=== PATIENT | male | born 1930 | race Caucasian/White ===

== ENCOUNTER 2017-06-24 19:10 | Inpatient (IN) | payer MEDICAID ==
[~2017-06-24] VITALS: Ht 165.1 cm; Wt 49.4 kg
[2017-06-24] MEDS ORDERED: ONDANSETRON 4 MG/2 ML VIAL IV ONE (19:30)
[2017-06-24] MEDS ORDERED: IV NORMAL SALINE 1000 ML BAG IV ONE ×2 (19:30→21:00)
[2017-06-24] MEDS ORDERED: LEVO250T2 PO (19:39)
[2017-06-24] MEDS ORDERED: FAMO20TA8 PO (19:39)
[2017-06-24] MEDS ORDERED: LIDO5JEL8 MM (19:39)
[2017-06-24] MEDS ORDERED: CHOL20004 PO (19:39)
[2017-06-24] MEDS ORDERED: DRON5CAP2 PO (19:39)
[2017-06-24] MEDS ORDERED: APIX2.5T PO (19:39)
[2017-06-24] MEDS ORDERED: TAMS0.4C34 PO (19:39)
[2017-06-24 20:31] LABS: BASOPHILS # (AUTO) 0.1 K/uL (0.0-8.0); BASOPHILS % (AUTO) 0.8 % (0.0-2.0); EOSINOPHILS % (AUTO) 0.4 % (0.0-7.0); HEMOGLOBIN 11.6 G/DL (14.0-18.0); LYMPHOCYTES # (AUTO) 1.7 K/UL (0.8-4.8); LYMPHOCYTES % (AUTO) 14.1 % (20.5-51.5); MEAN CORPUSCULAR HEMOGLOBIN 27.3 UUG (27.0-31.0); MEAN CORPUSCULAR HGB CONC 32 g/dL (32.0-37.0); MEAN CORPUSCULAR VOLUME 84.9 FL (82.0-92.0); MONOCYTES # (AUTO) 0.6 K/UL (0.1-1.30); MONOCYTES % (AUTO) 4.7 % (0.0-11.0); NEUTROPHILS # (AUTO) 9.4 K/UL (1.8-8.9); PLATELET COUNT (AUTO) 220 K/UL (150-450); RED BLOOD CELL COUNT(AUTO) 4.24 MIL/UL (4.7-6.1); WHITE BLOOD COUNT (AUTO) 11.8 K/UL (4.0-11.2)
[2017-06-24 20:41] LABS: *BLOOD, URINE 2+ (NEGATIVE); *CLARITY,URINE SLIGHTLY CLOUDY (CLEAR); *COLOR,URINE YELLOW (YELLOW); *KETONES,URINE NEGATIVE (NEGATIVE); *PROTEIN,URINE 2+ (NEGATIVE); *UROBILINOGEN,URINE 0.2 E.U./dl (NORMAL); LEUKOCYTE ESTERASE ,URINE 1+ (NEGATIVE); NITRITE, URINE NEGATIVE (NEGATIVE); PH,URINE 5.5 (5.0-8.0); UGLUCOSE NEGATIVE (NEGATIVE)
[2017-06-24] MEDS ORDERED: ONDANSETRON 4 MG/2 ML VIAL ONE (20:48)
[2017-06-24 20:49] LABS: ALANINE AMINOTRANSFERASE 14 U/L (16-63); ALKALINE PHOSPHATASE 136 U/L (50-136); ASPARTATE AMINOTRANSFERASE 7 U/L (15-37); BILIRUBIN,DIRECT 0.2 mg/dL (0.0-0.2); BILIRUBIN,TOTAL 0.7 mg/dL (0.2-1.0); CARBON DIOXIDE 14 mmol/L (21-32); CREATININE 3.5 mg/dL (0.6-1.3); GLUCOSE 101 mg/dL (74-106); POTASSIUM 4.7 mmol/L (3.5-5.1); TOTAL PROTEIN, SERUM 7.4 g/dL (6.4-8.2); UREA NITROGEN, BLOOD 62 mg/dL (7-18)
[2017-06-24 20:52] LABS: CHLORIDE 126 mmol/L (98-107)
[2017-06-24] MEDS ORDERED: PIPERACILLIN SODIUM/TAZOBACTAM 3.375 G in IV DEXTROSE 5% 50 ML IV ONE (21:00)
[2017-06-24 21:08] LABS: *BILIRUBIN,URIN NEGATIVE (NEGATIVE)
[2017-06-24 21:10] LABS: BACTERIA,URINE MODERATE /HPF (NONE SEEN); CALCIUM OXALATE CRYSTALS,UR MODERATE /HPF (NONE SEEN); MUCUS,URINE MANY /LPF (0-FEW)
[2017-06-24] MEDS ORDERED: PIPERACILLIN/TAZOBACTAM/D5W 50 ML IV ONE (21:23)
[2017-06-24 22:00] VITALS: BP 112/71
[2017-06-24] MEDS ORDERED: CEFTRIAXONE 1 G in IV DEXTROSE 5% 50 ML IV SCH (22:45)
[2017-06-24] MEDS ORDERED: ONDANSETRON 4 MG/2 ML VIAL IV PRN (22:45)
[2017-06-24] MEDS ORDERED: IV 1/2NS 1000 ML 1,000 ML IV PRN (22:45)
[2017-06-24] MEDS: Z GUARD REMEDY PASTE 57 GM TUBE TOP SCH (23:17)
[2017-06-24] MEDS ORDERED: CEFTRIAXONE 1 G VIAL ONE (23:19)
[2017-06-25] VITALS (7 sets, daily range): BP systolic 90–139; BP diastolic 53–65
[2017-06-25 07:49] LABS: BASOPHILS % (AUTO) 0.4 % (0.0-2.0); EOSINOPHILS % (AUTO) 0.4 % (0.0-7.0); HEMATOCRIT 26.4 % (36.7-47.1); HEMOGLOBIN 8.7 g/dL (12.5-16.3); LYMPHOCYTES # (AUTO) 1.7 K/uL (20.0-40.0); LYMPHOCYTES % (AUTO) 18.4 % (20.5-51.5); MEAN CORPUSCULAR HEMOGLOBIN 28.3 uug (23.8-33.4); MEAN CORPUSCULAR HGB CONC 33 g/dL (32.5-36.3); MEAN CORPUSCULAR VOLUME 85.9 fL (73.0-96.2); MONOCYTES # (AUTO) 0.7 K/uL (2.0-10.0); NEUTROPHILS # (AUTO) 6.9 K/uL (1.8-8.9); NEUTROPHILS % (AUTO) 73.8 % (38.5-71.5); PLATELET COUNT (AUTO) 154 K/uL (152-348); RED BLOOD CELL COUNT(AUTO) 3.07 MIL/uL (4.06-5.63); WHITE BLOOD COUNT (AUTO) 9.4 K/uL (3.6-10.2)
[2017-06-25 08:00] LABS: ALANINE AMINOTRANSFERASE 12 U/L (16-63); ALKALINE PHOSPHATASE 103 U/L (50-136); ASPARTATE AMINOTRANSFERASE 10 U/L (15-37); BILIRUBIN,TOTAL 0.7 mg/dL (0.2-1.0); CARBON DIOXIDE 15 mmol/L (21-32); CHOLESTEROL 167 mg/dL (<200); CREATININE 3.5 mg/dL (0.6-1.3); GLUCOSE 114 mg/dL (74-106); HDL CHOLESTEROL 25 mg/dL (40-60); MAGNESIUM 2.1 mg/dL (1.8-2.4); PHOSPHOROUS 4.2 mg/dL (2.5-4.9); POTASSIUM 4.6 mmol/L (3.5-5.1); TOTAL PROTEIN, SERUM 6.1 g/dL (6.4-8.2); TRIGLYCERIDES 143 MG/DL (30-150); UREA NITROGEN, BLOOD 61 mg/dL (7-18)
[2017-06-25 08:39] LABS: CHLORIDE 127 mmol/L (98-107)
[2017-06-25] MEDS ORDERED: Medication Not On Formulary EA (Apixaban (Eliquis) 2.5 MG) PO SCH (09:00)
[2017-06-25] MEDS ORDERED: Medication Not On Formulary EA (Cholecalciferol (Vitamin D3) (Vitamin D CAPSULE) 2,000 U PO SCH (09:00)
[2017-06-25] MEDS ORDERED: FAMOTIDINE 20 MG TABLET PO SCH (09:00)
[2017-06-25] MEDS ORDERED: DRONABINOL 5 MG PO SCH (09:00)
[2017-06-25 09:24] LABS: THYROID STIMULATING HORMONE 0.619 mIU/mL (0.358-3.740)
[2017-06-25] MEDS: DRONABINOL 2.5 MG CAPSULE PO SCH ×2 (09:32→17:04)
[2017-06-25] MEDS: NYSTATIN SUSPENSION 5 ML LIQUID UDC PO SCH ×4 (09:32→20:47)
[2017-06-25] MEDS: CHOLECALCIFEROL 1,000 UNIT TABLET PO SCH (09:33)
[2017-06-25] MEDS: FAMOTIDINE 20 MG TABLET PO SCH (09:33)
[2017-06-25] MEDS: Z GUARD REMEDY PASTE 57 GM TUBE TOP SCH ×2 (09:34→20:47)
[2017-06-25 09:50] LABS: IRON, SERUM 27 ug/dL (50-175)
[2017-06-25] MEDS ORDERED: APIXABAN 5 MG TABLET PO ONE (12:00)
[2017-06-25 13:00] LABS: ABG BASE EXCESS -10.6 mmol/L; ABG HCO3 12.5 mmol/L; ABG PH 7.413 (7.350-7.450); ABG PO2 98.7 mmHg (75.0-100.0); ABG SITE RIGHT BRACHIAL; ABG TOTAL HEMOGLOBIN 8.9 G/dL (13.5-18.0); COHb 1.2 % (0.5-1.5); MetHb 0.5 % (0.0-1.5); VENT MODE ROOM AIR
[2017-06-25] MEDS: APIXABAN 5 MG TABLET PO SCH (17:04)
[2017-06-25] MEDS: TAMSULOSIN HCL 0.4 MG CAP.SR.24H PO SCH (20:47)
[2017-06-25] MEDS: ATORVASTATIN 10 MG TABLET PO SCH (20:47)
[2017-06-25] MEDS: IV D5W 1000ML 1,000 ML IV PRN ×2 (22:02→22:24)
[2017-06-25] MEDS ORDERED: CEFTRIAXONE 1 G in IV DEXTROSE 5% 50 ML IV SCH (23:00)
[2017-06-26] VITALS (7 sets, daily range): BP systolic 96–151; BP diastolic 55–77
[2017-06-26 07:07] LABS: BASOPHILS % (AUTO) 0.5 % (0.0-2.0); EOSINOPHILS # (AUTO) 0.2 K/uL (0.0-0.7); EOSINOPHILS % (AUTO) 2.3 % (0.0-7.0); LYMPHOCYTES # (AUTO) 2.2 K/UL (0.8-4.8); MEAN CORPUSCULAR HEMOGLOBIN 28.1 UUG (27.0-31.0); MEAN CORPUSCULAR HGB CONC 33 g/dL (32.0-37.0); MEAN CORPUSCULAR VOLUME 86.1 FL (82.0-92.0); MONOCYTES # (AUTO) 0.7 K/UL (0.1-1.30); MONOCYTES % (AUTO) 9.5 % (0.0-11.0); NEUTROPHILS # (AUTO) 4.7 K/UL (1.8-8.9); NEUTROPHILS % (AUTO) 59.7 % (38.5-71.5); PLATELET COUNT (AUTO) 153 K/UL (150-450); WHITE BLOOD COUNT (AUTO) 7.8 K/UL (4.0-11.2)
[2017-06-26 07:25] LABS: ALANINE AMINOTRANSFERASE 11 U/L (16-63); ALKALINE PHOSPHATASE 100 U/L (50-136); ASPARTATE AMINOTRANSFERASE 7 U/L (15-37); BILIRUBIN,TOTAL 0.4 mg/dL (0.2-1.0); CARBON DIOXIDE 14 mmol/L (21-32); CREATININE 3.2 mg/dL (0.6-1.3); GLUCOSE 93 mg/dL (74-106); MAGNESIUM 2.1 mg/dL (1.8-2.4); PHOSPHOROUS 3.3 mg/dL (2.5-4.9); POTASSIUM 3.7 mmol/L (3.5-5.1); TOTAL PROTEIN, SERUM 6.2 g/dL (6.4-8.2); UREA NITROGEN, BLOOD 56 mg/dL (7-18)
[2017-06-26 07:41] LABS: HEMATOCRIT 25.8 % (40-50); HEMOGLOBIN 8.3 G/DL (14.0-18.0); RED BLOOD CELL COUNT(AUTO) 3.01 MIL/UL (4.7-6.1)
[2017-06-26 08:40] LABS: CHLORIDE 129 mmol/L (98-107)
[2017-06-26] MEDS: APIXABAN 5 MG TABLET PO SCH (08:45)
[2017-06-26] MEDS: CHOLECALCIFEROL 1,000 UNIT TABLET PO SCH (08:46)
[2017-06-26] MEDS: DRONABINOL 2.5 MG CAPSULE PO SCH ×2 (08:46→18:12)
[2017-06-26] MEDS: FAMOTIDINE 20 MG TABLET PO SCH (08:46)
[2017-06-26] MEDS: NYSTATIN SUSPENSION 5 ML LIQUID UDC PO SCH ×4 (08:46→20:26)
[2017-06-26] MEDS: Z GUARD REMEDY PASTE 57 GM TUBE TOP SCH ×2 (08:54→20:26)
[2017-06-26] MEDS ORDERED: PIPERACILLIN/TAZOBACTAM/D5W 50 ML IV SCH (09:15)
[2017-06-26] MEDS: PIPERACILLIN/TAZOBACTAM/D5W 2.25 G in PREMIXED 1 EACH IV SCH ×3 (10:36→21:44)
[2017-06-26] MEDS: IV D5W 1000ML 1,000 ML IV PRN (10:40)
[2017-06-26] MEDS ORDERED: IV D5W 1000ML 1,000 ML IV ONE (13:15)
[2017-06-26] MEDS: MUPIROCIN 2% OINT 22 GM TUBE NS SCH ×2 (16:11→20:25)
[2017-06-26 17:14] LABS: *BILIRUBIN,URIN NEGATIVE (NEGATIVE); *BLOOD, URINE 2+ (NEGATIVE); *COLOR,URINE YELLOW (YELLOW); *KETONES,URINE NEGATIVE (NEGATIVE); *PROTEIN,URINE 1+ (NEGATIVE); *UROBILINOGEN,URINE 0.2 E.U./dl (NORMAL); LEUKOCYTE ESTERASE ,URINE 1+ (NEGATIVE); NITRITE, URINE NEGATIVE (NEGATIVE); PH,URINE 5.5 (5.0-8.0); UGLUCOSE NEGATIVE (NEGATIVE)
[2017-06-26 17:15] LABS: *CLARITY,URINE SLIGHTLY HAZY (CLEAR)
[2017-06-26 17:18] LABS: *CREATININE,URINE 28.1 mg/dL (30-125); *URINE TOTAL PROTEIN RANDOM 43.5 mg/dL (<150/24HR)
[2017-06-26 17:24] LABS: SQUAMOUS EPITHELIAL CELL,UR FEW /HPF (NONE SEEN)
[2017-06-26 17:25] LABS: BACTERIA,URINE FEW /HPF (NONE SEEN)
[2017-06-26] MEDS: ATORVASTATIN 10 MG TABLET PO SCH (20:25)
[2017-06-26] MEDS: TAMSULOSIN HCL 0.4 MG CAP.SR.24H PO SCH (20:25)
[2017-06-27 04:50] VITALS: BP 101/63
[2017-06-27] MEDS: PIPERACILLIN/TAZOBACTAM/D5W 2.25 G in PREMIXED 1 EACH IV SCH ×2 (05:16→14:32)
[2017-06-27 07:23] LABS: ALANINE AMINOTRANSFERASE 12 U/L (16-63); ALKALINE PHOSPHATASE 87 U/L (50-136); ASPARTATE AMINOTRANSFERASE 6 U/L (15-37); BILIRUBIN,TOTAL 0.7 mg/dL (0.2-1.0); CARBON DIOXIDE 15 mmol/L (21-32); CHLORIDE 122 mmol/L (98-107); CREATININE 2.8 mg/dL (0.6-1.3); GLUCOSE 84 mg/dL (74-106); MAGNESIUM 1.9 mg/dL (1.8-2.4); PHOSPHOROUS 3.6 mg/dL (2.5-4.9); POTASSIUM 3.7 mmol/L (3.5-5.1); TOTAL PROTEIN, SERUM 5.7 g/dL (6.4-8.2); UREA NITROGEN, BLOOD 42 mg/dL (7-18)
[2017-06-27 08:06] LABS: BASOPHILS % (AUTO) 0.8 % (0.0-2.0); EOSINOPHILS # (AUTO) 0.2 K/uL (0.0-0.7); EOSINOPHILS % (AUTO) 3.7 % (0.0-7.0); HEMATOCRIT 24.3 % (36.7-47.1); LYMPHOCYTES # (AUTO) 2.3 K/uL (20.0-40.0); LYMPHOCYTES % (AUTO) 39.1 % (20.5-51.5); MEAN CORPUSCULAR HEMOGLOBIN 28.2 uug (23.8-33.4); MEAN CORPUSCULAR HGB CONC 33 g/dL (32.5-36.3); MEAN CORPUSCULAR VOLUME 85.9 fL (73.0-96.2); MONOCYTES # (AUTO) 0.6 K/uL (2.0-10.0); MONOCYTES % (AUTO) 10.3 % (0.0-11.0); NEUTROPHILS # (AUTO) 2.7 K/uL (1.8-8.9); NEUTROPHILS % (AUTO) 46.1 % (38.5-71.5); PLATELET COUNT (AUTO) 131 K/uL (152-348); RED BLOOD CELL COUNT(AUTO) 2.83 MIL/uL (4.06-5.63)
[2017-06-27 08:08] LABS: WHITE BLOOD COUNT (AUTO) 5.8 K/uL (3.6-10.2)
[2017-06-27 08:19] VITALS: BP 95/64
[2017-06-27] MEDS: Z GUARD REMEDY PASTE 57 GM TUBE TOP SCH ×2 (09:00→20:10)
[2017-06-27] MEDS: DRONABINOL 2.5 MG CAPSULE PO SCH ×2 (10:26→17:00)
[2017-06-27] MEDS: CHOLECALCIFEROL 1,000 UNIT TABLET PO SCH (10:27)
[2017-06-27] MEDS: FAMOTIDINE 20 MG TABLET PO SCH (10:27)
[2017-06-27] MEDS: NYSTATIN SUSPENSION 5 ML LIQUID UDC PO SCH ×4 (10:36→20:09)
[2017-06-27 11:02] VITALS: BP 119/51
[2017-06-27] MEDS: MUPIROCIN 2% OINT 22 GM TUBE NS SCH ×2 (12:55→20:13)
[2017-06-27 15:22] VITALS: BP 114/60
[2017-06-27] MEDS: MEROPENEM 500 MG in IV NORMAL SALINE 50 ML IV SCH (17:25)
[2017-06-27] MEDS: LINEZOLID IV 600 MG in PREMIXED 1 EACH IV SCH (18:19)
[2017-06-27] MEDS: ACETAMINOPHEN 325 MG TABLET PO PRN (20:09)
[2017-06-27] MEDS: ATORVASTATIN 10 MG TABLET PO SCH (20:09)
[2017-06-27] MEDS: TAMSULOSIN HCL 0.4 MG CAP.SR.24H PO SCH (20:09)
[2017-06-27 20:31] VITALS: BP 95/59
[2017-06-28 04:10] VITALS: BP 105/63
[2017-06-28] MEDS: LINEZOLID IV 600 MG in PREMIXED 1 EACH IV SCH ×2 (05:27→19:00)
[2017-06-28] MEDS: MEROPENEM 500 MG in IV NORMAL SALINE 50 ML IV SCH ×2 (05:27→17:57)
[2017-06-28] MEDS: Z GUARD REMEDY PASTE 57 GM TUBE TOP SCH ×2 (05:27→20:14)
[2017-06-28] MEDS: NYSTATIN SUSPENSION 5 ML LIQUID UDC PO SCH ×4 (09:06→20:12)
[2017-06-28] MEDS: CHOLECALCIFEROL 1,000 UNIT TABLET PO SCH (09:06)
[2017-06-28] MEDS: FAMOTIDINE 20 MG TABLET PO SCH (09:06)
[2017-06-28] MEDS: MUPIROCIN 2% OINT 22 GM TUBE NS SCH ×2 (10:09→20:15)
[2017-06-28] MEDS: DRONABINOL 2.5 MG CAPSULE PO SCH ×2 (10:09→17:54)
[2017-06-28 11:41] VITALS: BP 123/51
[2017-06-28 15:49] VITALS: BP 98/60
[2017-06-28 20:09] VITALS: BP 101/65
[2017-06-28] MEDS: ATORVASTATIN 10 MG TABLET PO SCH (20:12)
[2017-06-28] MEDS: TAMSULOSIN HCL 0.4 MG CAP.SR.24H PO SCH (20:13)
[2017-06-28] MEDS: LACTOBACILLUS RHAMNOSUS GG 1 EACH CAPSULE PO SCH (20:13)
[2017-06-29 04:05] VITALS: BP 111/63
[2017-06-29] MEDS: MEROPENEM 500 MG in IV NORMAL SALINE 50 ML IV SCH ×2 (05:51→17:08)
[2017-06-29] MEDS: LINEZOLID IV 600 MG in PREMIXED 1 EACH IV SCH ×2 (05:51→17:45)
[2017-06-29 06:44] LABS: BASOPHILS % (AUTO) 0.6 % (0.0-2.0); EOSINOPHILS # (AUTO) 0.2 K/uL (0.0-0.7); EOSINOPHILS % (AUTO) 3.3 % (0.0-7.0); HEMATOCRIT 27.1 % (40-50); HEMOGLOBIN 8.8 G/DL (14.0-18.0); LYMPHOCYTES # (AUTO) 2.8 K/UL (0.8-4.8); MEAN CORPUSCULAR HEMOGLOBIN 28.4 UUG (27.0-31.0); MEAN CORPUSCULAR HGB CONC 33 g/dL (32.0-37.0); MEAN CORPUSCULAR VOLUME 86.9 FL (82.0-92.0); MONOCYTES # (AUTO) 0.8 K/UL (0.1-1.30); MONOCYTES % (AUTO) 10.9 % (0.0-11.0); NEUTROPHILS # (AUTO) 3.2 K/UL (1.8-8.9); NEUTROPHILS % (AUTO) 45.2 % (38.5-71.5); PLATELET COUNT (AUTO) 147 K/UL (150-450); RED BLOOD CELL COUNT(AUTO) 3.12 MIL/UL (4.7-6.1)
[2017-06-29 07:03] LABS: CARBON DIOXIDE 16 mmol/L (21-32); CHLORIDE 117 mmol/L (98-107); POTASSIUM 3.7 mmol/L (3.5-5.1)
[2017-06-29 07:04] LABS: ALANINE AMINOTRANSFERASE 10 U/L (16-63); ALKALINE PHOSPHATASE 88 U/L (50-136); ASPARTATE AMINOTRANSFERASE 6 U/L (15-37); BILIRUBIN,TOTAL 0.6 mg/dL (0.2-1.0); CREATININE 2.6 mg/dL (0.6-1.3); GLUCOSE 82 mg/dL (74-106); MAGNESIUM 1.9 mg/dL (1.8-2.4); PHOSPHOROUS 3.2 mg/dL (2.5-4.9); TOTAL PROTEIN, SERUM 5.6 g/dL (6.4-8.2); UREA NITROGEN, BLOOD 29 mg/dL (7-18)
[2017-06-29] MEDS: MUPIROCIN 2% OINT 22 GM TUBE NS SCH ×2 (08:49→20:09)
[2017-06-29] MEDS: Z GUARD REMEDY PASTE 57 GM TUBE TOP SCH ×2 (09:13→20:08)
[2017-06-29] MEDS: LACTOBACILLUS RHAMNOSUS GG 1 EACH CAPSULE PO SCH ×2 (09:29→20:08)
[2017-06-29] MEDS: CHOLECALCIFEROL 1,000 UNIT TABLET PO SCH (09:30)
[2017-06-29] MEDS: NYSTATIN SUSPENSION 5 ML LIQUID UDC PO SCH ×4 (09:32→20:08)
[2017-06-29] MEDS: DRONABINOL 2.5 MG CAPSULE PO SCH ×2 (09:33→16:23)
[2017-06-29] MEDS: FAMOTIDINE 20 MG TABLET PO SCH (09:33)
[2017-06-29 12:01] VITALS: BP 98/54
[2017-06-29 16:07] VITALS: BP 100/58
[2017-06-29] MEDS: ATORVASTATIN 10 MG TABLET PO SCH (20:08)
[2017-06-29] MEDS: TAMSULOSIN HCL 0.4 MG CAP.SR.24H PO SCH (20:08)
[2017-06-29 20:55] VITALS: BP 110/64
[2017-06-30 04:55] VITALS: BP 115/67
[2017-06-30] MEDS: MEROPENEM 500 MG in IV NORMAL SALINE 50 ML IV SCH ×2 (05:30→17:06)
[2017-06-30] MEDS: LINEZOLID IV 600 MG in PREMIXED 1 EACH IV SCH (05:30)
[2017-06-30] MEDS: LACTOBACILLUS RHAMNOSUS GG 1 EACH CAPSULE PO SCH ×2 (08:20→21:48)
[2017-06-30] MEDS: DRONABINOL 2.5 MG CAPSULE PO SCH ×2 (08:20→16:05)
[2017-06-30] MEDS: CHOLECALCIFEROL 1,000 UNIT TABLET PO SCH (08:21)
[2017-06-30] MEDS: NYSTATIN SUSPENSION 5 ML LIQUID UDC PO SCH ×4 (08:21→21:48)
[2017-06-30] MEDS: MUPIROCIN 2% OINT 22 GM TUBE NS SCH ×2 (08:21→21:50)
[2017-06-30] MEDS: FAMOTIDINE 20 MG TABLET PO SCH (08:21)
[2017-06-30] MEDS: Z GUARD REMEDY PASTE 57 GM TUBE TOP SCH ×2 (08:22→21:48)
[2017-06-30 11:03] VITALS: BP 125/61
[2017-06-30 15:22] VITALS: BP 119/67
[2017-06-30] MEDS: LINEZOLID 600 MG TABLET PO SCH (17:06)
[2017-06-30 18:24] LABS: *OCCULT BLOOD STOOL NEGATIVE (NEGATIVE)
[2017-06-30 19:10] VITALS: BP 113/59
[2017-06-30] MEDS: TAMSULOSIN HCL 0.4 MG CAP.SR.24H PO SCH (21:48)
[2017-06-30] MEDS: ATORVASTATIN 10 MG TABLET PO SCH (21:48)
[2017-06-30] MEDS: ACETAMINOPHEN 325 MG TABLET PO PRN (22:54)
[2017-07-01] MEDS: MEROPENEM 500 MG in IV NORMAL SALINE 50 ML IV SCH ×2 (05:46→17:58)
[2017-07-01] MEDS: LINEZOLID 600 MG TABLET PO SCH ×2 (05:46→17:59)
[2017-07-01 06:13] VITALS: BP 119/60
[2017-07-01] MEDS: DRONABINOL 2.5 MG CAPSULE PO SCH ×2 (08:21→16:55)
[2017-07-01] MEDS: LACTOBACILLUS RHAMNOSUS GG 1 EACH CAPSULE PO SCH ×2 (08:22→21:12)
[2017-07-01] MEDS: CHOLECALCIFEROL 1,000 UNIT TABLET PO SCH (08:22)
[2017-07-01] MEDS: MUPIROCIN 2% OINT 22 GM TUBE NS SCH ×2 (08:22→21:13)
[2017-07-01] MEDS: FAMOTIDINE 20 MG TABLET PO SCH (08:22)
[2017-07-01] MEDS: NYSTATIN SUSPENSION 5 ML LIQUID UDC PO SCH ×4 (08:22→21:12)
[2017-07-01] MEDS: Z GUARD REMEDY PASTE 57 GM TUBE TOP SCH ×2 (08:23→21:13)
[2017-07-01 09:54] LABS: BASOPHILS % (AUTO) 0.7 % (0.0-2.0); EOSINOPHILS # (AUTO) 0.1 K/uL (0.0-0.7); EOSINOPHILS % (AUTO) 2.2 % (0.0-7.0); HEMATOCRIT 29.8 % (40-50); HEMOGLOBIN 9.5 G/DL (14.0-18.0); LYMPHOCYTES # (AUTO) 2.3 K/UL (0.8-4.8); MEAN CORPUSCULAR HEMOGLOBIN 27.4 UUG (27.0-31.0); MEAN CORPUSCULAR HGB CONC 32 g/dL (32.0-37.0); MEAN CORPUSCULAR VOLUME 85.8 FL (82.0-92.0); MONOCYTES # (AUTO) 0.7 K/UL (0.1-1.30); MONOCYTES % (AUTO) 10.9 % (0.0-11.0); NEUTROPHILS # (AUTO) 3.6 K/UL (1.8-8.9); NEUTROPHILS % (AUTO) 51.2 % (38.5-71.5); PLATELET COUNT (AUTO) 182 K/UL (150-450); RED BLOOD CELL COUNT(AUTO) 3.48 MIL/UL (4.7-6.1); WHITE BLOOD COUNT (AUTO) 6.7 K/UL (4.0-11.2)
[2017-07-01 10:09] LABS: ALANINE AMINOTRANSFERASE 14 U/L (16-63); ALKALINE PHOSPHATASE 96 U/L (50-136); ASPARTATE AMINOTRANSFERASE 12 U/L (15-37); BILIRUBIN,TOTAL 0.5 mg/dL (0.2-1.0); CARBON DIOXIDE 17 mmol/L (21-32); CHLORIDE 114 mmol/L (98-107); CREATININE 2.3 mg/dL (0.6-1.3); GLUCOSE 98 mg/dL (74-106); POTASSIUM 4.1 mmol/L (3.5-5.1); TOTAL PROTEIN, SERUM 6.1 g/dL (6.4-8.2); UREA NITROGEN, BLOOD 24 mg/dL (7-18)
[2017-07-01 11:31] VITALS: BP 119/66
[2017-07-01 15:51] VITALS: BP 110/65
[2017-07-01 20:00] VITALS: BP 101/69
[2017-07-01] MEDS: TAMSULOSIN HCL 0.4 MG CAP.SR.24H PO SCH (21:12)
[2017-07-01] MEDS: ATORVASTATIN 10 MG TABLET PO SCH (21:12)
[2017-07-02] MEDS: MEROPENEM 500 MG in IV NORMAL SALINE 50 ML IV SCH (05:21)
[2017-07-02] MEDS: LINEZOLID 600 MG TABLET PO SCH ×2 (05:22→17:09)
[2017-07-02] MEDS: DRONABINOL 2.5 MG CAPSULE PO SCH ×2 (08:33→16:40)
[2017-07-02] MEDS: FAMOTIDINE 20 MG TABLET PO SCH (08:34)
[2017-07-02] MEDS: NYSTATIN SUSPENSION 5 ML LIQUID UDC PO SCH ×2 (08:34→12:21)
[2017-07-02] MEDS: CHOLECALCIFEROL 1,000 UNIT TABLET PO SCH (08:34)
[2017-07-02] MEDS: LACTOBACILLUS RHAMNOSUS GG 1 EACH CAPSULE PO SCH (08:34)
[2017-07-02] MEDS: MUPIROCIN 2% OINT 22 GM TUBE NS SCH (08:35)
[2017-07-02] MEDS: Z GUARD REMEDY PASTE 57 GM TUBE TOP SCH (08:35)
[2017-07-02 12:00] VITALS: BP 96/52
[2017-07-02 12:53] LABS: BASOPHILS # (AUTO) 0.1 K/uL (0.0-8.0); BASOPHILS % (AUTO) 1.7 % (0.0-2.0); EOSINOPHILS # (AUTO) 0.2 K/uL (0.0-0.7); EOSINOPHILS % (AUTO) 2.6 % (0.0-7.0); HEMATOCRIT 31.4 % (40-50); LYMPHOCYTES # (AUTO) 2.3 K/UL (0.8-4.8); LYMPHOCYTES % (AUTO) 33.7 % (20.5-51.5); MEAN CORPUSCULAR HGB CONC 32 g/dL (32.0-37.0); MEAN CORPUSCULAR VOLUME 84.6 FL (82.0-92.0); MONOCYTES # (AUTO) 0.6 K/UL (0.1-1.30); MONOCYTES % (AUTO) 8.9 % (0.0-11.0); NEUTROPHILS # (AUTO) 3.7 K/UL (1.8-8.9); NEUTROPHILS % (AUTO) 53.1 % (38.5-71.5); PLATELET COUNT (AUTO) 195 K/UL (150-450); RED BLOOD CELL COUNT(AUTO) 3.72 MIL/UL (4.7-6.1); WHITE BLOOD COUNT (AUTO) 6.9 K/UL (4.0-11.2)
[2017-07-02 13:06] LABS: ALANINE AMINOTRANSFERASE 14 U/L (16-63); ALKALINE PHOSPHATASE 95 U/L (50-136); ASPARTATE AMINOTRANSFERASE 14 U/L (15-37); BILIRUBIN,TOTAL 0.5 mg/dL (0.2-1.0); CARBON DIOXIDE 16 mmol/L (21-32); CHLORIDE 116 mmol/L (98-107); CREATININE 2.2 mg/dL (0.6-1.3); GLUCOSE 113 mg/dL (74-106); MAGNESIUM 1.9 mg/dL (1.8-2.4); TOTAL PROTEIN, SERUM 6.1 g/dL (6.4-8.2); UREA NITROGEN, BLOOD 26 mg/dL (7-18)
[2017-07-02 16:07] VITALS: BP 137/63
[2017-07-02] MEDS ORDERED: ERTA1VIA2 IV (16:26)
[2017-07-02] MEDS ORDERED: MENT71OI TOP (16:26)
[2017-07-02] MEDS ORDERED: LINE600T PO (16:26)
[2017-07-02] MEDS ORDERED: FOLI0.8T2 PO (16:26)
[2017-07-02] MEDS ORDERED: ATOR10TA PO (16:26)
[2017-07-02] MEDS ORDERED: MUPI22OI2 NS (16:26)
[2017-07-02] MEDS ORDERED: TAMS-3 PO (16:26)
[2017-07-02] MEDS ORDERED: FAMO20TA8 PO (16:26)
[2017-07-02] MEDS ORDERED: DRON2.5C3 PO (16:26)
== END 2017-07-02 18:20 | DRG 720 ==
LOC: ER 19:10 → DOU 22:06 → TELE-TD 22:25 → TELE 06-26 09:30 → MED 06-27 14:51
PROVIDERS: ADMIT Internal Medicine; ATTEND Internal Medicine
PROC: 05H533Z Insertion of Infusion Device into Right Subclavian Vein, Percutaneous Approach (ICD-10-PCS; principal; 2017-06-25)
DX: A41.81 Sepsis due to Enterococcus (principal); N17.0 Acute kidney failure with tubular necrosis; E43 Unspecified severe protein-calorie malnutrition; E87.0 Hyperosmolality and hypernatremia; E87.2 Acidosis; D68.59 Other primary thrombophilia; N39.0 Urinary tract infection, site not specified; F03.90 Unspecified dementia, unspecified severity, without behavioral disturbance, psychotic disturbance, mood disturbance, and anxiety; E83.51 Hypocalcemia; I48.91 Unspecified atrial fibrillation; E86.0 Dehydration; D63.8 Anemia in other chronic diseases classified elsewhere; Z16.21 Resistance to vancomycin; B96.20 Unspecified Escherichia coli [E. coli] as the cause of diseases classified elsewhere; Z16.12 Extended spectrum beta lactamase (ESBL) resistance; Z68.1 Body mass index [BMI] 19.9 or less, adult; N40.1 Benign prostatic hyperplasia with lower urinary tract symptoms; Z22.322 Carrier or suspected carrier of Methicillin resistant Staphylococcus aureus; Z79.01 Long term (current) use of anticoagulants; E78.5 Hyperlipidemia, unspecified; F41.9 Anxiety disorder, unspecified; F31.9 Bipolar disorder, unspecified; Z87.891 Personal history of nicotine dependence; Z87.440 Personal history of urinary (tract) infections; M89.9 Disorder of bone, unspecified; R73.9 Hyperglycemia, unspecified; M41.9 Scoliosis, unspecified; M51.36 Other intervertebral disc degeneration, lumbar region
CPT/HCPCS: 36415; 36600; 70030-TC; 71010; 83550; 83605; 83690; 83735; 84100; 84153; 84156; 84300; 84443; 85025; 85730; 87040; 87077; 87086; 92526; 92610; 93005; 93307; 97110; 97530; A4663; C1758; J0696; J2020; J2185; J2405; J2543; J3490; J7030; J7060; Q0167

== ENCOUNTER 2017-09-14 15:00 | Inpatient (IN) | payer MEDICAID ==
[~2017-09-14] VITALS: Ht 165.1 cm; Wt 54.4 kg
[~2017-09-14 15:00] MED LIST: APIX2.5T PO; ATOR10TA PO; CHOL20004 PO; DRON2.5C3 PO; ERTA1VIA2 IV; FAMO20TA8 PO; FOLI0.8T2 PO; LIDO5JEL8 MM; LINE600T PO; MENT71OI TOP; MUPI22OI2 NS; TAMS-3 PO
[2017-09-14 15:33] LABS: *BILIRUBIN,URIN NEGATIVE (NEGATIVE); *BLOOD, URINE 1+ (NEGATIVE); *CLARITY,URINE CLOUDY (CLEAR); *COLOR,URINE YELLOW (YELLOW); *KETONES,URINE NEGATIVE (NEGATIVE); *PROTEIN,URINE 1+ (NEGATIVE); *UROBILINOGEN,URINE 0.2 E.U./dl (NORMAL); LEUKOCYTE ESTERASE ,URINE 3+ (NEGATIVE); NITRITE, URINE POSITIVE (NEGATIVE); UGLUCOSE NEGATIVE (NEGATIVE)
[2017-09-14 15:40] LABS: HEMATOCRIT 28.4 % (36.7-47.1); HEMOGLOBIN 9.3 g/dL (12.5-16.3); MEAN CORPUSCULAR VOLUME 89.7 fL (73.0-96.2); RED BLOOD CELL COUNT(AUTO) 3.16 MIL/uL (4.06-5.63); WHITE BLOOD COUNT (AUTO) 7.9 K/uL (3.6-10.2)
[2017-09-14 15:41] LABS: BASOPHILS # (AUTO) 0.1 K/uL (0.0-8.0); BASOPHILS % (AUTO) 0.9 % (0.0-2.0); CARBON DIOXIDE 23 mmol/L (21-32); CHLORIDE 106 mmol/L (98-107); CREATININE 1.5 mg/dL (0.6-1.3); EOSINOPHILS # (AUTO) 0.1 K/uL (0.0-0.7); EOSINOPHILS % (AUTO) 1.8 % (0.0-7.0); GLUCOSE 81 mg/dL (74-106); LYMPHOCYTES # (AUTO) 2.2 K/uL (20.0-40.0); LYMPHOCYTES % (AUTO) 27.7 % (20.5-51.5); MEAN CORPUSCULAR HEMOGLOBIN 29.4 uug (23.8-33.4); MEAN CORPUSCULAR HGB CONC 33 g/dL (32.5-36.3); MONOCYTES # (AUTO) 0.9 K/uL (2.0-10.0); MONOCYTES % (AUTO) 11.2 % (0.0-11.0); NEUTROPHILS # (AUTO) 4.6 K/uL (1.8-8.9); NEUTROPHILS % (AUTO) 58.4 % (38.5-71.5); PLATELET COUNT (AUTO) 268 K/uL (152-348); POTASSIUM 3.6 mmol/L (3.5-5.1); UREA NITROGEN, BLOOD 18 mg/dL (7-18)
[2017-09-14 15:46] LABS: ALANINE AMINOTRANSFERASE 11 U/L (16-63); ALKALINE PHOSPHATASE 82 U/L (50-136); ASPARTATE AMINOTRANSFERASE 10 U/L (15-37); BILIRUBIN,DIRECT 0.1 mg/dL (0.0-0.2); BILIRUBIN,TOTAL 0.2 mg/dL (0.2-1.0); TOTAL PROTEIN, SERUM 5.4 g/dL (6.4-8.2)
[2017-09-14 15:54] LABS: BACTERIA,URINE MANY /HPF (NONE SEEN); SQUAMOUS EPITHELIAL CELL,UR FEW /HPF (NONE SEEN); WBC,URINE TNTC /HPF (0-3)
[2017-09-14] MEDS ORDERED: CEFTRIAXONE 1 G in IV DEXTROSE 5% 50 ML IV ONE (16:00)
[2017-09-14] MEDS ORDERED: CEFTRIAXONE 1 G VIAL ONE (16:19)
[2017-09-14 17:30] VITALS: BP 117/75
[2017-09-14] MEDS ORDERED: IV NS 1000 ML 1,000 ML IV PRN (18:49)
[2017-09-14] MEDS ORDERED: ACETAMINOPHEN 325 MG TABLET PO PRN (19:00)
[2017-09-14] MEDS ORDERED: ZOLPIDEM 5 MG TABLET PO PRN (19:00)
[2017-09-14] MEDS ORDERED: HYDROCODONE/APAP 5-325MG TABLET PO PRN (19:00)
[2017-09-14] MEDS ORDERED: Z GUARD REMEDY PASTE 57 GM TUBE TOP PRN (19:00)
[2017-09-14] MEDS ORDERED: MAGNESIUM HYDROXIDE 30 ML LIQUID UDC PO PRN (19:00)
[2017-09-14] MEDS ORDERED: ONDANSETRON 4 MG/2 ML VIAL IV PRN (19:00)
[2017-09-14 20:00] VITALS: BP 138/76
[2017-09-14] MEDS: Z GUARD REMEDY PASTE 57 GM TUBE TOP SCH (20:59)
[2017-09-14] MEDS ORDERED: ATORVASTATIN 10 MG TABLET PO SCH (21:00)
[2017-09-14] MEDS ORDERED: TAMSULOSIN HCL 0.4 MG CAP.SR.24H PO SCH (21:00)
[2017-09-14] MEDS: METRONIDAZOLE 500 MG TABLET PO SCH (21:01)
[2017-09-15 04:00] VITALS: BP 101/60
[2017-09-15] MEDS: METRONIDAZOLE 500 MG TABLET PO SCH ×5 (05:55→22:00)
[2017-09-15] MEDS: APIXABAN 5 MG TABLET PO SCH ×4 (08:44→17:41)
[2017-09-15] MEDS: FOLIC ACID/VITAMIN B COMP W-C TABLET PO SCH ×2 (08:44→08:56)
[2017-09-15] MEDS: Z GUARD REMEDY PASTE 57 GM TUBE TOP SCH ×2 (08:45→21:32)
[2017-09-15] MEDS: IV NS 1000 ML 1,000 ML IV SCH (11:35)
[2017-09-15 11:44] VITALS: BP 89/48
[2017-09-15] MEDS ORDERED: ONDANSETRON 4 MG/2 ML VIAL IV PRN (13:15)
[2017-09-15] MEDS ORDERED: Z GUARD REMEDY PASTE 57 GM TUBE TOP PRN (13:15)
[2017-09-15] MEDS ORDERED: ACETAMINOPHEN 325 MG TABLET PO PRN (13:15)
[2017-09-15] MEDS ORDERED: HYDROCODONE/APAP 5-325MG TABLET PO PRN (13:15)
[2017-09-15] MEDS ORDERED: ZOLPIDEM 5 MG TABLET PO PRN (13:15)
[2017-09-15 14:01] LABS: BASOPHILS % (AUTO) 0.5 % (0.0-2.0); EOSINOPHILS # (AUTO) 0.1 K/uL (0.0-0.7); EOSINOPHILS % (AUTO) 1.7 % (0.0-7.0); HEMATOCRIT 27.1 % (36.7-47.1); HEMOGLOBIN 8.9 g/dL (12.5-16.3); LYMPHOCYTES # (AUTO) 2.1 K/uL (20.0-40.0); LYMPHOCYTES % (AUTO) 29.7 % (20.5-51.5); MEAN CORPUSCULAR HEMOGLOBIN 29.6 uug (23.8-33.4); MEAN CORPUSCULAR HGB CONC 33 g/dL (32.5-36.3); MEAN CORPUSCULAR VOLUME 90.1 fL (73.0-96.2); MONOCYTES # (AUTO) 0.6 K/uL (2.0-10.0); MONOCYTES % (AUTO) 8.9 % (0.0-11.0); NEUTROPHILS # (AUTO) 4.2 K/uL (1.8-8.9); NEUTROPHILS % (AUTO) 59.2 % (38.5-71.5); PLATELET COUNT (AUTO) 264 K/uL (152-348); WHITE BLOOD COUNT (AUTO) 7.1 K/uL (3.6-10.2)
[2017-09-15 14:11] LABS: CARBON DIOXIDE 23 mmol/L (21-32); CHLORIDE 107 mmol/L (98-107); CREATININE 1.3 mg/dL (0.6-1.3); GLUCOSE 94 mg/dL (74-106); MAGNESIUM 1.8 mg/dL (1.8-2.4); PHOSPHOROUS 3.3 mg/dL (2.5-4.9); POTASSIUM 3.6 mmol/L (3.5-5.1); UREA NITROGEN, BLOOD 17 mg/dL (7-18)
[2017-09-15 14:22] LABS: THYROID STIMULATING HORMONE 0.861 mIU/mL (0.358-3.740)
[2017-09-15 14:25] LABS: HDL CHOLESTEROL 36 mg/dL (40-60); TRIGLYCERIDES 100 MG/DL (30-150)
[2017-09-15 15:25] LABS: CHOLESTEROL 130 mg/dL (<200)
[2017-09-15 15:32] VITALS: BP 109/61
[2017-09-15] MEDS: CEFTRIAXONE 1 G in IV DEXTROSE 5% 50 ML IV SCH (17:32)
[2017-09-15 20:00] VITALS: BP 99/58
[2017-09-15] MEDS: ATORVASTATIN 10 MG TABLET PO SCH ×2 (21:00→21:31)
[2017-09-15] MEDS: TAMSULOSIN HCL 0.4 MG CAP.SR.24H PO SCH ×2 (21:00→21:31)
[2017-09-16] MEDS: IV NS 1000 ML 1,000 ML IV SCH ×2 (01:01→14:28)
[2017-09-16 05:30] VITALS: BP 102/61
[2017-09-16] MEDS: METRONIDAZOLE 500 MG TABLET PO SCH ×3 (05:35→14:00)
[2017-09-16] MEDS: FOLIC ACID/VITAMIN B COMP W-C TABLET PO SCH (09:00)
[2017-09-16] MEDS: APIXABAN 5 MG TABLET PO SCH ×2 (09:00→16:43)
[2017-09-16] MEDS: Z GUARD REMEDY PASTE 57 GM TUBE TOP SCH ×2 (09:21→20:53)
[2017-09-16 11:30] VITALS: BP 108/70
[2017-09-16] MEDS: CEFTRIAXONE 1 G in IV DEXTROSE 5% 50 ML IV SCH (15:34)
[2017-09-16 15:53] VITALS: BP 124/68
[2017-09-16 16:01] LABS: CARBON DIOXIDE 22 mmol/L (21-32); CHLORIDE 110 mmol/L (98-107); CREATININE 1.3 mg/dL (0.6-1.3); GLUCOSE 105 mg/dL (74-106); POTASSIUM 3.8 mmol/L (3.5-5.1); UREA NITROGEN, BLOOD 15 mg/dL (7-18)
[2017-09-16 16:03] LABS: BASOPHILS # (AUTO) 0.1 K/uL (0.0-8.0); BASOPHILS % (AUTO) 1.2 % (0.0-2.0); EOSINOPHILS # (AUTO) 0.1 K/uL (0.0-0.7); EOSINOPHILS % (AUTO) 1.9 % (0.0-7.0); HEMATOCRIT 27.5 % (36.7-47.1); LYMPHOCYTES # (AUTO) 1.9 K/uL (20.0-40.0); LYMPHOCYTES % (AUTO) 26.2 % (20.5-51.5); MEAN CORPUSCULAR HEMOGLOBIN 29.9 uug (23.8-33.4); MEAN CORPUSCULAR HGB CONC 33 g/dL (32.5-36.3); MEAN CORPUSCULAR VOLUME 91.5 fL (73.0-96.2); MONOCYTES # (AUTO) 0.6 K/uL (2.0-10.0); MONOCYTES % (AUTO) 8.3 % (0.0-11.0); NEUTROPHILS # (AUTO) 4.5 K/uL (1.8-8.9); NEUTROPHILS % (AUTO) 62.4 % (38.5-71.5); PLATELET COUNT (AUTO) 248 K/uL (152-348); WHITE BLOOD COUNT (AUTO) 7.3 K/uL (3.6-10.2)
[2017-09-16 20:40] VITALS: BP 127/73
[2017-09-16] MEDS: TAMSULOSIN HCL 0.4 MG CAP.SR.24H PO SCH (20:52)
[2017-09-16] MEDS: ATORVASTATIN 10 MG TABLET PO SCH (20:53)
[2017-09-16] MEDS: METRONIDAZOLE 500 MG/NS 100ML 500 MG in PREMIXED 1 EACH IV SCH (22:07)
[2017-09-16] MEDS ORDERED: METRONIDAZOLE 500 MG/NS 100ML 200 ML IV ONE (22:21)
[2017-09-17] MEDS: IV NS 1000 ML 1,000 ML IV SCH ×2 (03:41→16:24)
[2017-09-17 04:00] VITALS: BP 124/73
[2017-09-17] MEDS: METRONIDAZOLE 500 MG/NS 100ML 500 MG in PREMIXED 1 EACH IV SCH ×3 (06:28→21:38)
[2017-09-17] MEDS: APIXABAN 5 MG TABLET PO SCH ×2 (08:57→16:20)
[2017-09-17] MEDS: FOLIC ACID/VITAMIN B COMP W-C TABLET PO SCH (09:00)
[2017-09-17] MEDS: Z GUARD REMEDY PASTE 57 GM TUBE TOP SCH ×2 (09:03→20:48)
[2017-09-17 11:32] VITALS: BP 121/75
[2017-09-17] MEDS: CEFTRIAXONE 1 G in IV DEXTROSE 5% 50 ML IV SCH (15:28)
[2017-09-17 15:38] VITALS: BP 122/66
[2017-09-17] MEDS ORDERED: LEVOFLOXACIN 250 MG TABLET PO SCH (16:00)
[2017-09-17 20:16] VITALS: BP 134/81
[2017-09-17] MEDS: TAMSULOSIN HCL 0.4 MG CAP.SR.24H PO SCH (20:59)
[2017-09-17] MEDS: ATORVASTATIN 10 MG TABLET PO SCH (20:59)
[2017-09-18] MEDS: METRONIDAZOLE 500 MG/NS 100ML 500 MG in PREMIXED 1 EACH IV SCH ×3 (05:21→21:06)
[2017-09-18] MEDS: IV NS 1000 ML 1,000 ML IV SCH ×2 (06:08→20:09)
[2017-09-18 06:38] VITALS: BP 120/74
[2017-09-18] MEDS: SERTRALINE HCL 50 MG TABLET PO SCH (08:11)
[2017-09-18] MEDS: FOLIC ACID/VITAMIN B COMP W-C TABLET PO SCH (08:11)
[2017-09-18] MEDS: DIVALPROEX 250 MG TABLET.DR PO SCH ×2 (08:11→20:12)
[2017-09-18] MEDS: Z GUARD REMEDY PASTE 57 GM TUBE TOP SCH ×2 (08:17→20:13)
[2017-09-18] MEDS ORDERED: risperiDONE 0.5 MG TABLET PO SCH (09:00)
[2017-09-18] MEDS: APIXABAN 5 MG TABLET PO SCH ×2 (09:00→17:05)
[2017-09-18 10:55] VITALS: BP 132/78
[2017-09-18] MEDS ORDERED: VANC250C12 PO (11:16)
[2017-09-18] MEDS ORDERED: SULF1TAB48 PO (11:16)
[2017-09-18 15:10] VITALS: BP 147/84
[2017-09-18] MEDS: CEFTRIAXONE 1 G in IV DEXTROSE 5% 50 ML IV SCH (15:37)
[2017-09-18 20:00] VITALS: BP 152/100
[2017-09-18] MEDS: TAMSULOSIN HCL 0.4 MG CAP.SR.24H PO SCH (20:12)
[2017-09-18] MEDS: ATORVASTATIN 10 MG TABLET PO SCH (20:12)
[2017-09-18] MEDS: risperiDONE 0.25 MG TABLET PO SCH (20:12)
[2017-09-18 22:00] VITALS: BP 118/76
[2017-09-19] MEDS: METRONIDAZOLE 500 MG/NS 100ML 500 MG in PREMIXED 1 EACH IV SCH ×3 (06:17→14:23)
[2017-09-19 06:44] VITALS: BP 128/84
[2017-09-19] MEDS: SERTRALINE HCL 50 MG TABLET PO SCH ×2 (09:00→09:30)
[2017-09-19] MEDS: risperiDONE 0.25 MG TABLET PO SCH ×2 (09:00→09:29)
[2017-09-19] MEDS: DIVALPROEX 250 MG TABLET.DR PO SCH ×2 (09:00→09:29)
[2017-09-19] MEDS: APIXABAN 5 MG TABLET PO SCH ×2 (09:00→09:31)
[2017-09-19] MEDS: FOLIC ACID/VITAMIN B COMP W-C TABLET PO SCH ×2 (09:00→09:29)
[2017-09-19] MEDS: Z GUARD REMEDY PASTE 57 GM TUBE TOP SCH (09:30)
[2017-09-19 11:40] VITALS: BP 129/74
[2017-09-19] MEDS: IV NS 1000 ML 1,000 ML IV SCH (12:27)
== END 2017-09-19 15:50 | DRG 248 ==
LOC: ER 15:08 → MED 16:00 → UNDOADMIN 16:07 → MED 16:07 → UNDODISIN 09-15 10:39
DX: A04.72 Enterocolitis due to Clostridium difficile, not specified as recurrent (principal); G93.41 Metabolic encephalopathy; D68.59 Other primary thrombophilia; N39.0 Urinary tract infection, site not specified; I48.2 Chronic atrial fibrillation; F31.64 Bipolar disorder, current episode mixed, severe, with psychotic features; R13.12 Dysphagia, oropharyngeal phase; F03.90 Unspecified dementia, unspecified severity, without behavioral disturbance, psychotic disturbance, mood disturbance, and anxiety; N18.3 Chronic kidney disease, stage 3 (moderate); B96.89 Other specified bacterial agents as the cause of diseases classified elsewhere; M62.81 Muscle weakness (generalized); Z79.01 Long term (current) use of anticoagulants; Z79.899 Other long term (current) drug therapy; I70.0 Atherosclerosis of aorta
CPT/HCPCS: 36415; 70030-TC; 71045; 83605; 83735; 84100; 84443; 85025; 85730; 87040; 87086; 92610; 93005; 97110; 97530; A4663; J0696; J3490; J7030; J7060

== ENCOUNTER 2018-01-22 20:42 | Inpatient (IN) | payer MEDICAID ==
[~2018-01-22] VITALS: Ht 162.6 cm; Wt 72.2 kg
[~2018-01-22 20:42] MED LIST changes: +CEFT1VIA15 IV; +DIVA250T4 PO; -ERTA1VIA2 IV; +LACT1CAP57 PO; +LIDO5JEL4 MM; -LIDO5JEL8 MM; -LINE600T PO; -MENT71OI TOP; -MUPI22OI2 NS; +RISP0.253 PO; +SERT50TA PO; +TRAM50TA2 PO
--- NOTE | 2018-01-22 20:55 | NUR ---
PT BIB PRIVATE AMBULANCE FROM [facility], DEMOLISHED 2001 WITH C/O FEVER X 2 DAYS. UPON TRIAGE, PT TEMP WAS 100.4 T. BP 87/51. IV NS 250 ML BOLUS GIVEN PER MD VERBAL ORDER. PT CURRENTLY RESTING IN [place] POSITION.
[2018-01-22] MEDS ORDERED: ACETAMINOPHEN 650 MG SUPP.RECT RC ONE ×2 (21:00→21:23)
[2018-01-22] MEDS ORDERED: VANCOMYCIN IV 1,000 MG in IV DEXTROSE 5% 250 ML IV ONE (21:00)
[2018-01-22] MEDS ORDERED: PIPERACILLIN SODIUM/TAZOBACTAM 3.375 G in IV DEXTROSE 5% 50 ML IV ONE (21:00)
[2018-01-22] MEDS ORDERED: ACETAMINOPHEN 325 MG SUPP RC ONE (21:00)
[2018-01-22] MEDS ORDERED: IV NORMAL SALINE 250 ML BAG IV ONE (21:00)
[2018-01-22 21:19] LABS: BASOPHILS # (AUTO) 0.1 K/uL (0.0-8.0); BASOPHILS % (AUTO) 0.3 % (0.0-2.0); EOSINOPHILS % (AUTO) 0.1 % (0.0-7.0); HEMATOCRIT 37.8 % (36.7-47.1); HEMOGLOBIN 12.6 g/dL (12.5-16.3); LYMPHOCYTES # (AUTO) 1.3 K/uL (20.0-40.0); LYMPHOCYTES % (AUTO) 5.6 % (20.5-51.5); MEAN CORPUSCULAR HEMOGLOBIN 29.8 uug (23.8-33.4); MEAN CORPUSCULAR HGB CONC 33 g/dL (32.5-36.3); MEAN CORPUSCULAR VOLUME 89.3 fL (73.0-96.2); MONOCYTES # (AUTO) 0.1 K/uL (2.0-10.0); MONOCYTES % (AUTO) 0.3 % (0.0-11.0); NEUTROPHILS % (AUTO) 93.7 % (38.5-71.5); PLATELET COUNT (AUTO) 415 K/uL (152-348); RED BLOOD CELL COUNT(AUTO) 4.23 MIL/uL (4.06-5.63); WHITE BLOOD COUNT (AUTO) 23.5 K/uL (3.6-10.2)
[2018-01-22] MEDS ORDERED: PIPERACILLIN/TAZOBACTAM/D5W 50 ML IV ONE (21:24)
[2018-01-22 21:26] LABS: CARBON DIOXIDE 19 mmol/L (21-32); CHLORIDE 100 mmol/L (98-107); CREATININE 2.2 mg/dL (0.6-1.3); GLUCOSE 103 mg/dL (74-106); POTASSIUM 5.5 mmol/L (3.5-5.1); UREA NITROGEN, BLOOD 54 mg/dL (7-18)
[2018-01-22] MEDS ORDERED: IV NORMAL SALINE 1000 ML BAG IV ONE (21:30)
[2018-01-22 21:40] LABS: *BILIRUBIN,URIN NEGATIVE (NEGATIVE); *BLOOD, URINE 2+ (NEGATIVE); *COLOR,URINE YELLOW (YELLOW); *KETONES,URINE NEGATIVE (NEGATIVE); *PROTEIN,URINE 2+ (NEGATIVE); *UROBILINOGEN,URINE 0.2 E.U./dl (NORMAL); LEUKOCYTE ESTERASE ,URINE 2+ (NEGATIVE); NITRITE, URINE POSITIVE (NEGATIVE); PH,URINE 5.5 (5.0-8.0); UGLUCOSE NEGATIVE (NEGATIVE)
[2018-01-22 21:42] LABS: ALANINE AMINOTRANSFERASE 49 U/L (16-63); ALKALINE PHOSPHATASE 108 U/L (50-136); ASPARTATE AMINOTRANSFERASE 51 U/L (15-37); BILIRUBIN,DIRECT 0.1 mg/dL (0.0-0.2); BILIRUBIN,TOTAL 0.3 mg/dL (0.2-1.0); TOTAL PROTEIN, SERUM 5.3 g/dL (6.4-8.2)
[2018-01-22 21:43] LABS: *CLARITY,URINE SLIGHTLY CLOUDY (CLEAR)
[2018-01-22] MEDS ORDERED: ACETAMINOPHEN 325 MG SUPP ONE (21:43)
[2018-01-22 21:48] LABS: BAND % (MANUAL) 12 % (0-10); LYMPHOCYTES % (MANUAL) 5 % (20-40); MONOCYTES % (MANUAL) 8 % (2-10); NEUTROPHILS % (MANUAL) 75 % (42-75)
[2018-01-22 21:49] LABS: BACTERIA,URINE MS /HPF (NONE SEEN); SQUAMOUS EPITHELIAL CELL,UR FEW /HPF (NONE SEEN); URINE AMORPHOUS URATE MANY /HPF; YEAST,URINE MANY /HPF (NONE SEEN)
[2018-01-22] MEDS ORDERED: NOREPINEPHRINE BITARTRATE 4 MG/4 ML VIAL IV ONE ×2 (21:57→22:04)
[2018-01-22] MEDS ORDERED: FLUCONAZOLE 400 MG /NS 200 ML PIGGYBACK IV ONE (22:00)
[2018-01-22] MEDS ORDERED: MEROPENEM 1,000 MG in IV NORMAL SALINE 250 ML IV ONE (22:00)
[2018-01-22] MEDS: NOREPINEPHRINE BITARTRATE 8 MG in IV DEXTROSE 5% 500 ML IV PRN ×2 (22:12→22:29)
[2018-01-22] MEDS ORDERED: VANCOMYCIN IV 200 ML ONE (22:16)
[2018-01-22] MEDS ORDERED: FOLI0.8T2 PO (22:18)
[2018-01-22] MEDS ORDERED: TRAM50TA2 PO (22:18)
[2018-01-22] MEDS ORDERED: ATOR10TA PO (22:18)
[2018-01-22] MEDS ORDERED: TAMS-3 PO (22:18)
[2018-01-22] MEDS ORDERED: LACT1CAP57 PO (22:18)
[2018-01-22] MEDS ORDERED: FAMO-132 PO (22:18)
[2018-01-22] MEDS ORDERED: APIX2.5T PO (22:18)
[2018-01-22] MEDS ORDERED: DRON5CAP15 PO (22:18)
[2018-01-22] MEDS ORDERED: ACET325T53 PO (22:18)
--- NOTE | 2018-01-22 23:05 | NUR ---
PT STABLE ENOUGH TO GO DOWN TO RADIOLOGY DEPT FOR CT SCAN PER . AWAITING QA AUTOMATION DEVELOPER.
--- NOTE | 2018-01-22 23:24 | NUR ---
STACEY (PT'S SON) PHONE #[phone]
--- NOTE | 2018-01-22 23:32 | NUR ---
PT'S BP OF 2330 IS 89/62 ON 12 MCG/MIN OF LEVOPHED. MD NOTIFIED. LEVOPHED DRIP TITRATED TO 16 MCG/MIN PER ER MD ORDER.
[2018-01-22] MEDS ORDERED: MEROPENEM 1 G VIAL IV ONE (23:41)
[2018-01-23] VITALS (74 sets, daily range): BP systolic 63–136; BP diastolic 50–108
--- NOTE | 2018-01-23 00:52 | NUR ---
ACCOMPANIED STEAM BOX TENDER TO CT SCAN
[2018-01-23] MEDS ORDERED: DILTIAZEM HCL 25 MG IV ONE (01:09)
[2018-01-23] MEDS ORDERED: DILTIAZEM HCL IV 125 MG in IV DEXTROSE 5% 100 ML IV ONE (01:15)
[2018-01-23] MEDS: DILTIAZEM HCL IV 125 MG in IV DEXTROSE 5% 100 ML IV PRN ×2 (01:38→06:26)
--- NOTE | 2018-01-23 01:54 | NUR ---
AWAITING RESULTS OF CT ABDOMEN/PELVIS
[2018-01-23] MEDS ORDERED: FLUCONAZOLE 400 MG /NS 200 ML PIGGYBACK IV ONE (02:07)
--- NOTE | 2018-01-23 02:13 | NUR ---
PT LEVOPHED DRIP TITRATED TO 30 MCG/MIN @ 0213. MD AWARE. (BP AT 0208 WAS 92/61) LEVOPHED TITRATED DOWN TO 24 MCG/MIN @ 0227 PER MD. (BP AT 0224 WAS 128/83)
--- NOTE | 2018-01-23 03:15 | NUR ---
Pt. admitted to CCU BED 3 , under care of Dr. REGALADO. Dx: SEPSIS. Report given to HILTON GONZALEZ. Belongs List completed. MRSA swab done.
--- NOTE | 2018-01-23 04:50 | NUR ---
Admitted an 87 y.o male patient from ER to CCU 2 DX: sepsis. Patient grimaces to pain, no appropriate verbal responses to questions. Cardizem drip at 5 mg/H infusing and Levophed drip off. Assessment done. Had a moderate soft brown BM. Cleaned; skin care provided. Photos of skin breakdown taken and documented. Mepilex dressings to bony prominences. Patient continuous to grimaces and with incomprehensible sounds during care. As per report patient speaks Moroccan only.
[2018-01-23] MEDS ORDERED: NOREPINEPHRINE BITARTRATE 4 MG/4 ML VIAL IV ONE (05:12)
--- NOTE | 2018-01-23 06:05 | NUR ---
Spoke to Mary Chavez re: patient admission. As per PLATE PAINTER APPRENTICE Dr. Miller saw patient in ER and completed orders. Dr. Miller paged.
--- NOTE | 2018-01-23 06:20 | NUR ---
Dr. Miller called back; claimed that orders were done by him. Employment Agency Manager notified.
[2018-01-23] MEDS: NOREPINEPHRINE BITARTRATE 8 MG in IV DEXTROSE 5% 500 ML IV PRN (06:24)
--- NOTE | 2018-01-23 06:35 | NUR ---
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
[2018-01-23] MEDS ORDERED: Z GUARD REMEDY PASTE 57 GM TUBE TOP PRN ×2 (06:45→10:00)
[2018-01-23] MEDS ORDERED: IV NS 1000 ML 1,000 ML IV PRN (06:52)
[2018-01-23] MEDS ORDERED: ONDANSETRON 4 MG/2 ML VIAL IV PRN (07:00)
[2018-01-23] MEDS ORDERED: NOREPINEPHRINE BITARTRATE 8 MG in IV DEXTROSE 5% 500 ML IV PRN (07:00)
[2018-01-23] MEDS ORDERED: VANCOMYCIN IV 200 ML IV ONE (07:00)
[2018-01-23] MEDS ORDERED: ACETAMINOPHEN 325 MG TABLET PO PRN ×2 (07:00)
--- NOTE | 2018-01-23 07:00 | NUR ---
Remains on Cardizem drip at 5 mg/H and Levophed drip @ 10 mcg/min for BP support. Report to Margarita GONZALEZ.
[2018-01-23] MEDS ORDERED: DILTIAZEM HCL IV 125 MG in IV DEXTROSE 5% 100 ML IV PRN (07:20)
--- NOTE | 2018-01-23 08:00 | NUR ---
talked to dr nichole re condition. orders received. patient need to be npo. Addendum: 01/23/18 at 1950 by SUMEET IRWIN RN Amended: Links added. Addendum: 01/23/18 at 1952 by SUMEET IRWIN RN Amended: Links added.
[2018-01-23] MEDS: PANTOPRAZOLE SODIUM 40 MG VIAL IV SCH (08:35)
[2018-01-23] MEDS: FOLIC ACID/VITAMIN B COMP W-C TABLET PO SCH (08:35)
[2018-01-23] MEDS: Z GUARD REMEDY PASTE 57 GM TUBE TOP SCH ×2 (08:36→20:15)
[2018-01-23] MEDS ORDERED: DRONABINOL 2.5 MG CAPSULE PO SCH (09:00)
[2018-01-23] MEDS ORDERED: DRONABINOL 5 MG PO SCH (09:00)
[2018-01-23] MEDS ORDERED: DIVALPROEX 250 MG TABLET.DR PO SCH (09:00)
[2018-01-23] MEDS ORDERED: LACTOBACILLUS RHAMNOSUS GG 1 EACH CAPSULE PO SCH (09:00)
[2018-01-23] MEDS ORDERED: APIXABAN 5 MG TABLET PO SCH (09:00)
[2018-01-23] MEDS ORDERED: SERTRALINE HCL 50 MG TABLET PO SCH (09:00)
[2018-01-23] MEDS ORDERED: FAMOTIDINE 20 MG TABLET PO SCH (09:00)
[2018-01-23] MEDS ORDERED: APIXABAN 5 MG TABLET PO ONE (09:00)
[2018-01-23] MEDS ORDERED: NORMAL SALINE FLUSH 10 ML DISP.SYRIN IV PRN (10:00)
--- NOTE | 2018-01-23 11:00 | NUR ---
seen by dr valdes. orders received Addendum: 01/23/18 at 1945 by SUMEET IRWIN RN Amended: Bruce added. Addendum: 01/23/18 at 1946 by SUMEET IRWIN RN Amended: Bruce added. Addendum: 01/23/18 at 1948 by SUMEET IRWIN RN Amended: Links added. Addendum: 01/23/18 at 1950 by SUMEET IRWIN RN Amended: Links added. Addendum: 01/23/18 at 1953 by SUMEET IRWIN RN Amended: Links added.
[2018-01-23] MEDS: MEROPENEM 500 MG in IV NORMAL SALINE 50 ML IV SCH (12:26)
[2018-01-23] MEDS: IV D5/ 0.9% NACL 1,000 ML IV PRN (12:37)
[2018-01-23] MEDS ORDERED: MEROPENEM 1 G in IV DEXTROSE 5% 50 ML IV SCH (14:00)
[2018-01-23 14:50] LABS: ALANINE AMINOTRANSFERASE 34 U/L (16-63); ALKALINE PHOSPHATASE 95 U/L (50-136); ASPARTATE AMINOTRANSFERASE 17 U/L (15-37); BILIRUBIN,DIRECT 0.1 mg/dL (0.0-0.2); BILIRUBIN,TOTAL 0.3 mg/dL (0.2-1.0); CARBON DIOXIDE 18 mmol/L (21-32); CHLORIDE 101 mmol/L (98-107); CREATININE 1.9 mg/dL (0.6-1.3); GLUCOSE 142 mg/dL (74-106); POTASSIUM 4.3 mmol/L (3.5-5.1); TOTAL PROTEIN, SERUM 4.3 g/dL (6.4-8.2); UREA NITROGEN, BLOOD 43 mg/dL (7-18)
--- NOTE | 2018-01-23 15:00 | NUR ---
seen by dr crain, report given, cardizem will be dcd. and amiodarone to be strated Addendum: 01/23/18 at 1947 by SUMEET IRWIN RN Amended: Links added. Addendum: 01/23/18 at 1949 by SUMEET IRWIN RN Amended: Links added. Addendum: 01/23/18 at 1950 by SUMEET IRWIN RN Amended: Links added. Addendum: 01/23/18 at 1953 by SUMEET IRWIN RN Amended: Links added.
[2018-01-23 15:12] LABS: MAGNESIUM 2.1 mg/dL (1.8-2.4); PHOSPHOROUS 4.2 mg/dL (2.5-4.9)
[2018-01-23 15:17] LABS: BASOPHILS % (AUTO) 0.1 % (0.0-2.0); EOSINOPHILS % (AUTO) 0.1 % (0.0-7.0); HEMATOCRIT 36.2 % (36.7-47.1); HEMOGLOBIN 11.9 g/dL (12.5-16.3); LYMPHOCYTES # (AUTO) 0.8 K/uL (20.0-40.0); LYMPHOCYTES % (AUTO) 2.9 % (20.5-51.5); MEAN CORPUSCULAR HEMOGLOBIN 29.7 uug (23.8-33.4); MEAN CORPUSCULAR HGB CONC 33 g/dL (32.5-36.3); MEAN CORPUSCULAR VOLUME 90.3 fL (73.0-96.2); MONOCYTES # (AUTO) 0.9 K/uL (2.0-10.0); MONOCYTES % (AUTO) 3.5 % (0.0-11.0); NEUTROPHILS # (AUTO) 24.8 K/uL (1.8-8.9); NEUTROPHILS % (AUTO) 93.4 % (38.5-71.5); PLATELET COUNT (AUTO) 459 K/uL (152-348); RED BLOOD CELL COUNT(AUTO) 4.01 MIL/uL (4.06-5.63); WHITE BLOOD COUNT (AUTO) 26.6 K/uL (3.6-10.2)
--- NOTE | 2018-01-23 15:39 | NUR ---
Clinical Pharmacy Note: Vancomycin Dosing per Pharmacy Subjective: Vancomycin IV to start on this 87 yo male patient for Possible aspiration pneumonia, septic shock, uti Objective: BUN 43/Scr 1.9 WBC 26.6 Temperature 98.4 vanco random level 11 mcg/ml (with am labs) ht 162 cm wt 54.8 kg Assessment/Plan: Due to advanced age & decreased renal function will dose by level for now. Patient received vanco 1gm IVPB x1 last night at 2100. Since vanco random level is 11 mcg/ml with pm labs, will give vanco 1gm IVPB x1 today at 1600 and check vanco random level with am labs for further dosing.. Will follow daily.
[2018-01-23] MEDS: AMIODARONE HCL IV 900 MG in IV DEXTROSE 5% 482 ML IV PRN (15:43)
[2018-01-23] MEDS: NORMAL SALINE FLUSH 10 ML DISP.SYRIN IV SCH ×2 (15:45→21:14)
[2018-01-23] MEDS ORDERED: VANCOMYCIN IV 1 G in PREMIXED 0 EACH IV ONE (16:00)
[2018-01-23 16:02] LABS: BAND % (MANUAL) 43 % (0-10); LYMPHOCYTES % (MANUAL) 3 % (20-40); MONOCYTES % (MANUAL) 3 % (2-10); NEUTROPHILS % (MANUAL) 51 % (42-75)
[2018-01-23] MEDS ORDERED: FLUCONAZOLE 200 MG/NS 100ML IV 100 MG in PREMIXED 1 EACH IV SCH (16:30)
[2018-01-23] MEDS: NOREPINEPHRINE BITARTRATE 16 MG in IV DEXTROSE 5% 500 ML IV PRN (16:48)
[2018-01-23] MEDS: METRONIDAZOLE 500 MG/NS 100ML 500 MG in PREMIXED 1 EACH IV SCH ×2 (17:29→23:07)
[2018-01-23] MEDS ORDERED: MICAFUNGIN SODIUM 100 MG in IV NORMAL SALINE 100 ML IV SCH (18:00)
--- NOTE | 2018-01-23 18:00 | NUR ---
seen by Reta GLOVER orders received. Addendum: 01/23/18 at 1949 by SUMEET IRWIN RN Amended: Bruce added. Addendum: 01/23/18 at 1950 by SUMEET IRWIN RN Amended: Bruce added. Addendum: 01/23/18 at 1953 by SUMEET IRWIN RN Amended: Links added.
--- NOTE | 2018-01-23 18:00 | NUR ---
talked to dr Azeem cooley. including vasop[ressors and amiodarone drip and labs. no orsders received at present Addendum: 01/23/18 at 1952 by SUMEET IRWIN RN Amended: Links added.
--- NOTE | 2018-01-23 19:00 | NUR ---
Oscar LAINEZ present FOR ID ,consultation . see order for new antibiotics .
--- NOTE | 2018-01-23 19:15 | NUR ---
received patient on Levophed drip at 20 mcg/min to keep map >60, and amiodarone drip at 1 mg/hr, v/s monitoring done q15 minutes. TO ST ON THE HEART MONITOR 105 infusing via the right PICC line .patient awake open eyes but confused , Faroese speaking only . continue to monitor v/s and levels of comfort. Addendum: 01/23/18 at 2106 by TIGIST GARCIA RN Amended: Links added.
--- NOTE | 2018-01-23 20:00 | NUR ---
turned and reposition patient ,offloaded back and bilateral heels offloaded using pillows . on air loss mattress and SCDS TO BLE USED. Addendum: 01/23/18 at 2113 by TIGIST GARCIA RN Amended: Links added.
[2018-01-23] MEDS ORDERED: Z GUARD REMEDY PASTE 57 GM TUBE TOP SCH (21:00)
[2018-01-23] MEDS ORDERED: risperiDONE 0.25 MG TABLET PO SCH (21:00)
[2018-01-23] MEDS ORDERED: ATORVASTATIN 10 MG TABLET PO SCH (21:00)
[2018-01-23] MEDS ORDERED: TAMSULOSIN HCL 0.4 MG CAP.SR.24H PO SCH (21:00)
--- NOTE | 2018-01-23 22:00 | NUR ---
AMIODARONE DRIP NOW AT 0.5 MG/MIN.ST 105 ON THE HEART MONITOR CONTINUE TO MONITOR V/S .
[2018-01-23] MEDS: VANCOMYCIN FOR PO/GT/NG USE PO SCH (23:08)
[2018-01-24] VITALS (97 sets, daily range): BP systolic 82–112; BP diastolic 48–74
--- NOTE | 2018-01-24 | NUR ---
VANCOMYCIN PO GIVEN .TOLERATED HOB UP .
[2018-01-24] MEDS: MEROPENEM 500 MG in IV NORMAL SALINE 50 ML IV SCH ×2 (00:01→11:08)
--- NOTE | 2018-01-24 02:00 | NUR ---
am care done bath patient changed soiled linens and gown .z-guard applied to sacral area and bilateral groin .right heel applied hydrogel and covered with Mepilex . turned and reposition scds used and upper and lower extremities elevated with pillows . hob up . oral care done . due vancomycin po given tolerated .
[2018-01-24] MEDS: IV D5/ 0.9% NACL 1,000 ML IV PRN ×2 (04:11→20:05)
[2018-01-24 04:59] LABS: BASOPHILS % (AUTO) 0.3 % (0.0-2.0); HEMATOCRIT 33.4 % (36.7-47.1); HEMOGLOBIN 11.3 g/dL (12.5-16.3); LYMPHOCYTES # (AUTO) 0.7 K/uL (20.0-40.0); LYMPHOCYTES % (AUTO) 3.4 % (20.5-51.5); MEAN CORPUSCULAR HEMOGLOBIN 30.3 uug (23.8-33.4); MEAN CORPUSCULAR HGB CONC 34 g/dL (32.5-36.3); MEAN CORPUSCULAR VOLUME 89.5 fL (73.0-96.2); MONOCYTES # (AUTO) 0.3 K/uL (2.0-10.0); MONOCYTES % (AUTO) 1.5 % (0.0-11.0); NEUTROPHILS # (AUTO) 18.7 K/uL (1.8-8.9); NEUTROPHILS % (AUTO) 94.8 % (38.5-71.5); PLATELET COUNT (AUTO) 329 K/uL (152-348); RED BLOOD CELL COUNT(AUTO) 3.73 MIL/uL (4.06-5.63); WHITE BLOOD COUNT (AUTO) 19.7 K/uL (3.6-10.2)
[2018-01-24] MEDS: VANCOMYCIN FOR PO/GT/NG USE PO SCH ×4 (05:04→23:18)
[2018-01-24] MEDS: NORMAL SALINE FLUSH 10 ML DISP.SYRIN IV SCH ×3 (05:04→21:10)
[2018-01-24 05:15] LABS: ALANINE AMINOTRANSFERASE 24 U/L (16-63); ALKALINE PHOSPHATASE 89 U/L (50-136); ASPARTATE AMINOTRANSFERASE 12 U/L (15-37); BILIRUBIN,TOTAL 0.4 mg/dL (0.2-1.0); CARBON DIOXIDE 16 mmol/L (21-32); CHLORIDE 101 mmol/L (98-107); CREATINE KINASE, TOTAL 25 U/L (39-308); CREATININE 1.7 mg/dL (0.6-1.3); GLUCOSE 140 mg/dL (74-106); PHOSPHOROUS 3.6 mg/dL (2.5-4.9); POTASSIUM 4.1 mmol/L (3.5-5.1); TOTAL PROTEIN, SERUM 4.1 g/dL (6.4-8.2); UREA NITROGEN, BLOOD 39 mg/dL (7-18)
[2018-01-24 05:50] LABS: BAND % (MANUAL) 48 % (0-10); LYMPHOCYTES % (MANUAL) 6 % (20-40); METAMYELOCYTES % 1 % (0-1); MONOCYTES % (MANUAL) 3 % (2-10); MYELOCYTES % 1 % (0-0); NEUTROPHILS % (MANUAL) 41 % (42-75)
--- NOTE | 2018-01-24 07:30 | NUR ---
SBAR report receive from Rylee/RN ,pt.A/A/Ox1 watching TV
[2018-01-24] MEDS: METRONIDAZOLE 500 MG/NS 100ML 500 MG in PREMIXED 1 EACH IV SCH ×3 (08:01→23:18)
[2018-01-24] MEDS: Z GUARD REMEDY PASTE 57 GM TUBE TOP SCH ×2 (08:08→20:05)
[2018-01-24] MEDS: PANTOPRAZOLE SODIUM 40 MG VIAL IV SCH (08:08)
[2018-01-24] MEDS: FOLIC ACID/VITAMIN B COMP W-C TABLET PO SCH (08:08)
[2018-01-24] MEDS: NOREPINEPHRINE BITARTRATE 16 MG in IV DEXTROSE 5% 500 ML IV PRN (08:18)
--- NOTE | 2018-01-24 10:05 | NUR ---
Son at bedside, updated with pt.condition and plan of care.
--- NOTE | 2018-01-24 11:39 | NUR ---
Clinical Pharmacy Note: Vancomycin Dosing per Pharmacy Subjective: Vancomycin IV to start on this 87 yo male patient for Possible aspiration pneumonia, septic shock, uti Objective: BUN 39/Scr 1.7 WBC 19.7 Temperature 98.4 vanco random level 22 mcg/ml (with am labs) ht 162 cm wt 54.8 kg Assessment/Plan: Due to advanced age & decreased renal function will dose by level for now. Since vanco random level is 22 mcg/ml this am, will repeat vanco random at 1800 & decide if further dosing is needed today. Will follow daily. Addendum: 01/24/18 at 2054 by MAXI SPICER ADM LEVEL AT 1800 16.9 ORDERED VANCOMYCIN 1GM X 1 IVPB
--- NOTE | 2018-01-24 12:35 | NUR ---
Pt.was seen by .
--- NOTE | 2018-01-24 13:05 | NUR ---
[facility]
[2018-01-24] MEDS: AMIODARONE HCL IV 900 MG in IV DEXTROSE 5% 482 ML IV PRN (14:40)
--- NOTE | 2018-01-24 17:30 | NUR ---
Son called was updated by the phone with pt.condition and plan of care.
--- NOTE | 2018-01-24 18:45 | NUR ---
Pt.was seen by RADHIKA MORENO MD.
--- NOTE | 2018-01-24 19:15 | NUR ---
ON LEVOPHED DRIP TO KEEP MAP >60,RECEIVED AT 15 MCG/MIN .ST WITH PACS AND PVCS RATE 105,ON AMIODARONE DRIP AT .5 MG//MIN .CONTINUE TO MONITOR V/S Q15 MIN. Addendum: 01/24/18 at 2351 by TIGIST GARCIA RN Amended: Links added.
--- NOTE | 2018-01-24 20:00 | NUR ---
INCONTINENT OF STOOL ,SOFT,LIQUID,GRAYISH IN COLOR . CHANGED SOILED LINENS AND GOWN . Z GUARD APPLIED TO SACRAL AREA AND BILATERAL GOWN . HOB UP . PATIENT AWAKE BUT CONFUSED . NO RESPIRATORY DISTRESS NOTED TOLERATING OXYGEN AT 2 L/MIN . NO RESPIRATORY DISTRESS RR 20 AND SATURATION 100%. Addendum: 01/24/18 at 2356 by TIGIST GARCIA RN Amended: Links added.
[2018-01-24] MEDS: MUPIROCIN 2% OINT 22 GM TUBE NS SCH (20:04)
[2018-01-24] MEDS ORDERED: VANCOMYCIN IV 1 G in PREMIXED 0 EACH IV ONE (21:00)
[2018-01-25] VITALS (95 sets, daily range): BP systolic 76–121; BP diastolic 44–73
[2018-01-25] MEDS: MEROPENEM 500 MG in IV NORMAL SALINE 50 ML IV SCH ×2 (00:17→12:05)
[2018-01-25] MEDS: NOREPINEPHRINE BITARTRATE 16 MG in IV DEXTROSE 5% 500 ML IV PRN ×2 (01:21→20:13)
[2018-01-25 04:56] LABS: BASOPHILS % (AUTO) 0.2 % (0.0-2.0); EOSINOPHILS % (AUTO) 0.1 % (0.0-7.0); HEMATOCRIT 32.4 % (36.7-47.1); HEMOGLOBIN 10.7 g/dL (12.5-16.3); LYMPHOCYTES # (AUTO) 1.1 K/uL (20.0-40.0); LYMPHOCYTES % (AUTO) 6.2 % (20.5-51.5); MEAN CORPUSCULAR HEMOGLOBIN 29.3 uug (23.8-33.4); MEAN CORPUSCULAR HGB CONC 33 g/dL (32.5-36.3); MONOCYTES # (AUTO) 0.5 K/uL (2.0-10.0); MONOCYTES % (AUTO) 2.8 % (0.0-11.0); NEUTROPHILS # (AUTO) 16.3 K/uL (1.8-8.9); NEUTROPHILS % (AUTO) 90.7 % (38.5-71.5); PLATELET COUNT (AUTO) 258 K/uL (152-348); RED BLOOD CELL COUNT(AUTO) 3.64 MIL/uL (4.06-5.63)
[2018-01-25 05:09] LABS: ALANINE AMINOTRANSFERASE 22 U/L (16-63); ALKALINE PHOSPHATASE 117 U/L (50-136); ASPARTATE AMINOTRANSFERASE 18 U/L (15-37); BILIRUBIN,TOTAL 0.5 mg/dL (0.2-1.0); CARBON DIOXIDE 17 mmol/L (21-32); CHLORIDE 103 mmol/L (98-107); CREATININE 1.6 mg/dL (0.6-1.3); GLUCOSE 135 mg/dL (74-106); MAGNESIUM 1.9 mg/dL (1.8-2.4); PHOSPHOROUS 3.6 mg/dL (2.5-4.9); POTASSIUM 3.6 mmol/L (3.5-5.1); TOTAL PROTEIN, SERUM 3.9 g/dL (6.4-8.2); UREA NITROGEN, BLOOD 32 mg/dL (7-18)
[2018-01-25] MEDS: VANCOMYCIN FOR PO/GT/NG USE PO SCH ×4 (05:11→23:54)
[2018-01-25] MEDS: NORMAL SALINE FLUSH 10 ML DISP.SYRIN IV SCH ×3 (05:12→21:45)
[2018-01-25 06:01] LABS: BAND % (MANUAL) 17 % (0-10); LYMPHOCYTES % (MANUAL) 6 % (20-40); METAMYELOCYTES % 1 % (0-1); MONOCYTES % (MANUAL) 7 % (2-10); NEUTROPHILS % (MANUAL) 69 % (42-75)
[2018-01-25] MEDS: FOLIC ACID/VITAMIN B COMP W-C TABLET PO SCH (08:37)
[2018-01-25] MEDS: PANTOPRAZOLE SODIUM 40 MG VIAL IV SCH (08:41)
[2018-01-25] MEDS: Z GUARD REMEDY PASTE 57 GM TUBE TOP SCH ×2 (08:41→20:12)
[2018-01-25] MEDS: MUPIROCIN 2% OINT 22 GM TUBE NS SCH ×2 (08:42→20:12)
[2018-01-25] MEDS: METRONIDAZOLE 500 MG/NS 100ML 500 MG in PREMIXED 1 EACH IV SCH ×3 (08:42→23:54)
[2018-01-25 11:06] LABS: A/G RATIO 0.8 (0.7-1.7); ALBUMIN 1.6 g/dL (2.9-4.4); ALPHA-1-GLOBULIN 0.4 g/dL (0.0-0.4); ALPHA-2-GLOBULIN 0.7 g/dL (0.4-1.0); BETA GLOBULIN 0.5 g/dL (0.7-1.3); GAMMA GLOBULIN 0.5 g/dL (0.4-1.8); GLOBULIN, TOTAL 2.1 g/dL (2.2-3.9); M-SPIKE 0.1 g/dL (Not Observed)
[2018-01-25] MEDS ORDERED: POTASSIUM CHLORIDE 50 ML IV SCH (12:00)
--- NOTE | 2018-01-25 12:18 | NUR ---
Clinical Pharmacy Note: Vancomycin Dosing per Pharmacy Subjective: Vancomycin IV to continue on this 87 yo male patient for Possible aspiration pneumonia, septic shock, uti Objective: BUN 32/Scr 1.6 WBC 18 Temperature 99 vanco random level: pending ht 162 cm wt 54.8 kg Assessment/Plan: Due to advanced age & decreased renal function will continue to dose by level for now. Patient received vanco 1gm IVPB x1 yesterday at 2100. Will repeat vanco random at 1900 & decide if further dosing is needed today. Will follow daily. Addendum: 01/25/18 at 2023 by ROSENDO RASHEED ADM PT'S VANCOMYCIN RANDOM LEVEL 19.4 @ 19:40 WILL ADMINISTER ANOTHER DOSE OF VANCOMCIN 1 GM @ 2200 AND WILL FOLLOW AND DOSE BY FALL OF LEVELS.
--- NOTE | 2018-01-25 14:05 | NUR ---
airfield engineer officer here to see pt. New orders received.
--- NOTE | 2018-01-25 14:06 | NUR ---
WOUND CARE CONSULT: PT PRESENTS WITH SACRAL DEEP TISSUE INJURY WHICH IS INTACT, EXTENDING TO BUTTOCKS, PRESENT ON ADMISSION. RECOMMENDATIONS MADE FOR WOUND CARE AND SKIN PROTECTION. DISCUSSED WITH NURSING STAFF. PT INCONTINENT OF STOOL. PT ON FIRST STEP MATTRESS. WILL SEE PRN. PT FOLLOWED BY DPM. DEFER TO DPM FOR LOWER EXTREMITIES. IN AGREEMENT WITH PLAN OF CARE. Addendum: 01/25/18 at 1408 by PERLA ARNOLD RN Amended: Links added. Addendum: 01/25/18 at 1410 by PERLA ARNOLD RN ALSO PT NOTED TO HAVE GENERALIZED EDEMA.
--- NOTE | 2018-01-25 14:06 | NUR ---
Speech therapist here to see pt. Per MD and speech therapy, pt to hold dietary feeding for today and reevaluate pt when more stable. Pt to remain NPO.
[2018-01-25 15:00] LABS: *BILIRUBIN,URIN NEGATIVE (NEGATIVE); *BLOOD, URINE NEGATIVE (NEGATIVE); *CLARITY,URINE CLEAR (CLEAR); *COLOR,URINE YELLOW (YELLOW); *KETONES,URINE NEGATIVE (NEGATIVE); *PROTEIN,URINE 2+ (NEGATIVE); *UROBILINOGEN,URINE 0.2 E.U./dl (NORMAL); LEUKOCYTE ESTERASE ,URINE TRACE (NEGATIVE); NITRITE, URINE NEGATIVE (NEGATIVE); PH,URINE 5.5 (5.0-8.0); UGLUCOSE NEGATIVE (NEGATIVE)
[2018-01-25 15:07] LABS: *CREATININE,URINE 45.7 mg/dL (30-125); *URINE TOTAL PROTEIN RANDOM 92.3 mg/dL (<150/24HR); RBC,URINE 0-3 /HPF (0-3)
[2018-01-25 15:08] LABS: MUCUS,URINE FEW /LPF (0-FEW); URIC ACID CRYSTALS,URINE FEW /HPF (NONE SEEN)
[2018-01-25] MEDS: AMIODARONE HCL IV 900 MG in IV DEXTROSE 5% 482 ML IV PRN (17:28)
--- NOTE | 2018-01-25 19:30 | NUR ---
rounds made patient in bed awake ,but confused . moved BUE and noted BLE weakness .ON LEVPHED DRIP to keep map>60mm/hg and patient on amiodarone drip on ST to SR on the heart monitor .tolerating 02 nasal cannula at 2 l min . hob up . continue to monitor v/s q 15 min . Addendum: 01/25/18 at 2028 by TIGIST GARCIA RN Amended: Links added.
[2018-01-25] MEDS: IV D5/ 0.9% NACL 1,000 ML IV PRN (19:41)
--- NOTE | 2018-01-25 20:00 | NUR ---
no new skin breakdown noted ,turned and reposition patient . offloaded back with pillows .bue and ble elevated with pillows ,heels off bed ,scds used and air loss Mattress used . Addendum: 01/25/18 at 2103 by TIGIST GARCIA RN Amended: Links added.
--- NOTE | 2018-01-25 20:30 | NUR ---
tolerating room air saturation 99 % RR 23.NO SOB NO RESPIRATORY DISTRESS NOTED .
[2018-01-25] MEDS ORDERED: VANCOMYCIN IV 1 G in PREMIXED 0 EACH IV ONE (22:00)
[2018-01-26] VITALS (92 sets, daily range): BP systolic 72–124; BP diastolic 53–80
--- NOTE | 2018-01-26 | NUR ---
patient in bed naps on and off,no respiratory distress on room air . sr to st on the heart monitor rate controlled.
[2018-01-26] MEDS: MEROPENEM 500 MG in IV NORMAL SALINE 50 ML IV SCH ×2 (00:31→12:19)
--- NOTE | 2018-01-26 04:00 | NUR ---
am care done ,bath patient .had x1 l soft bm moderate in amt brownish in color .changed soiled linens and gown . z guard applied to bilateral groin . sacral area place Mepilex .f/c done . offloaded back,heels ,bilateral lower legs with pillows . hob up ,oral care done .
[2018-01-26 04:53] LABS: BASOPHILS # (AUTO) 0.1 K/uL (0.0-8.0); BASOPHILS % (AUTO) 0.3 % (0.0-2.0); EOSINOPHILS % (AUTO) 0.1 % (0.0-7.0); HEMATOCRIT 32.8 % (36.7-47.1); HEMOGLOBIN 10.9 g/dL (12.5-16.3); LYMPHOCYTES # (AUTO) 1.5 K/uL (20.0-40.0); LYMPHOCYTES % (AUTO) 6.3 % (20.5-51.5); MEAN CORPUSCULAR HEMOGLOBIN 29.7 uug (23.8-33.4); MEAN CORPUSCULAR HGB CONC 33 g/dL (32.5-36.3); MEAN CORPUSCULAR VOLUME 89.6 fL (73.0-96.2); MONOCYTES # (AUTO) 0.8 K/uL (2.0-10.0); MONOCYTES % (AUTO) 3.3 % (0.0-11.0); NEUTROPHILS # (AUTO) 20.8 K/uL (1.8-8.9); PLATELET COUNT (AUTO) 240 K/uL (152-348); RED BLOOD CELL COUNT(AUTO) 3.66 MIL/uL (4.06-5.63); WHITE BLOOD COUNT (AUTO) 23.1 K/uL (3.6-10.2)
[2018-01-26 05:01] LABS: CARBON DIOXIDE 15 mmol/L (21-32); CHLORIDE 103 mmol/L (98-107); CREATININE 1.5 mg/dL (0.6-1.3); GLUCOSE 134 mg/dL (74-106); POTASSIUM 3.5 mmol/L (3.5-5.1); UREA NITROGEN, BLOOD 28 mg/dL (7-18)
[2018-01-26] MEDS: VANCOMYCIN FOR PO/GT/NG USE PO SCH ×4 (05:22→23:46)
[2018-01-26] MEDS: NORMAL SALINE FLUSH 10 ML DISP.SYRIN IV SCH ×3 (05:23→22:25)
[2018-01-26 05:43] LABS: BAND % (MANUAL) 20 % (0-10); LYMPHOCYTES % (MANUAL) 10 % (20-40); METAMYELOCYTES % 3 % (0-1); MYELOCYTES % 1 % (0-0); NEUTROPHILS % (MANUAL) 64 % (42-75)
[2018-01-26] MEDS: FOLIC ACID/VITAMIN B COMP W-C TABLET PO SCH (07:51)
[2018-01-26] MEDS: PANTOPRAZOLE SODIUM 40 MG VIAL IV SCH (07:54)
[2018-01-26] MEDS: MUPIROCIN 2% OINT 22 GM TUBE NS SCH ×2 (07:55→20:24)
[2018-01-26] MEDS: METRONIDAZOLE 500 MG/NS 100ML 500 MG in PREMIXED 1 EACH IV SCH ×3 (07:55→23:45)
[2018-01-26] MEDS: Z GUARD REMEDY PASTE 57 GM TUBE TOP SCH ×2 (07:56→20:25)
--- NOTE | 2018-01-26 10:04 | NUR ---
Speech therapists here to see pt.
[2018-01-26] MEDS: NOREPINEPHRINE BITARTRATE 16 MG in IV DEXTROSE 5% 500 ML IV PRN (13:06)
[2018-01-26] MEDS: IV D5/ 0.9% NACL 1,000 ML IV PRN (16:01)
--- NOTE | 2018-01-26 16:48 | NUR ---
Telephone consent for PEG tube placement signed by Meng (son). Son alert and oriented during our conversation and is aware of the procedures to be done as explained by Dr. Collier.
--- NOTE | 2018-01-26 16:55 | NUR ---
Dr. Abreu (surgeon) here to see pt. MD stated that the pt is not stable for PEG tube placement surgery at this time. MD and family made aware.
--- NOTE | 2018-01-26 19:30 | NUR ---
REPORT OBTAINED, PT RESTING QUIETLY IN BED, NO DISTRESS NOTED, UNable to understand , doesn't speak french. continues to need b/p support with levophed.
[2018-01-26] MEDS: MEROPENEM 1 G in IV NORMAL SALINE 100 ML IV SCH (20:24)
[2018-01-26] MEDS: AMIODARONE HCL IV 900 MG in IV DEXTROSE 5% 482 ML IV PRN (20:26)
[2018-01-27] VITALS (88 sets, daily range): BP systolic 77–114; BP diastolic 34–74
--- NOTE | 2018-01-27 | NUR ---
CONTINUES TO NEED LEVOPHED TO SUPPORT B/P.AT TIMES TALKS ,BUT AM UNABLE TO UNDERSTAND HIM. CHINESE SPEAKING RT HELPFUL AT TIMES TO HELP INTERPRET WHAT PT IS TRYING TO SAYING.PT DOESN'T APPEAR IN ANY DISTRESS. ONLY WHEN PROM IS BEING ATTEMPTED.
[2018-01-27 05:05] LABS: BASOPHILS # (AUTO) 0.1 K/uL (0.0-8.0); BASOPHILS % (AUTO) 0.3 % (0.0-2.0); EOSINOPHILS % (AUTO) 0.2 % (0.0-7.0); HEMOGLOBIN 9.9 g/dL (12.5-16.3); LYMPHOCYTES # (AUTO) 1.4 K/uL (20.0-40.0); LYMPHOCYTES % (AUTO) 6.3 % (20.5-51.5); MEAN CORPUSCULAR HEMOGLOBIN 29.1 uug (23.8-33.4); MEAN CORPUSCULAR HGB CONC 32 g/dL (32.5-36.3); MEAN CORPUSCULAR VOLUME 90.8 fL (73.0-96.2); MONOCYTES # (AUTO) 0.8 K/uL (2.0-10.0); MONOCYTES % (AUTO) 3.5 % (0.0-11.0); NEUTROPHILS # (AUTO) 19.3 K/uL (1.8-8.9); NEUTROPHILS % (AUTO) 89.7 % (38.5-71.5); PLATELET COUNT (AUTO) 218 K/uL (152-348); RED BLOOD CELL COUNT(AUTO) 3.41 MIL/uL (4.06-5.63); WHITE BLOOD COUNT (AUTO) 21.6 K/uL (3.6-10.2)
[2018-01-27] MEDS: NORMAL SALINE FLUSH 10 ML DISP.SYRIN IV SCH ×3 (05:24→21:41)
[2018-01-27] MEDS: NOREPINEPHRINE BITARTRATE 16 MG in IV DEXTROSE 5% 500 ML IV PRN (05:25)
[2018-01-27] MEDS: VANCOMYCIN FOR PO/GT/NG USE PO SCH ×4 (05:26→23:30)
--- NOTE | 2018-01-27 07:00 | NUR ---
REPORT GIVEN TO MARSHA PT RESTING QUIETLY IN BED, NO DISTRESS NOTED. CONTINUES TO NEED B/P SUPPORT WITH LEVOPHED.U/O 30-40 CC HR. REMAINS IN NSR.
[2018-01-27 07:50] LABS: CARBON DIOXIDE 14 mmol/L (21-32); CHLORIDE 105 mmol/L (98-107); CREATININE 1.4 mg/dL (0.6-1.3); GLUCOSE 140 mg/dL (74-106); MAGNESIUM 1.7 mg/dL (1.8-2.4); PHOSPHOROUS 3.4 mg/dL (2.5-4.9); POTASSIUM 3.2 mmol/L (3.5-5.1); UREA NITROGEN, BLOOD 23 mg/dL (7-18)
--- NOTE | 2018-01-27 08:30 | NUR ---
patient open mouth to take oral meds. patient did not swallow medication. kept medication in mouth. had to ask patient to spit out medication due to high risk of aspiration. cleaned his mouth
[2018-01-27] MEDS: MEROPENEM 1 G in IV NORMAL SALINE 100 ML IV SCH ×2 (08:59→20:34)
[2018-01-27] MEDS: FOLIC ACID/VITAMIN B COMP W-C TABLET PO SCH (08:59)
[2018-01-27] MEDS: METRONIDAZOLE 500 MG/NS 100ML 500 MG in PREMIXED 1 EACH IV SCH ×3 (08:59→23:30)
[2018-01-27] MEDS: PANTOPRAZOLE SODIUM 40 MG VIAL IV SCH (08:59)
[2018-01-27] MEDS: MUPIROCIN 2% OINT 22 GM TUBE NS SCH ×2 (08:59→20:35)
[2018-01-27] MEDS: Z GUARD REMEDY PASTE 57 GM TUBE TOP SCH ×2 (09:00→20:35)
[2018-01-27 09:17] LABS: BAND % (MANUAL) 4 % (0-10); LYMPHOCYTES % (MANUAL) 10 % (20-40); MONOCYTES % (MANUAL) 5 % (2-10); NEUTROPHILS % (MANUAL) 81 % (42-75)
[2018-01-27] MEDS: IV D5/ 0.9% NACL 1,000 ML IV PRN (10:06)
[2018-01-27] MEDS ORDERED: MAGNESIUM SULFATE/D5W 100 ML IV SCH (10:30)
--- NOTE | 2018-01-27 11:00 | NUR ---
DOCTOR PEARL IN THE UNIT TO SEE PATIENT.
--- NOTE | 2018-01-27 11:00 | NUR ---
doctor dionisio in the unit rounding on patient.
[2018-01-27] MEDS: POTASSIUM CHLORIDE 50 ML IV SCH ×2 (11:13→14:38)
--- NOTE | 2018-01-27 12:30 | NUR ---
doctor timothy updated about plan of care. patient will have possible gt placement monday, managing levophed to off.
--- NOTE | 2018-01-27 17:40 | NUR ---
PATIENT DOES NOT SWALLOW MEDICATIONS. UNABLE TO ADMINISTER
--- NOTE | 2018-01-27 20:00 | NUR ---
RECEIVED PT. OPENS HIS EYES TO VERBAL STIMULI, VERBALLY RESPONSIVE SPEAKS [place], CONFUSED & DISORIENTED. ON RM AIR W/ O2 SAT OF 97%. ON LEVOPHED DRIP @ 8MCQ/MIN ON SUSANA PICC LINE PORT. ON AMIODARONE DRIP @ 0.5MG/HR. IVF D5NS @ 70CC/HR. REPOSITIONED ON HIS SIDE W/ HOB ELEVATED. AFEBRILE.
[2018-01-27] MEDS: AMIODARONE HCL IV 900 MG in IV DEXTROSE 5% 482 ML IV PRN (21:43)
--- NOTE | 2018-01-27 23:00 | NUR ---
HS CARE DONE. ORAL CARE DONE. REPOSITIONED W/ HOB ELEVATED.
[2018-01-28] VITALS (95 sets, daily range): BP systolic 86–153; BP diastolic 28–77
--- NOTE | 2018-01-28 05:00 | NUR ---
AM CARE DONE. ORAL CARE DONE. REPOSITIONED ON HIS SIDE W/ HOB ELEVATED.
[2018-01-28 05:39] LABS: BASOPHILS # (AUTO) 0.1 K/uL (0.0-8.0); BASOPHILS % (AUTO) 0.2 % (0.0-2.0); EOSINOPHILS # (AUTO) 0.1 K/uL (0.0-0.7); EOSINOPHILS % (AUTO) 0.3 % (0.0-7.0); HEMATOCRIT 32.7 % (36.7-47.1); HEMOGLOBIN 10.9 g/dL (12.5-16.3); LYMPHOCYTES % (AUTO) 8.6 % (20.5-51.5); MEAN CORPUSCULAR HEMOGLOBIN 29.6 uug (23.8-33.4); MEAN CORPUSCULAR HGB CONC 33 g/dL (32.5-36.3); MONOCYTES # (AUTO) 0.7 K/uL (2.0-10.0); MONOCYTES % (AUTO) 2.8 % (0.0-11.0); NEUTROPHILS % (AUTO) 88.1 % (38.5-71.5); PLATELET COUNT (AUTO) 240 K/uL (152-348); RED BLOOD CELL COUNT(AUTO) 3.68 MIL/uL (4.06-5.63); WHITE BLOOD COUNT (AUTO) 23.9 K/uL (3.6-10.2)
[2018-01-28] MEDS: NORMAL SALINE FLUSH 10 ML DISP.SYRIN IV SCH ×3 (05:40→21:14)
[2018-01-28] MEDS: VANCOMYCIN FOR PO/GT/NG USE PO SCH ×4 (05:40→23:23)
[2018-01-28 06:04] LABS: ALANINE AMINOTRANSFERASE 17 U/L (16-63); ALKALINE PHOSPHATASE 88 U/L (50-136); ASPARTATE AMINOTRANSFERASE 19 U/L (15-37); BILIRUBIN,TOTAL 0.5 mg/dL (0.2-1.0); CARBON DIOXIDE 14 mmol/L (21-32); CHLORIDE 105 mmol/L (98-107); CREATININE 1.4 mg/dL (0.6-1.3); GLUCOSE 125 mg/dL (74-106); PHOSPHOROUS 3.6 mg/dL (2.5-4.9); POTASSIUM 3.6 mmol/L (3.5-5.1); TOTAL PROTEIN, SERUM 3.9 g/dL (6.4-8.2); UREA NITROGEN, BLOOD 22 mg/dL (7-18)
[2018-01-28] MEDS: IV D5/ 0.9% NACL 1,000 ML IV PRN (07:20)
[2018-01-28] MEDS: METRONIDAZOLE 500 MG/NS 100ML 500 MG in PREMIXED 1 EACH IV SCH ×3 (08:38→23:23)
[2018-01-28] MEDS: MUPIROCIN 2% OINT 22 GM TUBE NS SCH ×2 (08:39→20:43)
[2018-01-28] MEDS: MEROPENEM 1 G in IV NORMAL SALINE 100 ML IV SCH ×2 (08:39→20:44)
[2018-01-28] MEDS: PANTOPRAZOLE SODIUM 40 MG VIAL IV SCH (08:41)
[2018-01-28] MEDS: Z GUARD REMEDY PASTE 57 GM TUBE TOP SCH ×2 (08:42→20:43)
[2018-01-28] MEDS: FOLIC ACID/VITAMIN B COMP W-C TABLET PO SCH (09:00)
[2018-01-28] MEDS ORDERED: POTASSIUM CHLORIDE 50 ML IV SCH (12:00)
[2018-01-28] MEDS: AMIODARONE HCL IV 900 MG in IV DEXTROSE 5% 482 ML IV PRN (18:34)
[2018-01-28] MEDS: NOREPINEPHRINE BITARTRATE 16 MG in IV DEXTROSE 5% 500 ML IV PRN (18:35)
--- NOTE | 2018-01-28 19:15 | NUR ---
FIRE SAFETY INSPECTOR MARTIN AT BEDSIDE EXAMINING PATIENT .PATIENT SON STACEY AT BEDSIDE AND AWARE ABOUT PATIENT PLAN OF CARE . SON SPOKED TO FIRE SAFETY INSPECTOR AND SPOKED TO RN
--- NOTE | 2018-01-28 19:30 | NUR ---
PLACE NGT PER NURSING INFORMATICS SPECIALIST MARTIN . FOR MEDICATIONS ETC.
--- NOTE | 2018-01-28 20:39 | NUR ---
ULTRA SOUND TECH AT BEDSIDE FOR UPPER RIGHT ARM U/S C/O RIGHT UPPER ARM PICC LINE SITE SWOLLEN .
--- NOTE | 2018-01-28 22:20 | NUR ---
SPOKED WITH [employer] MARTIN CARPET TILE LAYER AWARE ABOUT THE US RESULT OF THE RIGHT UPPER ARM OCCLUSIVE FOR VENOUS THROMBUS IN THE BRACHIAL VEIN , WITH ORDER TO PLACE ANOTHER PICC LINE TO THE OPPOSITE SITE -LEFT ARM AND REMOVED THE PICC LINE - RIGHT ARM , CALLED PATIENT SON AND OBTAINED CONSENT WITNESS BY ANOTHER RN ESTHER AND SERVICE MECHANIC LESLI NOTIFIED AND WILL NOTIFY PICC LINE . .
[2018-01-29] VITALS (51 sets, daily range): BP systolic 82–127; BP diastolic 50–93
[2018-01-29 05:03] LABS: BASOPHILS % (AUTO) 0.2 % (0.0-2.0); EOSINOPHILS % (AUTO) 0.2 % (0.0-7.0); HEMATOCRIT 31.6 % (36.7-47.1); HEMOGLOBIN 10.4 g/dL (12.5-16.3); LYMPHOCYTES # (AUTO) 1.8 K/uL (20.0-40.0); LYMPHOCYTES % (AUTO) 8.4 % (20.5-51.5); MEAN CORPUSCULAR HEMOGLOBIN 29.4 uug (23.8-33.4); MEAN CORPUSCULAR HGB CONC 33 g/dL (32.5-36.3); MEAN CORPUSCULAR VOLUME 89.3 fL (73.0-96.2); MONOCYTES # (AUTO) 0.7 K/uL (2.0-10.0); MONOCYTES % (AUTO) 3.4 % (0.0-11.0); NEUTROPHILS % (AUTO) 87.8 % (38.5-71.5); PLATELET COUNT (AUTO) 225 K/uL (152-348); RED BLOOD CELL COUNT(AUTO) 3.53 MIL/uL (4.06-5.63); WHITE BLOOD COUNT (AUTO) 21.6 K/uL (3.6-10.2)
[2018-01-29 05:10] LABS: CARBON DIOXIDE 14 mmol/L (21-32); CHLORIDE 106 mmol/L (98-107); CREATININE 1.5 mg/dL (0.6-1.3); GLUCOSE 114 mg/dL (74-106); POTASSIUM 3.6 mmol/L (3.5-5.1); UREA NITROGEN, BLOOD 22 mg/dL (7-18)
[2018-01-29] MEDS: VANCOMYCIN FOR PO/GT/NG USE PO SCH ×4 (05:12→23:57)
[2018-01-29] MEDS: NORMAL SALINE FLUSH 10 ML DISP.SYRIN IV SCH ×3 (05:12→22:25)
[2018-01-29] MEDS: IV D5/ 0.9% NACL 1,000 ML IV PRN ×2 (05:48→22:25)
--- NOTE | 2018-01-29 07:49 | NUR ---
SBAR report received from Benito GONZALEZ. 87 yr old male was admitted on 01/23 for sepsis and rapid atrial fib. patient remains on amiodarone drip at 0.5mg/min and on levophed drip at 1 mcg/min. IV d5NS infusing at 70ml/hr. patient has a PICC line SUSANA right arm is swollen. has an ngt via left nare. and is clamped. o2 2 l nc. hutchinson catheter intact. ekg is afib hr 76/min Addendum: 01/29/18 at 0750 by SUMEET IRWIN RN Amended: Links added.
[2018-01-29] MEDS: METRONIDAZOLE 500 MG/NS 100ML 500 MG in PREMIXED 1 EACH IV SCH ×3 (08:13→23:56)
[2018-01-29] MEDS: PANTOPRAZOLE SODIUM 40 MG VIAL IV SCH (08:45)
[2018-01-29] MEDS: FOLIC ACID/VITAMIN B COMP W-C TABLET PO SCH (08:45)
[2018-01-29] MEDS: MUPIROCIN 2% OINT 22 GM TUBE NS SCH ×2 (08:46→20:20)
[2018-01-29] MEDS: Z GUARD REMEDY PASTE 57 GM TUBE TOP SCH ×2 (08:48→20:20)
[2018-01-29 08:56] LABS: BAND % (MANUAL) 9 % (0-10); LYMPHOCYTES % (MANUAL) 8 % (20-40); MONOCYTES % (MANUAL) 3 % (2-10); NEUTROPHILS % (MANUAL) 80 % (42-75)
--- NOTE | 2018-01-29 09:26 | NUR ---
seen by dr valdes, orders received. aware of current plan of care and patient's current status. IV fluid decreased to 50ml/hr Addendum: 01/29/18 at 925 by SUMEET IRWIN RN Amended: Links added. Addendum: 01/29/18 at 930 by SUMEET IRWIN RN Amended: Links added.
--- NOTE | 2018-01-29 09:31 | NUR ---
Lawanda from vascular Access called to inform unit she will be here around noon time for PICC line insertion Addendum: 01/29/18 at 0931 by SUMEET IRWIN RN Amended: Links added.
[2018-01-29] MEDS ORDERED: POTASSIUM CHLORIDE 50 ML IV SCH (10:00)
--- NOTE | 2018-01-29 10:29 | NUR ---
10MEQ KCL INFUSED OVER 1 HR iv FOR K3.6 Addendum: 01/29/18 at 1029 by SUMEET IRWIN RN Amended: Links added.
--- NOTE | 2018-01-29 19:34 | NUR ---
report given to Tracy Addendum: 01/29/18 at 1934 by SUMEET IRWIN RN Amended: Links added.
--- NOTE | 2018-01-29 20:00 | NUR ---
PATIENT IN BED AWAKE ,CONFUSED .OFF LEVOPHED AND AMIODARONE DRIP . CONTINUE TO MONITOR V/S .ON ROOM AIR NO SOB NO RESPIRATORY DISTRESS ,RR 20 SATURATION 98% . HOB UP AND ASPIRATION PRECAUTION OBSERVED.
--- NOTE | 2018-01-29 20:00 | NUR ---
ROUNDS MADE PATIENT IN BED AWAKE ,ALERT X1. FOLLOW SIMPLE COMMANDS , ENDORSED BY DAY RN PATIENT REFUSED TO EAT DINNER,OFFERED VANILLA PUDDING TOLERATED ATE 2 SERVINGS ,SPOON FED . ASPIRATION PRECAUTION OBSERVED . Addendum: 01/30/18 at 0623 by TIGIST GARCIA RN WRONG PATIENT
--- NOTE | 2018-01-29 21:00 | NUR ---
DUE MEDICATION GIVEN AND PO MEDS GIVEN VIA NGT TUBE PATENT ,ORAL CARE DONE . SUCTION PATIENT PRN .
--- NOTE | 2018-01-29 21:00 | NUR ---
TURNED AND REPOSITION PATIENT . OFFLOADED BACK ,HEELS WITH PILLOWS . RESTRAINTS PROTOCOL OBSERVED AND PROTOCOLS FOLLOWED TO SAFETY ,PATIENT KEEPS REMOVING NGT .
--- NOTE | 2018-01-29 21:00 | NUR ---
DUE MEDICATION TOLERATED WITH CRANBERRY JUICE . HOB UP. Addendum: 01/30/18 at 0624 by TIGIST GARCIA RN WRONG PATENT .
[2018-01-30] VITALS (65 sets, daily range): BP systolic 66–148; BP diastolic 36–71
--- NOTE | 2018-01-30 04:00 | NUR ---
AM CARE DONE ,CHANGED SOILED LINENS AND GOWN . SKIN CARE ,F/C ORAL CARE DONE .
[2018-01-30] MEDS: VANCOMYCIN FOR PO/GT/NG USE PO SCH ×4 (05:07→23:51)
[2018-01-30] MEDS: NORMAL SALINE FLUSH 10 ML DISP.SYRIN IV SCH ×3 (05:07→21:23)
[2018-01-30 05:27] LABS: BASOPHILS % (AUTO) 0.1 % (0.0-2.0); EOSINOPHILS % (AUTO) 0.2 % (0.0-7.0); HEMATOCRIT 30.9 % (36.7-47.1); HEMOGLOBIN 10.1 g/dL (12.5-16.3); LYMPHOCYTES # (AUTO) 1.9 K/uL (20.0-40.0); LYMPHOCYTES % (AUTO) 9.6 % (20.5-51.5); MEAN CORPUSCULAR HEMOGLOBIN 29.4 uug (23.8-33.4); MEAN CORPUSCULAR HGB CONC 33 g/dL (32.5-36.3); MEAN CORPUSCULAR VOLUME 89.9 fL (73.0-96.2); MONOCYTES # (AUTO) 0.6 K/uL (2.0-10.0); MONOCYTES % (AUTO) 3.2 % (0.0-11.0); NEUTROPHILS # (AUTO) 16.8 K/uL (1.8-8.9); NEUTROPHILS % (AUTO) 86.9 % (38.5-71.5); PLATELET COUNT (AUTO) 223 K/uL (152-348); RED BLOOD CELL COUNT(AUTO) 3.44 MIL/uL (4.06-5.63); WHITE BLOOD COUNT (AUTO) 19.3 K/uL (3.6-10.2)
[2018-01-30 05:55] LABS: ALANINE AMINOTRANSFERASE 17 U/L (16-63); ALKALINE PHOSPHATASE 76 U/L (50-136); ASPARTATE AMINOTRANSFERASE 24 U/L (15-37); BILIRUBIN,TOTAL 0.5 mg/dL (0.2-1.0); CARBON DIOXIDE 14 mmol/L (21-32); CHLORIDE 108 mmol/L (98-107); CREATININE 1.3 mg/dL (0.6-1.3); GLUCOSE 93 mg/dL (74-106); MAGNESIUM 1.8 mg/dL (1.8-2.4); PHOSPHOROUS 3.9 mg/dL (2.5-4.9); POTASSIUM 3.5 mmol/L (3.5-5.1); TOTAL PROTEIN, SERUM 3.8 g/dL (6.4-8.2); UREA NITROGEN, BLOOD 20 mg/dL (7-18)
[2018-01-30 06:20] LABS: BAND % (MANUAL) 1 % (0-10); LYMPHOCYTES % (MANUAL) 10 % (20-40); MONOCYTES % (MANUAL) 5 % (2-10); NEUTROPHILS % (MANUAL) 84 % (42-75)
[2018-01-30] MEDS: METRONIDAZOLE 500 MG/NS 100ML 500 MG in PREMIXED 1 EACH IV SCH ×3 (09:19→23:51)
[2018-01-30] MEDS: FOLIC ACID/VITAMIN B COMP W-C TABLET PO SCH (10:24)
[2018-01-30] MEDS: PANTOPRAZOLE SODIUM 40 MG VIAL IV SCH (10:24)
[2018-01-30] MEDS: Z GUARD REMEDY PASTE 57 GM TUBE TOP SCH ×2 (10:25→20:11)
[2018-01-30] MEDS: MUPIROCIN 2% OINT 22 GM TUBE NS SCH ×2 (10:26→20:13)
--- NOTE | 2018-01-30 10:44 | NUR ---
call to Efe sevilla NP for peristent low blood pressure. orders received Addendum: 01/30/18 at 1046 by SUMEET IRWIN RN Amended: Links added. Addendum: 01/30/18 at 1108 by SUMEET IRWIN RN Amended: Links added.
[2018-01-30] MEDS: NOREPINEPHRINE BITARTRATE 16 MG in IV DEXTROSE 5% 500 ML IV PRN (10:50)
--- NOTE | 2018-01-30 11:00 | NUR ---
seen by dr Javan MOYER MD. will hold PEG until medically stable. aware pat was back on levophed drip. ok to feed patient via ngt Addendum: 01/30/18 at 1447 by SUMEET IRWIN RN Amended: Links added. Addendum: 01/30/18 at 1449 by SUMEET IRWIN RN Amended: Links added. Addendum: 01/30/18 at 1450 by SUMEET IRWIN RN Amended: Links added.
--- NOTE | 2018-01-30 11:08 | NUR ---
seen by dr valdes. orders received Addendum: 01/30/18 at 1108 by SUMEET IRWIN RN Amended: Links added.
[2018-01-30] MEDS: VITAL AF 1.2 1,000 ML LIQUID NG PRN (14:27)
--- NOTE | 2018-01-30 14:49 | NUR ---
tube fdg vital af 20ml/hr via ngt Addendum: 01/30/18 at 1450 by SUMEET IRWIN RN Amended: Links added.
--- NOTE | 2018-01-30 19:30 | NUR ---
PATIENT IN BED AWAKE BUT CONFUSED ,.ON ROOM AIR NO RESPIRATORY DISTRESS NOTED ON LEVOPHED KEEP AT 4MCG/MIN ,CONTINUE TO MONITOR V/S Q15 MINUTES AND TO CONTINENT O MONITOR LEVELS OF COMFORT .
--- NOTE | 2018-01-30 21:00 | NUR ---
TF IN PROGRESS VITAL 1.2 TOLERATING ,FLUSHED ,ASPIRATION PRECAUTION OBSERVED CONTINUE TO INCREASE RATE TO GOAL TOLERATED .
[2018-01-30] MEDS: IV D5/ 0.9% NACL 1,000 ML IV PRN (21:23)
[2018-01-31] VITALS (63 sets, daily range): BP systolic 84–112; BP diastolic 45–64
[2018-01-31] MEDS: NORMAL SALINE FLUSH 10 ML DISP.SYRIN IV SCH ×3 (05:22→21:30)
[2018-01-31] MEDS: VANCOMYCIN FOR PO/GT/NG USE PO SCH ×4 (05:22→23:34)
[2018-01-31 05:25] LABS: BASOPHILS % (AUTO) 0.2 % (0.0-2.0); EOSINOPHILS % (AUTO) 0.1 % (0.0-7.0); HEMATOCRIT 30.4 % (36.7-47.1); LYMPHOCYTES # (AUTO) 1.3 K/uL (20.0-40.0); LYMPHOCYTES % (AUTO) 6.2 % (20.5-51.5); MEAN CORPUSCULAR HEMOGLOBIN 29.6 uug (23.8-33.4); MEAN CORPUSCULAR HGB CONC 33 g/dL (32.5-36.3); MEAN CORPUSCULAR VOLUME 90.5 fL (73.0-96.2); MONOCYTES # (AUTO) 0.7 K/uL (2.0-10.0); MONOCYTES % (AUTO) 3.2 % (0.0-11.0); NEUTROPHILS # (AUTO) 18.4 K/uL (1.8-8.9); NEUTROPHILS % (AUTO) 90.3 % (38.5-71.5); PLATELET COUNT (AUTO) 245 K/uL (152-348); RED BLOOD CELL COUNT(AUTO) 3.36 MIL/uL (4.06-5.63); WHITE BLOOD COUNT (AUTO) 20.4 K/uL (3.6-10.2)
[2018-01-31 05:32] LABS: CARBON DIOXIDE 15 mmol/L (21-32); CHLORIDE 110 mmol/L (98-107); CREATININE 1.3 mg/dL (0.6-1.3); GLUCOSE 146 mg/dL (74-106); MAGNESIUM 1.9 mg/dL (1.8-2.4); PHOSPHOROUS 3.7 mg/dL (2.5-4.9); POTASSIUM 3.2 mmol/L (3.5-5.1); UREA NITROGEN, BLOOD 21 mg/dL (7-18)
[2018-01-31] MEDS: PANTOPRAZOLE SODIUM 40 MG VIAL IV SCH (08:09)
[2018-01-31] MEDS: FOLIC ACID/VITAMIN B COMP W-C TABLET PO SCH (08:09)
[2018-01-31] MEDS: METRONIDAZOLE 500 MG/NS 100ML 500 MG in PREMIXED 1 EACH IV SCH ×3 (08:10→23:34)
[2018-01-31] MEDS: MUPIROCIN 2% OINT 22 GM TUBE NS SCH ×2 (08:11→20:24)
[2018-01-31] MEDS: Z GUARD REMEDY PASTE 57 GM TUBE TOP SCH ×2 (08:12→20:24)
[2018-01-31] MEDS: NOREPINEPHRINE BITARTRATE 16 MG in IV DEXTROSE 5% 500 ML IV PRN (10:08)
[2018-01-31] MEDS: ENOXAPARIN SODIUM 60 MG/0.6 ML DISP.SYRIN SQ SCH ×2 (10:14→20:44)
--- NOTE | 2018-01-31 14:13 | NUR ---
WOUND CARE CONSULT/FOLLOW UP: PT HAD SACRAL DEEP TISSUE INJURY ON ADMISSION WHICH HAS NOW FULLY EVOLVED TO STAGE 2 ULCER. RECOMMENDATIONS MADE FOR SKIN PROTECTION AND WOUND CARE. DISCUSSED WITH NURSING STAFF. CONTINUE DPM ORDERS FOR RT HEEL DTI. PT ON FIRST STEP FRANCINE AMBROSE AIRLOSS MATTERSS. ALL SKIN PROTECTION AND PRESSURE ULCER PREVENTION MEASURES IN PLACE. WILL SEE PRMary LR IN AGREEMENT WITH PLAN OF CARE.
--- NOTE | 2018-01-31 14:15 | NUR ---
burning machine operator Lisa here to see pt. New wound tx orders received and carried out.
[2018-01-31] MEDS: POTASSIUM CHLORIDE 50 ML IV SCH ×4 (15:06→18:36)
--- NOTE | 2018-01-31 20:00 | NUR ---
RECEIVED PT.OPENS HIS EYES TO NOXIOUS STIMULI & MAKING SOUNDS. ON RM AIR W/ O2 SAT OF 98%. NGT ON L NARE CHECKED PLACEMENT & CHECKED RESIDUAL 10CC NOTED, INCREASED TUBE FDG RATE TO 50CC/HR. ON LEVOPHED DRIP @ 4MCQ/MIN VIA SUSANA PICC LINE. IVF D5NS @ 50CC/HR. REPOSITIONED PT W/ HOB ELEVATED.
--- NOTE | 2018-01-31 22:00 | NUR ---
HS CARE DONE. ORAL CARE DONE. REPOSITIONED W/ HOB ELEVATED.
[2018-01-31] MEDS: VITAL AF 1.2 1,000 ML LIQUID NG PRN (22:31)
[2018-01-31] MEDS: IV D5/ 0.9% NACL 1,000 ML IV PRN (22:38)
[2018-02-01] VITALS (48 sets, daily range): BP systolic 89–156; BP diastolic 43–70
--- NOTE | 2018-02-01 | NUR ---
AFEBRILE. RESIDUAL CHECKED 5CC NOTED.
--- NOTE | 2018-02-01 04:59 | NUR ---
AM CARE DONE. ORAL CARE DONE. HAD LARGE PASTY STOOL.
[2018-02-01 05:06] LABS: CARBON DIOXIDE 15 mmol/L (21-32); CHLORIDE 112 mmol/L (98-107); CREATININE 1.2 mg/dL (0.6-1.3); GLUCOSE 248 mg/dL (74-106); POTASSIUM 3.6 mmol/L (3.5-5.1); UREA NITROGEN, BLOOD 21 mg/dL (7-18)
[2018-02-01 05:26] LABS: BASOPHILS % (AUTO) 0.1 % (0.0-2.0); EOSINOPHILS # (AUTO) 0.1 K/uL (0.0-0.7); EOSINOPHILS % (AUTO) 0.6 % (0.0-7.0); HEMATOCRIT 28.8 % (36.7-47.1); HEMOGLOBIN 9.5 g/dL (12.5-16.3); LYMPHOCYTES % (AUTO) 11.6 % (20.5-51.5); MEAN CORPUSCULAR HEMOGLOBIN 29.5 uug (23.8-33.4); MEAN CORPUSCULAR HGB CONC 33 g/dL (32.5-36.3); MEAN CORPUSCULAR VOLUME 89.9 fL (73.0-96.2); MONOCYTES # (AUTO) 0.8 K/uL (2.0-10.0); MONOCYTES % (AUTO) 4.7 % (0.0-11.0); NEUTROPHILS # (AUTO) 14.5 K/uL (1.8-8.9); PLATELET COUNT (AUTO) 224 K/uL (152-348); RED BLOOD CELL COUNT(AUTO) 3.21 MIL/uL (4.06-5.63); WHITE BLOOD COUNT (AUTO) 17.5 K/uL (3.6-10.2)
[2018-02-01] MEDS: NORMAL SALINE FLUSH 10 ML DISP.SYRIN IV SCH ×3 (05:45→21:24)
[2018-02-01] MEDS: VANCOMYCIN FOR PO/GT/NG USE PO SCH ×4 (05:45→23:45)
--- NOTE | 2018-02-01 06:00 | NUR ---
REPOSITIONED ON HIS SIDE W/ HOB ELEVATED. LEVOPHED DRIP @ 5MCQ/MIN.
[2018-02-01] MEDS: METRONIDAZOLE 500 MG/NS 100ML 500 MG in PREMIXED 1 EACH IV SCH ×3 (07:44→23:45)
--- NOTE | 2018-02-01 07:45 | NUR ---
Attending N.P. in the unit to see and examine patient, full report given.
[2018-02-01] MEDS: FOLIC ACID/VITAMIN B COMP W-C TABLET PO SCH (08:21)
[2018-02-01] MEDS: PANTOPRAZOLE ORAL SUSPENSION 40 MG SUSPDR.PKT GT SCH (08:21)
[2018-02-01] MEDS: Z GUARD REMEDY PASTE 57 GM TUBE TOP SCH ×2 (08:22→20:22)
[2018-02-01] MEDS: MUPIROCIN 2% OINT 22 GM TUBE NS SCH ×2 (08:22→20:21)
[2018-02-01] MEDS: ENOXAPARIN SODIUM 60 MG/0.6 ML DISP.SYRIN SQ SCH ×2 (08:23→20:23)
[2018-02-01] MEDS: VITAL AF 1.2 1,000 ML LIQUID NG PRN (11:30)
--- NOTE | 2018-02-01 12:45 | NUR ---
Nephrology services, Dr. Floyd in the unit to examine patient.
--- NOTE | 2018-02-01 13:15 | NUR ---
ID physician in the unit to see and examine patient, full report given.
[2018-02-01] MEDS ORDERED: DOSING BY PHARMACY-MD TO SPECIFY MED/ROUTE XX PRN (14:15)
--- NOTE | 2018-02-01 16:46 | NUR ---
A call to attending Barbara Wilks update on pt's condition given orders to stop CVP monitoring received.
--- NOTE | 2018-02-01 20:00 | NUR ---
RECEIVED PT. OPENS HIS EYES TO VERBAL STIMULI & MAKING SOUNDS. ON RM AIR W/ O2 SAT OF 99%. NGT ON L NARE CHECKED PLACEMENT & CHECKED RESIDUAL 5CC NOTED. ON TUBE FDG OF VITAL AF 1.2 MARISOL @ 60CC/HR. IVF D5NS @ 50CC/HR VIA PICC LINE ON APARNA. AFEBRILE. BP STABLE. REPOSITIONED W/ HOB ELEVATED.
[2018-02-01] MEDS: ACIDOPHILUS/BULGARICUS CHEW TAB GT SCH (20:21)
--- NOTE | 2018-02-01 23:45 | NUR ---
HS CARE DONE. CHECKED RESIDUAL 5CC NOTED. REPOSITIONED W/ HOB ELEVATED.
[2018-02-02] VITALS (20 sets, daily range): BP systolic 109–141; BP diastolic 56–79
[2018-02-02] MEDS: IV D5/ 0.9% NACL 1,000 ML IV PRN ×2 (03:21→17:51)
--- NOTE | 2018-02-02 04:00 | NUR ---
AM CARE DONE. ORAL CARE DONE. HAD LARGE PASTY DARK BROWNISH STOOL. REPOSITIONED ON HIS SIDE W/ HOB ELEVATED. RESIDUAL CHECKED 5CC NOTED.
--- NOTE | 2018-02-02 06:00 | NUR ---
SUCTIONED ORALLY & REPOSITIONED W/ HOB ELEVATED.
[2018-02-02] MEDS: VANCOMYCIN FOR PO/GT/NG USE PO SCH ×4 (06:08→23:07)
[2018-02-02] MEDS: NORMAL SALINE FLUSH 10 ML DISP.SYRIN IV SCH ×3 (06:12→21:29)
--- NOTE | 2018-02-02 07:41 | NUR ---
RECEIVED AN 87 Y/O MALE PT. OPENS HIS EYES TO VERBAL STIMULI, CONFUSED, CONNECTED TO HISTOLOGIST TECHNOLOGIST. ON RM AIR WITH O2 SAT OF 99%. HAS AN NGT ON VIA LT NARE CHECKED PLACEMENT & CHECKED RESIDUAL 5CC NOTED, RECEIVING TUBE FEEDING OF VITAL AF 1.2 MARISOL @ 60ML/HR. HAS A RT UPPER PICC LINE RECEIVING IVF D5NS @ 50ML/HR VIA.URINATING VIA FC.
--- NOTE | 2018-02-02 08:00 | NUR ---
position changed, mouth care done , oral suction done medium amount of thick secretions. NGT placement checked and verified no residual, pt put back on feeding 60ml/hr.
[2018-02-02] MEDS: METRONIDAZOLE 500 MG/NS 100ML 500 MG in PREMIXED 1 EACH IV SCH ×3 (08:02→23:06)
[2018-02-02 08:41] LABS: BASOPHILS % (AUTO) 0.2 % (0.0-2.0); EOSINOPHILS # (AUTO) 0.1 K/uL (0.0-0.7); EOSINOPHILS % (AUTO) 0.6 % (0.0-7.0); HEMATOCRIT 29.7 % (36.7-47.1); HEMOGLOBIN 9.8 g/dL (12.5-16.3); LYMPHOCYTES # (AUTO) 1.4 K/uL (20.0-40.0); LYMPHOCYTES % (AUTO) 9.9 % (20.5-51.5); MEAN CORPUSCULAR HEMOGLOBIN 29.9 uug (23.8-33.4); MEAN CORPUSCULAR HGB CONC 33 g/dL (32.5-36.3); MEAN CORPUSCULAR VOLUME 90.3 fL (73.0-96.2); MONOCYTES # (AUTO) 0.5 K/uL (2.0-10.0); MONOCYTES % (AUTO) 3.8 % (0.0-11.0); NEUTROPHILS # (AUTO) 11.7 K/uL (1.8-8.9); NEUTROPHILS % (AUTO) 85.5 % (38.5-71.5); PLATELET COUNT (AUTO) 201 K/uL (152-348); RED BLOOD CELL COUNT(AUTO) 3.29 MIL/uL (4.06-5.63); WHITE BLOOD COUNT (AUTO) 13.7 K/uL (3.6-10.2)
[2018-02-02] MEDS: VITAL AF 1.2 1,000 ML LIQUID NG PRN (08:49)
[2018-02-02 08:51] LABS: CARBON DIOXIDE 16 mmol/L (21-32); CHLORIDE 114 mmol/L (98-107); GLUCOSE 117 mg/dL (74-106); POTASSIUM 3.9 mmol/L (3.5-5.1); UREA NITROGEN, BLOOD 25 mg/dL (7-18)
[2018-02-02] MEDS: FOLIC ACID/VITAMIN B COMP W-C TABLET PO SCH (08:54)
[2018-02-02] MEDS: ACIDOPHILUS/BULGARICUS CHEW TAB GT SCH ×2 (08:54→21:28)
[2018-02-02] MEDS: ENOXAPARIN SODIUM 60 MG/0.6 ML DISP.SYRIN SQ SCH ×2 (08:55→21:27)
[2018-02-02] MEDS: MUPIROCIN 2% OINT 22 GM TUBE NS SCH ×2 (09:38→21:28)
[2018-02-02] MEDS: Z GUARD REMEDY PASTE 57 GM TUBE TOP SCH ×2 (09:39→21:28)
[2018-02-02] MEDS: PANTOPRAZOLE ORAL SUSPENSION 40 MG SUSPDR.PKT GT SCH (09:44)
--- NOTE | 2018-02-02 10:00 | NUR ---
Seen by Dr. Mosley assessed both legs and changed dressing on both feet.
--- NOTE | 2018-02-02 10:30 | NUR ---
SEEN BY DR NOVOA NO NEW ORDERS. PLANS FOR SWALLOW EVALUATION AND POSSIBLE PEG TUBE ON MONDAY.
--- NOTE | 2018-02-02 12:00 | NUR ---
PT'S position changed to RT lateral, PASSED A SMALL AMOUNT OF STOOL, CARE DONE.
--- NOTE | 2018-02-02 14:30 | NUR ---
patients position changed, passed a moderate amount of loose stephanie, care done.
--- NOTE | 2018-02-02 16:00 | NUR ---
patient spo2 suddenly went down to 80% , RT was informed, put on NRM 15LPM, nasal and oral suction done large amount of secretions. pt put on up right position, HOB ELEVATED , CXR STAT PUT IN.
--- NOTE | 2018-02-02 18:00 | NUR ---
pts position changed , passed moderate amount of stool care done, pt is more stable.
--- NOTE | 2018-02-02 21:00 | NUR ---
Received patient awake, alert and oriented times one lying in bed in low benz's position. Not able to follow commands. Not able to verbalize wishes and concerns. Vital signs taken and recorded-all parameters were within normal limits. Bedside care done. Physical assessment done and completed. Due NG meds given and taken. Not in any acute distress or pain. Will continue to monitor.
[2018-02-03] VITALS: BP 132/82
[2018-02-03 01:00] VITALS: BP 123/65
[2018-02-03 04:00] VITALS: BP 119/64
[2018-02-03 05:25] LABS: BASOPHILS % (AUTO) 0.2 % (0.0-2.0); EOSINOPHILS # (AUTO) 0.1 K/uL (0.0-0.7); EOSINOPHILS % (AUTO) 0.7 % (0.0-7.0); HEMATOCRIT 27.1 % (36.7-47.1); HEMOGLOBIN 8.9 g/dL (12.5-16.3); LYMPHOCYTES # (AUTO) 1.1 K/uL (20.0-40.0); LYMPHOCYTES % (AUTO) 9.9 % (20.5-51.5); MEAN CORPUSCULAR HEMOGLOBIN 29.9 uug (23.8-33.4); MEAN CORPUSCULAR HGB CONC 33 g/dL (32.5-36.3); MEAN CORPUSCULAR VOLUME 90.9 fL (73.0-96.2); MONOCYTES # (AUTO) 0.5 K/uL (2.0-10.0); MONOCYTES % (AUTO) 4.7 % (0.0-11.0); NEUTROPHILS # (AUTO) 9.6 K/uL (1.8-8.9); NEUTROPHILS % (AUTO) 84.5 % (38.5-71.5); PLATELET COUNT (AUTO) 201 K/uL (152-348); RED BLOOD CELL COUNT(AUTO) 2.98 MIL/uL (4.06-5.63); WHITE BLOOD COUNT (AUTO) 11.3 K/uL (3.6-10.2)
[2018-02-03 05:30] LABS: CARBON DIOXIDE 15 mmol/L (21-32); CHLORIDE 116 mmol/L (98-107); CREATININE 1.1 mg/dL (0.6-1.3); GLUCOSE 140 mg/dL (74-106); POTASSIUM 3.6 mmol/L (3.5-5.1); UREA NITROGEN, BLOOD 27 mg/dL (7-18)
[2018-02-03] MEDS: VANCOMYCIN FOR PO/GT/NG USE PO SCH ×4 (05:56→23:59)
[2018-02-03] MEDS: NORMAL SALINE FLUSH 10 ML DISP.SYRIN IV SCH ×3 (05:57→21:39)
--- NOTE | 2018-02-03 06:40 | NUR ---
Slept well all night. No complaints noted. Appeared calm and pleasant. Not in any acute distress or pain. Will continue to monitor with safety.
[2018-02-03 08:00] VITALS: BP 130/81
[2018-02-03] MEDS: ENOXAPARIN SODIUM 60 MG/0.6 ML DISP.SYRIN SQ SCH ×2 (08:45→23:20)
[2018-02-03] MEDS: FOLIC ACID/VITAMIN B COMP W-C TABLET PO SCH (08:45)
[2018-02-03] MEDS: ACIDOPHILUS/BULGARICUS CHEW TAB GT SCH ×2 (08:45→21:32)
[2018-02-03] MEDS: METRONIDAZOLE 500 MG/NS 100ML 500 MG in PREMIXED 1 EACH IV SCH ×2 (08:46→15:11)
[2018-02-03] MEDS: Z GUARD REMEDY PASTE 57 GM TUBE TOP SCH ×2 (08:46→21:31)
[2018-02-03] MEDS: MUPIROCIN 2% OINT 22 GM TUBE NS SCH (08:47)
[2018-02-03] MEDS: PANTOPRAZOLE ORAL SUSPENSION 40 MG SUSPDR.PKT GT SCH (09:03)
--- NOTE | 2018-02-03 09:45 | NUR ---
LIV Heard here to see pt. Full report given. New orders received. stated that it was okay to downgrade pt to telemetry status.
--- NOTE | 2018-02-03 18:21 | NUR ---
Spoke with FINANCIAL DEVELOPER Efe Heard on the telephone regarding Meng (son) concern for stroke and request for CT head. New orders received and carried out.
--- NOTE | 2018-02-03 20:25 | NUR ---
Patient transported to radiology for CT scan.
[2018-02-04 01:00] VITALS: BP 123/65
[2018-02-04] MEDS: VANCOMYCIN FOR PO/GT/NG USE PO SCH ×4 (06:02→23:28)
[2018-02-04] MEDS: NORMAL SALINE FLUSH 10 ML DISP.SYRIN IV SCH ×3 (06:03→21:48)
[2018-02-04 08:00] VITALS: BP 117/56
[2018-02-04] MEDS: PANTOPRAZOLE ORAL SUSPENSION 40 MG SUSPDR.PKT GT SCH (08:21)
[2018-02-04] MEDS: ACIDOPHILUS/BULGARICUS CHEW TAB GT SCH ×2 (08:21→20:30)
[2018-02-04] MEDS: FOLIC ACID/VITAMIN B COMP W-C TABLET PO SCH (08:21)
[2018-02-04] MEDS: Z GUARD REMEDY PASTE 57 GM TUBE TOP SCH ×2 (08:22→20:30)
[2018-02-04] MEDS: METRONIDAZOLE 500 MG/NS 100ML 500 MG in PREMIXED 1 EACH IV SCH ×5 (08:22→23:28)
[2018-02-04] MEDS: ENOXAPARIN SODIUM 60 MG/0.6 ML DISP.SYRIN SQ SCH (08:23)
--- NOTE | 2018-02-04 08:43 | NUR ---
Full telephone SBAR report given to CARLOS Nugent.
--- NOTE | 2018-02-04 09:15 | NUR ---
Pt transferred to room 206-T. Pt stable and nad noted upon transfer. All belongings reviewed and brought with the pt.
[2018-02-04 09:21] VITALS: BP 100/60
--- NOTE | 2018-02-04 10:00 | NUR ---
in via transfer from ICU with dx of sepsis. on tele sinus rhythm with HR of 75. no signs of respiratory distress. Isolation precautions initiated. Right arm precaution instilled. safety measures maintained. Triple lumen catheter on LFA, patent and intact. NG tube on L with tube feeding running on 60cc/hr, no residual, placement assessment done. FC draining well via gravity. will continue to monitor.
[2018-02-04] MEDS: VITAL AF 1.2 1,000 ML LIQUID NG PRN (10:37)
[2018-02-04 11:30] VITALS: BP 98/61
[2018-02-04 15:23] VITALS: BP 94/54
--- NOTE | 2018-02-04 17:00 | NUR ---
seen and examined by Dr. Rito Garcia.
--- NOTE | 2018-02-04 18:34 | NUR ---
patient resting comfortably in bed. on tele sinus rhythm with HR of 80. no signs of respiratory distress noted. safety measures maintained at all times.
[2018-02-04 19:00] VITALS: BP 102/60
--- NOTE | 2018-02-04 21:00 | NUR ---
PT'S ON BED REST WITH HI-CHERRY'S POSITION.NGT FEEDING W/VITAL AF @ 60 ML/HR;CHECKED RESIDUAL'S 5 ML;PT TOLERATED WELL NOTED.PM AND ORAL CARE TO PT,ON BILATERAL SOFT WRISTS RESTRAINT DUE TO PT TRIED TO REMOVED NGT AND O2 NOTED.RIGHT UPPER ARM'S SWOLLEN DUE TO DVT AND LEFT UPPER ARM W/PICC LINE X3 LUMENS;CLEAN AND DRY AT THE SITE;CARE PER PROTOCOL.F/C TO GRAVITY.PT HAD X1 BM AT THIS TIME;SKIN CARE DUE TO PRESSURE INJURY AT SACRUM,BILATERAL HEELS NOTED.PT HAD A SCHEDULE FOR PEG PLACEMENT TOMORROW;WILL HOLD FEEDING AFTER MIDNIGHT MD'S ORDER NOTED.TELEMETRY'S SR 77/MIN.CLOSELY MONITORING TO PT.
[2018-02-05] VITALS: BP 94/56
--- NOTE | 2018-02-05 | NUR ---
HELD NGT FEEDING PER MD'S ORDER AT THIS TIME,FLUSHED WITH 150 ML OF WATER.ORAL CARE AND REPOSITION TO PT.FLAGYL 500 MG IVPB WAS GIVEN;PT TOLERATED WELL.CLOSELY MONITORING TO PT.STILL KEPT BILATERAL MITTENS FOR SAFETY NOTED.
[2018-02-05 04:00] VITALS: BP 103/54
[2018-02-05] MEDS: NORMAL SALINE FLUSH 10 ML DISP.SYRIN IV SCH ×3 (05:51→22:13)
[2018-02-05] MEDS: VANCOMYCIN FOR PO/GT/NG USE PO SCH ×3 (05:52→17:25)
--- NOTE | 2018-02-05 05:55 | NUR ---
ASSISTED PT FOR AM CARE ON BED,PICC LINE AND F/C CARE.HELD NGT FEEDING ALREADY AFTER MIDNIGHT FOR PEG IN AM ORDER.NO DISTRESS NOTED IN THE SHIFT.PT HAD YELLOW AND SOFT STOOL THIS MORNING;SKIN CARE TO PT.STILL KEPT BILATERAL MITTENS FOR SAFETY NOTED.CLOSELY MONITORING TO PT.
[2018-02-05 06:14] LABS: BASOPHILS % (AUTO) 0.1 % (0.0-2.0); EOSINOPHILS % (AUTO) 0.3 % (0.0-7.0); HEMATOCRIT 28.2 % (36.7-47.1); HEMOGLOBIN 9.5 g/dL (12.5-16.3); LYMPHOCYTES # (AUTO) 1.1 K/uL (20.0-40.0); MEAN CORPUSCULAR HEMOGLOBIN 30.9 uug (23.8-33.4); MEAN CORPUSCULAR HGB CONC 34 g/dL (32.5-36.3); MEAN CORPUSCULAR VOLUME 91.7 fL (73.0-96.2); MONOCYTES # (AUTO) 0.4 K/uL (2.0-10.0); MONOCYTES % (AUTO) 5.1 % (0.0-11.0); NEUTROPHILS % (AUTO) 81.5 % (38.5-71.5); PLATELET COUNT (AUTO) 235 K/uL (152-348); RED BLOOD CELL COUNT(AUTO) 3.08 MIL/uL (4.06-5.63); WHITE BLOOD COUNT (AUTO) 8.6 K/uL (3.6-10.2)
[2018-02-05 06:25] LABS: CARBON DIOXIDE 16 mmol/L (21-32); CHLORIDE 115 mmol/L (98-107); GLUCOSE 101 mg/dL (74-106); UREA NITROGEN, BLOOD 32 mg/dL (7-18)
[2018-02-05] MEDS ORDERED: LIDOCAINE HCL 2% 20 ML VIAL MC ONE (07:33)
[2018-02-05] MEDS ORDERED: IV NORMAL SALINE 1000 ML BAG IV ONE (07:33)
[2018-02-05] MEDS ORDERED: EPHEDRINE SULFATE 50 MG/ML AMPUL MC ONE (07:33)
[2018-02-05] MEDS ORDERED: CEFAZOLIN 1 G VIAL MC ONE (07:33)
[2018-02-05] MEDS ORDERED: PROPOFOL 200 MG/20 ML BOTTLE IV ONE (07:33)
[2018-02-05] MEDS: METRONIDAZOLE 500 MG/NS 100ML 500 MG in PREMIXED 1 EACH IV SCH ×2 (07:59→17:25)
[2018-02-05] MEDS: Z GUARD REMEDY PASTE 57 GM TUBE TOP SCH ×2 (08:09→22:11)
--- NOTE | 2018-02-05 09:32 | NUR ---
PATIENT PICKED UP BY SURGERY NURSE. IV SITE PATENT AND INTACT. NO SIGN OF RESPIRATORY DISTRESS NOTED. NOTIFIED STAFF THAT PATIENT'S SON WOULD LIKE TO SPEAK TO SURGEON PRIOR TO SURGERY.
[2018-02-05] MEDS ORDERED: Z GUARD REMEDY PASTE 57 GM TUBE ONE (10:22)
[2018-02-05 11:00] VITALS: BP 95/55
[2018-02-05 11:30] VITALS: BP 97/57
[2018-02-05] MEDS: ACIDOPHILUS/BULGARICUS CHEW TAB GT SCH ×2 (14:46→22:13)
[2018-02-05] MEDS: FOLIC ACID/VITAMIN B COMP W-C TABLET PO SCH (14:47)
[2018-02-05] MEDS: PANTOPRAZOLE ORAL SUSPENSION 40 MG SUSPDR.PKT GT SCH (14:47)
[2018-02-05 15:42] VITALS: BP 93/60
--- NOTE | 2018-02-05 18:15 | NUR ---
Pt s/p PEG today (02/05), TF will resume in the am tomorrow. RD requested to try another TF formula that is ease with pt medical condition and affordable so pt can go home with. Current TF order: Vital AF1.2, 60ml/hr x22hrs. At goal rate provides 1584 kcals, 99gm protein & 1070ml of free water. Recommend: Jetvity 1.2, 66ml/hr x22hrs. At goal rate provides 1716 kcals (100% est. kcal needs), 79gm protein (90% est. needs) & 1070ml H2O. 1154ml free water. H20 flushed per MD. When TF resume, will rec initiate at lower rate 20ml and advance 10mlQ6 or 8 hrs as patient tolerates to goal rate. Pt currently taking Protonix, hold TF 1 hr before and after medication administration. Addendum: 02/05/18 at [address] Amended: Links added.
--- NOTE | 2018-02-05 18:59 | NUR ---
PATIENT RESTING COMFORTABLY IN BED. NO SIGNS OF RESPIRATORY DISTRESS. PEG PLACEMENT PATENT AND INTACT, PEG CARE PROVIDED. FC FLOWING WELL VIA GRAVITY.
--- NOTE | 2018-02-05 19:27 | NUR ---
SHIFT REPORT RECEIVED FROM CARLOS KENNEDY. PT STABLE AT THIS TIME. PT ON MED SURG. ABD BINDER IN PLACE.
[2018-02-05 20:00] VITALS: BP 115/36
--- NOTE | 2018-02-06 01:00 | NUR ---
WOUND DRESSING CHANGE PROVIDED. TOLERATED WELL. TURNED AND REPOSITIONED. BM X 1, LOOSE GREEN IN APPEARANCE. APPLIED MEPILEX ON SACRUM. BABCOCK DRAINING CLEAR AND YELLOW URINE. GENERALIZED PITTING EDEMA 3/4+. WILL CLOSELY MONITOR.
[2018-02-06] MEDS: VANCOMYCIN FOR PO/GT/NG USE PO SCH ×4 (01:11→18:29)
[2018-02-06] MEDS: METRONIDAZOLE 500 MG/NS 100ML 500 MG in PREMIXED 1 EACH IV SCH ×3 (01:11→16:34)
[2018-02-06 03:33] VITALS: BP 126/76
[2018-02-06] MEDS: NORMAL SALINE FLUSH 10 ML DISP.SYRIN IV SCH ×3 (05:36→21:03)
--- NOTE | 2018-02-06 05:53 | NUR ---
Patient slept t/o shift. No acute distress noted. Patient remains aphasic. However, responds to name. O2 2L NC. Noted PICC line on the left upper arm, flushed, patent and intact. Noted generalized anasarca. Pitting edema 3+ to 4+. Especially on the left arm. Elevated with pillow at the moment. Noted abdominal binder in place. PEG in place. Loose greenish/brownish Bm x 1. De La Cruz in place, draining clear, yellow urine. DVT pumps in place. On air mattress. Noted open sacral wound. Noted right heel puss/blister looking wound. Bruising on the left schneider. Wound care provided. Hydrogel and mepilex in place. Turn and reposition Q2H. Safety and comfort measures maintained t/o shift. Vital signs stable. All meds given as ordered. All needs met.
[2018-02-06 06:42] LABS: CARBON DIOXIDE 15 mmol/L (21-32); CHLORIDE 118 mmol/L (98-107); GLUCOSE 78 mg/dL (74-106); MAGNESIUM 2.6 mg/dL (1.8-2.4); PHOSPHOROUS 4.7 mg/dL (2.5-4.9); POTASSIUM 3.9 mmol/L (3.5-5.1); UREA NITROGEN, BLOOD 33 mg/dL (7-18)
[2018-02-06 07:13] LABS: BASOPHILS % (AUTO) 0.2 % (0.0-2.0); EOSINOPHILS % (AUTO) 0.2 % (0.0-7.0); HEMATOCRIT 26.7 % (36.7-47.1); HEMOGLOBIN 8.9 g/dL (12.5-16.3); LYMPHOCYTES # (AUTO) 0.9 K/uL (20.0-40.0); LYMPHOCYTES % (AUTO) 14.2 % (20.5-51.5); MEAN CORPUSCULAR HEMOGLOBIN 30.9 uug (23.8-33.4); MEAN CORPUSCULAR HGB CONC 33 g/dL (32.5-36.3); MEAN CORPUSCULAR VOLUME 93.1 fL (73.0-96.2); MONOCYTES # (AUTO) 0.3 K/uL (2.0-10.0); MONOCYTES % (AUTO) 5.4 % (0.0-11.0); NEUTROPHILS # (AUTO) 4.9 K/uL (1.8-8.9); PLATELET COUNT (AUTO) 218 K/uL (152-348); RED BLOOD CELL COUNT(AUTO) 2.87 MIL/uL (4.06-5.63)
[2018-02-06 07:25] LABS: WHITE BLOOD COUNT (AUTO) 6.1 K/uL (3.6-10.2)
--- NOTE | 2018-02-06 08:00 | NUR ---
RECEIVED PATIENT AWAKE ON BED. NO SIGNS OF RESPIRATORY DISTRESS NOTED. FC DRAINING WELL VIA GRAVITY. IV SITE, PATENT AND INTACT. ISOLATION PRECAUTIONS INITIATED. SAFETY MEASURES INSTILLED. PEG TUBE, INTACT AND PATENT. WILL CONTINUE TO MONITOR.
[2018-02-06] MEDS: FOLIC ACID/VITAMIN B COMP W-C TABLET PO SCH (08:12)
[2018-02-06] MEDS: ACIDOPHILUS/BULGARICUS CHEW TAB GT SCH ×2 (08:12→21:03)
[2018-02-06] MEDS: PANTOPRAZOLE ORAL SUSPENSION 40 MG SUSPDR.PKT GT SCH (08:12)
[2018-02-06] MEDS: Z GUARD REMEDY PASTE 57 GM TUBE TOP SCH ×2 (08:13→21:04)
[2018-02-06 11:44] VITALS: BP 110/61
[2018-02-06 16:37] VITALS: BP 115/54
--- NOTE | 2018-02-06 18:58 | NUR ---
PATIENT REMAINED COMFORTABLY IN BED. NO SIGNS OF RESPIRATORY DISTRESS. MOUTH CARE PROVIDED. PEG FEEDING TOLERATED. SAFETY MEASURES MAINTAINED AT ALL TIMES.
--- NOTE | 2018-02-06 20:00 | NUR ---
PT OBSERVED TO BE RESTING IN BED AT THIS TIME WITH MITTENS OFF. NO S/S OF ACUTE DISTRESS. GT FEEDING RUNNING ORDERED. OBSERVED TO BE PATENT AND FLUSHING WELL VIA GRAVITY, NO RESIDUAL NOTED. SAFE MEASURES IMPLEMENTED AT ALL TIMES. WILL CONTINUE TO MONITOR CLOSELY.
[2018-02-06 20:14] VITALS: BP 154/74
[2018-02-07] MEDS: VANCOMYCIN FOR PO/GT/NG USE GT SCH ×5 (00:14→23:19)
[2018-02-07] MEDS: METRONIDAZOLE 500 MG/NS 100ML 500 MG in PREMIXED 1 EACH IV SCH ×5 (00:15→23:20)
[2018-02-07 04:40] VITALS: BP 159/84
[2018-02-07] MEDS: NORMAL SALINE FLUSH 10 ML DISP.SYRIN IV SCH ×3 (05:42→22:59)
[2018-02-07 06:29] LABS: BASOPHILS % (AUTO) 0.3 % (0.0-2.0); EOSINOPHILS % (AUTO) 0.6 % (0.0-7.0); HEMATOCRIT 26.4 % (36.7-47.1); HEMOGLOBIN 8.8 g/dL (12.5-16.3); LYMPHOCYTES # (AUTO) 0.9 K/uL (20.0-40.0); LYMPHOCYTES % (AUTO) 17.7 % (20.5-51.5); MEAN CORPUSCULAR HEMOGLOBIN 30.9 uug (23.8-33.4); MEAN CORPUSCULAR HGB CONC 33 g/dL (32.5-36.3); MEAN CORPUSCULAR VOLUME 92.7 fL (73.0-96.2); MONOCYTES # (AUTO) 0.5 K/uL (2.0-10.0); NEUTROPHILS # (AUTO) 3.8 K/uL (1.8-8.9); NEUTROPHILS % (AUTO) 72.4 % (38.5-71.5); PLATELET COUNT (AUTO) 222 K/uL (152-348); RED BLOOD CELL COUNT(AUTO) 2.85 MIL/uL (4.06-5.63); WHITE BLOOD COUNT (AUTO) 5.2 K/uL (3.6-10.2)
[2018-02-07 06:51] LABS: ALANINE AMINOTRANSFERASE 9 U/L (16-63); ALKALINE PHOSPHATASE 55 U/L (50-136); ASPARTATE AMINOTRANSFERASE 10 U/L (15-37); BILIRUBIN,TOTAL 0.3 mg/dL (0.2-1.0); CARBON DIOXIDE 17 mmol/L (21-32); CHLORIDE 117 mmol/L (98-107); CREATININE 1.1 mg/dL (0.6-1.3); GLUCOSE 130 mg/dL (74-106); MAGNESIUM 2.5 mg/dL (1.8-2.4); PHOSPHOROUS 4.2 mg/dL (2.5-4.9); POTASSIUM 3.7 mmol/L (3.5-5.1); TOTAL PROTEIN, SERUM 3.8 g/dL (6.4-8.2); UREA NITROGEN, BLOOD 32 mg/dL (7-18)
--- NOTE | 2018-02-07 06:53 | NUR ---
FREQUENT REPOSITIONING PROVIDED. WOUND CARE DONE. TOLERATING GT FEEDING AND ADMINISTERING ORDERED. NO RESIDUAL NOTED. SAFETY MEASURES IMPLEMENTED AT ALL TIMES. CRITICAL LAB VALUE ALBUMIN RECEIVED 1.2. WILL ENDORSE ACCORDINGLY.
[2018-02-07] MEDS: FOLIC ACID/VITAMIN B COMP W-C TABLET PO SCH (08:22)
[2018-02-07] MEDS: ACIDOPHILUS/BULGARICUS CHEW TAB GT SCH ×2 (08:22→20:06)
[2018-02-07] MEDS: PANTOPRAZOLE ORAL SUSPENSION 40 MG SUSPDR.PKT GT SCH (08:22)
[2018-02-07] MEDS: Z GUARD REMEDY PASTE 57 GM TUBE TOP SCH ×2 (08:23→20:06)
[2018-02-07 11:56] VITALS: BP 100/67
[2018-02-07] MEDS: JEVITY 1.2 1000 ML LIQUID GT PRN (12:30)
[2018-02-07 15:24] VITALS: BP 138/69
--- NOTE | 2018-02-07 18:39 | NUR ---
Patient is alert, in no distress, slept intermittently throughout the shift. Patient tolerating GT feeding, no residual noted. GT site intact/patent, flushed per protocol/order. Patient kept clean/dry, frequent repositioning provided, offload heels at all times, dressing on bilateral feet clean/dry/intact. De La Cruz cath intact/patent draining yellow urine. PICC line on APARNA intact/patent. Safety measures in place.
--- NOTE | 2018-02-07 19:20 | NUR ---
RECEIVED PATIENT LYING IN BED. AWAKE, ALERT BUT NON-VERBAL. HOB ELEVATED. GT FEEDING VIA PUMP. PICC LINE ON LEFT UPPER ARM INTACT AND PATENT. SAFETY MEASURE INITIATED.
[2018-02-07 21:33] VITALS: BP 139/64
[2018-02-08] MEDS: JEVITY 1.2 1000 ML LIQUID GT PRN (04:55)
[2018-02-08] MEDS: NORMAL SALINE FLUSH 10 ML DISP.SYRIN IV SCH ×2 (05:03→13:06)
[2018-02-08] MEDS: VANCOMYCIN FOR PO/GT/NG USE GT SCH ×4 (05:03→18:18)
[2018-02-08 06:01] VITALS: BP 131/71
--- NOTE | 2018-02-08 06:43 | NUR ---
PT ALERT, BUT NON-VERBAL. HOB KEPT ELEVATED. GT FEEDING VIA PUMP. PICC LINE ON LEFT UPPER ARM INTACT AND PATENT. SAFETY MEASURE AND ISOLATION PRECAUTION MAINTAINED.
[2018-02-08] MEDS: PANTOPRAZOLE ORAL SUSPENSION 40 MG SUSPDR.PKT GT SCH (08:39)
[2018-02-08] MEDS: METRONIDAZOLE 500 MG/NS 100ML 500 MG in PREMIXED 1 EACH IV SCH (08:39)
[2018-02-08] MEDS: FOLIC ACID/VITAMIN B COMP W-C TABLET PO SCH (08:39)
[2018-02-08] MEDS: ACIDOPHILUS/BULGARICUS CHEW TAB GT SCH (08:39)
[2018-02-08] MEDS: Z GUARD REMEDY PASTE 57 GM TUBE TOP SCH (08:40)
[2018-02-08 11:30] VITALS: BP 179/70
[2018-02-08] MEDS ORDERED: CLONIDINE HCL 0.1 MG TABLET GT PRN (11:30)
--- NOTE | 2018-02-08 11:40 | NUR ---
BP 179/70 HR 91. MD NOTIFIED, NEW ORDERS PENDING.
[2018-02-08] MEDS ORDERED: APIXABAN 5 MG TABLET GT ONE (12:00)
[2018-02-08 12:45] VITALS: BP 114/77
[2018-02-08] MEDS: VALPROIC ACID 250 MG/5 ML LIQUID UDC GT SCH ×2 (12:50→14:27)
[2018-02-08] MEDS ORDERED: VALP250S17 GT (15:16)
[2018-02-08] MEDS ORDERED: SERT25TA GT (15:16)
[2018-02-08] MEDS ORDERED: ACET-2154 GT (15:16)
[2018-02-08] MEDS ORDERED: TRAM50TA2 PO (15:16)
[2018-02-08] MEDS ORDERED: CLON0.1T14 GT (15:16)
[2018-02-08] MEDS ORDERED: RISP0.253 GT (15:16)
[2018-02-08] MEDS ORDERED: ACID1TAB4 GT (15:16)
[2018-02-08] MEDS ORDERED: MENT71OI TOP (15:16)
[2018-02-08] MEDS ORDERED: LACT-209 GT (15:16)
[2018-02-08] MEDS ORDERED: MULT-1045 GT (15:16)
[2018-02-08] MEDS ORDERED: APIX5TAB GT (15:16)
[2018-02-08] MEDS ORDERED: CHOL10002 GT (15:16)
[2018-02-08] MEDS ORDERED: VANC500V GT (15:16)
[2018-02-08] MEDS ORDERED: DOXA2TAB2 GT (15:16)
[2018-02-08] MEDS ORDERED: FAMO20TA8 GT (15:16)
[2018-02-08 15:31] VITALS: BP 148/62
[2018-02-08] MEDS ORDERED: METO25TA6 GT (15:35)
[2018-02-08] MEDS ORDERED: APIXABAN 5 MG TABLET GT SCH (17:00)
--- NOTE | 2018-02-08 18:00 | NUR ---
Patient discharged to [facility]. Patient unable to comprehend discharge instruction/teachings. Report provided to CARLOS Ace cloth shearing supervisor of [facility]. Patient will be transported with hutchinson cath and oxygen 2L/nc. Discharge papers signed/witnessed by another RN. Caregiver at bedside.
--- NOTE | 2018-02-08 18:30 | NUR ---
Removed PICC line, 44cm long, patient's arm diameter measures 30cm. Patient tolerated procedure well, no bleeding noted.
[2018-02-08] MEDS ORDERED: risperiDONE 0.25 MG TABLET GT SCH (21:00)
[2018-02-09] MEDS ORDERED: CHOLECALCIFEROL 1,000 UNIT TABLET GT SCH (09:00)
[2018-02-09] MEDS ORDERED: FAMOTIDINE 20 MG TABLET GT SCH (09:00)
== END 2018-02-08 18:45 | DRG 720 ==
LOC: ER 20:45 → CCU 01-23 03:00 → TELE 02-04 09:15 → MED 02-05 18:15
PROVIDERS: ADMIT Internal Medicine; ATTEND Internal Medicine
PROC: 02HV33Z Insertion of Infusion Device into Superior Vena Cava, Percutaneous Approach (ICD-10-PCS; principal; 2018-01-23)
PROC: B548ZZA Ultrasonography of Superior Vena Cava, Guidance (ICD-10-PCS; principal; 2018-01-23)
PROC: 02HV33Z Insertion of Infusion Device into Superior Vena Cava, Percutaneous Approach (ICD-10-PCS; 2018-01-29)
PROC: 05H533Z Insertion of Infusion Device into Right Subclavian Vein, Percutaneous Approach (ICD-10-PCS; 2018-01-30)
PROC: 0DH63UZ Insertion of Feeding Device into Stomach, Percutaneous Approach (ICD-10-PCS; 2018-02-05)
DX: A41.9 Sepsis, unspecified organism (principal); J69.0 Pneumonitis due to inhalation of food and vomit; N17.0 Acute kidney failure with tubular necrosis; R65.21 Severe sepsis with septic shock; E43 Unspecified severe protein-calorie malnutrition; G93.41 Metabolic encephalopathy; I50.33 Acute on chronic diastolic (congestive) heart failure; A04.72 Enterocolitis due to Clostridium difficile, not specified as recurrent; E87.2 Acidosis; T82.868A Thrombosis due to vascular prosthetic devices, implants and grafts, initial encounter; L89.152 Pressure ulcer of sacral region, stage 2; N39.0 Urinary tract infection, site not specified; B96.20 Unspecified Escherichia coli [E. coli] as the cause of diseases classified elsewhere; Z16.12 Extended spectrum beta lactamase (ESBL) resistance; Z68.27 Body mass index [BMI] 27.0-27.9, adult; D63.8 Anemia in other chronic diseases classified elsewhere; Z22.322 Carrier or suspected carrier of Methicillin resistant Staphylococcus aureus; I13.0 Hypertensive heart and chronic kidney disease with heart failure and stage 1 through stage 4 chronic kidney disease, or unspecified chronic kidney disease; N18.9 Chronic kidney disease, unspecified; E87.5 Hyperkalemia; F03.90 Unspecified dementia, unspecified severity, without behavioral disturbance, psychotic disturbance, mood disturbance, and anxiety; Z87.891 Personal history of nicotine dependence; Z87.440 Personal history of urinary (tract) infections; Z79.899 Other long term (current) drug therapy; Z79.01 Long term (current) use of anticoagulants; I82.621 Acute embolism and thrombosis of deep veins of right upper extremity; R13.10 Dysphagia, unspecified; N40.0 Benign prostatic hyperplasia without lower urinary tract symptoms; M89.9 Disorder of bone, unspecified; M19.071 Primary osteoarthritis, right ankle and foot; M51.36 Other intervertebral disc degeneration, lumbar region; M41.9 Scoliosis, unspecified; I73.9 Peripheral vascular disease, unspecified; I48.2 Chronic atrial fibrillation; I48.0 Paroxysmal atrial fibrillation; I31.3 Pericardial effusion (noninflammatory); I25.10 Atherosclerotic heart disease of native coronary artery without angina pectoris; E87.1 Hypo-osmolality and hyponatremia; E86.1 Hypovolemia; E78.5 Hyperlipidemia, unspecified; D69.2 Other nonthrombocytopenic purpura; D68.59 Other primary thrombophilia; F31.9 Bipolar disorder, unspecified; F41.9 Anxiety disorder, unspecified; B35.1 Tinea unguium; L89.619 Pressure ulcer of right heel, unspecified stage
CPT/HCPCS: 36415; 36569; 43235; 70030-TC; 70450; 71045; 83605; 83735; 83970; 84100; 84155; 84156; 84165; 84300; 84443; 85025; 85730; 87040; 87077; 87086; 92610; 93005; A4217; A4663; C9113; J0282; J0690; J1450; J1650; J2185; J2248; J2405; J2543; J3370; J3475; J3480; J3490; J7030; J7040; J7042; J7050; J7060; Q0167

== ENCOUNTER 2018-02-22 06:45 | Inpatient (IN) | payer MEDICAID ==
[~2018-02-22] VITALS: Ht 172.7 cm; Wt 66.9 kg
[2018-02-22] VITALS (10 sets, daily range): BP systolic 83–123; BP diastolic 43–72
[~2018-02-22 06:45] MED LIST changes: +ACET-2154 GT; +ACID1TAB4 GT; -APIX2.5T PO; +APIX5TAB GT; -ATOR10TA PO; -CEFT1VIA15 IV; +CHOL10002 GT; -CHOL20004 PO; +CLON0.1T14 GT; -DIVA250T4 PO; +DOXA2TAB2 GT; -DRON2.5C3 PO; +FAMO20TA8 GT; -FAMO20TA8 PO; -FOLI0.8T2 PO; +LACT-209 GT; -LACT1CAP57 PO; -LIDO5JEL4 MM; +MENT71OI TOP; +METO25TA6 GT; +MULT-1045 GT; +RISP0.253 GT; -RISP0.253 PO; +SERT25TA GT; -SERT50TA PO; -TAMS-3 PO; +VALP250S17 GT; +VANC500V GT
[2018-02-22] MEDS ORDERED: IV NORMAL SALINE 1000 ML BAG IV ONE (07:00)
--- NOTE | 2018-02-22 07:05 | NUR ---
Report given to Ezra GONZALEZ. Patient in bed, S.
[2018-02-22] MEDS ORDERED: SACC250C9 GT (07:13)
[2018-02-22] MEDS ORDERED: IPRA3AMP23 IH (07:13)
[2018-02-22] MEDS ORDERED: CLON0.1T GT (07:13)
[2018-02-22] MEDS ORDERED: METO25TA6 GT (07:13)
[2018-02-22] MEDS ORDERED: APIX2.5T GT (07:13)
[2018-02-22] MEDS ORDERED: TRAM50TA2 GT (07:13)
[2018-02-22] MEDS ORDERED: PROT946L GT (07:13)
[2018-02-22] MEDS ORDERED: VALP250S17 GT (07:13)
[2018-02-22] MEDS ORDERED: FAMO20TA8 GT (07:13)
--- NOTE | 2018-02-22 07:13 | NUR ---
dr Fan evaluated the pt.
[2018-02-22 08:27] LABS: BASOPHILS % (AUTO) 0.3 % (0.0-2.0); EOSINOPHILS % (AUTO) 0.2 % (0.0-7.0); HEMATOCRIT 23.2 % (36.7-47.1); HEMOGLOBIN 7.6 g/dL (12.5-16.3); LYMPHOCYTES # (AUTO) 1.4 K/uL (20.0-40.0); LYMPHOCYTES % (AUTO) 8.4 % (20.5-51.5); MEAN CORPUSCULAR HEMOGLOBIN 30.2 uug (23.8-33.4); MEAN CORPUSCULAR HGB CONC 33 g/dL (32.5-36.3); MEAN CORPUSCULAR VOLUME 92.3 fL (73.0-96.2); MONOCYTES # (AUTO) 1.6 K/uL (2.0-10.0); MONOCYTES % (AUTO) 9.8 % (0.0-11.0); NEUTROPHILS # (AUTO) 13.3 K/uL (1.8-8.9); NEUTROPHILS % (AUTO) 81.3 % (38.5-71.5); PLATELET COUNT (AUTO) 407 K/uL (152-348); RED BLOOD CELL COUNT(AUTO) 2.51 MIL/uL (4.06-5.63); WHITE BLOOD COUNT (AUTO) 16.3 K/uL (3.6-10.2)
[2018-02-22 08:32] LABS: CARBON DIOXIDE 26 mmol/L (21-32); CHLORIDE 102 mmol/L (98-107); CREATININE 1.2 mg/dL (0.6-1.3); GLUCOSE 95 mg/dL (74-106); POTASSIUM 3.2 mmol/L (3.5-5.1); UREA NITROGEN, BLOOD 42 mg/dL (7-18)
[2018-02-22 08:32] LABS: *BILIRUBIN,URIN NEGATIVE (NEGATIVE); *BLOOD, URINE Trace-intact (NEGATIVE); *CLARITY,URINE CLEAR (CLEAR); *COLOR,URINE YELLOW (YELLOW); *KETONES,URINE NEGATIVE (NEGATIVE); *PROTEIN,URINE 1+ (NEGATIVE); *UROBILINOGEN,URINE 0.2 E.U./dl (NORMAL); LEUKOCYTE ESTERASE ,URINE 2+ (NEGATIVE); NITRITE, URINE NEGATIVE (NEGATIVE); UGLUCOSE NEGATIVE (NEGATIVE)
[2018-02-22 08:38] LABS: ALANINE AMINOTRANSFERASE 54 U/L (16-63); ALKALINE PHOSPHATASE 214 U/L (50-136); ASPARTATE AMINOTRANSFERASE 33 U/L (15-37); BILIRUBIN,DIRECT 0.2 mg/dL (0.0-0.2); BILIRUBIN,TOTAL 0.3 mg/dL (0.2-1.0); LIPASE 52 U/L (73-393); TOTAL PROTEIN, SERUM 5.2 g/dL (6.4-8.2)
[2018-02-22 08:43] LABS: WBC,URINE 50-80 /HPF (0-3)
[2018-02-22 08:44] LABS: BACTERIA,URINE FEW /HPF (NONE SEEN); SQUAMOUS EPITHELIAL CELL,UR FEW /HPF (NONE SEEN)
[2018-02-22 08:52] LABS: COARSE GRANULAR CASTS,URINE 0-3 /LPF
[2018-02-22] MEDS ORDERED: MEROPENEM 1,000 MG in IV NORMAL SALINE 250 ML IV ONE (09:00)
--- NOTE | 2018-02-22 09:12 | NUR ---
REPORT GIVEN TO LINUX SERVER ADMINISTRATOR. PT WAS TRANSFERED TO TELEMETRY ROOM #216.
[2018-02-22] MEDS ORDERED: MEROPENEM 1 G VIAL IV ONE (09:20)
--- NOTE | 2018-02-22 09:35 | NUR ---
Received pt from ER accompanied by ER nurse via allison.
[2018-02-22] MEDS ORDERED: ACETAMINOPHEN 325 MG TABLET PO PRN (10:45)
[2018-02-22] MEDS ORDERED: HYDROCODONE/APAP 5-325MG TABLET PO PRN (10:45)
[2018-02-22] MEDS ORDERED: ONDANSETRON 4 MG/2 ML VIAL IV PRN (10:45)
[2018-02-22] MEDS ORDERED: Z GUARD REMEDY PASTE 57 GM TUBE TOP PRN (10:45)
[2018-02-22] MEDS ORDERED: MAGNESIUM HYDROXIDE 30 ML LIQUID UDC PO PRN (10:45)
[2018-02-22] MEDS ORDERED: IV NORMAL SALINE 500 ML BAG IV ONE (11:00)
--- NOTE | 2018-02-22 11:00 | NUR ---
Informed by student nurse that BP was low, noted at 84/43. Dr was informed and an order for 500ml NS bolus to be infused. Dr also aware of Hgb to be 7.6 with no orders for blood transfusion at this time. Body assessment done. Caregiver by bedside. Pt was changed and noted BM, loose and green.
[2018-02-22] MEDS ORDERED: IV NORMAL SALINE 500 ML IV ONE (11:15)
[2018-02-22] MEDS: JEVITY 1.2 1000 ML LIQUID GT PRN (15:24)
--- NOTE | 2018-02-22 15:41 | NUR ---
Nutrition consult for tube feeding received. Chart reviewed. Noted inconsistencies with documented height and weight between patient's current and recent past admissions. Spoke with primary RN Shawna and hemodialysis charge nurse Mikhail so that an accurate height and weight can be obtained here. Patient's long-term (Shiner) was also contacted for most recent height and weight, unavailable at this time, awaiting call back from cured meats supervisor. Will need accurate height and weight to calculate estimated nutritional needs. For now, continue current TF regimen until accurate height and weight can be obtained and TF recommendations can be made. Addendum: 02/22/18 at [address] Amended: Links added.
--- NOTE | 2018-02-22 18:38 | NUR ---
It was noted that the pt had a second BM, charge nurse stated to monitor and if pt has 2 more BMs, then the forth would be collected for C-Diff. Will inform the production supervisor off shift. Caregiver has left for the day. Pt was repositioned. Wound care as ordered.
[2018-02-22] MEDS: IV NS 1000 ML 1,000 ML IV PRN (19:06)
[2018-02-22] MEDS: MEROPENEM 0.5 G in IV NORMAL SALINE 50 ML IV SCH (20:00)
--- NOTE | 2018-02-22 20:00 | NUR ---
PT IN ROOM ALERT AWAKE IN NO ACUTE DISTRESS. SALES REPRESENTATIVE [employer] NOTED SINUS RHYTHM WITH OCCASIONAL PVCS. MAINTAINING JEVITY 1.2 @50CC/HR AND IV FLUIDS NS @75ML/HR. WILL DRESSINGS IN PLACE TO AFFECTED AREAS ON HEEL AND COCCYX AREA. F/C IN PLACE CLOUDY. WILL CONTINUE TO MONITOR. BED LOCKED IN LOWEST POSITION. MAINTAINING OXYGEN AT 3L/MIN WITH 100% SAT.
--- NOTE | 2018-02-22 21:29 | NUR ---
PT'S BLOOD PRESSURE NOTED 81/49 AND 78/46 TO BILATERAL UPPER EXTREMITIES. DR HENSLEY ORDERED FOR PT TO START ON NS 1L AND COMPLETE. PER MD RECHECK BP AND IF STILL LOW, TRANSFER FOR ICU/CCU AND START LEVOFED. WILL CONTINUE TO MONITOR. PT MAINTAINING TRENDELENBERG POSITION. NO S/S OF RESP DISTRESS.
--- NOTE | 2018-02-22 22:20 | NUR ---
PT'S BP MAINTAINING 87/46 AND 83/49. PT TRANSFERRED TO CCU WITH ALL BELONGINGS.
[2018-02-22] MEDS ORDERED: IV NS 1000 ML 1,000 ML IV PRN ×2 (22:24→22:30)
--- NOTE | 2018-02-22 22:30 | NUR ---
incontinent of stool collected sample for c difficile n0.3 specimen . stool loose moderate in amt greenish to yellowish in color .changed soiled linens f/c and skin care done .
--- NOTE | 2018-02-22 22:30 | NUR ---
RECEIVED PATIENT FOR TELEMETRY ROOM 216 VIA BED ,REPORT RECEIVED FROM TONY RN C/O HYPOTENSION, PER TONY BP LOW 86/50,81/49,78/46, PER RN PATIENT ALREADY RECEIVED 500 ML OF NORMAL SALINE BOLUS FROM THE DAY SHIFT AND BP REMAINS LOW , WITH ORDER TO TRANSFER TO CCU AND TO START LEVOPHED DRIP . PATIENT NON VERBAL , AWAKE , OPEN EYES SPONTANEOUSLY BUT DOESN'T FOLLOW COMMANDS . RECEIVED WITH BP OF 89/56.CONNECTED PATIENT TO CCU MONITOR AND PLACED NEW PERIPHERAL IVF ACCES NO. 22 TO HIS LEFT HAND ,STARTED 1 LITER NORMAL SALINE WIDE OPEN . NASAL CANNULA AT 3 L MIN . NO RESPIRATORY DISTRESS NOTED PATIENT BREATHING EVENLY RR 17 AND SATURATION 100% . BABCOCK TO BEDSIDE DRAIN WITH YELLOWISH URINE , PEG IN PLACED RECEIVING JEVITY 1.2 AT 50 ML / HR . CALLED PHARMACY TO VERIFY LEVOPHED SO I CAN START PRESSOR , CONTINUE TO MONITOR V/S ,I AND OS AND LEVELS OF COMFORT .
[2018-02-22] MEDS ORDERED: NOREPINEPHRINE BITARTRATE 8 MG in IV DEXTROSE 5% 500 ML IV PRN (23:00)
[2018-02-22] MEDS ORDERED: IV NS 1000 ML 1,000 ML IV ONE (23:15)
--- NOTE | 2018-02-22 23:20 | NUR ---
STARTED LEVOPHED DRIP AT 1 MCG/MIN . CONTINUE TO MONITOR V/S Q15 MINUTES . TO TITRATE PRESSOR ACCORDINGLY TO KEEP SBP >90 MM/HG .
[2018-02-22] MEDS ORDERED: NOREPINEPHRINE BITARTRATE 4 MG/4 ML VIAL IV ONE (23:22)
[2018-02-23] VITALS (64 sets, daily range): BP systolic 91–141; BP diastolic 50–88
--- NOTE | 2018-02-23 01:00 | NUR ---
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
--- NOTE | 2018-02-23 02:00 | NUR ---
ASLEEP NO RESPIRATORY DISTRESS . TOLERATING 1 MCG/MIN LEVOPHED DRIP SBP >90 MM/HG SEE FLOW SHEET .
[2018-02-23] MEDS: IV NS 1000 ML 1,000 ML IV PRN ×2 (02:04→19:28)
--- NOTE | 2018-02-23 04:30 | NUR ---
AM CARE DONE BATH PATIENT ,SKIN CARE ,BABCOCK CARE AND ORAL CARE DONE . WOUND CARE TREATMENT FOR WOUND CARE ORDERS .
[2018-02-23 05:26] LABS: ALANINE AMINOTRANSFERASE 42 U/L (16-63); ALKALINE PHOSPHATASE 173 U/L (50-136); ASPARTATE AMINOTRANSFERASE 22 U/L (15-37); BILIRUBIN,TOTAL 0.2 mg/dL (0.2-1.0); CARBON DIOXIDE 24 mmol/L (21-32); CHLORIDE 109 mmol/L (98-107); CHOLESTEROL 123 mg/dL (<200); CREATININE 1.1 mg/dL (0.6-1.3); GLUCOSE 107 mg/dL (74-106); HDL CHOLESTEROL 13 mg/dL (40-60); MAGNESIUM 2.2 mg/dL (1.8-2.4); PHOSPHOROUS 3.6 mg/dL (2.5-4.9); POTASSIUM 3.1 mmol/L (3.5-5.1); TOTAL PROTEIN, SERUM 4.8 g/dL (6.4-8.2); TRIGLYCERIDES 142 MG/DL (30-150); UREA NITROGEN, BLOOD 36 mg/dL (7-18)
[2018-02-23 05:36] LABS: BASOPHILS % (AUTO) 0.2 % (0.0-2.0); EOSINOPHILS % (AUTO) 0.4 % (0.0-7.0); HEMATOCRIT 22.5 % (36.7-47.1); LYMPHOCYTES # (AUTO) 1.5 K/uL (20.0-40.0); LYMPHOCYTES % (AUTO) 11.8 % (20.5-51.5); MEAN CORPUSCULAR HEMOGLOBIN 30.3 uug (23.8-33.4); MEAN CORPUSCULAR HGB CONC 33 g/dL (32.5-36.3); MEAN CORPUSCULAR VOLUME 92.1 fL (73.0-96.2); MONOCYTES # (AUTO) 1.2 K/uL (2.0-10.0); NEUTROPHILS # (AUTO) 9.6 K/uL (1.8-8.9); NEUTROPHILS % (AUTO) 77.6 % (38.5-71.5); PLATELET COUNT (AUTO) 376 K/uL (152-348); WHITE BLOOD COUNT (AUTO) 12.4 K/uL (3.6-10.2)
[2018-02-23 05:45] LABS: RED BLOOD CELL COUNT(AUTO) 2.45 MIL/uL (4.06-5.63)
[2018-02-23 05:46] LABS: HEMOGLOBIN 7.4 g/dL (12.5-16.3)
--- NOTE | 2018-02-23 07:37 | NUR ---
SPOKED WITH SHARON HENSLEY AND DICTATED CBC AND BMP NO ORDERS MADE HE SAID HIS MAKING HIS ROUNDS .
--- NOTE | 2018-02-23 08:00 | NUR ---
Orientation with CARLOS Elmore. RN to assume full care/responsibility of pt. All assessment/documentation reviewed by me.
[2018-02-23] MEDS: POTASSIUM CHLORIDE 50 ML IV SCH ×6 (08:45→13:37)
[2018-02-23] MEDS ORDERED: ALBUMIN HUMAN 5% 250 ML IV ONE (09:00)
[2018-02-23] MEDS ORDERED: IV NORMAL SALINE 500 ML IV ONE (09:00)
--- NOTE | 2018-02-23 09:25 | NUR ---
DR MIKE MASON RT BP >MABP 65 AND ON levophed 1 mcq/min MD ORDERED albumin 5% 250 AND n/s 500 bolus x1 then dc LEVOPHED picc line to be inserted today, consent done via t/p by son 2RNS signed the consent. and POT 3.1 POTASSIUM 40 MEQ GIVEN .
[2018-02-23] MEDS ORDERED: Medication Not On Formulary EA (Apixaban (Eliquis) 2.5 MG) GT SCH (10:15)
[2018-02-23] MEDS ORDERED: Medication Not On Formulary EA (Protein Supplement (Promod) 30 ML) GT SCH (10:15)
[2018-02-23] MEDS ORDERED: THERAHONEY GEL 1.5 OZ TUBE TOP PRN (10:15)
[2018-02-23] MEDS: APIXABAN 5 MG TABLET GT SCH ×2 (11:30→17:00)
[2018-02-23] MEDS: MEROPENEM 0.5 G in IV NORMAL SALINE 50 ML IV SCH ×2 (11:59→20:16)
[2018-02-23] MEDS: VALPROIC ACID 250 MG/5 ML LIQUID UDC GT SCH ×2 (13:31→21:52)
--- NOTE | 2018-02-23 13:57 | NUR ---
Spoke with Dr. Miller on the telephone and made him aware of pt's low H/H, possible positive stool OB, and eliquis BID medication. stated to hold medication until stool OB results return.
[2018-02-23] MEDS: VANCOMYCIN FOR PO/GT/NG USE GT SCH ×2 (17:09→23:42)
[2018-02-24] VITALS (15 sets, daily range): BP systolic 116–157; BP diastolic 68–100
[2018-02-24 05:09] LABS: EOSINOPHILS # (AUTO) 0.1 K/uL (0.0-0.7); MONOCYTES # (AUTO) 0.8 K/uL (2.0-10.0); NEUTROPHILS % (AUTO) 74.9 % (38.5-71.5)
[2018-02-24 05:11] LABS: BASOPHILS % (AUTO) 0.2 % (0.0-2.0); EOSINOPHILS % (AUTO) 0.9 % (0.0-7.0); LYMPHOCYTES % (AUTO) 13.3 % (20.5-51.5); MEAN CORPUSCULAR HEMOGLOBIN 31.2 uug (23.8-33.4); MEAN CORPUSCULAR HGB CONC 34 g/dL (32.5-36.3); MEAN CORPUSCULAR VOLUME 92.9 fL (73.0-96.2); MONOCYTES % (AUTO) 10.7 % (0.0-11.0); NEUTROPHILS # (AUTO) 5.8 K/uL (1.8-8.9); PLATELET COUNT (AUTO) 367 K/uL (152-348); WHITE BLOOD COUNT (AUTO) 7.7 K/uL (3.6-10.2)
[2018-02-24 05:19] LABS: CARBON DIOXIDE 26 mmol/L (21-32); CHLORIDE 112 mmol/L (98-107); GLUCOSE 104 mg/dL (74-106); MAGNESIUM 1.9 mg/dL (1.8-2.4); POTASSIUM 3.5 mmol/L (3.5-5.1); UREA NITROGEN, BLOOD 27 mg/dL (7-18)
[2018-02-24 05:35] LABS: HEMATOCRIT 19.8 % (36.7-47.1); RED BLOOD CELL COUNT(AUTO) 2.13 MIL/uL (4.06-5.63)
[2018-02-24] MEDS: VANCOMYCIN FOR PO/GT/NG USE GT SCH ×4 (05:35→23:17)
[2018-02-24] MEDS: VALPROIC ACID 250 MG/5 ML LIQUID UDC GT SCH ×3 (05:35→21:15)
[2018-02-24 05:37] LABS: HEMOGLOBIN 6.7 g/dL (12.5-16.3)
[2018-02-24 06:22] LABS: BAND % (MANUAL) 5 % (0-10); EOSINOPHILS % (MANUAL) 1 % (0-8); LYMPHOCYTES % (MANUAL) 16 % (20-40); MONOCYTES % (MANUAL) 7 % (2-10); NEUTROPHILS % (MANUAL) 71 % (42-75)
[2018-02-24 06:56] LABS: *OCCULT BLOOD STOOL POSITIVE (NEGATIVE)
--- NOTE | 2018-02-24 07:00 | NUR ---
has not called back / H&H report. Remains on isolation.
[2018-02-24] MEDS: IV NS 1000 ML 1,000 ML IV PRN ×2 (07:01→21:16)
[2018-02-24] MEDS: APIXABAN 5 MG TABLET GT SCH ×2 (08:29→16:26)
--- NOTE | 2018-02-24 08:29 | NUR ---
Attending physician Dr. Miller in the unit to examine patient; full report given orders to transfuse 1 unit received. Also orders to down grade pt. to telemetry status. Addendum: 02/24/18 at 1545 by CHRIS GARCIA RN Orders to hold today's dose of Eliquis also received.
[2018-02-24] MEDS: CHOLECALCIFEROL 1,000 UNIT TABLET GT SCH (08:33)
[2018-02-24] MEDS: PROTEIN SUPPLEMENT (PROSTAT) 30 ML LIQUID GT SCH (08:33)
[2018-02-24] MEDS: MEROPENEM 0.5 G in IV NORMAL SALINE 50 ML IV SCH (08:48)
[2018-02-24] MEDS: JEVITY 1.2 1000 ML LIQUID GT PRN ×2 (10:25→10:26)
--- NOTE | 2018-02-24 20:00 | NUR ---
Received pt in bed alert and disoriented to time place and self with son at bedside. GT feeding observed to be running at 50 cc/hr. HOB elevated. No s/s of acute distress at this time. Safe environment provided at all times. Will continue to monitor closely.
--- NOTE | 2018-02-24 21:00 | NUR ---
Pt observed to be edematous on all extremities. No SOB noted. Dr. Miller notified and received orders to decrease IV NS to 40 cc/hr and 200 cc free water flush via gtube Q6H. Gtube patent and flushing well via gravity with 5 cc residual noted. De La Cruz observed to be draining well. Frequent repositioning. Will continue to monitor closely.
[2018-02-25] VITALS (7 sets, daily range): BP systolic 135–168; BP diastolic 60–85
[2018-02-25] MEDS: VALPROIC ACID 250 MG/5 ML LIQUID UDC GT SCH ×3 (05:55→21:01)
[2018-02-25] MEDS: VANCOMYCIN FOR PO/GT/NG USE GT SCH ×5 (05:55→23:50)
--- NOTE | 2018-02-25 06:30 | NUR ---
Frequent repositioning. Pt remains edematous at this time, no sob noted. All needs met. Safe environment provided.
[2018-02-25 06:32] LABS: CARBON DIOXIDE 21 mmol/L (21-32); CHLORIDE 112 mmol/L (98-107); CREATININE 0.7 mg/dL (0.6-1.3); GLUCOSE 91 mg/dL (74-106); UREA NITROGEN, BLOOD 22 mg/dL (7-18)
[2018-02-25 06:33] LABS: BASOPHILS % (AUTO) 0.3 % (0.0-2.0); EOSINOPHILS # (AUTO) 0.1 K/uL (0.0-0.7); HEMATOCRIT 27.1 % (36.7-47.1); LYMPHOCYTES # (AUTO) 1.7 K/uL (20.0-40.0); LYMPHOCYTES % (AUTO) 19.2 % (20.5-51.5); MEAN CORPUSCULAR HGB CONC 33 g/dL (32.5-36.3); MEAN CORPUSCULAR VOLUME 93.7 fL (73.0-96.2); MONOCYTES # (AUTO) 0.9 K/uL (2.0-10.0); MONOCYTES % (AUTO) 9.9 % (0.0-11.0); NEUTROPHILS # (AUTO) 6.1 K/uL (1.8-8.9); NEUTROPHILS % (AUTO) 69.6 % (38.5-71.5); PLATELET COUNT (AUTO) 446 K/uL (152-348); RED BLOOD CELL COUNT(AUTO) 2.89 MIL/uL (4.06-5.63); WHITE BLOOD COUNT (AUTO) 8.8 K/uL (3.6-10.2)
[2018-02-25 07:31] LABS: BAND % (MANUAL) 1 % (0-10); EOSINOPHILS % (MANUAL) 1 % (0-8); LYMPHOCYTES % (MANUAL) 20 % (20-40); MONOCYTES % (MANUAL) 12 % (2-10)
[2018-02-25 07:33] LABS: NEUTROPHILS % (MANUAL) 66 % (42-75)
[2018-02-25] MEDS: APIXABAN 5 MG TABLET GT SCH ×2 (08:46→16:16)
--- NOTE | 2018-02-25 08:46 | NUR ---
JUAN not administered pt. with stool OB+ Md. notified.
[2018-02-25] MEDS: PROTEIN SUPPLEMENT (PROSTAT) 30 ML LIQUID GT SCH (08:56)
[2018-02-25] MEDS: CEFEPIME HCL 1 G in IV DEXTROSE 5% 50 ML IV SCH ×2 (08:56→20:54)
[2018-02-25] MEDS: CHOLECALCIFEROL 1,000 UNIT TABLET GT SCH (08:56)
[2018-02-25] MEDS: JEVITY 1.2 1000 ML LIQUID GT PRN (10:33)
--- NOTE | 2018-02-25 15:41 | NUR ---
Bedside report given to cassie Eubanks, who will follow up with care plan
--- NOTE | 2018-02-25 15:42 | NUR ---
MID SHIFT REPORT RECEIVED FROM CARLOS PEREZ. WILL CONTINUE PLAN OF CARE. PT IS ALERT, IN NO DISTRESS, CAREGIVER AT BEDSIDE.
--- NOTE | 2018-02-25 16:17 | NUR ---
NON ADMIN TONIA DUE TO PT POSITIVE FOR OCCULT BLOOD IN STOOL. AWARE.
--- NOTE | 2018-02-25 18:00 | NUR ---
Patient alert, in no distress, responds with a yes/no answer by nodding and/or shaking his head. Patient edematous on bilateral and lower extremities. GT dressing clean/dry/intact. GT site intact, patent, no residual noted, flushed per order/protocol, bowel sounds present, no nausea/vomiting noted. Patient kept NPO, HOB elevated at all times, oral care provided, suctioning as needed. Patient kept clean/dry, frequent repositioning, bilateral heels elevated. Safety measures in place. Caregiver at bedside.
--- NOTE | 2018-02-25 20:00 | NUR ---
Observed to be resting in bed at this time. GT feeding running as ordered, ensured patent and flushing well. No residual noted at this time. No s/s of acute distress at this time. Safe environment provided at all times. Will continue to monitor closely.
[2018-02-26 04:00] VITALS: BP 149/78
[2018-02-26] MEDS: VALPROIC ACID 250 MG/5 ML LIQUID UDC GT SCH ×3 (05:36→23:35)
[2018-02-26] MEDS: VANCOMYCIN FOR PO/GT/NG USE GT SCH ×4 (05:37→23:35)
--- NOTE | 2018-02-26 06:15 | NUR ---
Wound care done. GT site cleaned and redressed. Frequent repositioning. Extremities noted to be edematous and kept elevated via pillows. No s/s of acute distress at this time. Safe environment provided at all times.
[2018-02-26] MEDS ORDERED: ACETAMINOPHEN 325 MG TABLET GT PRN (06:35)
[2018-02-26] MEDS ORDERED: HYDROCODONE/APAP 5-325MG TABLET GT PRN (06:36)
[2018-02-26] MEDS ORDERED: MAGNESIUM HYDROXIDE 30 ML LIQUID UDC GT PRN (06:37)
[2018-02-26] MEDS: PROTEIN SUPPLEMENT (PROSTAT) 30 ML LIQUID GT SCH (09:00)
[2018-02-26] MEDS: APIXABAN 5 MG TABLET GT SCH ×2 (09:50→17:34)
[2018-02-26] MEDS: CEFEPIME HCL 1 G in IV DEXTROSE 5% 50 ML IV SCH ×2 (09:51→20:46)
[2018-02-26] MEDS: CHOLECALCIFEROL 1,000 UNIT TABLET GT SCH (09:51)
[2018-02-26 09:55] LABS: BASOPHILS % (AUTO) 0.5 % (0.0-2.0); EOSINOPHILS # (AUTO) 0.1 K/uL (0.0-0.7); EOSINOPHILS % (AUTO) 1.3 % (0.0-7.0); HEMOGLOBIN 8.6 g/dL (12.5-16.3); LYMPHOCYTES # (AUTO) 1.8 K/uL (20.0-40.0); LYMPHOCYTES % (AUTO) 22.8 % (20.5-51.5); MEAN CORPUSCULAR HEMOGLOBIN 30.9 uug (23.8-33.4); MEAN CORPUSCULAR HGB CONC 33 g/dL (32.5-36.3); MEAN CORPUSCULAR VOLUME 93.4 fL (73.0-96.2); MONOCYTES # (AUTO) 0.8 K/uL (2.0-10.0); MONOCYTES % (AUTO) 10.7 % (0.0-11.0); NEUTROPHILS % (AUTO) 64.7 % (38.5-71.5); PLATELET COUNT (AUTO) 398 K/uL (152-348); RED BLOOD CELL COUNT(AUTO) 2.78 MIL/uL (4.06-5.63); WHITE BLOOD COUNT (AUTO) 7.8 K/uL (3.6-10.2)
[2018-02-26 10:43] LABS: BAND % (MANUAL) 2 % (0-10); EOSINOPHILS % (MANUAL) 1 % (0-8); LYMPHOCYTES % (MANUAL) 28 % (20-40); METAMYELOCYTES % 6 % (0-1); MONOCYTES % (MANUAL) 7 % (2-10); MYELOCYTES % 7 % (0-0); NEUTROPHILS % (MANUAL) 49 % (42-75)
[2018-02-26 11:22] VITALS: BP 142/73
[2018-02-26 15:20] VITALS: BP 141/69
[2018-02-26 20:36] VITALS: BP 116/60
[2018-02-26] MEDS: IV NS 1000 ML 1,000 ML IV PRN (20:47)
[2018-02-27 04:16] VITALS: BP 149/80
[2018-02-27] MEDS: VALPROIC ACID 250 MG/5 ML LIQUID UDC GT SCH ×3 (05:07→21:57)
[2018-02-27] MEDS: VANCOMYCIN FOR PO/GT/NG USE GT SCH ×4 (05:07→23:47)
--- NOTE | 2018-02-27 08:00 | NUR ---
AWAKE ,FORGETFUL ORTX1 NAME BUT COOPERATE AND FOLLOW SOME DIRECTION ON ASPIRATION AND FALL PRECAUTION BED ALARM ON AND CALL LIGHT IN REACH CONTINUE GT FEEDING GRETTA WELL NO N/V CHECK RESIDUAL AND FLUSH 200ML WATER Q 6H ORDER
[2018-02-27] MEDS: CHOLECALCIFEROL 1,000 UNIT TABLET GT SCH (08:27)
[2018-02-27] MEDS: APIXABAN 5 MG TABLET GT SCH ×2 (08:27→17:15)
[2018-02-27] MEDS: PROTEIN SUPPLEMENT (PROSTAT) 30 ML LIQUID GT SCH (08:28)
[2018-02-27] MEDS: CEFEPIME HCL 1 G in IV DEXTROSE 5% 50 ML IV SCH ×2 (08:57→21:57)
[2018-02-27] MEDS: JEVITY 1.2 1000 ML LIQUID GT PRN (08:57)
[2018-02-27 11:27] VITALS: BP 113/68
--- NOTE | 2018-02-27 12:00 | NUR ---
REPOSITION Q2 HR DSG AT SACRAL MEPILEX CHANGE WAREHOUSING TECHNICIAN AT BEDSIDE GRETTA GT FEEDING WELL
[2018-02-27 15:22] VITALS: BP 126/66
--- NOTE | 2018-02-27 17:30 | NUR ---
HEMODYNAMIC STAUS STABLE NO ACUTE DISTRESS NO PAIN SAFETY MEASURE PROVIDED BED ALARM ON AND CLOSED OBSERVATION
[2018-02-27] MEDS: IV NS 1000 ML 1,000 ML IV PRN (18:09)
[2018-02-27 19:00] VITALS: BP 146/76
--- NOTE | 2018-02-27 20:00 | NUR ---
PATIENT IS AWAKE IN BED, NON VERBAL MAKES EYE CONTACT TO VERBAL STIMULI. NO S/S OF PAIN OR ACUTE DISTRESS ON ASSESSMENT. SKIN IS PINK WITH GOOD CAPILLARY REFILL. G-TUBE PLACEMENT CHECKED, PATENT WITH 10CC RESIDUAL. SITE CLEAN WITH NO S/S OF INFECTION ASPIRATION AND SAFETY MEASURES IN PLACE. CALL LIGHT LEFT WITHIN PATIENT'S REACH
[2018-02-28 04:00] VITALS: BP 149/82
[2018-02-28] MEDS: VALPROIC ACID 250 MG/5 ML LIQUID UDC GT SCH ×2 (05:11→13:28)
[2018-02-28] MEDS: VANCOMYCIN FOR PO/GT/NG USE GT SCH ×3 (05:11→17:06)
[2018-02-28 06:18] LABS: BASOPHILS # (AUTO) 0.1 K/uL (0.0-8.0); BASOPHILS % (AUTO) 0.8 % (0.0-2.0); EOSINOPHILS # (AUTO) 0.1 K/uL (0.0-0.7); EOSINOPHILS % (AUTO) 0.8 % (0.0-7.0); HEMATOCRIT 24.7 % (36.7-47.1); HEMOGLOBIN 8.2 g/dL (12.5-16.3); LYMPHOCYTES % (AUTO) 19.9 % (20.5-51.5); MEAN CORPUSCULAR HEMOGLOBIN 31.3 uug (23.8-33.4); MEAN CORPUSCULAR HGB CONC 33 g/dL (32.5-36.3); MEAN CORPUSCULAR VOLUME 94.1 fL (73.0-96.2); MONOCYTES # (AUTO) 0.5 K/uL (2.0-10.0); MONOCYTES % (AUTO) 5.6 % (0.0-11.0); NEUTROPHILS # (AUTO) 7.1 K/uL (1.8-8.9); NEUTROPHILS % (AUTO) 72.9 % (38.5-71.5); PLATELET COUNT (AUTO) 202 K/uL (152-348); RED BLOOD CELL COUNT(AUTO) 2.62 MIL/uL (4.06-5.63); WHITE BLOOD COUNT (AUTO) 9.8 K/uL (3.6-10.2)
[2018-02-28 06:34] LABS: ALANINE AMINOTRANSFERASE 29 U/L (16-63); ALKALINE PHOSPHATASE 118 U/L (50-136); ASPARTATE AMINOTRANSFERASE 28 U/L (15-37); BILIRUBIN,TOTAL 0.2 mg/dL (0.2-1.0); CARBON DIOXIDE 20 mmol/L (21-32); CHLORIDE 107 mmol/L (98-107); CREATININE 0.6 mg/dL (0.6-1.3); GLUCOSE 101 mg/dL (74-106); MAGNESIUM 1.6 mg/dL (1.8-2.4); POTASSIUM 4.3 mmol/L (3.5-5.1); TOTAL PROTEIN, SERUM 4.2 g/dL (6.4-8.2); UREA NITROGEN, BLOOD 23 mg/dL (7-18)
--- NOTE | 2018-02-28 06:44 | NUR ---
PATIENT SLEPT WELL MOST OF THE SHIFT, NO S/S OF PAIN OR ACUTE DISTRESS ON THIS SHIFT. SKIN REMAINS PINK WITH CAPILLARY REFILL <3 SECONDS. ASPIRATION AND SAFETY MEASURES ,MAINTAINED AT ALL TIMES. BP WITHIN PATIENT'S RANGES.
[2018-02-28 07:26] LABS: BAND % (MANUAL) 1 % (0-10); LYMPHOCYTES % (MANUAL) 19 % (20-40); MONOCYTES % (MANUAL) 7 % (2-10); MYELOCYTES % 3 % (0-0); NEUTROPHILS % (MANUAL) 70 % (42-75)
[2018-02-28] MEDS: PROTEIN SUPPLEMENT (PROSTAT) 30 ML LIQUID GT SCH (09:17)
[2018-02-28] MEDS: APIXABAN 5 MG TABLET GT SCH ×2 (09:17→16:35)
[2018-02-28] MEDS: CEFEPIME HCL 1 G in IV DEXTROSE 5% 50 ML IV SCH (09:17)
[2018-02-28] MEDS: CHOLECALCIFEROL 1,000 UNIT TABLET GT SCH (09:17)
[2018-02-28 11:08] VITALS: BP 124/64
[2018-02-28] MEDS: JEVITY 1.2 1000 ML LIQUID GT PRN (13:28)
[2018-02-28 15:29] VITALS: BP 153/72
[2018-02-28] MEDS: MAGNESIUM SULFATE/D5W 100 ML IV SCH ×2 (15:32→16:35)
[2018-02-28] MEDS ORDERED: VANC500V GT (16:19)
[2018-02-28] MEDS ORDERED: VALP250S17 GT (16:19)
[2018-02-28] MEDS ORDERED: BISA10SU61 RC (16:19)
[2018-02-28] MEDS ORDERED: HYDR-3326 GT (16:19)
[2018-02-28] MEDS ORDERED: PANT40SU2 GT (16:19)
[2018-02-28] MEDS ORDERED: PROT946L PO (16:19)
[2018-02-28] MEDS ORDERED: FERR325T28 GT (16:30)
--- NOTE | 2018-02-28 17:23 | NUR ---
PATIENT DISCHARGED BACK TO [facility]. UNABLE TO EDUCATE PATIENT REGARDING DISCHARGE INSTRUCTIONS/TEACHINGS, PT IS NON VERBAL, UNABLE TO RETURN DEMONSTRATE, CAREGIVER AT BEDSIDE. MD AND CASE MANAGEMENT NOTIFIED REGARDING CRITICAL LAB ALBUMIN FOR AM LABS THIS MORNING. GT INTACT/PATENT, FLUSHED PER PROTOCOL AND ORDERED, NO RESIDUAL NOTED. PT NO SIGNIFICANT CHANGES ON BOWEL MOVEMENT, HAS BEEN LOOSE IN CONSISTENCY. BABCOCK CATH INTACT/PATENT, DRAINING YELLOW URINE. PHOTOS PLACED IN PATIENT CHART.
--- NOTE | 2018-02-28 17:43 | NUR ---
PICC LINE REMOVED, NO S/S OF BLEEDING, PT TOLERATED PROCEDURE WELL.
[2018-02-28 19:26] VITALS: BP 128/68
--- NOTE | 2018-02-28 19:47 | NUR ---
PATIENT IS AWAKE IN BED NON VERBAL MAKES EYE CONTACT. NO S/S OF PAIN OR DISTRESS ON ASSESSMENT. AWAITING DISCHARGE VSS STABLE TO [facility]
== END 2018-02-28 20:23 | DRG 720 ==
LOC: ER 06:50 → TELE 09:07 → CCU 22:20 → TELE 02-24 18:41 → MED 02-25 10:30
PROVIDERS: ADMIT Internal Medicine; ATTEND Internal Medicine
PROC: B548ZZA Ultrasonography of Superior Vena Cava, Guidance (ICD-10-PCS; principal; 2018-02-23)
PROC: 02HV33Z Insertion of Infusion Device into Superior Vena Cava, Percutaneous Approach (ICD-10-PCS; principal; 2018-02-23)
PROC: 30233N1 Transfusion of Nonautologous Red Blood Cells into Peripheral Vein, Percutaneous Approach (ICD-10-PCS; 2018-02-24)
DX: A41.9 Sepsis, unspecified organism (principal); N17.0 Acute kidney failure with tubular necrosis; E43 Unspecified severe protein-calorie malnutrition; G92 Toxic encephalopathy; D68.59 Other primary thrombophilia; I13.0 Hypertensive heart and chronic kidney disease with heart failure and stage 1 through stage 4 chronic kidney disease, or unspecified chronic kidney disease; L89.150 Pressure ulcer of sacral region, unstageable; K92.2 Gastrointestinal hemorrhage, unspecified; F03.90 Unspecified dementia, unspecified severity, without behavioral disturbance, psychotic disturbance, mood disturbance, and anxiety; I50.32 Chronic diastolic (congestive) heart failure; R13.10 Dysphagia, unspecified; B35.1 Tinea unguium; N39.0 Urinary tract infection, site not specified; D63.8 Anemia in other chronic diseases classified elsewhere; B96.20 Unspecified Escherichia coli [E. coli] as the cause of diseases classified elsewhere; E87.6 Hypokalemia; E78.5 Hyperlipidemia, unspecified; F41.9 Anxiety disorder, unspecified; I25.10 Atherosclerotic heart disease of native coronary artery without angina pectoris; Z87.440 Personal history of urinary (tract) infections; Z87.891 Personal history of nicotine dependence; Z79.01 Long term (current) use of anticoagulants; N18.9 Chronic kidney disease, unspecified; F31.9 Bipolar disorder, unspecified; E88.09 Other disorders of plasma-protein metabolism, not elsewhere classified; L89.620 Pressure ulcer of left heel, unstageable; L89.610 Pressure ulcer of right heel, unstageable; L89.890 Pressure ulcer of other site, unstageable; L98.8 Other specified disorders of the skin and subcutaneous tissue; S31.20XA Unspecified open wound of penis, initial encounter; X58.XXXA Exposure to other specified factors, initial encounter; Y93.9 Activity, unspecified; Y92.129 Unspecified place in nursing home as the place of occurrence of the external cause; M62.81 Muscle weakness (generalized); N40.1 Benign prostatic hyperplasia with lower urinary tract symptoms; M41.86 Other forms of scoliosis, lumbar region; M19.071 Primary osteoarthritis, right ankle and foot; B96.5 Pseudomonas (aeruginosa) (mallei) (pseudomallei) as the cause of diseases classified elsewhere; B95.2 Enterococcus as the cause of diseases classified elsewhere; Z16.21 Resistance to vancomycin; Z93.1 Gastrostomy status; I48.2 Chronic atrial fibrillation; Z86.718 Personal history of other venous thrombosis and embolism
CPT/HCPCS: 36415; 70030-TC; 71045; 83605; 83690; 83735; 84100; 85025; 85730; 86850; 86900; 86901; 86920; 87040; 87077; 87086; 93005; 97110; 97165; 97530; A4217; A4663; J0692; J2185; J3370; J3475; J3480; J3490; J7030; J7040; J7050; J7060; P9016-BL; P9021; P9045

== ENCOUNTER 2018-03-11 18:11 | Inpatient (IN) | payer MEDICAID ==
[~2018-03-11] VITALS: Ht 162.6 cm; Wt 59.9 kg
[~2018-03-11 18:11] MED LIST changes: -ACID1TAB4 GT; +APIX2.5T GT; -APIX5TAB GT; +BISA10SU61 RC; +CLON0.1T GT; -CLON0.1T14 GT; -FAMO20TA8 GT; +FERR325T28 GT; +HYDR-3326 GT; +IPRA3AMP23 IH; +PANT40SU2 GT; +PROT946L PO; +SACC250C9 GT; +TRAM50TA2 GT; -TRAM50TA2 PO
[2018-03-11] MEDS ORDERED: CEFTRIAXONE 1 G in IV DEXTROSE 5% 50 ML IV ONE (18:30)
[2018-03-11] MEDS ORDERED: AZITHROMYCIN IV 500 MG in IV DEXTROSE 5% 250 ML IV ONE (18:30)
[2018-03-11] MEDS ORDERED: IV NORMAL SALINE 500 ML BAG IV ONE ×2 (18:45→21:15)
--- NOTE | 2018-03-11 18:48 | NUR ---
PT IS IN ROOM #1B . DR SOL EVALUATED THE PT.
[2018-03-11] MEDS ORDERED: SODI45SP10 NS (18:56)
[2018-03-11 18:58] LABS: BASOPHILS % (AUTO) 0.3 % (0.0-2.0); HEMATOCRIT 25.1 % (36.7-47.1); HEMOGLOBIN 8.3 g/dL (12.5-16.3); LYMPHOCYTES # (AUTO) 1.8 K/uL (20.0-40.0); MEAN CORPUSCULAR HEMOGLOBIN 30.5 uug (23.8-33.4); MEAN CORPUSCULAR HGB CONC 33 g/dL (32.5-36.3); MONOCYTES # (AUTO) 1.2 K/uL (2.0-10.0); MONOCYTES % (AUTO) 8.3 % (0.0-11.0); NEUTROPHILS # (AUTO) 11.8 K/uL (1.8-8.9); NEUTROPHILS % (AUTO) 79.4 % (38.5-71.5); PLATELET COUNT (AUTO) 280 K/uL (152-348); RED BLOOD CELL COUNT(AUTO) 2.73 MIL/uL (4.06-5.63); WHITE BLOOD COUNT (AUTO) 14.9 K/uL (3.6-10.2)
[2018-03-11 19:00] LABS: CARBON DIOXIDE 28 mmol/L (21-32); CHLORIDE 97 mmol/L (98-107); GLUCOSE 130 mg/dL (74-106); POTASSIUM 5.2 mmol/L (3.5-5.1); UREA NITROGEN, BLOOD 45 mg/dL (7-18)
[2018-03-11 19:03] LABS: *BILIRUBIN,URIN NEGATIVE (NEGATIVE); *BLOOD, URINE 1+ (NEGATIVE); *CLARITY,URINE SLIGHTLY CLOUDY (CLEAR); *COLOR,URINE YELLOW (YELLOW); *KETONES,URINE NEGATIVE (NEGATIVE); *PROTEIN,URINE 2+ (NEGATIVE); *UROBILINOGEN,URINE 0.2 E.U./dl (NORMAL); LEUKOCYTE ESTERASE ,URINE 3+ (NEGATIVE); NITRITE, URINE NEGATIVE (NEGATIVE); UGLUCOSE NEGATIVE (NEGATIVE)
--- NOTE | 2018-03-11 19:03 | NUR ---
REPORT GIVEN TO BORING MACHINE OPERATOR HORIZONTAL CARLOS FREEMAN.
[2018-03-11 19:09] LABS: BACTERIA,URINE FEW /HPF (NONE SEEN); SQUAMOUS EPITHELIAL CELL,UR FEW /HPF (NONE SEEN); WBC,URINE 50-80 /HPF (0-3); YEAST,URINE RARE /HPF (NONE SEEN)
[2018-03-11 19:12] LABS: ALANINE AMINOTRANSFERASE 16 U/L (16-63); ALKALINE PHOSPHATASE 120 U/L (50-136); ASPARTATE AMINOTRANSFERASE 14 U/L (15-37); BILIRUBIN,DIRECT 0.2 mg/dL (0.0-0.2); BILIRUBIN,TOTAL 0.4 mg/dL (0.2-1.0); TOTAL PROTEIN, SERUM 6.3 g/dL (6.4-8.2)
--- NOTE | 2018-03-11 19:30 | NUR ---
PT IN BED. PT IS POSITIONED FOR COMFORT. BED IS IN TRENDELENBURG POSITION WITH HEAD OF BED ELEVATED. PT IS NON-VERBAL. CRACKLE LUNG SOUNDS AUSCULTATED BILATERALLY. MADE AWARE.
[2018-03-11] MEDS ORDERED: CEFTRIAXONE 1 G VIAL ONE (19:33)
--- NOTE | 2018-03-11 19:50 | NUR ---
MD SOL AT BEDSIDE SPEAKING WITH PT'S SON ABOUT MED DIAGNOSIS AND TX OPTIONS
[2018-03-11] MEDS ORDERED: AZITHROMYCIN 500 MG VIAL IV ONE (19:52)
[2018-03-11] MEDS ORDERED: ONDANSETRON 4 MG/2 ML VIAL IV PRN (20:15)
[2018-03-11] MEDS ORDERED: ACETAMINOPHEN 325 MG TABLET PO PRN (20:15)
--- NOTE | 2018-03-11 20:20 | NUR ---
REPORT GIVEN TO TELEMETRY NURSE, ESTHER
[2018-03-11] MEDS ORDERED: ALBUTEROL SULFATE 2.5 MG/3 ML NEBU NEB PRN (20:30)
[2018-03-11] MEDS ORDERED: IPRATROPIUM BROMIDE 0.5 MG/2.5 ML NEBU NEB PRN (20:30)
[2018-03-11] MEDS ORDERED: TRAMADOL HCL 50 MG TABLET GT PRN (20:30)
[2018-03-11] MEDS ORDERED: ACETAMINOPHEN 325 MG TABLET GT PRN (20:30)
[2018-03-11] MEDS ORDERED: CLONIDINE HCL 0.1 MG TABLET GT PRN (20:30)
[2018-03-11] MEDS ORDERED: NORMAL SALINE NASAL 45 ML BOTTLE NS PRN (20:30)
[2018-03-11] MEDS ORDERED: BISACODYL 10 MG SUPP.RECT RC PRN (20:30)
[2018-03-11] MEDS ORDERED: JEVITY 1.2 1000 ML LIQUID GT PRN (20:30)
[2018-03-11] MEDS ORDERED: THERAHONEY GEL 1.5 OZ TUBE TOP PRN (20:30)
--- NOTE | 2018-03-11 21:00 | NUR ---
Pt. admitted to TELEMETRY, under care of LIV GELLER Belongs List completed
[2018-03-11 21:15] VITALS: BP 84/50
--- NOTE | 2018-03-11 21:15 | NUR ---
ADMITTED TO telemetry ROOM # 206 FROM ER. REPORT FROM CARLOS FREEMAN. JENI IBARRA WITH PATIENT; WHOM WANTED IT NOTED, THAT HE DIDN'T THINK PATIENT WAS 'END STAGE DEMENTIA' HE HEARD FROM MD. ERICK WHIPPLE SENT TO LAB. Addendum: 03/11/18 at 2159 by ESTHER ABDI RN NSS 500 ml GIVEN IN ER. Addendum: 03/12/18 at 0114 by ESTHER ABDI RN KARLEE B/Isabel GELLER N.P WILL OBSERVE.
[2018-03-11 21:29] VITALS: BP 84/50
[2018-03-11] MEDS ORDERED: VANCOMYCIN IV 1,000 MG in IV NORMAL SALINE 250 ML IV ONE (22:00)
[2018-03-11] MEDS: risperiDONE 0.25 MG TABLET GT SCH (22:23)
[2018-03-11] MEDS: VALPROIC ACID 250 MG/5 ML LIQUID UDC GT SCH (22:23)
[2018-03-11] MEDS: DOXAZOSIN 2 MG TABLET GT SCH (22:23)
[2018-03-11] MEDS ORDERED: PIPERACILLIN SODIUM/TAZO 3.375 GM VIAL ONE (22:36)
[2018-03-11] MEDS ORDERED: VANCOMYCIN 1000 MG VIAL ONE (22:36)
[2018-03-11] MEDS: PIPERACILLIN/TAZOBACTAM/D5W 50 ML IV SCH (23:11)
[2018-03-12] VITALS (11 sets, daily range): BP systolic 92–111; BP diastolic 50–63
[2018-03-12] MEDS ORDERED: PIPERACILLIN SODIUM/TAZO 3.375 GM VIAL ONE (05:32)
[2018-03-12] MEDS: VALPROIC ACID 250 MG/5 ML LIQUID UDC GT SCH ×3 (05:41→21:53)
[2018-03-12] MEDS: PIPERACILLIN/TAZOBACTAM/D5W 50 ML IV SCH ×3 (05:42→18:25)
[2018-03-12 06:46] LABS: CARBON DIOXIDE 27 mmol/L (21-32); CHLORIDE 100 mmol/L (98-107); CHOLESTEROL 101 mg/dL (<200); CREATININE 0.9 mg/dL (0.6-1.3); GLUCOSE 123 mg/dL (74-106); HDL CHOLESTEROL 40 mg/dL (40-60); POTASSIUM 4.6 mmol/L (3.5-5.1); TRIGLYCERIDES 76 MG/DL (30-150); UREA NITROGEN, BLOOD 39 mg/dL (7-18)
[2018-03-12 06:55] LABS: THYROID STIMULATING HORMONE 3.661 mIU/mL (0.358-3.740)
[2018-03-12 06:58] LABS: BASOPHILS % (AUTO) 0.3 % (0.0-2.0); MEAN CORPUSCULAR VOLUME 93.3 fL (73.0-96.2); MONOCYTES # (AUTO) 0.9 K/uL (2.0-10.0)
[2018-03-12 07:15] LABS: EOSINOPHILS % (AUTO) 0.2 % (0.0-7.0); LYMPHOCYTES # (AUTO) 1.6 K/uL (20.0-40.0); LYMPHOCYTES % (AUTO) 14.5 % (20.5-51.5); MEAN CORPUSCULAR HEMOGLOBIN 30.4 uug (23.8-33.4); MEAN CORPUSCULAR HGB CONC 33 g/dL (32.5-36.3); NEUTROPHILS # (AUTO) 8.7 K/uL (1.8-8.9); PLATELET COUNT (AUTO) 229 K/uL (152-348); WHITE BLOOD COUNT (AUTO) 11.3 K/uL (3.6-10.2)
[2018-03-12] MEDS ORDERED: NORMAL SALINE NASAL 45 ML BOTTLE NS PRN (07:15)
[2018-03-12 07:16] LABS: RED BLOOD CELL COUNT(AUTO) 2.21 MIL/uL (4.06-5.63)
[2018-03-12 07:20] LABS: HEMOGLOBIN 6.7 g/dL (12.5-16.3)
[2018-03-12 07:21] LABS: HEMATOCRIT 20.6 % (36.7-47.1)
--- NOTE | 2018-03-12 07:22 | NUR ---
REPEAT H/H TO BE SURE.
[2018-03-12 08:30] LABS: HEMATOCRIT 22.2 % (36.7-47.1); HEMOGLOBIN 7.3 g/dL (12.5-16.3)
[2018-03-12] MEDS ORDERED: Medication Not On Formulary EA (Multivitamin (Multi-Vitamin Daily) 1 EACH) GT SCH (09:00)
[2018-03-12] MEDS ORDERED: Medication Not On Formulary EA (Protein Supplement (Promod) 30 ML) PO SCH (09:00)
[2018-03-12] MEDS ORDERED: Medication Not On Formulary EA (Sertraline Hcl (Zoloft) 25 MG) GT SCH (09:00)
[2018-03-12] MEDS ORDERED: Medication Not On Formulary EA (Saccharomyces Boulardii (Probiotic) 250 MG) GT SCH (09:00)
[2018-03-12] MEDS ORDERED: PANTOPRAZOLE SODIUM 40 MG VIAL IV SCH (09:00)
[2018-03-12] MEDS: MULTIVITAMINS,THERAPEUTIC TABLET GT SCH (09:17)
[2018-03-12] MEDS: LACTOBACILLUS RHAMNOSUS GG 1 EACH CAPSULE PO SCH ×2 (09:17→20:59)
[2018-03-12] MEDS: CHOLECALCIFEROL 1,000 UNIT TABLET GT SCH (09:17)
[2018-03-12] MEDS: FERROUS SULFATE 325 MG TABEC PO SCH (09:17)
[2018-03-12] MEDS: SERTRALINE HCL 50 MG TABLET GT SCH (09:17)
[2018-03-12] MEDS: PROTEIN SUPPLEMENT (PROSTAT) 30 ML LIQUID GT SCH ×2 (09:20→18:26)
--- NOTE | 2018-03-12 09:39 | NUR ---
Clinical Pharmacy Note: Vancomycin Dosing per Pharmacy Subjective: Vancomycin IV to start on this 87 yo male patient for sepsis, UTI. Patient received vanco 1gm IVPB x1 on 03/11 at 2300 Objective: BUN 39/Scr 0.9 WBC 11.3 Temperature 98.3 Assessment/Plan: Will start vancomycin 1000mg IVPB Q23hr for a predicted vancomycin steady state trough level of 15 mcg/ml. 2nd dose is due today at 2200. Will draw a vancomycin trough level prior to the 4th dose of vancomycin (not ordered yet). Will monitor renal function and adjust vancomycin dose, if needed, should renal function change significantly. Will follow daily.
[2018-03-12 09:48] LABS: BASOPHILS % (MANUAL) 1 % (0-2); LYMPHOCYTES % (MANUAL) 12 % (20-40); MONOCYTES % (MANUAL) 12 % (2-10); NEUTROPHILS % (MANUAL) 75 % (42-75)
--- NOTE | 2018-03-12 10:28 | NUR ---
chandu rodriguez held per Dom GLOVER need GI consult Addendum: 03/12/18 at 1028 by SUMEET IRWIN RN Amended: Links added.
[2018-03-12] MEDS ORDERED: IV NORMAL SALINE 500 ML BAG IV ONE (10:30)
--- NOTE | 2018-03-12 10:55 | NUR ---
magaly Fan informed of patients plan of care re: need for blood transfusion, sacral wound debridement and blood transfusion. consents were given and verified by nohelia Daniels Addendum: 03/12/18 at 1056 by SUMEET IRWIN RN Amended: Links added.
[2018-03-12] MEDS ORDERED: IV NORMAL SALINE 500 ML IV ONE (11:15)
--- NOTE | 2018-03-12 11:45 | NUR ---
seen by Kailey PECK for ID. will continue antibiotics Addendum: 03/12/18 at 1533 by SUMEET IRWIN RN Amended: Bruce added. Addendum: 03/12/18 at 1535 by SUMEET IRWIN RN Amended: Bruce added. Addendum: 03/12/18 at 1605 by SUMEET IRWIN RN Amended: Links added.
--- NOTE | 2018-03-12 12:26 | NUR ---
500 ml NS given as fluid bolus. Addendum: 03/12/18 at 1226 by SUMEET IRWIN RN Amended: Links added.
[2018-03-12 13:00] LABS: BASOPHILS % (AUTO) 0.4 % (0.0-2.0); EOSINOPHILS % (AUTO) 0.4 % (0.0-7.0); HEMATOCRIT 23.1 % (36.7-47.1); HEMOGLOBIN 7.6 g/dL (12.5-16.3); LYMPHOCYTES # (AUTO) 1.6 K/uL (20.0-40.0); LYMPHOCYTES % (AUTO) 14.5 % (20.5-51.5); MEAN CORPUSCULAR HEMOGLOBIN 30.4 uug (23.8-33.4); MEAN CORPUSCULAR HGB CONC 33 g/dL (32.5-36.3); MEAN CORPUSCULAR VOLUME 92.6 fL (73.0-96.2); MONOCYTES # (AUTO) 0.9 K/uL (2.0-10.0); MONOCYTES % (AUTO) 7.8 % (0.0-11.0); NEUTROPHILS # (AUTO) 8.5 K/uL (1.8-8.9); NEUTROPHILS % (AUTO) 76.9 % (38.5-71.5); PLATELET COUNT (AUTO) 238 K/uL (152-348)
[2018-03-12 13:02] LABS: RED BLOOD CELL COUNT(AUTO) 2.49 MIL/uL (4.06-5.63)
--- NOTE | 2018-03-12 14:11 | NUR ---
PICC line inserted per EPIC grp via SUSANA. will be confirmed by Chest xray Addendum: 03/12/18 at 1412 by SUMEET IRWIN RN Amended: Links added.
[2018-03-12] MEDS ORDERED: NORMAL SALINE FLUSH 10 ML DISP.SYRIN IV PRN (14:15)
--- NOTE | 2018-03-12 14:45 | NUR ---
seen by dr Romie MOYER, orders melia zimmer in am. academy director continue tube fdg and npo from midnight Addendum: 03/12/18 at 1535 by SUMEET IRWIN RN Amended: Links added. Addendum: 03/12/18 at 1605 by SUMEET IRWIN RN Amended: Links added.
--- NOTE | 2018-03-12 15:31 | NUR ---
seen by Dom GLOVER orders received. Addendum: 03/12/18 at 1532 by SUMEET IRWIN RN Amended: Bruce added. Addendum: 03/12/18 at 1533 by SUMEET IRWIN RN Amended: Bruce added. Addendum: 03/12/18 at 1535 by SUMEET IRWIN RN Amended: Links added. Addendum: 03/12/18 at 1605 by SUMEET IRWIN RN Amended: Links added.
--- NOTE | 2018-03-12 16:05 | NUR ---
blood transfusion started at 100ml/hr via PICC line. prbc witnessed by another CARLOS pozo nurse Addendum: 03/12/18 at 1605 by SUMEET IRWIN RN Amended: Links added.
[2018-03-12] MEDS: JEVITY 1.2 1000 ML LIQUID GT PRN (16:53)
[2018-03-12] MEDS ORDERED: LIDOCAINE 1%-EPI 1:100,000 20 ML VIAL TP ONE (17:00)
[2018-03-12] MEDS ORDERED: SILVER NITRATE APPLICATOR STICK EACH TP ONE (17:00)
[2018-03-12] MEDS ORDERED: IV NORMAL SALINE 250 ML IV PRN (17:00)
--- NOTE | 2018-03-12 17:42 | NUR ---
wound debridement done by Lolis Nino. dressing reappied.post debridement Addendum: 03/12/18 at 1742 by SUMEET IRWIN RN Amended: Links added. Addendum: 03/12/18 at 1744 by SUMEET IRWIN RN Amended: Links added.
--- NOTE | 2018-03-12 17:44 | NUR ---
stools collected for cdiff. flexiseal tube applied rectally. to keep wound clean Addendum: 03/12/18 at 1744 by SUMEET IRWIN RN Amended: Links added.
[2018-03-12] MEDS: THERAHONEY GEL 1.5 OZ TUBE TOP SCH (18:26)
--- NOTE | 2018-03-12 18:38 | NUR ---
per maverick pozo RN egd for am cancelled by dr Grubbs Addendum: 03/12/18 at 1838 by SUMEET IRWIN RN Amended: Links added.
--- NOTE | 2018-03-12 18:52 | NUR ---
seen by Dr Zamora Podiatry. orders received. Addendum: 03/12/18 at 1852 by SUMEET IRWIN RN Amended: Links added.
--- NOTE | 2018-03-12 19:22 | NUR ---
blood transfusion was completed.at 1900 Addendum: 03/12/18 at 1921 by SUMEET IRWIN RN Amended: Links added.
--- NOTE | 2018-03-12 19:36 | NUR ---
report given to Sam RN Addendum: 03/12/18 at 1937 by SUMEET IRWIN RN Amended: Links added.
--- NOTE | 2018-03-12 20:00 | NUR ---
Nursing Note: Pt rectal tube continually dislodging despite repositioning. CHILDCARE ATTENDANT Bela made aware. New order to discontinue rectal tube. Pt noted with loose BM. Notified RELOCATION DIRECTOR of loose stool. Will monitor and continue frequent perineal care. Wound care provided as ordered. No s/s of pain noted at this time. Pt right arm noted with +3 edema. Extremity kept elevated. Bilateral ruperto kept elevated. Endorsed by CARLOS Avila that First step mattress tubes to be delivered after 1900. Will continue to turn and reposition every 2 hours and as needed Will follow up. Bed kept in low position. Bed wheels locked. Will continue to monitor.
[2018-03-12] MEDS: risperiDONE 0.25 MG TABLET GT SCH (20:59)
[2018-03-12] MEDS: FAMOTIDINE. 20 MG/2 ML VIAL IV SCH (20:59)
[2018-03-12] MEDS: DOXAZOSIN 2 MG TABLET GT SCH (21:00)
[2018-03-12] MEDS: Z GUARD REMEDY PASTE 57 GM TUBE TOP SCH (21:14)
[2018-03-12] MEDS: VANCOMYCIN IV 1 G in PREMIXED 0 EACH IV SCH (21:53)
[2018-03-12] MEDS: NORMAL SALINE FLUSH 10 ML DISP.SYRIN IV SCH (22:44)
--- NOTE | 2018-03-13 | NUR ---
Nursing Note: Architectural Draftsman aggie labs. Pt turned and reposition. VS WNL no SOB noted on room air. Pt kept clean and dry. De La Cruz draining clear yellow urine. Oral care provided as ordered. Bed in low position. Bed wheels locked. Pt double lumen R arm PICC patent. No s/s of distress. Will continue to monitor. Addendum: 03/13/18 at 0326 by SERVANDO BO RN Pt on O2 at 2lpm via NC
[2018-03-13] MEDS: PIPERACILLIN/TAZOBACTAM/D5W 50 ML IV SCH ×5 (00:13→23:17)
[2018-03-13 00:26] VITALS: BP 102/56
[2018-03-13 00:26] LABS: *OCCULT BLOOD STOOL NEGATIVE (NEGATIVE)
[2018-03-13 00:49] LABS: BASOPHILS % (AUTO) 0.4 % (0.0-2.0); EOSINOPHILS # (AUTO) 0.1 K/uL (0.0-0.7); EOSINOPHILS % (AUTO) 0.7 % (0.0-7.0); HEMATOCRIT 23.9 % (36.7-47.1); HEMOGLOBIN 8.1 g/dL (12.5-16.3); LYMPHOCYTES # (AUTO) 1.6 K/uL (20.0-40.0); LYMPHOCYTES % (AUTO) 17.2 % (20.5-51.5); MEAN CORPUSCULAR HEMOGLOBIN 30.8 uug (23.8-33.4); MEAN CORPUSCULAR HGB CONC 34 g/dL (32.5-36.3); MEAN CORPUSCULAR VOLUME 90.3 fL (73.0-96.2); MONOCYTES # (AUTO) 0.8 K/uL (2.0-10.0); MONOCYTES % (AUTO) 8.2 % (0.0-11.0); NEUTROPHILS # (AUTO) 6.7 K/uL (1.8-8.9); NEUTROPHILS % (AUTO) 73.5 % (38.5-71.5); PLATELET COUNT (AUTO) 234 K/uL (152-348); RED BLOOD CELL COUNT(AUTO) 2.64 MIL/uL (4.06-5.63); WHITE BLOOD COUNT (AUTO) 9.2 K/uL (3.6-10.2)
--- NOTE | 2018-03-13 03:23 | NUR ---
Nurse Note: Pt continue to be turned and repositioned every 2 hours. First step mattress not delivered this evening. Mattress to be delivered in AM. Will endorse to oncoming RN. Lab results returned. Hgb result does not necessitate packed RBC. Respiration even and unlabored on O2 via NC at 2lpm. Pt in no acute distress. Bed in low position and wheels locked. Will continue to monitor.
[2018-03-13 05:12] VITALS: BP 102/57
[2018-03-13] MEDS: NORMAL SALINE FLUSH 10 ML DISP.SYRIN IV SCH ×3 (06:07→22:31)
[2018-03-13] MEDS: VALPROIC ACID 250 MG/5 ML LIQUID UDC GT SCH ×3 (06:07→21:23)
[2018-03-13 06:56] LABS: BASOPHILS # (AUTO) 0.1 K/uL (0.0-8.0); BASOPHILS % (AUTO) 0.7 % (0.0-2.0); EOSINOPHILS # (AUTO) 0.1 K/uL (0.0-0.7); EOSINOPHILS % (AUTO) 1.3 % (0.0-7.0); HEMATOCRIT 23.1 % (36.7-47.1); HEMOGLOBIN 7.9 g/dL (12.5-16.3); LYMPHOCYTES # (AUTO) 1.2 K/uL (20.0-40.0); LYMPHOCYTES % (AUTO) 16.6 % (20.5-51.5); MEAN CORPUSCULAR HEMOGLOBIN 31.1 uug (23.8-33.4); MEAN CORPUSCULAR HGB CONC 34 g/dL (32.5-36.3); MONOCYTES # (AUTO) 0.7 K/uL (2.0-10.0); MONOCYTES % (AUTO) 8.9 % (0.0-11.0); NEUTROPHILS # (AUTO) 5.3 K/uL (1.8-8.9); NEUTROPHILS % (AUTO) 72.5 % (38.5-71.5); PLATELET COUNT (AUTO) 227 K/uL (152-348); RED BLOOD CELL COUNT(AUTO) 2.54 MIL/uL (4.06-5.63); WHITE BLOOD COUNT (AUTO) 7.4 K/uL (3.6-10.2)
[2018-03-13 07:09] LABS: CARBON DIOXIDE 28 mmol/L (21-32); CHLORIDE 104 mmol/L (98-107); CREATININE 0.9 mg/dL (0.6-1.3); GLUCOSE 103 mg/dL (74-106); PHOSPHOROUS 3.6 mg/dL (2.5-4.9); POTASSIUM 4.2 mmol/L (3.5-5.1); UREA NITROGEN, BLOOD 38 mg/dL (7-18)
--- NOTE | 2018-03-13 08:00 | NUR ---
Pt awake guamanian speaking. KCI bed changed. Noted buttocks wound and donato heel DTI pix taken. No residual noted on g/tube feed. Jevity 65cc/hr tolerated. Call light is within reach.
[2018-03-13] MEDS: CHOLECALCIFEROL 1,000 UNIT TABLET GT SCH (08:22)
[2018-03-13] MEDS: SERTRALINE HCL 50 MG TABLET GT SCH (08:22)
[2018-03-13] MEDS: FERROUS SULFATE 325 MG TABEC PO SCH (08:22)
[2018-03-13] MEDS: MULTIVITAMINS,THERAPEUTIC TABLET GT SCH (08:23)
[2018-03-13] MEDS: FAMOTIDINE. 20 MG/2 ML VIAL IV SCH (08:23)
[2018-03-13] MEDS: Z GUARD REMEDY PASTE 57 GM TUBE TOP SCH ×2 (08:23→21:22)
[2018-03-13] MEDS: LACTOBACILLUS RHAMNOSUS GG 1 EACH CAPSULE PO SCH ×2 (08:23→21:22)
[2018-03-13] MEDS: PROTEIN SUPPLEMENT (PROSTAT) 30 ML LIQUID GT SCH ×2 (08:24→16:10)
[2018-03-13] MEDS: THERAHONEY GEL 1.5 OZ TUBE TOP SCH (08:24)
--- NOTE | 2018-03-13 10:32 | NUR ---
Clinical Pharmacy Note: Vancomycin Dosing per Pharmacy Subjective: Vancomycin IV to continue on this 87 yo male patient for sepsis, UTI. Patient received vanco 1gm IVPB x1 on 03/11 at 2300 Objective: BUN 38/Scr 0.9 WBC 7.4 Temperature 98.1 Assessment/Plan: Will continue vancomycin 1000mg IVPB Q23hr for a predicted vancomycin steady state trough level of 15 mcg/ml. 3rd dose is due today at 2100. Will draw a vancomycin trough level prior to the 4th dose of vancomycin (not ordered yet). Will monitor renal function and adjust vancomycin dose, if needed, should renal function change significantly. Will follow daily.
[2018-03-13 11:21] VITALS: BP 109/58
[2018-03-13] MEDS: VANCOMYCIN FOR PO/GT/NG USE PO SCH ×3 (11:25→23:17)
[2018-03-13 16:00] VITALS: BP 118/62
--- NOTE | 2018-03-13 17:21 | NUR ---
PER DR Alaniz f/u call make to micro lab to update ucx results from 12/09/17 spoke with Deed Tech to f/u
--- NOTE | 2018-03-13 17:38 | NUR ---
korey called back states micro is still in process.
--- NOTE | 2018-03-13 18:34 | NUR ---
Pt had semi liquid diarrhea noted on bm. Pt had 2x bm. Call light is within reach.
[2018-03-13 20:54] VITALS: BP 106/61
[2018-03-13] MEDS: VANCOMYCIN IV 1 G in PREMIXED 0 EACH IV SCH (21:21)
[2018-03-13] MEDS: risperiDONE 0.25 MG TABLET GT SCH (21:21)
[2018-03-13] MEDS: DOXAZOSIN 2 MG TABLET GT SCH (21:22)
[2018-03-13] MEDS: FAMOTIDINE 20 MG TABLET GT SCH (21:22)
[2018-03-14 00:39] VITALS: BP 96/50
[2018-03-14 04:00] VITALS: BP 100/60
--- NOTE | 2018-03-14 05:36 | NUR ---
Patient slept intermittently. Wound care completed, photos placed in chart. Tolerating GT feedings well. PICC line flushed as ordered. No diarrhea/no BM this shift. Continues on contact isolation.
[2018-03-14 06:21] LABS: BASOPHILS # (AUTO) 0.1 K/uL (0.0-8.0); BASOPHILS % (AUTO) 0.9 % (0.0-2.0); EOSINOPHILS # (AUTO) 0.2 K/uL (0.0-0.7); EOSINOPHILS % (AUTO) 2.8 % (0.0-7.0); HEMATOCRIT 24.2 % (36.7-47.1); HEMOGLOBIN 8.1 g/dL (12.5-16.3); LYMPHOCYTES # (AUTO) 1.3 K/uL (20.0-40.0); LYMPHOCYTES % (AUTO) 19.9 % (20.5-51.5); MEAN CORPUSCULAR HEMOGLOBIN 30.7 uug (23.8-33.4); MEAN CORPUSCULAR HGB CONC 34 g/dL (32.5-36.3); MEAN CORPUSCULAR VOLUME 91.4 fL (73.0-96.2); MONOCYTES # (AUTO) 0.6 K/uL (2.0-10.0); MONOCYTES % (AUTO) 8.7 % (0.0-11.0); NEUTROPHILS # (AUTO) 4.3 K/uL (1.8-8.9); NEUTROPHILS % (AUTO) 67.7 % (38.5-71.5); PLATELET COUNT (AUTO) 248 K/uL (152-348); RED BLOOD CELL COUNT(AUTO) 2.65 MIL/uL (4.06-5.63); WHITE BLOOD COUNT (AUTO) 6.4 K/uL (3.6-10.2)
[2018-03-14] MEDS: NORMAL SALINE FLUSH 10 ML DISP.SYRIN IV SCH ×3 (06:27→21:22)
[2018-03-14] MEDS: VALPROIC ACID 250 MG/5 ML LIQUID UDC GT SCH ×3 (06:27→21:22)
[2018-03-14] MEDS: Z GUARD REMEDY PASTE 57 GM TUBE TOP PRN (06:28)
[2018-03-14] MEDS: VANCOMYCIN FOR PO/GT/NG USE PO SCH ×4 (06:28→23:00)
[2018-03-14] MEDS: PIPERACILLIN/TAZOBACTAM/D5W 50 ML IV SCH ×4 (06:28→23:00)
[2018-03-14 06:42] LABS: ALANINE AMINOTRANSFERASE 28 U/L (16-63); ALKALINE PHOSPHATASE 101 U/L (50-136); ASPARTATE AMINOTRANSFERASE 26 U/L (15-37); BILIRUBIN,TOTAL 0.3 mg/dL (0.2-1.0); CARBON DIOXIDE 29 mmol/L (21-32); CHLORIDE 105 mmol/L (98-107); CREATININE 0.9 mg/dL (0.6-1.3); GLUCOSE 110 mg/dL (74-106); POTASSIUM 4.4 mmol/L (3.5-5.1); TOTAL PROTEIN, SERUM 5.5 g/dL (6.4-8.2); UREA NITROGEN, BLOOD 31 mg/dL (7-18)
--- NOTE | 2018-03-14 07:10 | NUR ---
Received pt awake, no immediate s/s of SOB, pain, distress or discomfort. Air mattress in place, De La Cruz cath noted, O2 via NC.
[2018-03-14] MEDS: JEVITY 1.2 1000 ML LIQUID GT PRN (07:35)
[2018-03-14] MEDS: PROTEIN SUPPLEMENT (PROSTAT) 30 ML LIQUID GT SCH ×2 (08:50→16:58)
[2018-03-14] MEDS: CHOLECALCIFEROL 1,000 UNIT TABLET GT SCH (08:50)
[2018-03-14] MEDS: SERTRALINE HCL 50 MG TABLET GT SCH (08:51)
[2018-03-14] MEDS: FAMOTIDINE 20 MG TABLET GT SCH ×2 (08:51→20:00)
[2018-03-14] MEDS: FERROUS SULFATE 325 MG TABEC PO SCH (08:51)
[2018-03-14] MEDS: LACTOBACILLUS RHAMNOSUS GG 1 EACH CAPSULE PO SCH ×2 (08:51→20:00)
[2018-03-14] MEDS: MULTIVITAMINS,THERAPEUTIC TABLET GT SCH (08:51)
[2018-03-14] MEDS: Z GUARD REMEDY PASTE 57 GM TUBE TOP SCH ×2 (08:52→20:02)
[2018-03-14] MEDS: THERAHONEY GEL 1.5 OZ TUBE TOP SCH (08:53)
--- NOTE | 2018-03-14 09:30 | NUR ---
Private caregiver noted in the room
[2018-03-14 11:53] VITALS: BP 109/70
[2018-03-14 16:15] VITALS: BP 105/66
--- NOTE | 2018-03-14 17:00 | NUR ---
Pt was repositioned. Pt had a BM
--- NOTE | 2018-03-14 19:51 | NUR ---
Received patient lying in bed. AOX1 only. Only saying "Yes: to all the questions. In no acute distress. O2 at 2LPM via NC in place. O2 sat at 96%. FC intact and draining via gravity. GT feeding ongoing. PICC line on right UA intact and patent. HOB elevated. Safety measure and isolation precaution initiated and call chaudhary within reach.
[2018-03-14 20:00] VITALS: BP 101/52
[2018-03-14] MEDS: DOXAZOSIN 2 MG TABLET GT SCH (20:00)
[2018-03-14] MEDS: risperiDONE 0.25 MG TABLET GT SCH (20:00)
[2018-03-15] MEDS: JEVITY 1.2 1000 ML LIQUID GT PRN (02:20)
[2018-03-15 05:06] VITALS: BP 109/71
[2018-03-15] MEDS: VALPROIC ACID 250 MG/5 ML LIQUID UDC GT SCH ×3 (05:09→22:10)
[2018-03-15] MEDS: PIPERACILLIN/TAZOBACTAM/D5W 50 ML IV SCH ×3 (05:09→17:40)
[2018-03-15] MEDS: VANCOMYCIN FOR PO/GT/NG USE PO SCH ×4 (05:09→23:18)
[2018-03-15] MEDS: NORMAL SALINE FLUSH 10 ML DISP.SYRIN IV SCH ×3 (05:10→22:16)
--- NOTE | 2018-03-15 06:02 | NUR ---
AOX1 only. In no acute distress. O2 at 2LPM via NC in place. O2 sat at 98%. FC intact and draining via gravity. GT feeding well tolerated. PICC line on right UA intact and patent. HOB kept elevated. No adverse reaction noted from ABX. Safety measure and isolation precaution maintained and call chaudhary within reach.
--- NOTE | 2018-03-15 07:30 | NUR ---
Awake, nonverbal but responsive, nods and waves. On moderate high back rest. GTube feedings on going. O2 at 2L/NC, not in distress
[2018-03-15] MEDS: FAMOTIDINE 20 MG TABLET GT SCH ×2 (10:07→20:23)
[2018-03-15] MEDS: SERTRALINE HCL 50 MG TABLET GT SCH (10:07)
[2018-03-15] MEDS: MULTIVITAMINS,THERAPEUTIC TABLET GT SCH (10:07)
[2018-03-15] MEDS: LACTOBACILLUS RHAMNOSUS GG 1 EACH CAPSULE PO SCH ×2 (10:07→20:23)
[2018-03-15] MEDS: CHOLECALCIFEROL 1,000 UNIT TABLET GT SCH (10:07)
[2018-03-15] MEDS: FERROUS SULFATE 325 MG TABEC PO SCH (10:08)
[2018-03-15] MEDS: PROTEIN SUPPLEMENT (PROSTAT) 30 ML LIQUID GT SCH ×2 (10:11→17:40)
[2018-03-15] MEDS: Z GUARD REMEDY PASTE 57 GM TUBE TOP SCH ×2 (10:12→20:25)
[2018-03-15] MEDS: THERAHONEY GEL 1.5 OZ TUBE TOP SCH (10:12)
--- NOTE | 2018-03-15 11:00 | NUR ---
With BM to greenish to soft, loose stool. Incontinence care done with sponge bath given. Wound care done. Secretions suctioned. Oral care done. Repositioned comfortably
--- NOTE | 2018-03-15 14:00 | NUR ---
Secretions suctioned. Repositioned comfortably
[2018-03-15 15:34] VITALS: BP 147/60
[2018-03-15] MEDS ORDERED: FUROSEMIDE 20 MG/2 ML VIAL IV ONE (17:15)
--- NOTE | 2018-03-15 18:19 | NUR ---
With intermittent cough. suctioned through nasal with greenish secretions. Lasix IV given as ordered. Repositioned. Kept dry and comfortable
--- NOTE | 2018-03-15 19:53 | NUR ---
Received patient lying in bed. AOX1 , able to make eye contact when spoken to. In no acute distress. HOB elevated. O2 at 2LPM via NC in place. FC intact and draining via gravity. GT feeding ongoing. PICC line on right UA intact and patent. Safety measure and isolation precaution initiated and call chaudhary within reach.
[2018-03-15] MEDS: risperiDONE 0.25 MG TABLET GT SCH (20:24)
[2018-03-15] MEDS: DOXAZOSIN 2 MG TABLET GT SCH (20:24)
[2018-03-15] MEDS: MUPIROCIN 2% OINT 22 GM TUBE NS SCH (20:25)
[2018-03-15 20:36] VITALS: BP 117/60
[2018-03-15] MEDS: CEFTAZIDIME 1 G in IV DEXTROSE 5% 50 ML IV SCH (22:10)
[2018-03-16] MEDS: JEVITY 1.2 1000 ML LIQUID GT PRN (02:13)
[2018-03-16 04:33] VITALS: BP 115/75
[2018-03-16] MEDS: VANCOMYCIN FOR PO/GT/NG USE PO SCH ×2 (05:08→13:27)
[2018-03-16] MEDS: NORMAL SALINE FLUSH 10 ML DISP.SYRIN IV SCH ×2 (05:08→13:36)
[2018-03-16] MEDS: VALPROIC ACID 250 MG/5 ML LIQUID UDC GT SCH ×2 (05:08→13:27)
--- NOTE | 2018-03-16 06:07 | NUR ---
AOX1 only. In no acute distress. O2 at 2LPM via NC in place. O2 sat at 98%. No coughing noted. FC intact and draining via gravity. GT feeding well tolerated. PICC line on right UA intact and patent. HOB kept elevated. Heels floated. No adverse reaction noted from ABX. Safety measure and isolation precaution maintained and call chaudhary within reach.
[2018-03-16 06:23] LABS: ALANINE AMINOTRANSFERASE 28 U/L (16-63); ALKALINE PHOSPHATASE 100 U/L (50-136); ASPARTATE AMINOTRANSFERASE 16 U/L (15-37); BILIRUBIN,TOTAL 0.3 mg/dL (0.2-1.0); CARBON DIOXIDE 26 mmol/L (21-32); CHLORIDE 102 mmol/L (98-107); CREATININE 0.9 mg/dL (0.6-1.3); GLUCOSE 121 mg/dL (74-106); POTASSIUM 4.4 mmol/L (3.5-5.1); TOTAL PROTEIN, SERUM 5.7 g/dL (6.4-8.2); UREA NITROGEN, BLOOD 36 mg/dL (7-18)
[2018-03-16 06:24] LABS: BASOPHILS # (AUTO) 0.1 K/uL (0.0-8.0); BASOPHILS % (AUTO) 0.9 % (0.0-2.0); EOSINOPHILS # (AUTO) 0.2 K/uL (0.0-0.7); EOSINOPHILS % (AUTO) 4.1 % (0.0-7.0); HEMATOCRIT 26.8 % (36.7-47.1); HEMOGLOBIN 8.8 g/dL (12.5-16.3); LYMPHOCYTES # (AUTO) 1.3 K/uL (20.0-40.0); LYMPHOCYTES % (AUTO) 22.4 % (20.5-51.5); MEAN CORPUSCULAR HEMOGLOBIN 30.1 uug (23.8-33.4); MEAN CORPUSCULAR HGB CONC 33 g/dL (32.5-36.3); MEAN CORPUSCULAR VOLUME 91.9 fL (73.0-96.2); MONOCYTES # (AUTO) 0.7 K/uL (2.0-10.0); MONOCYTES % (AUTO) 11.9 % (0.0-11.0); NEUTROPHILS # (AUTO) 3.5 K/uL (1.8-8.9); NEUTROPHILS % (AUTO) 60.7 % (38.5-71.5); PLATELET COUNT (AUTO) 302 K/uL (152-348); RED BLOOD CELL COUNT(AUTO) 2.91 MIL/uL (4.06-5.63); WHITE BLOOD COUNT (AUTO) 5.8 K/uL (3.6-10.2)
[2018-03-16] MEDS: LACTOBACILLUS RHAMNOSUS GG 1 EACH CAPSULE PO SCH (08:27)
[2018-03-16] MEDS: FAMOTIDINE 20 MG TABLET GT SCH (08:27)
[2018-03-16] MEDS: FERROUS SULFATE 325 MG TABEC PO SCH (08:27)
[2018-03-16] MEDS: CEFTAZIDIME 1 G in IV DEXTROSE 5% 50 ML IV SCH (08:28)
[2018-03-16] MEDS: MULTIVITAMINS,THERAPEUTIC TABLET GT SCH (08:28)
[2018-03-16] MEDS: SERTRALINE HCL 50 MG TABLET GT SCH (08:28)
[2018-03-16] MEDS: MUPIROCIN 2% OINT 22 GM TUBE NS SCH (08:28)
[2018-03-16] MEDS: CHOLECALCIFEROL 1,000 UNIT TABLET GT SCH (08:28)
[2018-03-16] MEDS: Z GUARD REMEDY PASTE 57 GM TUBE TOP PRN (08:29)
[2018-03-16] MEDS: THERAHONEY GEL 1.5 OZ TUBE TOP SCH (08:30)
[2018-03-16] MEDS: PROTEIN SUPPLEMENT (PROSTAT) 30 ML LIQUID GT SCH (08:30)
[2018-03-16] MEDS: Z GUARD REMEDY PASTE 57 GM TUBE TOP SCH (08:30)
[2018-03-16 09:05] LABS: BAND % (MANUAL) 1 % (0-10); EOSINOPHILS % (MANUAL) 4 % (0-8); LYMPHOCYTES % (MANUAL) 25 % (20-40); METAMYELOCYTES % 1 % (0-1); MONOCYTES % (MANUAL) 9 % (2-10); MYELOCYTES % 1 % (0-0); NEUTROPHILS % (MANUAL) 59 % (42-75)
[2018-03-16] MEDS ORDERED: FUROSEMIDE 20 MG/2 ML VIAL IV ONE (09:15)
--- NOTE | 2018-03-16 09:39 | NUR ---
pt seen on rounding. pt continues to sleep. pt arousable to touch. pt on 2l nc. pt vitals stable. pt offloaded and air mattress applied. pt given meds through g tube. pt continues to have cough with no production during shift. g tube and midline intact. pt given lasix. will continue to monitor.
[2018-03-16 11:15] VITALS: BP_SYST 56
[2018-03-16 11:30] VITALS: BP 108/56
[2018-03-16 15:04] VITALS: BP 110/63
[2018-03-16] MEDS ORDERED: VANC500V PO (15:18)
[2018-03-16] MEDS ORDERED: METO25TA6 GT (15:18)
[2018-03-16] MEDS ORDERED: CEFT1VIA65 IV (15:18)
--- NOTE | 2018-03-16 17:37 | NUR ---
pt discharged at 1730 as ordered by . sent to [facility] through ambulance. pt family made aware. pt discharge summary unable to be signed by patient due to confusion. discharge papers signed by two healthcare providers. belongings list signed. family baylee made aware and agreed to plan of care. vitals stable upon discharge. wound photos taken and placed in chart. orginal copy of papers given to ambulance. [facility]
== END 2018-03-16 17:35 | DRG 710 ==
LOC: ER 18:13 → TELE 20:25 → MED 03-14 19:16
PROVIDERS: ADMIT Registered Nurse; ATTEND Registered Nurse
PROC: 02HV33Z Insertion of Infusion Device into Superior Vena Cava, Percutaneous Approach (ICD-10-PCS; principal; 2018-03-12)
PROC: 0KBP0ZZ Excision of Left Hip Muscle, Open Approach (ICD-10-PCS; principal; 2018-03-12)
PROC: 0KBN0ZZ Excision of Right Hip Muscle, Open Approach (ICD-10-PCS; principal; 2018-03-12)
DX: A41.9 Sepsis, unspecified organism (principal); J69.0 Pneumonitis due to inhalation of food and vomit; N17.0 Acute kidney failure with tubular necrosis; E43 Unspecified severe protein-calorie malnutrition; L89.154 Pressure ulcer of sacral region, stage 4; I50.33 Acute on chronic diastolic (congestive) heart failure; G92 Toxic encephalopathy; R53.2 Functional quadriplegia; L89.324 Pressure ulcer of left buttock, stage 4; L89.314 Pressure ulcer of right buttock, stage 4; R13.10 Dysphagia, unspecified; I13.0 Hypertensive heart and chronic kidney disease with heart failure and stage 1 through stage 4 chronic kidney disease, or unspecified chronic kidney disease; D68.59 Other primary thrombophilia; E87.5 Hyperkalemia; I48.2 Chronic atrial fibrillation; N39.0 Urinary tract infection, site not specified; B96.5 Pseudomonas (aeruginosa) (mallei) (pseudomallei) as the cause of diseases classified elsewhere; B95.1 Streptococcus, group B, as the cause of diseases classified elsewhere; Z16.23 Resistance to quinolones and fluoroquinolones; Z22.322 Carrier or suspected carrier of Methicillin resistant Staphylococcus aureus; M51.36 Other intervertebral disc degeneration, lumbar region; Z68.22 Body mass index [BMI] 22.0-22.9, adult; E86.0 Dehydration; Z86.718 Personal history of other venous thrombosis and embolism; M41.9 Scoliosis, unspecified; R62.7 Adult failure to thrive; F03.90 Unspecified dementia, unspecified severity, without behavioral disturbance, psychotic disturbance, mood disturbance, and anxiety; J98.11 Atelectasis; M19.071 Primary osteoarthritis, right ankle and foot; N40.0 Benign prostatic hyperplasia without lower urinary tract symptoms; Z79.899 Other long term (current) drug therapy; Z93.1 Gastrostomy status; D63.8 Anemia in other chronic diseases classified elsewhere; E78.5 Hyperlipidemia, unspecified; F41.9 Anxiety disorder, unspecified; F31.9 Bipolar disorder, unspecified; E87.1 Hypo-osmolality and hyponatremia; I25.10 Atherosclerotic heart disease of native coronary artery without angina pectoris; Z87.440 Personal history of urinary (tract) infections; Z87.891 Personal history of nicotine dependence; K92.1 Melena; M19.072 Primary osteoarthritis, left ankle and foot; N18.9 Chronic kidney disease, unspecified; L89.620 Pressure ulcer of left heel, unstageable; L89.610 Pressure ulcer of right heel, unstageable; Z79.01 Long term (current) use of anticoagulants; E87.8 Other disorders of electrolyte and fluid balance, not elsewhere classified; B35.1 Tinea unguium; G93.89 Other specified disorders of brain
CPT/HCPCS: 36415; 36569; 70030-TC; 70450; 71045; 80164; 83605; 83735; 84100; 84443; 85018; 85025; 85730; 86850; 86900; 86901; 86920; 87040; 87077; 87086; 93005; A4217; A4663; C1751; C9113; J0456; J0696; J0713; J1940; J2543; J3370; J3490; J7030; J7040; J7050; J7060; P9016-BL; P9021

== ENCOUNTER 2018-08-07 02:14 | Inpatient (IN) | payer MEDICAID, OTHER ==
[~2018-08-07] VITALS: Ht 172.7 cm; Wt 56.2 kg
[2018-08-07] VITALS (50 sets, daily range): BP systolic 51–139; BP diastolic 27–73
[~2018-08-07 02:14] MED LIST changes: +CEFT1VIA65 IV; -HYDR-3326 GT; +SODI45SP10 NS; -VANC500V GT; +VANC500V PO
[2018-08-07] MEDS ORDERED: IV NORMAL SALINE 500 ML BAG IV ONE (02:30)
[2018-08-07 04:02] LABS: BASOPHILS % (AUTO) 0.4 % (0.0-2.0); EOSINOPHILS # (AUTO) 0.1 K/uL (0.0-0.7); EOSINOPHILS % (AUTO) 1.6 % (0.0-7.0); HEMATOCRIT 21.1 % (36.7-47.1); LYMPHOCYTES # (AUTO) 0.7 K/uL (20.0-40.0); LYMPHOCYTES % (AUTO) 13.9 % (20.5-51.5); MEAN CORPUSCULAR HEMOGLOBIN 31.8 uug (23.8-33.4); MEAN CORPUSCULAR HGB CONC 34 g/dL (32.5-36.3); MEAN CORPUSCULAR VOLUME 94.6 fL (73.0-96.2); MONOCYTES # (AUTO) 0.3 K/uL (2.0-10.0); MONOCYTES % (AUTO) 6.7 % (0.0-11.0); NEUTROPHILS # (AUTO) 3.9 K/uL (1.8-8.9); NEUTROPHILS % (AUTO) 77.4 % (38.5-71.5); PLATELET COUNT (AUTO) 134 K/uL (152-348); WHITE BLOOD COUNT (AUTO) 5.1 K/uL (3.6-10.2)
[2018-08-07 04:07] LABS: HEMOGLOBIN 7.1 g/dL (12.5-16.3); RED BLOOD CELL COUNT(AUTO) 2.23 MIL/uL (4.06-5.63)
[2018-08-07] MEDS ORDERED: ONDANSETRON 4 MG/2 ML VIAL IV PRN (04:45)
[2018-08-07] MEDS ORDERED: MAGNESIUM HYDROXIDE 30 ML LIQUID UDC PO PRN (04:45)
[2018-08-07 04:57] LABS: CARBON DIOXIDE 23 mmol/L (21-32); CHLORIDE 111 mmol/L (98-107); CREATININE 0.8 mg/dL (0.6-1.3); GLUCOSE 79 mg/dL (74-106); POTASSIUM 4.6 mmol/L (3.5-5.1); UREA NITROGEN, BLOOD 42 mg/dL (7-18)
--- NOTE | 2018-08-07 05:00 | NUR ---
Blood products prepared and ready to adminster per laboratory. Per ER MD infuse after admission to tele floor.
[2018-08-07 05:02] LABS: ALANINE AMINOTRANSFERASE 19 U/L (16-63); ALKALINE PHOSPHATASE 69 U/L (50-136); ASPARTATE AMINOTRANSFERASE 15 U/L (15-37); BILIRUBIN,DIRECT 0.1 mg/dL (0.0-0.2); BILIRUBIN,TOTAL 0.4 mg/dL (0.2-1.0); LIPASE 43 U/L (73-393); TOTAL PROTEIN, SERUM 4.3 g/dL (6.4-8.2)
[2018-08-07] MEDS ORDERED: FERR300L GT (05:07)
[2018-08-07] MEDS ORDERED: AMIO200T4 GT (05:31)
[2018-08-07] MEDS ORDERED: ARGI1POW13 GT (05:32)
[2018-08-07] MEDS ORDERED: COLL30OI TP ×2 (05:36→05:52)
--- NOTE | 2018-08-07 05:36 | NUR ---
Spoke with qasim(pantograph transferrer from [facility]) regarding pending admission. Possible transfer to different acute hospital. MD aware and notified pantograph transferrer and possible admitting MD at [facility] that patient is unstable for transfer. New plan of care to admitt patient at [facility] telemetry awaiting authorization for Luci triage nurse.
[2018-08-07] MEDS ORDERED: LACT1CAP57 GT (05:37)
[2018-08-07] MEDS ORDERED: LEVA1.257 INH (05:39)
[2018-08-07] MEDS ORDERED: MUPI1OIN BNOSTRILS (05:42)
[2018-08-07] MEDS ORDERED: POLY15DR20 OP (05:44)
[2018-08-07] MEDS ORDERED: PROT946L GT (05:45)
[2018-08-07] MEDS ORDERED: VANC50SO GT (05:54)
[2018-08-07] MEDS ORDERED: PRED-170 GT ×2 (05:58→06:01)
[2018-08-07] MEDS ORDERED: PRED10TA GT (06:00)
[2018-08-07] MEDS ORDERED: PANTOPRAZOLE SODIUM 40 MG TABLET.DR PO SCH (07:00)
--- NOTE | 2018-08-07 07:25 | NUR ---
pateint was adnmitted to tele. Report was given to Jeremiah GONZALEZ by Sam GONZALEZ.
--- NOTE | 2018-08-07 07:30 | NUR ---
Received this admission from ER per allison, 87 yo male, with the diagnosis of Lower GI Bleed and Severe Anemia. Transferred to bed comfortably. Routine admission care rendered. Incontinence care and bed bath given. Wound care done. Awake, non verbal, opens eyed spontaneously and withdraws from pain. O2 at 3L/NC. Noted crackles/rhonchi, secretions suctioned to thick yellowish sputum. Midline to LUE, flushes without difficulty. G tube clamped, intact. De La Cruz catheter to drainage bag. Dr. Miller informed with admission orders.
[2018-08-07] MEDS: IV NS 1000 ML 1,000 ML IV PRN ×2 (08:56→22:01)
[2018-08-07] MEDS ORDERED: JEVITY 1.2 1000 ML LIQUID GT SCH ×2 (11:15→18:26)
--- NOTE | 2018-08-07 12:20 | NUR ---
Noted change in condition, pale. Vital signs checked. BP 50/17. HR dropping from 100, junctional rhythm, respiration stopped. Floresita Peralta called. CPR initiated. See Floresita Peralta notes.
--- NOTE | 2018-08-07 12:30 | NUR ---
ER DOCTOR AT BEDSIDE UPON TRANSFER. PLACED RIGHT FEMORAL CENTRAL LINE AT BEDSIDE TRIPLE LUMEN.
--- NOTE | 2018-08-07 12:30 | NUR ---
patient brought into ccu s/p code blue. intubated with 7.5 and post cxr adjusted to 20cm at lip. vent settings post abg is ac14 vt 500 no peep fio02 50%. tube feeding on hold for now. patient started on levophed and propofol for sedation.
--- NOTE | 2018-08-07 12:44 | NUR ---
Intubated and transferred to ICU by bed. Son Informed. Hospitalist Adan Olivarez ENGINEERING INSTRUCTOR informed.
[2018-08-07] MEDS ORDERED: EPINEPHRINE 1:10,000 1 MG/10 ML DISP.SYRIN ONE (13:00)
[2018-08-07] MEDS: NOREPINEPHRINE BITARTRATE 8 MG in IV DEXTROSE 5% 500 ML IV PRN ×3 (13:03→22:00)
[2018-08-07 13:05] LABS: BASOPHILS % (AUTO) 0.2 % (0.0-2.0); EOSINOPHILS % (AUTO) 0.1 % (0.0-7.0); HEMATOCRIT 22.7 % (36.7-47.1); LYMPHOCYTES # (AUTO) 1.8 K/uL (20.0-40.0); LYMPHOCYTES % (AUTO) 18.4 % (20.5-51.5); MEAN CORPUSCULAR HEMOGLOBIN 31.3 uug (23.8-33.4); MEAN CORPUSCULAR HGB CONC 31 g/dL (32.5-36.3); MEAN CORPUSCULAR VOLUME 101.9 fL (73.0-96.2); MONOCYTES # (AUTO) 0.1 K/uL (2.0-10.0); MONOCYTES % (AUTO) 0.7 % (0.0-11.0); NEUTROPHILS # (AUTO) 7.8 K/uL (1.8-8.9); NEUTROPHILS % (AUTO) 80.6 % (38.5-71.5); PLATELET COUNT (AUTO) 146 K/uL (152-348); WHITE BLOOD COUNT (AUTO) 9.7 K/uL (3.6-10.2)
[2018-08-07] MEDS ORDERED: IV NS 1000 ML 1,000 ML IV ONE (13:15)
[2018-08-07 13:21] LABS: ALANINE AMINOTRANSFERASE 24 U/L (16-63); ALKALINE PHOSPHATASE 82 U/L (50-136); ASPARTATE AMINOTRANSFERASE 23 U/L (15-37); BILIRUBIN,TOTAL 0.4 mg/dL (0.2-1.0); CARBON DIOXIDE 19 mmol/L (21-32); CHLORIDE 109 mmol/L (98-107); CREATININE 1.1 mg/dL (0.6-1.3); GLUCOSE 106 mg/dL (74-106); MAGNESIUM 2.6 mg/dL (1.8-2.4); PHOSPHOROUS 6.1 mg/dL (2.5-4.9); POTASSIUM 4.9 mmol/L (3.5-5.1); TOTAL PROTEIN, SERUM 4.2 g/dL (6.4-8.2); UREA NITROGEN, BLOOD 41 mg/dL (7-18)
[2018-08-07 13:23] LABS: RED BLOOD CELL COUNT(AUTO) 2.23 MIL/uL (4.06-5.63)
[2018-08-07 13:31] LABS: ABG BASE EXCESS -6.2 mmol/L; ABG HCO3 18.3 mmol/L; ABG PCO2 31.5 mmHg (35.0-45.0); ABG PH 7.381 (7.350-7.450); ABG PO2 260.6 mmHg (75.0-100.0); ABG SITE RIGHT RADIAL; ABG TOTAL HEMOGLOBIN 6.7 G/dL (13.5-18.0); COHb 2.2 % (0.5-1.5); MetHb 0.7 % (0.0-1.5); VENT MODE VENT - A/C; VT, ABG 500 mL
--- NOTE | 2018-08-07 13:35 | NUR ---
PER MD ORDERS 7.5 ET TUBE WITHDRAWN TO APPROX 2O CM AT LIP LINE, IT IS PATENT AND SECURED WITH ANCHOR FAST. PT IS DOING WELL ON YEPEZ VENT, SETTINGS ARE AC 14, Vt 500, 50% FIO2. NO SOB AT THIS TIME. SUCTIONED LARGE AMOUNTS OF THICK YELLOW DO SECRETIONS. ALARMS ARE ON AND AUDIBLE, BVM AT BEDSIDE. WILL CONTINUE TO MONITOR.
[2018-08-07 13:45] LABS: BAND % (MANUAL) 5 % (0-10); LYMPHOCYTES % (MANUAL) 16 % (20-40); MONOCYTES % (MANUAL) 3 % (2-10); NEUTROPHILS % (MANUAL) 76 % (42-75)
[2018-08-07] MEDS ORDERED: NOREPINEPHRINE BITARTRATE 8 MG in IV DEXTROSE 5% 500 ML IV PRN (13:45)
[2018-08-07] MEDS ORDERED: PROPOFOL 100 ML IV PRN (13:45)
[2018-08-07] MEDS: PROPOFOL 100 ML IV PRN (13:54)
--- NOTE | 2018-08-07 13:56 | NUR ---
SON AT BEDSIDE OBTAINED BLOOD TRANSFUSION CONSENT.
[2018-08-07] MEDS ORDERED: ROCURONIUM BROMIDE 50 MG/5 ML VIAL IV ONE (18:36)
[2018-08-07] MEDS ORDERED: ETOMIDATE 20 MG/10 ML VIAL IV ONE (18:36)
--- NOTE | 2018-08-07 19:43 | NUR ---
Pt rec'd on Santos settings AC 14, VT 500 and FIO2-40%. 7.5 ETT is patent and secure now at the right side of the pt's mouth. Pt to be monitored throughout the shift. BVM is at bedside. Santos alarm parameters have been checked and remain audible. Addendum: 08/08/18 at 0035 by DANE CASTELLANO RT ETT is at approx. 20 cm at the lip.
[2018-08-07] MEDS ORDERED: NOREPINEPHRINE BITARTRATE 4 MG/4 ML VIAL IV ONE (21:20)
--- NOTE | 2018-08-07 21:20 | NUR ---
Levophed charted; elsewhere, in eMar.
[2018-08-07] MEDS: Z GUARD REMEDY PASTE 57 GM TUBE TOP PRN (22:05)
[2018-08-08] VITALS (92 sets, daily range): BP systolic 90–131; BP diastolic 47–78
[2018-08-08 05:12] LABS: ALANINE AMINOTRANSFERASE 22 U/L (16-63); ALKALINE PHOSPHATASE 63 U/L (50-136); ASPARTATE AMINOTRANSFERASE 19 U/L (15-37); BILIRUBIN,TOTAL 0.7 mg/dL (0.2-1.0); CARBON DIOXIDE 24 mmol/L (21-32); CHLORIDE 113 mmol/L (98-107); CHOLESTEROL 76 mg/dL (<200); CREATININE 0.8 mg/dL (0.6-1.3); GLUCOSE 70 mg/dL (74-106); HDL CHOLESTEROL 22 mg/dL (40-60); MAGNESIUM 2.2 mg/dL (1.8-2.4); PHOSPHOROUS 4.2 mg/dL (2.5-4.9); POTASSIUM 3.7 mmol/L (3.5-5.1); TOTAL PROTEIN, SERUM 3.7 g/dL (6.4-8.2); TRIGLYCERIDES 129 MG/DL (30-150); UREA NITROGEN, BLOOD 37 mg/dL (7-18)
[2018-08-08 05:19] LABS: LYMPHOCYTES # (AUTO) 0.5 K/uL (20.0-40.0); LYMPHOCYTES % (AUTO) 8.8 % (20.5-51.5); MONOCYTES # (AUTO) 0.2 K/uL (2.0-10.0); NEUTROPHILS # (AUTO) 4.7 K/uL (1.8-8.9); WHITE BLOOD COUNT (AUTO) 5.4 K/uL (3.6-10.2)
[2018-08-08 05:21] LABS: BASOPHILS % (AUTO) 0.2 % (0.0-2.0); EOSINOPHILS % (AUTO) 0.2 % (0.0-7.0); HEMATOCRIT 22.6 % (36.7-47.1); HEMOGLOBIN 7.5 g/dL (12.5-16.3); MEAN CORPUSCULAR HEMOGLOBIN 29.9 uug (23.8-33.4); MEAN CORPUSCULAR HGB CONC 33 g/dL (32.5-36.3); MEAN CORPUSCULAR VOLUME 90.4 fL (73.0-96.2); MONOCYTES % (AUTO) 4.2 % (0.0-11.0); NEUTROPHILS % (AUTO) 86.6 % (38.5-71.5); PLATELET COUNT (AUTO) 99 K/uL (152-348)
[2018-08-08 05:27] LABS: RED BLOOD CELL COUNT(AUTO) 2.49 MIL/uL (4.06-5.63)
[2018-08-08 05:29] LABS: IRON, SERUM 18 ug/dL (50-175)
[2018-08-08] MEDS: PROPOFOL 100 ML IV PRN ×2 (06:04→20:21)
[2018-08-08 06:21] LABS: FERRITIN 1997 ng/mL (26-388)
[2018-08-08 06:25] LABS: BAND % (MANUAL) 25 % (0-10); LYMPHOCYTES % (MANUAL) 7 % (20-40); MONOCYTES % (MANUAL) 3 % (2-10); NEUTROPHILS % (MANUAL) 64 % (42-75)
--- NOTE | 2018-08-08 07:30 | NUR ---
RECIEVED PT LYING IN BED WITH HOB UP AT 35DEGREES, SEDATED BUT OPENS EYES TO SLIGHT PAINFUL STIMULI. PT ON VENTILATOR WITH SIZE 7.5 ET AT 20CM LIPLINE, SETTING OF AC-14, VT-500, FIO2-50%. O2SAT AT 100%. LUNGS CLEAR, SECRETIONS IS LESS. HR IS SR WITH OCCASSIONAL PVC'S. PT ON LEVOPHED DRIP AT 10MCG/MIN TO KEEP SBP ABOVE 100 INFUSING WELL VIA THE FEMORAL TRIPLE LUMEN CENTRAL LINE.
--- NOTE | 2018-08-08 08:30 | NUR ---
SEEN AND EXAMINED BY MARVIN PECK WITH NEW ORDERS. PT IS INCONTINENT OF LOOSE BM. INSERTED A FLEXISEAL DRAIN RECTALLY AND FLUSING LINE FREQUENTLY. STOOL COLOR IS DARK COOPER BROWN. FULL THICKNESS IN THE SACRAL AREA WITH DRESSING INTACT. PERINEAL ARE IS EXCORIATED. ZGUARD APPLIED.
[2018-08-08] MEDS: SUCRALFATE 1 G/10 ML LIQUID UDC GT SCH ×4 (08:43→20:20)
[2018-08-08] MEDS: NOREPINEPHRINE BITARTRATE 8 MG in IV DEXTROSE 5% 500 ML IV PRN (08:45)
[2018-08-08] MEDS ORDERED: PANTOPRAZOLE SODIUM 40 MG VIAL IV SCH (09:00)
[2018-08-08 09:34] LABS: ABG BASE EXCESS -2.6 mmol/L; ABG HCO3 20.9 mmol/L; ABG PCO2 30.7 mmHg (35.0-45.0); ABG PO2 91.5 mmHg (75.0-100.0); ABG SITE RIGHT RADIAL; ABG TOTAL HEMOGLOBIN 8.6 G/dL (13.5-18.0); COHb 1.8 % (0.5-1.5); MetHb 0.5 % (0.0-1.5); O2Hb 95.1 % (94.0-97.0); VENT MODE VENT - A/C; VT, ABG 500 mL
[2018-08-08] MEDS: PANTOPRAZOLE SODIUM 40 MG VIAL IV SCH ×2 (09:52→17:12)
--- NOTE | 2018-08-08 10:30 | NUR ---
STARTED HIS TUBE FEEDING JEVITY 1.2 AT 20ML STARTING WITH A MAX GOAL OF 55ML/HR. HYPOACTIVE BS. FEMORAL TRIPLE LUMEN CENTRAL LINE IS LEAKING. NOTIFIED MARVIN AVALOS ORDERED FOR PICC LINE. CONSENT OBTAINED FROM THE SON.
[2018-08-08] MEDS ORDERED: ALBUMIN HUMAN 25% 50 ML IV ONE (11:00)
[2018-08-08] MEDS: IV NS 1000 ML 1,000 ML IV PRN (11:26)
--- NOTE | 2018-08-08 12:13 | NUR ---
PHARMACY CLINICAL NOTES(VANCOMYCIN DOSING) S: 87 YO male, S/P cardiopulmonary arrest transferred to CCU , currently on vasopressor; MD ordered Vancomycin and Merrem empircally for bilatheral pleural effusion on CXR. O: BUN/SCR 37/0.8 ( calculated based on scr 1.0); WBC 5.4; TEMP 97.9; DOSING WT 61 KG A/P: Due to advanced ages and unstable renal fxn, will dose Vancomycin by level, will give 1 gm IVPB today and will order level for tomorrow and adjust the dose as necessary.
--- NOTE | 2018-08-08 13:00 | NUR ---
SEEN AND EXAMINED BY DR SLATER WITH NEW ORDERS. VENT SETTING CHANGED BY RT, AC-12 AND FIO2-100%. SATURATION IS GOOD.
--- NOTE | 2018-08-08 13:59 | NUR ---
CHANGE VENT SETTING TO AC12,VT500,100% FIO2 PER MD ORDER. WILL CONT TO MONITOR
[2018-08-08] MEDS ORDERED: MEROPENEM 1 G in IV NORMAL SALINE 100 ML IV SCH (14:00)
[2018-08-08] MEDS ORDERED: VANCOMYCIN IV 1 G in PREMIXED 0 EACH IV ONE (14:00)
[2018-08-08] MEDS: MEROPENEM 1 G in IV NORMAL SALINE 100 ML IV SCH ×2 (14:05→20:21)
--- NOTE | 2018-08-08 15:30 | NUR ---
PICC LINE NURSE IN AND INSERTED PICC LINE AT THE BEDSIDE. TRIED 2X BUT FAILED SECONDARY TO RESISTANCE . VAPOR COATER AWARE.
--- NOTE | 2018-08-08 19:32 | NUR ---
Pt rec'd on Santos settings AC 14, VT 500 and FIO2-100%. 7.5 ETT is patent and secure now at the right side of the pt's mouth at approx 20cm at the lip. Pt to be monitored throughout the shift. BVM is at bedside. Santos alarm parameters have been checked and remain audible. Addendum: 08/09/18 at 0007 by DANE CASTELLANO RT Correction - Respiratory rate is 12, not 14
[2018-08-08 21:46] LABS: *BILIRUBIN,URIN NEGATIVE (NEGATIVE); *BLOOD, URINE 1+ (NEGATIVE); *CLARITY,URINE SLIGHTLY CLOUDY (CLEAR); *COLOR,URINE YELLOW (YELLOW); *KETONES,URINE NEGATIVE (NEGATIVE); *UROBILINOGEN,URINE 0.2 E.U./dl (NORMAL); LEUKOCYTE ESTERASE ,URINE 2+ (NEGATIVE); NITRITE, URINE NEGATIVE (NEGATIVE); PH,URINE 6.5 (5.0-8.0); UGLUCOSE NEGATIVE (NEGATIVE)
[2018-08-08 21:58] LABS: BACTERIA,URINE FEW /HPF (NONE SEEN); MUCUS,URINE MODERATE /LPF (0-FEW); WBC,URINE 50-80 /HPF (0-3)
[2018-08-08 22:26] LABS: *OCCULT BLOOD STOOL POSITIVE (NEGATIVE)
[2018-08-09] VITALS (96 sets, daily range): BP systolic 82–150; BP diastolic 43–76
[2018-08-09] MEDS: NOREPINEPHRINE BITARTRATE 8 MG in IV DEXTROSE 5% 500 ML IV PRN ×2 (00:54→18:15)
[2018-08-09] MEDS: IV NS 1000 ML 1,000 ML IV PRN ×2 (00:54→17:37)
--- NOTE | 2018-08-09 04:00 | NUR ---
Coccyx decubiti dressing changed; as ordered, using Dakin's Solution & dressing.
--- NOTE | 2018-08-09 05:11 | NUR ---
Patient remains on Santos with no changes made to the ventilator settings. No resp. distress noted. Pt was routinely sx'd and appeared to tolerate resp. settings well. 7.5 ETT remains patent and secure at approx. 20 cm at the lip. BVM at bedside. Santos alarm parameters have been checked and remain audible.
[2018-08-09 05:16] LABS: BASOPHILS % (AUTO) 0.2 % (0.0-2.0); EOSINOPHILS % (AUTO) 0.5 % (0.0-7.0); HEMATOCRIT 22.9 % (36.7-47.1); HEMOGLOBIN 7.6 g/dL (12.5-16.3); LYMPHOCYTES # (AUTO) 0.7 K/uL (20.0-40.0); LYMPHOCYTES % (AUTO) 12.4 % (20.5-51.5); MEAN CORPUSCULAR HEMOGLOBIN 30.4 uug (23.8-33.4); MEAN CORPUSCULAR HGB CONC 33 g/dL (32.5-36.3); MEAN CORPUSCULAR VOLUME 91.5 fL (73.0-96.2); MONOCYTES # (AUTO) 0.3 K/uL (2.0-10.0); MONOCYTES % (AUTO) 5.2 % (0.0-11.0); NEUTROPHILS # (AUTO) 4.5 K/uL (1.8-8.9); NEUTROPHILS % (AUTO) 81.7 % (38.5-71.5); PLATELET COUNT (AUTO) 95 K/uL (152-348); WHITE BLOOD COUNT (AUTO) 5.5 K/uL (3.6-10.2)
[2018-08-09 05:36] LABS: CARBON DIOXIDE 21 mmol/L (21-32); CHLORIDE 115 mmol/L (98-107); CREATININE 0.8 mg/dL (0.6-1.3); GLUCOSE 92 mg/dL (74-106); POTASSIUM 3.3 mmol/L (3.5-5.1); UREA NITROGEN, BLOOD 27 mg/dL (7-18)
[2018-08-09 06:19] LABS: BAND % (MANUAL) 8 % (0-10); LYMPHOCYTES % (MANUAL) 13 % (20-40); MONOCYTES % (MANUAL) 6 % (2-10); MYELOCYTES % 1 % (0-0); NEUTROPHILS % (MANUAL) 70 % (42-75)
--- NOTE | 2018-08-09 07:10 | NUR ---
Patient received lightly sedated, with eyes, open and tracking. temp of 94.0 pt. placed on a warming blanket. ETT in place A/C12, tv 500 and 100% FIO2. G-tube patent. Rectal tube in place. pt. Anasarca with wheeping noted. Levophed running at 6mcg/min. titration started due to stable blood pressure, see VS sheet.
--- NOTE | 2018-08-09 07:34 | NUR ---
PT RECEIVED ON CMV WITH ETT SECURED AND AIRWAY PATENT. PT COMFORTABLE TOLERATING CURRENT VENT SETTINGS FINE WITH NO DISTRESS. BREATH SOUNDS MINIMAL RHONCHI. PRN SUCTIONING PERFORMED. PT HAD SCANT AMOUNT OF OFF WHITE SECRETIONS. VENT ALARMS SET AND AUDIBLE. VENT PLUGGED IN RED OUTLET. HEAD OF THE BED ELEVATED 30 DEGREE ANGLE. ORAL CARE DONE.
[2018-08-09] MEDS: SUCRALFATE 1 G/10 ML LIQUID UDC GT SCH ×4 (07:59→21:14)
[2018-08-09] MEDS: SODIUM HYPOCHLORITE 0.125% 473 ML BOTTLE TP SCH (08:01)
[2018-08-09] MEDS: PANTOPRAZOLE SODIUM 40 MG VIAL IV SCH ×2 (08:02→16:41)
[2018-08-09] MEDS: MEROPENEM 1 G in IV NORMAL SALINE 100 ML IV SCH ×2 (08:18→21:27)
[2018-08-09 08:28] LABS: ABG BASE EXCESS -2.9 mmol/L; ABG HCO3 20.4 mmol/L; ABG PCO2 29.3 mmHg (35.0-45.0); ABG PH 7.461 (7.350-7.450); ABG PO2 418.3 mmHg (75.0-100.0); ABG SITE RIGHT RADIAL; ABG TOTAL HEMOGLOBIN 7.3 G/dL (13.5-18.0); COHb 1.1 % (0.5-1.5); MetHb 0.6 % (0.0-1.5); O2Hb 98.1 % (94.0-97.0); VENT MODE VENT - A/C; VT, ABG 500 mL
--- NOTE | 2018-08-09 08:30 | NUR ---
Vent: FIO2 down to 60%, post ABG results.
--- NOTE | 2018-08-09 08:33 | NUR ---
WOUND CARE CONSULT WOUND CARE RECEIVED CONSULT FOR COCCYX AND LEFT HEEL DECUBITUS ULCERS. WOUND CARE WILL DEFER CONSULT AND ALL TREATMENT PLANS TO PLASTIC SURGICAL TEAM WHO ARE CURRENTLY FOLLOWING THIS PATIENT. PATIENT WITH LEXII AT 11, ALL PRESSURE ULCER PREVENTION MEASURES ARE NOTED TO BE IN PLACE. WILL SEE PRN.
--- NOTE | 2018-08-09 08:40 | NUR ---
ABG ORDERED BY LUCRETIA WILLAMS DONE. RESULTS NON CRITICAL. PER RESULTS FIO2 TITRATED DOWN TO 60%. SPO2 100%. WILL CONTINUE TO MONITOR.
[2018-08-09] MEDS: VITAL AF 1.2 1,000 ML LIQUID GT PRN (10:00)
[2018-08-09] MEDS: PROPOFOL 100 ML IV PRN ×2 (10:35→21:27)
--- NOTE | 2018-08-09 10:59 | NUR ---
Cardiology services, in to see and examine pt. report given, see order hx.
--- NOTE | 2018-08-09 10:59 | NUR ---
Patient seen and examined by pulmonary services Dr. Cutler report given, see order hx,.
[2018-08-09] MEDS ORDERED: POTASSIUM CHLORIDE 20 MEQ POWDER PACKET GT ONE (11:00)
--- NOTE | 2018-08-09 11:30 | NUR ---
FIO2 down to 50%.
--- NOTE | 2018-08-09 13:50 | NUR ---
PHARMACY CLINICAL NOTES(VANCOMYCIN DOSING) S: Vancomycin to continue for this 87 yo male patient for empiric tx for bilateral pleural effusion on CXR (s/p code blue). O: BUN/SCR 27/0.8 ( calculated based on scr 1.0); WBC 5.5; TEMP 97.6 wt 63 kg ht 172 cm A/P: Since srcr is stable, will start vanco 1gm IVPB q24h for predicted vanco trough level of 15.5 mcg/ml at steady state. 2nd dose due today at 1400. Plan to order vanco trough level before 4th dose (not yet ordered). Will adjust the dose if renal function worsen. Will follow up Addendum: 08/09/18 at 1441 by CHUNG CARPENTER ADM VANCO RANDOM CAME BACK 23.6 FOR TODAY AT 1330 (PER RN, IT WAS NOT DRAWN FROM VANCO LINE OR EVEN WHEN VANCO WAS RUNNING) FLOYD RAMIREZ FOR NOW PLAN TO CHECK VANCO RANDOM IN AM (WITH AM LABS) PHARMACY SHALL RE-DOSE IF NEEDED
[2018-08-09] MEDS ORDERED: VANCOMYCIN IV 1 G in PREMIXED 0 EACH IV SCH (14:00)
[2018-08-09] MEDS ORDERED: ALBUMIN HUMAN 25% 100 ML IV ONE ×2 (18:30→20:00)
--- NOTE | 2018-08-09 18:30 | NUR ---
Patient seen and examine by attending MARY ELLEN Olivarez. He updated pt's son who remains at bedside. report given orders received. see order hx.
[2018-08-09] MEDS ORDERED: LEVOFLOXACIN 750MG/D5W 750 MG in PREMIXED 1 EACH IV SCH (18:45)
--- NOTE | 2018-08-09 19:31 | NUR ---
Patient received on Viasys Santos settings AC 12, VT 500 and FIO2-50%. 7.5 ETT is patent and secure now at the right side of the pt's mouth at approx 20cm at the lip. Pt to be monitored throughout the shift. BVM is at bedside. Santos alarm parameters have been checked and remain audible.
--- NOTE | 2018-08-09 20:00 | NUR ---
Remains sedated on Diprivan, attempting to open eyes with tactile stimuli. Withdraws to noxious stimuli, does not follow commands. Intubated on vent, comfortable on current settings. Plan for CPAP trial in AM. Stable rhythm. Levophed infusing to keep SBP =>100. Pt to receive Albumin 25 Gm for critical low 1.0 Albumin. GT feeding Vital AF 1.2 Brayan well tolerated, minimal residual. Adequate urine output; flexiseal with no drainage. Anasarca with weeping especially at right femoral TLC site. Hypothermic. Dara Hugger applied. Nursing comfort measures and aspiration precautions observed at all times. Please see CCU flowsheet for full assessment and clinical data.
[2018-08-09] MEDS: LEVOFLOXACIN 750MG/D5W 750 MG in PREMIXED 1 EACH IV SCH (20:56)
[2018-08-10] VITALS (85 sets, daily range): BP systolic 79–144; BP diastolic 39–72
--- NOTE | 2018-08-10 04:00 | NUR ---
Flexiseal constantly leaking despite nursing measures. Noted very large anal sphincter. Flexiseal DC'd. Wound care to sacral and heel decub rendered. Total bath/skin care done. Turned/positioned q 2hr and off loading ext. at all times.
[2018-08-10 05:38] LABS: CARBON DIOXIDE 22 mmol/L (21-32); CHLORIDE 113 mmol/L (98-107); CREATININE 0.7 mg/dL (0.6-1.3); GLUCOSE 72 mg/dL (74-106); MAGNESIUM 1.9 mg/dL (1.8-2.4); PHOSPHOROUS 3.2 mg/dL (2.5-4.9); POTASSIUM 3.5 mmol/L (3.5-5.1); UREA NITROGEN, BLOOD 27 mg/dL (7-18); VANCOMYCIN,RANDOM 23.9 ug/mL (18.0-26.0)
[2018-08-10] MEDS: PROPOFOL 100 ML IV PRN (06:06)
[2018-08-10] MEDS: Z GUARD REMEDY PASTE 57 GM TUBE TOP PRN (06:07)
--- NOTE | 2018-08-10 07:45 | NUR ---
RECEIVED STABLE ON SETTINGS OF AC12,VT 5OO AND FIO2 50%. PT IS SEDATED BUT QUITE RESPONSIVE. ORAL CARE GIVEN AND MOVED ET TUBE TO THE MIDDLE. STARTED WEANING AND PLACED PT ON CPAP WITH PSV 8 WITH ABG TO FOLLOW POST 1 HOUR. CHRIS INFORMED OF THE CHANGES.
[2018-08-10 07:53] LABS: BASOPHILS % (AUTO) 0.4 % (0.0-2.0); EOSINOPHILS # (AUTO) 0.1 K/uL (0.0-0.7); EOSINOPHILS % (AUTO) 1.3 % (0.0-7.0); LYMPHOCYTES # (AUTO) 0.5 K/uL (20.0-40.0); LYMPHOCYTES % (AUTO) 10.5 % (20.5-51.5); MEAN CORPUSCULAR HEMOGLOBIN 30.3 uug (23.8-33.4); MEAN CORPUSCULAR HGB CONC 33 g/dL (32.5-36.3); MEAN CORPUSCULAR VOLUME 92.4 fL (73.0-96.2); MONOCYTES # (AUTO) 0.3 K/uL (2.0-10.0); MONOCYTES % (AUTO) 6.8 % (0.0-11.0); NEUTROPHILS # (AUTO) 4.1 K/uL (1.8-8.9); PLATELET COUNT (AUTO) 80 K/uL (152-348)
[2018-08-10 08:00] LABS: HEMATOCRIT 20.3 % (36.7-47.1)
[2018-08-10 08:01] LABS: HEMOGLOBIN 6.6 g/dL (12.5-16.3)
--- NOTE | 2018-08-10 08:15 | NUR ---
Patient placed on CPAP with PSV of 8. saturation above 95% and rr in the mid-20's sbp stable. RT at bedside.
[2018-08-10] MEDS ORDERED: NOREPINEPHRINE BITARTRATE 16 MG in IV DEXTROSE 5% 500 ML IV PRN (08:30)
[2018-08-10] MEDS: PANTOPRAZOLE SODIUM 40 MG VIAL IV SCH ×2 (08:53→16:57)
[2018-08-10] MEDS: SUCRALFATE 1 G/10 ML LIQUID UDC GT SCH ×5 (08:53→20:05)
[2018-08-10] MEDS: SODIUM HYPOCHLORITE 0.125% 473 ML BOTTLE TP SCH (08:54)
[2018-08-10 08:59] LABS: BAND % (MANUAL) 2 % (0-10); EOSINOPHILS % (MANUAL) 2 % (0-8); LYMPHOCYTES % (MANUAL) 10 % (20-40); MONOCYTES % (MANUAL) 6 % (2-10); NEUTROPHILS % (MANUAL) 80 % (42-75)
[2018-08-10] MEDS: MEROPENEM 1 G in IV NORMAL SALINE 100 ML IV SCH ×2 (08:59→21:13)
--- NOTE | 2018-08-10 09:20 | NUR ---
ABG DONE WITH RESULT GIVEN TO CHRIS COOPER RN. WAITING FOR ORDER FOR EXTUBATION.
--- NOTE | 2018-08-10 09:20 | NUR ---
Infectious disease N.P. A. in the unit to examine patient. Orders to isolate pt.
[2018-08-10 09:26] LABS: ABG BASE EXCESS -4.3 mmol/L; ABG HCO3 19.2 mmol/L; ABG PCO2 28.7 mmHg (35.0-45.0); ABG PH 7.444 (7.350-7.450); ABG PO2 153.4 mmHg (75.0-100.0); ABG SITE RIGHT RADIAL; ABG TOTAL HEMOGLOBIN 7.1 G/dL (13.5-18.0); COHb 1.2 % (0.5-1.5); MetHb 0.7 % (0.0-1.5); O2Hb 97.5 % (94.0-97.0); VENT MODE VENT - PSUPPORT; VT, ABG 495 mL
--- NOTE | 2018-08-10 09:35 | NUR ---
Pulmonary services, in the unit to see and examine pt. see order hx.
--- NOTE | 2018-08-10 09:45 | NUR ---
Utility Worker Md in the unit to examine patient.
[2018-08-10] MEDS ORDERED: DC PROPOFOL ONCE EXTUBATED XX PRN (10:15)
[2018-08-10] MEDS ORDERED: POTASSIUM CHLORIDE 20 MEQ POWDER PACKET GT ONE (10:15)
--- NOTE | 2018-08-10 10:15 | NUR ---
Pulmonary services Dr. Cutler in the unit and orders to extubate pt. pt. extubated by RT and placed on SM 6L saturation wnl.
--- NOTE | 2018-08-10 10:35 | NUR ---
EXTUBATED PATIENT UPON DR. SLATER'S ORDER. PT IS SATURATING 100% ON 6 LPM MASK, WITH TRY TO TITRATE TO NASAL CANULA.
[2018-08-10] MEDS: VITAL AF 1.2 1,000 ML LIQUID GT PRN (10:36)
--- NOTE | 2018-08-10 11:45 | NUR ---
At this time pt. placed on NC 4L. saturation above desired limits. No distress noted.
[2018-08-10] MEDS: VANCOMYCIN FOR PO/GT/NG USE PO SCH ×3 (12:18→23:16)
--- NOTE | 2018-08-10 13:30 | NUR ---
Patient with and episode of desaturation, currently on NC4 liter, pulmonary toileting rendered and massive amounts of what appears to be stomach content aspirated out. after 15min of pulmonary toileting, patient saturation back to 96-98% and left on face mask 6L. Pt's son at bedside. and as stated by him "He had a similar complication when he was hospitalized at [facility]" Attending MARY ELLEN Hall called to be notified that for safety reasons feeding placed on hold awaiting call back for further orders.
[2018-08-10] MEDS: METRONIDAZOLE 500 MG/NS 100ML 500 MG in PREMIXED 1 EACH IV SCH ×2 (14:01→22:25)
[2018-08-10] MEDS: IV NS 1000 ML 1,000 ML IV PRN (15:01)
--- NOTE | 2018-08-10 15:08 | NUR ---
PHARMACY CLINICAL NOTES(VANCOMYCIN DOSING) S: Vancomycin to continue for this 87 yo male patient for empiric tx for bilateral pleural effusion on CXR (s/p code blue). O: BUN/SCR 27/0.7 WBC 5.0; TEMP 96.3 Vanco random level with am labs: 23.9 Vanco random level at 1400: 19.3 wt 63 kg ht 172 cm A/P: Since vanco random level at 1400 is 19.3, will give vanco 1gm IVPB x1 today at 2100. Pharmacy shall decide when to order random level for further dosing in am. Will follow up
--- NOTE | 2018-08-10 16:25 | NUR ---
MARY ELLEN Olivarez in the unit to examine pt. full report given orders for NPO received.
--- NOTE | 2018-08-10 18:10 | NUR ---
GI physician Romie Yeboah in the unit to examine pt. full report given orders to continue with current care plan. Dr. Grubbs also spoke with Private sitter who remains at bedside, and updated her of care plan since pt's son was gone for the day.
--- NOTE | 2018-08-10 20:00 | NUR ---
Resting in bed, appears calm/fatigued. Spontaneous eye opening, does not focus or track, not following commands. Successful extubation today and doing well on simple face mask with excellent sats. Suctioned PRN to minimal secretions. Aspiration precautions observed. NPO except meds. Abdomen remains large/distended with hypoactive bowel tones. Still with diarrhea incontinence. Maintained on Enteric isolation. Stable rhythm SR with rare PACs. Off Levophed this PM and BP closely monitored for possible restart of med. Pt hypothermic, Dara hugger therapy resumed. Please see CCU flowsheet for full assessment and clinical data.
[2018-08-10] MEDS: LEVOFLOXACIN 750MG/D5W 750 MG in PREMIXED 1 EACH IV SCH (20:03)
[2018-08-10] MEDS ORDERED: VANCOMYCIN IV 1 G in PREMIXED 0 EACH IV ONE (21:00)
[2018-08-11] VITALS (31 sets, daily range): BP systolic 86–120; BP diastolic 37–63
--- NOTE | 2018-08-11 02:00 | NUR ---
Pt has not slept despite encouragements. Eyes open, mostly staring at ceiling. Suctioned nasotracheally PRN by RT to large thick secretions. Tolerating well O2 per nasal cannula since 2099. Remains hypothermic, kept warm and comfortable on Dara hugger. Close monitoring continues.
[2018-08-11 05:09] LABS: BASOPHILS % (AUTO) 0.5 % (0.0-2.0); HEMATOCRIT 24.1 % (36.7-47.1); HEMOGLOBIN 7.9 g/dL (12.5-16.3); LYMPHOCYTES # (AUTO) 0.7 K/uL (20.0-40.0); LYMPHOCYTES % (AUTO) 18.5 % (20.5-51.5); MEAN CORPUSCULAR HEMOGLOBIN 30.3 uug (23.8-33.4); MEAN CORPUSCULAR HGB CONC 33 g/dL (32.5-36.3); MEAN CORPUSCULAR VOLUME 92.2 fL (73.0-96.2); MONOCYTES # (AUTO) 0.4 K/uL (2.0-10.0); NEUTROPHILS # (AUTO) 2.9 K/uL (1.8-8.9); PLATELET COUNT (AUTO) 63 K/uL (152-348); RED BLOOD CELL COUNT(AUTO) 2.61 MIL/uL (4.06-5.63)
[2018-08-11 05:16] LABS: CARBON DIOXIDE 18 mmol/L (21-32); CHLORIDE 115 mmol/L (98-107); CREATININE 0.7 mg/dL (0.6-1.3); GLUCOSE 57 mg/dL (74-106); MAGNESIUM 1.7 mg/dL (1.8-2.4); PHOSPHOROUS 2.9 mg/dL (2.5-4.9); POTASSIUM 3.8 mmol/L (3.5-5.1); UREA NITROGEN, BLOOD 21 mg/dL (7-18)
[2018-08-11] MEDS: METRONIDAZOLE 500 MG/NS 100ML 500 MG in PREMIXED 1 EACH IV SCH ×3 (05:30→21:22)
[2018-08-11] MEDS: VANCOMYCIN FOR PO/GT/NG USE PO SCH ×4 (05:30→23:40)
--- NOTE | 2018-08-11 06:00 | NUR ---
Total 3 liquid stools this shift moderate amounts. Kept clean and dry at all times. Stable night, no need to resume vasopressor. Nursing comfort measures maintained at all times. Please see CCU flowsheet for trends and clinical data.
[2018-08-11] MEDS: IV NS 1000 ML 1,000 ML IV PRN (06:31)
[2018-08-11] MEDS: Z GUARD REMEDY PASTE 57 GM TUBE TOP PRN (06:32)
[2018-08-11 08:00] LABS: ABG BASE EXCESS -6.4 mmol/L; ABG HCO3 17.3 mmol/L; ABG PCO2 27.9 mmHg (35.0-45.0); ABG SITE RIGHT RADIAL; ABG TOTAL HEMOGLOBIN 9.2 G/dL (13.5-18.0); COHb 1.8 % (0.5-1.5); MetHb 0.4 % (0.0-1.5); O2Hb 93.2 % (94.0-97.0); VENT MODE Nasal Cannula
[2018-08-11] MEDS: PANTOPRAZOLE SODIUM 40 MG VIAL IV SCH ×2 (08:26→17:39)
[2018-08-11] MEDS: SUCRALFATE 1 G/10 ML LIQUID UDC GT SCH ×4 (08:26→21:21)
[2018-08-11] MEDS: SODIUM HYPOCHLORITE 0.125% 473 ML BOTTLE TP SCH (08:27)
[2018-08-11] MEDS: MEROPENEM 1 G in IV NORMAL SALINE 100 ML IV SCH ×3 (09:32→21:21)
--- NOTE | 2018-08-11 10:00 | NUR ---
Reny Arellano in the unit to examine pt. full report given. Orders to continue with care plan received.
[2018-08-11] MEDS: MAGNESIUM SULFATE/D5W 100 ML IV SCH ×2 (10:20→11:42)
--- NOTE | 2018-08-11 10:31 | NUR ---
pulmonary services Dr. Cutler in the unit to examine pt. full report given and Dr,. Present when pt had an episode of desaturation, Pulmonary toileting rendered and saturation bring up to 94%.. Both attending and pulmonary aware of moderate bleeding.
--- NOTE | 2018-08-11 11:41 | NUR ---
PHARMACY CLINICAL NOTES(VANCOMYCIN DOSING) S: Vancomycin to continue for this 87 yo male patient for empiric tx for bilateral pleural effusion on CXR (s/p code blue). O: BUN/SCR 21/0.7 WBC 4.0; TEMP 98.2 Vanco random level pending today at 1500 wt 63 kg ht 172 cm A/P: Last dose of vanco 1gm dosed yesterday 08/10 @2100. Ordered next random level for todya at 1500. Will check level and re-dose as needed. Will follow Addendum: 08/11/18 at 1615 by JUAN MANUEL DAWN UPDATE: RANDOM LEVEL CAME BACK 23, NO DOSE FOR TODAY. NEXT RANDOM ORDERED FOR TOMORROW 08/12 @1500. WILL CHECK AND RE-DOSE NEEDED. WILL FOLLOW
--- NOTE | 2018-08-11 11:57 | NUR ---
Cardiology services in the unit to examine pt. report given and orders to dcd IVF received and implemented.
--- NOTE | 2018-08-11 17:22 | NUR ---
COMFORT Gonzalez in the unit to follow up on pt. orders for transactional attorney consult to restart feeding received, and implemented.
[2018-08-11] MEDS: LEVOFLOXACIN 750MG/D5W 750 MG in PREMIXED 1 EACH IV SCH (21:22)
[2018-08-12] VITALS (24 sets, daily range): BP systolic 88–137; BP diastolic 46–72
[2018-08-12 05:07] LABS: BASOPHILS % (AUTO) 0.6 % (0.0-2.0); EOSINOPHILS # (AUTO) 0.1 K/uL (0.0-0.7); EOSINOPHILS % (AUTO) 1.8 % (0.0-7.0); HEMATOCRIT 27.3 % (36.7-47.1); HEMOGLOBIN 8.9 g/dL (12.5-16.3); LYMPHOCYTES # (AUTO) 0.6 K/uL (20.0-40.0); LYMPHOCYTES % (AUTO) 15.3 % (20.5-51.5); MEAN CORPUSCULAR HEMOGLOBIN 30.3 uug (23.8-33.4); MEAN CORPUSCULAR HGB CONC 32 g/dL (32.5-36.3); MEAN CORPUSCULAR VOLUME 93.6 fL (73.0-96.2); MONOCYTES # (AUTO) 0.3 K/uL (2.0-10.0); MONOCYTES % (AUTO) 8.2 % (0.0-11.0); NEUTROPHILS % (AUTO) 74.1 % (38.5-71.5); PLATELET COUNT (AUTO) 63 K/uL (152-348); RED BLOOD CELL COUNT(AUTO) 2.92 MIL/uL (4.06-5.63)
[2018-08-12 05:21] LABS: CARBON DIOXIDE 17 mmol/L (21-32); CHLORIDE 113 mmol/L (98-107); CREATININE 0.7 mg/dL (0.6-1.3); MAGNESIUM 2.1 mg/dL (1.8-2.4); PHOSPHOROUS 3.1 mg/dL (2.5-4.9); POTASSIUM 3.6 mmol/L (3.5-5.1); UREA NITROGEN, BLOOD 20 mg/dL (7-18)
[2018-08-12] MEDS: MEROPENEM 1 G in IV NORMAL SALINE 100 ML IV SCH (05:33)
[2018-08-12] MEDS: VANCOMYCIN FOR PO/GT/NG USE PO SCH ×4 (05:33→23:16)
[2018-08-12] MEDS: METRONIDAZOLE 500 MG/NS 100ML 500 MG in PREMIXED 1 EACH IV SCH ×3 (05:34→21:33)
[2018-08-12 05:41] LABS: GLUCOSE 46 mg/dL (74-106)
[2018-08-12] MEDS ORDERED: DEXTROSE 50% 50 ML DISP.SYRIN IV ONE (06:30)
[2018-08-12] MEDS: SUCRALFATE 1 G/10 ML LIQUID UDC GT SCH ×4 (06:39→21:31)
--- NOTE | 2018-08-12 07:00 | NUR ---
VSS UNABLE TO PROTECT AIRWAY SX NEEDED.,BS 42 BY LAB. INFORMED AND ORDERS OBTAINED.
[2018-08-12] MEDS: PANTOPRAZOLE SODIUM 40 MG VIAL IV SCH ×2 (08:30→17:17)
[2018-08-12] MEDS: SODIUM HYPOCHLORITE 0.125% 473 ML BOTTLE TP SCH (08:31)
[2018-08-12 09:56] LABS: BAND % (MANUAL) 3 % (0-10); EOSINOPHILS % (MANUAL) 1 % (0-8); LYMPHOCYTES % (MANUAL) 15 % (20-40); METAMYELOCYTES % 1 % (0-1); MONOCYTES % (MANUAL) 11 % (2-10); NEUTROPHILS % (MANUAL) 69 % (42-75)
--- NOTE | 2018-08-12 10:09 | NUR ---
pulmonary services Dr. Cutler in the unit to see and examine pt. full report given; see orders hx.
--- NOTE | 2018-08-12 10:10 | NUR ---
PHARMACY CLINICAL NOTES(VANCOMYCIN DOSING) S: Vancomycin to continue for this 87 yo male patient for empiric tx for bilateral pleural effusion on CXR (s/p code blue). O: BUN/SCR 20/0.7 WBC 4.0; TEMP 97.5 Vanco random level: 20.8 (with am labs) wt 63 kg ht 172 cm A/P: Will continue to dose by random level. Vanco random level with am lab is 20.8 mcg/ml, the expected random level willl be below 20 mcg/ml at 1999. Will give vanco 1gm IVPB x1 today at 1999. Ordered next random level for 08/14 with am labs. Will check level and re-dose as needed. Will follow
--- NOTE | 2018-08-12 14:03 | NUR ---
08/12 Nutrition consult to reassess TF rate was received. Chart reviewed. Patient was extubated on 08/10, reportedly aspirated formula upon resuming TF. TF was subsequently put on hold. Patient is off pressors and TF remains on hold. Patient also noted be having diarrhea. Recommendations: - Re-initiate TF at 20 ml/hr and increase as tolerated by 10 ml/hr q8h until goal rate is reached. - Resume previous TF regimen Vital AF 1.2 roberto/ml @ 65 ml/hr (goal rate) x 20 hrs. This provides: 1560 kcals, 98 grams protein, and 1054 ml free water. This meets: 89% of low end of est. kcal needs and 93% of high end of est. protein needs. - Recommend MVI+minerals qday, Vit C 500mg BID, and ZnS04 220mg x 14 days to facilitate wound healing Addendum: 08/12/18 at [address] Amended: Links added.
[2018-08-12] MEDS: CEFTAZIDIME 1 G in IV DEXTROSE 5% 50 ML IV SCH ×2 (14:59→21:33)
--- NOTE | 2018-08-12 17:00 | NUR ---
Pt. seen by ID services, report given no new orders received.
--- NOTE | 2018-08-12 17:45 | NUR ---
GI services Dr. Gonzalez in to examine patient and at this time had a lengthy update on pt's condition with pt's son Mr. Randall who remains at bedside.
[2018-08-12] MEDS: VITAL AF 1.2 1,000 ML LIQUID GT PRN (18:34)
[2018-08-12] MEDS ORDERED: VANCOMYCIN IV 1 G in PREMIXED 0 EACH IV ONE (20:00)
[2018-08-12] MEDS: Z GUARD REMEDY PASTE 57 GM TUBE TOP PRN (20:00)
[2018-08-13] VITALS (22 sets, daily range): BP systolic 97–151; BP diastolic 46–81
[2018-08-13] MEDS: Z GUARD REMEDY PASTE 57 GM TUBE TOP PRN ×3 (00:01→22:11)
[2018-08-13 05:56] LABS: BASOPHILS % (AUTO) 0.7 % (0.0-2.0); EOSINOPHILS # (AUTO) 0.1 K/uL (0.0-0.7); EOSINOPHILS % (AUTO) 2.9 % (0.0-7.0); HEMOGLOBIN 9.1 g/dL (12.5-16.3); LYMPHOCYTES # (AUTO) 0.8 K/uL (20.0-40.0); LYMPHOCYTES % (AUTO) 19.1 % (20.5-51.5); MEAN CORPUSCULAR HGB CONC 32 g/dL (32.5-36.3); MEAN CORPUSCULAR VOLUME 92.5 fL (73.0-96.2); MONOCYTES # (AUTO) 0.4 K/uL (2.0-10.0); MONOCYTES % (AUTO) 9.9 % (0.0-11.0); NEUTROPHILS % (AUTO) 67.4 % (38.5-71.5); PLATELET COUNT (AUTO) 69 K/uL (152-348); RED BLOOD CELL COUNT(AUTO) 3.03 MIL/uL (4.06-5.63); WHITE BLOOD COUNT (AUTO) 4.4 K/uL (3.6-10.2)
[2018-08-13] MEDS: VANCOMYCIN FOR PO/GT/NG USE PO SCH ×4 (05:57→23:09)
[2018-08-13] MEDS: METRONIDAZOLE 500 MG/NS 100ML 500 MG in PREMIXED 1 EACH IV SCH ×3 (05:57→22:11)
[2018-08-13 06:11] LABS: CARBON DIOXIDE 20 mmol/L (21-32); CHLORIDE 112 mmol/L (98-107); CREATININE 0.8 mg/dL (0.6-1.3); GLUCOSE 71 mg/dL (74-106); MAGNESIUM 1.9 mg/dL (1.8-2.4); PHOSPHOROUS 3.1 mg/dL (2.5-4.9); POTASSIUM 3.5 mmol/L (3.5-5.1); UREA NITROGEN, BLOOD 21 mg/dL (7-18)
[2018-08-13] MEDS: SUCRALFATE 1 G/10 ML LIQUID UDC GT SCH ×4 (06:37→20:37)
--- NOTE | 2018-08-13 07:23 | NUR ---
Report received from Milton Sena. pt. found with GTF running at 30cc/hr as reported 5 cc residuals during shift, check Q4H. Feeding off at this time will resume later. PICC line 3 lumen patent. pt. awake and alert. aphasic. no fever (98.2). sbp wnl. NC 4L. sat wnl.
[2018-08-13] MEDS: CEFTAZIDIME 1 G in IV DEXTROSE 5% 50 ML IV SCH ×3 (07:25→21:42)
[2018-08-13 08:05] LABS: BAND % (MANUAL) 2 % (0-10); EOSINOPHILS % (MANUAL) 4 % (0-8); LYMPHOCYTES % (MANUAL) 19 % (20-40); MONOCYTES % (MANUAL) 3 % (2-10); NEUTROPHILS % (MANUAL) 72 % (42-75)
[2018-08-13] MEDS: PANTOPRAZOLE SODIUM 40 MG VIAL IV SCH ×2 (08:44→16:21)
[2018-08-13] MEDS: SODIUM HYPOCHLORITE 0.125% 473 ML BOTTLE TP SCH (08:44)
[2018-08-13 09:33] LABS: ABG BASE EXCESS -7.2 mmol/L; ABG HCO3 15.7 mmol/L; ABG PCO2 24.1 mmHg (35.0-45.0); ABG PH 7.431 (7.350-7.450); ABG PO2 72.7 mmHg (75.0-100.0); ABG SITE RIGHT RADIAL; ABG TOTAL HEMOGLOBIN 10.1 G/dL (13.5-18.0); MetHb 0.3 % (0.0-1.5); O2Hb 93.7 % (94.0-97.0)
--- NOTE | 2018-08-13 10:30 | NUR ---
Pulmonary services, Dr. Cutler in the unit to examine patient. Report given see order hx.
--- NOTE | 2018-08-13 10:44 | NUR ---
Patient seen by cardiology services Dr. Live.
[2018-08-13] MEDS ORDERED: FUROSEMIDE 20 MG/2 ML VIAL IV ONE (11:00)
--- NOTE | 2018-08-13 14:00 | NUR ---
Attending MARY ELLEN Olivarez in the unit to examine pt., full report given. see orders hx.
[2018-08-13] MEDS ORDERED: ALBUMIN HUMAN 25% 100 ML IV ONE (14:15)
--- NOTE | 2018-08-13 15:00 | NUR ---
Attending MARY ELLEN Olivarez in the unit to examine pt. orders to down-grade patient.
[2018-08-13] MEDS: VITAL AF 1.2 1,000 ML LIQUID GT PRN (17:29)
--- NOTE | 2018-08-13 19:30 | NUR ---
Pt now SOFIYA status. Resting comfortably in bed. Resp easy and regular on nasal cannula. Suctioned PRN by RT to small amount of secretions. Stable VS and rhythm. GTube feeding in progress. Aspiration precautions observed at all times. 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 Loose liquid stools noted; also weeping arms and groins. Kept clean and dry at all times. Turned/positioned q 2hr and PRN, off loading of all extremities. Nursing comfort measures observed. Please see CCU flowsheet for full assessment and clinical data.
[2018-08-13] MEDS: IV NORMAL SALINE 250 ML IV PRN (22:10)
[2018-08-14] VITALS (20 sets, daily range): BP systolic 100–143; BP diastolic 51–79
--- NOTE | 2018-08-14 05:00 | NUR ---
Pt having liquid brown stools large amounts with q 2hr turning/positioning. Wound care to coccyx and sacral areas changed 3x. Thus, GTube feeding rate left at 40 ml/hr 'though residuals small.
[2018-08-14 05:06] LABS: CARBON DIOXIDE 21 mmol/L (21-32); CHLORIDE 112 mmol/L (98-107); CREATININE 0.8 mg/dL (0.6-1.3); GLUCOSE 97 mg/dL (74-106); MAGNESIUM 1.9 mg/dL (1.8-2.4); PHOSPHOROUS 2.8 mg/dL (2.5-4.9); POTASSIUM 3.2 mmol/L (3.5-5.1); UREA NITROGEN, BLOOD 23 mg/dL (7-18)
[2018-08-14 05:19] LABS: BASOPHILS % (AUTO) 0.5 % (0.0-2.0); EOSINOPHILS # (AUTO) 0.2 K/uL (0.0-0.7); EOSINOPHILS % (AUTO) 4.4 % (0.0-7.0); HEMATOCRIT 25.1 % (36.7-47.1); HEMOGLOBIN 8.3 g/dL (12.5-16.3); LYMPHOCYTES # (AUTO) 0.8 K/uL (20.0-40.0); MEAN CORPUSCULAR HEMOGLOBIN 30.4 uug (23.8-33.4); MEAN CORPUSCULAR HGB CONC 33 g/dL (32.5-36.3); MEAN CORPUSCULAR VOLUME 91.9 fL (73.0-96.2); MONOCYTES # (AUTO) 0.4 K/uL (2.0-10.0); MONOCYTES % (AUTO) 10.3 % (0.0-11.0); NEUTROPHILS # (AUTO) 2.1 K/uL (1.8-8.9); NEUTROPHILS % (AUTO) 60.8 % (38.5-71.5); PLATELET COUNT (AUTO) 66 K/uL (152-348); RED BLOOD CELL COUNT(AUTO) 2.74 MIL/uL (4.06-5.63); WHITE BLOOD COUNT (AUTO) 3.5 K/uL (3.6-10.2)
[2018-08-14] MEDS: CEFTAZIDIME 1 G in IV DEXTROSE 5% 50 ML IV SCH ×3 (05:41→22:06)
[2018-08-14] MEDS: VANCOMYCIN FOR PO/GT/NG USE PO SCH ×4 (05:41→23:13)
[2018-08-14] MEDS: Z GUARD REMEDY PASTE 57 GM TUBE TOP PRN (06:31)
[2018-08-14] MEDS: METRONIDAZOLE 500 MG/NS 100ML 500 MG in PREMIXED 1 EACH IV SCH ×3 (06:31→21:27)
[2018-08-14 06:37] LABS: BAND % (MANUAL) 2 % (0-10); EOSINOPHILS % (MANUAL) 4 % (0-8); LYMPHOCYTES % (MANUAL) 24 % (20-40); MONOCYTES % (MANUAL) 10 % (2-10); NEUTROPHILS % (MANUAL) 60 % (42-75)
--- NOTE | 2018-08-14 07:00 | NUR ---
Restful night, able to sleep. Nursing comfort measures observed at all times. Contact isolation maintained. Please see CCU flowsheet for trends and clinical data.
[2018-08-14] MEDS: SUCRALFATE 1 G/10 ML LIQUID UDC GT SCH ×4 (09:17→20:48)
[2018-08-14] MEDS: PANTOPRAZOLE SODIUM 40 MG VIAL IV SCH ×2 (09:17→17:10)
[2018-08-14] MEDS: SODIUM HYPOCHLORITE 0.125% 473 ML BOTTLE TP SCH (09:18)
--- NOTE | 2018-08-14 10:28 | NUR ---
Dr. Cutler in the unit to examine pt. report given and a phone call to Mr. Meng King Dr. Cutler inform Mr. Christine, Meng of left sided thoracentesis need due to large pleural effusion. After a lengthy explanation consent for procedure obtained and witnessed by rn. Yaneli Forman
[2018-08-14] MEDS: VITAL AF 1.2 1,000 ML LIQUID GT PRN (10:41)
--- NOTE | 2018-08-14 11:03 | NUR ---
Patient seen by DAMION. Dr. Alaniz report given also informed of persistent diarrhea specially when pt. on feeding. No new orders received.
--- NOTE | 2018-08-14 12:41 | NUR ---
Attending train crew member Ines Shanks in the unit to see and examine pt. full report given, see order hx.
[2018-08-14] MEDS ORDERED: POTASSIUM CHLORIDE 20 MEQ POWDER PACKET GT ONE (14:00)
[2018-08-14] MEDS: POTASSIUM CHLORIDE 50 ML IV SCH ×4 (14:30→17:09)
--- NOTE | 2018-08-14 16:00 | NUR ---
Radiologist Dr. Marques in for schedule left thoracentesis . Time Out performed and at 1620 procedure over with a total of 900 clear yellowish fluid obtained and sent to lab for analysis as ordered by plant taxonomist. Patient AAOx0 as is been his baseline saturation of 100%. sbp of 133/68. Pulmonary toileting rendered and a big blood clot removed.
--- NOTE | 2018-08-14 19:30 | NUR ---
Report received. Patient S/P L thoracentesis today awake, alert, non verbal. Localizes pain. Skin pale, acyanotic. O2 2L NC; sat 96-100%. NAD noted. On contact isolation for frequent diarrhea. Has history of stool c. diff. Assessment completed. Addendum: 08/14/18 at 2230 by KHRIS CERVANTES RN Amended: Links added. Addendum: 08/14/18 at 2247 by KHRIS CERVANTES RN Amended: Links added.
--- NOTE | 2018-08-14 20:00 | NUR ---
Turned and repositioned. Cleaned for a small liquid mucoid green stools. Wound care treatment done. Skin care provided. With redness noted across lower abdomen. Both arms oozing serous fluids; wrapped with pads. With generalized pitting edema. GT feedings tolerated well. HOB above 30 degrees at all times. Addendum: 08/14/18 at 2247 by KHRIS CERVANTES RN Amended: Links added.
[2018-08-15] VITALS (8 sets, daily range): BP systolic 104–122; BP diastolic 50–75
[2018-08-15] MEDS: Z GUARD REMEDY PASTE 57 GM TUBE TOP PRN (01:53)
[2018-08-15] MEDS: IV NORMAL SALINE 250 ML IV PRN (04:54)
[2018-08-15 04:57] LABS: CARBON DIOXIDE 22 mmol/L (21-32); CHLORIDE 112 mmol/L (98-107); CREATININE 0.7 mg/dL (0.6-1.3); GLUCOSE 118 mg/dL (74-106); POTASSIUM 3.5 mmol/L (3.5-5.1); UREA NITROGEN, BLOOD 21 mg/dL (7-18)
[2018-08-15] MEDS: VANCOMYCIN FOR PO/GT/NG USE PO SCH ×3 (06:07→17:02)
[2018-08-15] MEDS: METRONIDAZOLE 500 MG/NS 100ML 500 MG in PREMIXED 1 EACH IV SCH ×3 (06:07→21:34)
[2018-08-15] MEDS: CEFTAZIDIME 1 G in IV DEXTROSE 5% 50 ML IV SCH ×2 (06:37→13:56)
--- NOTE | 2018-08-15 07:00 | NUR ---
Remains incontinent of liquid green mucoid stools. VS stable post Thoracentesis.
[2018-08-15] MEDS: SUCRALFATE 1 G/10 ML LIQUID UDC GT SCH ×4 (08:00→20:36)
[2018-08-15] MEDS: PANTOPRAZOLE SODIUM 40 MG VIAL IV SCH (08:14)
[2018-08-15] MEDS: Z GUARD REMEDY PASTE 57 GM TUBE TOP SCH ×2 (08:15→20:40)
[2018-08-15] MEDS: SODIUM HYPOCHLORITE 0.125% 473 ML BOTTLE TP SCH (08:16)
--- NOTE | 2018-08-15 09:30 | NUR ---
PT TRANSFERRED TO 206 VIA BED. [place] STATUS, AWAKE, NON-VERBAL, AND DOES NOT FOLLOW COMMANDS. CONDITION IS STABLE. HR IS SR WITH OCCASSIONAL PAC'S. NO APPARENT RESPIRATORY DISTRESS NOTED. ON O2 AT 2LNC SATURATING 100%. AFEBRILE.
--- NOTE | 2018-08-15 10:00 | NUR ---
SEEN AND EXAMINED BY LYNDA PECK WITH NEW ORDERS.
--- NOTE | 2018-08-15 10:30 | NUR ---
SEEN AND EXAMINED BY DR SLATER WITH NEW ORDERS.
[2018-08-15] MEDS: VITAL AF 1.2 1,000 ML LIQUID GT PRN (10:49)
--- NOTE | 2018-08-15 11:40 | NUR ---
SEEN AND EXAMINED BY DR PEREZ WITH NEW ORDERS. PT REPOSTION EVERY 2HRS.
[2018-08-15] MEDS ORDERED: POTASSIUM CHLORIDE 20 MEQ POWDER PACKET GT ONE (12:00)
--- NOTE | 2018-08-15 12:00 | NUR ---
PT HAS PERSISTENT LOOSE BM AND MD IS AWARE. REPOSITION AT FREQUENT INTERVALS. RIGHT ARM IS SWOLLEN AND OOZING FLUIDS FROM THE SKIN.
--- NOTE | 2018-08-15 16:00 | NUR ---
TUBE FEEDING UP TO 50ML/HR. NO RESIDUALS NOTED. PT WAS GIVEN KLOR 40MEQ SUPPLEMENT VIA GT FOR LOW K.
[2018-08-15] MEDS: PANTOPRAZOLE ORAL SUSPENSION 40 MG SUSPDR.PKT GT SCH (17:02)
--- NOTE | 2018-08-15 18:11 | NUR ---
SEEN AND EXAMINED BY DR CONDE WITH NEW ORDERS.
--- NOTE | 2018-08-15 18:12 | NUR ---
DR CONDE AWARE OF THE REDNESS OF SKIN IN THE AXILLARY AREA. ORDERED CHLORTRIMISONE OINTMENT.
[2018-08-15] MEDS ORDERED: CLOTRIMAZOLE 1% CREAM 30 GM TUBE TOP SCH (18:15)
[2018-08-15] MEDS: CLOTRIMAZOLE 1% CREAM 30 GM TUBE TOP SCH (20:36)
[2018-08-15] MEDS: VANCOMYCIN FOR PO/GT/NG USE GT SCH (23:01)
[2018-08-15] MEDS: LOPERAMIDE HCL 1 MG/5 ML UDC PO PRN (23:02)
[2018-08-16] VITALS (7 sets, daily range): BP systolic 93–132; BP diastolic 50–63
[2018-08-16] MEDS: HYDROCODONE/APAP 5-325MG TABLET PO PRN ×2 (00:27→18:52)
[2018-08-16] MEDS: VITAL AF 1.2 1,000 ML LIQUID GT PRN (02:29)
[2018-08-16] MEDS: SODIUM HYPOCHLORITE 0.125% 473 ML BOTTLE TP SCH ×2 (04:00→08:42)
[2018-08-16] MEDS: METRONIDAZOLE 500 MG/NS 100ML 500 MG in PREMIXED 1 EACH IV SCH ×3 (05:16→21:47)
[2018-08-16] MEDS: VANCOMYCIN FOR PO/GT/NG USE GT SCH ×4 (05:16→23:07)
[2018-08-16 06:39] LABS: BASOPHILS % (AUTO) 0.5 % (0.0-2.0); EOSINOPHILS # (AUTO) 0.2 K/uL (0.0-0.7); EOSINOPHILS % (AUTO) 3.3 % (0.0-7.0); HEMATOCRIT 24.2 % (36.7-47.1); HEMOGLOBIN 8.1 g/dL (12.5-16.3); LYMPHOCYTES # (AUTO) 1.1 K/uL (20.0-40.0); LYMPHOCYTES % (AUTO) 22.1 % (20.5-51.5); MEAN CORPUSCULAR HEMOGLOBIN 30.7 uug (23.8-33.4); MEAN CORPUSCULAR HGB CONC 33 g/dL (32.5-36.3); MEAN CORPUSCULAR VOLUME 92.6 fL (73.0-96.2); MONOCYTES # (AUTO) 0.4 K/uL (2.0-10.0); MONOCYTES % (AUTO) 7.8 % (0.0-11.0); NEUTROPHILS # (AUTO) 3.2 K/uL (1.8-8.9); NEUTROPHILS % (AUTO) 66.3 % (38.5-71.5); PLATELET COUNT (AUTO) 72 K/uL (152-348); RED BLOOD CELL COUNT(AUTO) 2.62 MIL/uL (4.06-5.63); WHITE BLOOD COUNT (AUTO) 4.9 K/uL (3.6-10.2)
[2018-08-16] MEDS: SUCRALFATE 1 G/10 ML LIQUID UDC GT SCH ×4 (06:42→21:47)
--- NOTE | 2018-08-16 06:51 | NUR ---
Pt rested well in between care; incontinent of stool x2, incontinence care done; sacral wound dressing done; repositioned q2h; VSS; continue to monitor; continue plan of care.
[2018-08-16 06:55] LABS: CARBON DIOXIDE 20 mmol/L (21-32); CHLORIDE 114 mmol/L (98-107); CREATININE 0.8 mg/dL (0.6-1.3); GLUCOSE 121 mg/dL (74-106); MAGNESIUM 1.5 mg/dL (1.8-2.4); POTASSIUM 4.1 mmol/L (3.5-5.1); UREA NITROGEN, BLOOD 24 mg/dL (7-18)
--- NOTE | 2018-08-16 07:27 | NUR ---
Patient resting comfortably in bed at this time. getting chest XR. hutchinson in place-patent. SR on tele. O2 2L NC at this time. no signs of respiratory distress. stable condition. KCI mattress on. G-tube running at 55 cc/hr. bed in locked/low position side rails up x2, bed alarm on, call light within reach. will continue to monitor throughout shift. contact precautions implemented.
[2018-08-16 07:33] LABS: BAND % (MANUAL) 1 % (0-10); EOSINOPHILS % (MANUAL) 1 % (0-8); LYMPHOCYTES % (MANUAL) 21 % (20-40); MONOCYTES % (MANUAL) 3 % (2-10)
[2018-08-16 07:34] LABS: MYELOCYTES % 1 % (0-0); NEUTROPHILS % (MANUAL) 73 % (42-75)
[2018-08-16] MEDS: Z GUARD REMEDY PASTE 57 GM TUBE TOP SCH ×2 (08:42→21:48)
[2018-08-16] MEDS: PANTOPRAZOLE ORAL SUSPENSION 40 MG SUSPDR.PKT GT SCH ×2 (08:42→16:24)
[2018-08-16] MEDS: CLOTRIMAZOLE 1% CREAM 30 GM TUBE TOP SCH ×2 (08:42→16:25)
--- NOTE | 2018-08-16 08:45 | NUR ---
Patient unable to tolerate g-tube feeding that was running at 55 cc/hr. vomited/foaming foaming from the mouth. Feeding stopped. deep suctioned, which showed large amounts of thick sputum. o2 saturation up to 95% after suctioning. BP stable. heart rate remains increased on tele. will continue to monitor and suction as needed. will notify
[2018-08-16] MEDS ORDERED: LIDOCAINE 2%-EPI 1:100,000 20 ML VIAL TP ONE (15:00)
--- NOTE | 2018-08-16 17:49 | NUR ---
patient deep suctioned. sounded very congested. feeding continues to be paused. stable condition at this time. no signs of distress. caregiver at bedside. Procedure consent signed for Sacral Wound Debridement. Telephone consent obtained from patient's son and witnessed with another RN. 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 Turned and repositioned q2h. [place] patent at this time. Sinus tach on tele. will continue to monitor throughout shift.
[2018-08-16] MEDS ORDERED: AMIODARONE HCL IV 150 MG in IV DEXTROSE 5% 100 ML IV ONE (20:30)
[2018-08-16] MEDS ORDERED: FUROSEMIDE 20 MG/2 ML VIAL IV ONE (20:30)
[2018-08-16] MEDS ORDERED: AMIODARONE HCL IV 900 MG in IV DEXTROSE 5% 482 ML IV PRN (20:30)
[2018-08-16] MEDS ORDERED: NEUTRA PHOS PACKET PO ONE (21:30)
[2018-08-16] MEDS: MAGNESIUM SULFATE/D5W 100 ML IV SCH (21:47)
[2018-08-16] MEDS: ACETAMINOPHEN 325 MG TABLET PO PRN (21:53)
[2018-08-17] VITALS (36 sets, daily range): BP systolic 91–168; BP diastolic 46–93
--- NOTE | 2018-08-17 03:59 | NUR ---
dr medina, informed of pt sats 75%, rapid called. orders obtained to tx to icu.family informed of such
[2018-08-17] MEDS ORDERED: FUROSEMIDE 40 MG/4 ML VIAL IV ONE (04:00)
[2018-08-17] MEDS ORDERED: FUROSEMIDE 40 MG/4 ML VIAL IV SCH (04:00)
[2018-08-17] MEDS ORDERED: FUROSEMIDE 40 MG/4 ML VIAL ONE (04:03)
[2018-08-17 04:08] LABS: ABG BASE EXCESS -5.6 mmol/L; ABG HCO3 17.3 mmol/L; ABG PH 7.442 (7.350-7.450); ABG PO2 36.2 mmHg (75.0-100.0); ABG SITE RIGHT FEMORAL; ABG TOTAL HEMOGLOBIN 10.1 G/dL (13.5-18.0); COHb 1.4 % (0.5-1.5); MetHb 0.7 % (0.0-1.5); O2Hb 69.7 % (94.0-97.0)
--- NOTE | 2018-08-17 04:15 | NUR ---
TX TO ICU, FAMILY INFORMED OF SUCH.
--- NOTE | 2018-08-17 04:19 | NUR ---
RECEIVED FROM [facility] ON BIPAP IPAP OF 18,EPAP OF 10 RATE 14,FIO2 100% .SATURATION 94% RR 22,PATIENT AWAKE AND NO RESPIRATORY DISTRESS NOTED .AMIODARONE IN PROGRESS AT 0.5MG/HR SR RATE 98.NPO ,PEG CLAMP . F/C TO BSD .FUROSEMIDE 40 MG GIVEN .CONTACT ISOLATION OBSERVED .
[2018-08-17 04:49] LABS: ABG BASE EXCESS -6.5 mmol/L; ABG HCO3 15.4 mmol/L; ABG PCO2 23.1 mmHg (35.0-45.0); ABG PH 7.442 (7.350-7.450); ABG PO2 40.9 mmHg (75.0-100.0); ABG SITE RIGHT RADIAL; VENT MODE BIPAP
--- NOTE | 2018-08-17 05:00 | NUR ---
DICTATED ABG RESULTS TO MD SLATER . NO ORDERS .TO CONTINUE ON BIPAP .TO DO EXTRA IF NOT DONE.
[2018-08-17 05:18] LABS: BASOPHILS % (AUTO) 0.6 % (0.0-2.0); EOSINOPHILS # (AUTO) 0.1 K/uL (0.0-0.7); EOSINOPHILS % (AUTO) 1.6 % (0.0-7.0); HEMATOCRIT 27.9 % (36.7-47.1); HEMOGLOBIN 9.2 g/dL (12.5-16.3); LYMPHOCYTES # (AUTO) 1.8 K/uL (20.0-40.0); LYMPHOCYTES % (AUTO) 23.3 % (20.5-51.5); MEAN CORPUSCULAR HGB CONC 33 g/dL (32.5-36.3); MEAN CORPUSCULAR VOLUME 93.5 fL (73.0-96.2); MONOCYTES # (AUTO) 0.6 K/uL (2.0-10.0); MONOCYTES % (AUTO) 7.5 % (0.0-11.0); NEUTROPHILS # (AUTO) 5.1 K/uL (1.8-8.9); PLATELET COUNT (AUTO) 103 K/uL (152-348); RED BLOOD CELL COUNT(AUTO) 2.98 MIL/uL (4.06-5.63); WHITE BLOOD COUNT (AUTO) 7.6 K/uL (3.6-10.2)
[2018-08-17] MEDS: METRONIDAZOLE 500 MG/NS 100ML 500 MG in PREMIXED 1 EACH IV SCH ×3 (05:18→21:36)
[2018-08-17] MEDS: VANCOMYCIN FOR PO/GT/NG USE GT SCH ×4 (05:19→23:08)
[2018-08-17 05:24] LABS: CARBON DIOXIDE 20 mmol/L (21-32); CHLORIDE 110 mmol/L (98-107); CREATININE 0.9 mg/dL (0.6-1.3); GLUCOSE 86 mg/dL (74-106); MAGNESIUM 1.8 mg/dL (1.8-2.4); PHOSPHOROUS 2.7 mg/dL (2.5-4.9); UREA NITROGEN, BLOOD 25 mg/dL (7-18)
--- NOTE | 2018-08-17 05:39 | NUR ---
EKG DONE BY STUNTMAN AT BEDSIDE .SR RHYTHM WITH MARKED SINUS ARRHYTHMIA.PLACE IN CHART.
--- NOTE | 2018-08-17 07:00 | NUR ---
PT WAS RECEIVED ON BIPAP AT THIS TIME ON SETTINGS IPAP 18 EPAP 10 RATE 14 FIO2 100% PT MEDIUM MASK WAS ADJUSTED AND SECURED ORAL CARE WAS DONE NO DISTRESS NOTED. PT WAS ORAL SUCTION. PT ALARMS ON AND AUDIBLE. PT HAS NO TX ORDER PT HAS NO MORNING ABG. PT FIO2 WAS TITRATED TO 70% WILL CONTINUE TO MONITOR PT.
--- NOTE | 2018-08-17 08:00 | NUR ---
Pt received with eyes open.No s/s of pain,discomfort.Respiration even,unlabored.Pt remains on BIPAP.SR ON MONITOR. Pt remains on Amiodorone gtt at 0.5 mg/min.Spoke with pt son,updated on pt condition.
[2018-08-17] MEDS: MAGNESIUM SULFATE/D5W 100 ML IV SCH (09:00)
[2018-08-17] MEDS: CLOTRIMAZOLE 1% CREAM 30 GM TUBE TOP SCH ×2 (09:11→17:23)
[2018-08-17] MEDS: Z GUARD REMEDY PASTE 57 GM TUBE TOP SCH ×2 (09:12→21:14)
[2018-08-17] MEDS: SUCRALFATE 1 G/10 ML LIQUID UDC GT SCH ×4 (10:34→21:15)
[2018-08-17] MEDS: PANTOPRAZOLE ORAL SUSPENSION 40 MG SUSPDR.PKT GT SCH (10:34)
[2018-08-17] MEDS: SODIUM HYPOCHLORITE 0.125% 473 ML BOTTLE TP SCH (10:35)
--- NOTE | 2018-08-17 12:30 | NUR ---
Pt seen,examined by LIV Lopez.
--- NOTE | 2018-08-17 14:00 | NUR ---
Pt noticed with large liquid stool.Rectal tube inserted as ordered.Wound Tx to coccyx was done.Will continue to monitor.
[2018-08-17] MEDS: LOPERAMIDE HCL 1 MG/5 ML UDC PO PRN (15:07)
--- NOTE | 2018-08-17 19:20 | NUR ---
Report received. Call placed to Wood Cabinet Finisher master fire control technician re: Amiodarone drip; Dr. Tapia called back immediately and ordered to dc drip after bag is finished. Patient on contact isolation for C diff. Eyes open, tracks, but doesn't follow any commands. BIPAP mask noted to be with dark brown, coffee ground fluids. Patient had vomited. GT attached to low suction. With 200 ml of same fluids. Patient grimaces to pain, but non verbal. Assessment completed.
--- NOTE | 2018-08-17 20:00 | NUR ---
PM care completed. Turned and repositioned. No further vomiting. GT left to low intermittent suction. On BIPAP with settings: I/E=18/10, rate=14, FIO2=50%; sat above 94%. On Amiodarone drip at 0.5 mg/min via APARNA PICC line. Call placed to Dr. Tapia's exchange again re: Amiodarone drip. Found out that it was hung at 2132 08/16/18 so protocol dose will be completed around the same time. Awaiting call back. Addendum: 08/18/18 at 0131 by KHRIS CERVANTES RN Amended: Links added. Addendum: 08/18/18 at 0149 by KHRIS CERVANTES RN Amended: Links added.
--- NOTE | 2018-08-17 20:30 | NUR ---
Pharmacist Jayson called inquiring about Amiodarone drip. Call placed to Dr. Tapia again. Monitor:SR-ST with rare PACs, PVCs.
--- NOTE | 2018-08-17 20:45 | NUR ---
Spoke to Rimma Solorzano NP re: patient vomiting, GT to low intermittent suction and Amiodarone drip including awaiting call back from Dr. Tapia. Okayed to leave GT to LIS and to continue Amiodarone drip for now. Pharmacist notified. Addendum: 08/18/18 at 0149 by KHRIS CERVANTES RN Amended: Links added.
--- NOTE | 2018-08-17 21:05 | NUR ---
Dr. Tapia called back; ordered to Dc Amiodarone drip when current bag is completed. Pharmacist informed.
[2018-08-17] MEDS: PANTOPRAZOLE SODIUM 40 MG VIAL IV SCH (21:15)
[2018-08-18] VITALS (22 sets, daily range): BP systolic 96–142; BP diastolic 54–97
--- NOTE | 2018-08-18 | NUR ---
Amiodarone drip completed. Monitor remains: SR with rare PACs, PVCs.
--- NOTE | 2018-08-18 02:09 | NUR ---
Turned and repositioned Q2H. Stable on BIPAP; sat maintaining above 94%. Addendum: 08/18/18 at 0209 by KHRIS CERVANTES RN Amended: Links added.
[2018-08-18] MEDS: IV NORMAL SALINE 250 ML IV PRN (04:30)
[2018-08-18 04:56] LABS: BASOPHILS % (AUTO) 0.2 % (0.0-2.0); EOSINOPHILS % (AUTO) 0.4 % (0.0-7.0); HEMATOCRIT 25.5 % (36.7-47.1); HEMOGLOBIN 8.4 g/dL (12.5-16.3); LYMPHOCYTES % (AUTO) 15.9 % (20.5-51.5); MEAN CORPUSCULAR HEMOGLOBIN 31.1 uug (23.8-33.4); MEAN CORPUSCULAR HGB CONC 33 g/dL (32.5-36.3); MEAN CORPUSCULAR VOLUME 94.2 fL (73.0-96.2); MONOCYTES # (AUTO) 0.4 K/uL (2.0-10.0); MONOCYTES % (AUTO) 5.8 % (0.0-11.0); NEUTROPHILS # (AUTO) 4.9 K/uL (1.8-8.9); NEUTROPHILS % (AUTO) 77.7 % (38.5-71.5); PLATELET COUNT (AUTO) 95 K/uL (152-348); WHITE BLOOD COUNT (AUTO) 6.3 K/uL (3.6-10.2)
[2018-08-18 05:03] LABS: CARBON DIOXIDE 18 mmol/L (21-32); CHLORIDE 111 mmol/L (98-107); CREATININE 1.1 mg/dL (0.6-1.3); GLUCOSE 70 mg/dL (74-106); MAGNESIUM 1.8 mg/dL (1.8-2.4); PHOSPHOROUS 3.8 mg/dL (2.5-4.9); POTASSIUM 3.6 mmol/L (3.5-5.1); UREA NITROGEN, BLOOD 26 mg/dL (7-18)
[2018-08-18] MEDS: METRONIDAZOLE 500 MG/NS 100ML 500 MG in PREMIXED 1 EACH IV SCH ×3 (06:04→21:39)
[2018-08-18] MEDS: VANCOMYCIN FOR PO/GT/NG USE GT SCH ×3 (06:05→17:18)
--- NOTE | 2018-08-18 06:43 | NUR ---
Condition unchanged. Stable on BIPAP; sat above 94% on FIO2 50%. Monitor: SR with PACs, PVCs. Amiodarone drip off since mid. No further vomiting; GT remains on LIS. Addendum: 08/18/18 at 0644 by KHRIS CERVANTES RN Amended: Links added. Addendum: 08/18/18 at 0644 by KHRIS CERVANTES RN Amended: Links added. Addendum: 08/18/18 at 0645 by KHRIS CERVANTES RN Amended: Links added. Addendum: 08/18/18 at 0645 by KHRIS CERVANTES RN Amended: Links added. Addendum: 08/18/18 at 0645 by KHRIS CERVANTES RN Amended: Links added. Addendum: 08/18/18 at 0646 by KHRIS CERVANTES RN Amended: Links added. Addendum: 08/18/18 at 0646 by KHRIS CERVANTES RN Amended: Links added. Addendum: 08/18/18 at 0648 by KHRIS CERVANTES RN Amended: Links added.
--- NOTE | 2018-08-18 08:00 | NUR ---
SEEN AND EXAMINED BY LAUREN BRUNO NP. NO NEW ORDERS MADE.
[2018-08-18] MEDS: SUCRALFATE 1 G/10 ML LIQUID UDC GT SCH ×4 (08:18→21:38)
[2018-08-18] MEDS: PANTOPRAZOLE SODIUM 40 MG VIAL IV SCH ×2 (08:19→21:38)
[2018-08-18] MEDS: Z GUARD REMEDY PASTE 57 GM TUBE TOP SCH ×2 (08:20→21:39)
[2018-08-18] MEDS: CLOTRIMAZOLE 1% CREAM 30 GM TUBE TOP SCH ×2 (08:21→16:26)
[2018-08-18] MEDS: SODIUM HYPOCHLORITE 0.125% 473 ML BOTTLE TP SCH (08:22)
[2018-08-18 08:28] LABS: ABG BASE EXCESS -10.1 mmol/L; ABG HCO3 13.2 mmol/L; ABG PH 7.396 (7.350-7.450); ABG SITE RIGHT RADIAL; ABG TOTAL HEMOGLOBIN 9.9 G/dL (13.5-18.0); COHb 1.6 % (0.5-1.5); MetHb 0.3 % (0.0-1.5); O2Hb 97.4 % (94.0-97.0); VENT MODE BIPAP; VT, ABG 602 mL
[2018-08-18] MEDS ORDERED: PANTOPRAZOLE SODIUM 40 MG VIAL IV SCH (09:00)
--- NOTE | 2018-08-18 09:35 | NUR ---
PT WAS TAKEN OFF BIPAP VENT AFTER ABG. RESULT FROM BLOOD GAS IS NORMAL. RN, AWARE.
--- NOTE | 2018-08-18 10:00 | NUR ---
SEEN AND EXAMINED BY LIV HOWELL WITH NEW ORDERS. PT TOLERATED O2 NC AT 5L, OFF BIPAP. NO APPARENT RESPIRATORY DISTRESS NOTED. CONTINUED TO BE NPO. HR IS SR WITHOCCASSIONAL PAC. SBP IS MAINTAINED ABOVE 100 SYSTOLIC.
--- NOTE | 2018-08-18 13:30 | NUR ---
SEEN AND EXAMINED BY DR HINTON WITH NEW ORDERS. REPEAT ABG ON 2LNC.
[2018-08-18 14:28] LABS: ABG BASE EXCESS -11.8 mmol/L; ABG HCO3 11.7 mmol/L; ABG PCO2 20.1 mmHg (35.0-45.0); ABG PH 7.382 (7.350-7.450); ABG SITE RIGHT RADIAL; COHb 1.4 % (0.5-1.5); MetHb 0.7 % (0.0-1.5); O2Hb 88.7 % (94.0-97.0); VENT MODE Nasal Cannula
--- NOTE | 2018-08-18 14:30 | NUR ---
NOTIFIED DR HINTON OF THE ABG RESULT. HE ORDERED TO KEEP THE PT IN CCU. STATUS CONVERTED BACK TO CCU. HOUSE SUP MADE AWARE.
[2018-08-19] VITALS (24 sets, daily range): BP systolic 109–145; BP diastolic 57–98
[2018-08-19] MEDS: VANCOMYCIN FOR PO/GT/NG USE GT SCH ×5 (00:03→23:50)
[2018-08-19] MEDS: METRONIDAZOLE 500 MG/NS 100ML 500 MG in PREMIXED 1 EACH IV SCH ×3 (05:41→21:41)
[2018-08-19 05:58] LABS: BASOPHILS % (AUTO) 0.3 % (0.0-2.0); EOSINOPHILS % (AUTO) 0.6 % (0.0-7.0); HEMOGLOBIN 8.2 g/dL (12.5-16.3); LYMPHOCYTES # (AUTO) 0.9 K/uL (20.0-40.0); LYMPHOCYTES % (AUTO) 16.7 % (20.5-51.5); MEAN CORPUSCULAR HEMOGLOBIN 31.4 uug (23.8-33.4); MEAN CORPUSCULAR HGB CONC 33 g/dL (32.5-36.3); MEAN CORPUSCULAR VOLUME 95.9 fL (73.0-96.2); MONOCYTES # (AUTO) 0.4 K/uL (2.0-10.0); MONOCYTES % (AUTO) 7.5 % (0.0-11.0); NEUTROPHILS # (AUTO) 4.1 K/uL (1.8-8.9); NEUTROPHILS % (AUTO) 74.9 % (38.5-71.5); PLATELET COUNT (AUTO) 121 K/uL (152-348); RED BLOOD CELL COUNT(AUTO) 2.61 MIL/uL (4.06-5.63); WHITE BLOOD COUNT (AUTO) 5.5 K/uL (3.6-10.2)
[2018-08-19 06:13] LABS: CARBON DIOXIDE 15 mmol/L (21-32); CHLORIDE 112 mmol/L (98-107); GLUCOSE 54 mg/dL (74-106); MAGNESIUM 1.7 mg/dL (1.8-2.4); POTASSIUM 3.4 mmol/L (3.5-5.1); UREA NITROGEN, BLOOD 26 mg/dL (7-18)
[2018-08-19 06:28] LABS: LYMPHOCYTES % (MANUAL) 17 % (20-40); MONOCYTES % (MANUAL) 5 % (2-10); NEUTROPHILS % (MANUAL) 78 % (42-75)
--- NOTE | 2018-08-19 07:10 | NUR ---
BLOOD SUGAR FROM THE LAB IS 54. 3RD PRESSMAN RN NOTIFIED NP. LYNDA AND AWAITING FOR HER RETURN CALL.
[2018-08-19] MEDS: SUCRALFATE 1 G/10 ML LIQUID UDC GT SCH ×4 (07:11→20:42)
[2018-08-19] MEDS ORDERED: DEXTROSE 50% 50 ML DISP.SYRIN IV ONE (07:15)
--- NOTE | 2018-08-19 07:15 | NUR ---
D50 1AMP GIVEN SLOW IVP PER PROTOCOL. PT IS AWAKE, COLOR IS GOOD AND WARM TO TOUCH.
--- NOTE | 2018-08-19 07:45 | NUR ---
RECHECKED BLOOD SUGAR THRU FINGERSTICKS AND UPT TO 145. LYNDA MANAGER SALES SUPPORT AWARE, NO ORDERS MADE.
[2018-08-19] MEDS: PANTOPRAZOLE SODIUM 40 MG VIAL IV SCH ×2 (08:17→20:42)
[2018-08-19] MEDS: Z GUARD REMEDY PASTE 57 GM TUBE TOP SCH ×2 (08:18→20:42)
[2018-08-19] MEDS: CLOTRIMAZOLE 1% CREAM 30 GM TUBE TOP SCH ×2 (08:19→17:05)
[2018-08-19] MEDS: SODIUM HYPOCHLORITE 0.125% 473 ML BOTTLE TP SCH (08:20)
[2018-08-19 08:21] LABS: ABG BASE EXCESS -13.8 mmol/L; ABG HCO3 10.8 mmol/L; ABG PCO2 21.8 mmHg (35.0-45.0); ABG PH 7.312 (7.350-7.450); ABG PO2 67.6 mmHg (75.0-100.0); ABG SITE RIGHT RADIAL; ABG TOTAL HEMOGLOBIN 9.3 G/dL (13.5-18.0); COHb 1.4 % (0.5-1.5); MetHb 0.6 % (0.0-1.5); O2Hb 90.8 % (94.0-97.0)
[2018-08-19] MEDS: LEVALBUTEROL HCL NEB 0.63 MG/3 ML NEBU NEB PRN ×3 (08:40→18:17)
[2018-08-19] MEDS: IPRATROPIUM BROMIDE 0.5 MG/2.5 ML NEBU NEB PRN ×3 (08:40→18:17)
--- NOTE | 2018-08-19 08:44 | NUR ---
NOTIFIED DR HINTON OF THIS MORNING'S ABG RESULT AND HE REPLIED WITH NEW ORDERS TO START NA ACETATE 100MEQ AT 75ML PER HOUR.
--- NOTE | 2018-08-19 10:30 | NUR ---
IVF D5W WITH NA ACETATE 100MEQ AT 75ML/HR STARTED AND INFUSING WELL VIA THE PICC LINE APARNA, ORDERED.
[2018-08-19] MEDS: SODIUM ACETATE IV SCH ×2 (10:31→23:50)
[2018-08-19] MEDS: D5W IV SCH ×2 (10:31→23:50)
--- NOTE | 2018-08-19 12:30 | NUR ---
PT SUCTIONED NASALLY BY RT AND OBTAINED LARGE AMOUNT OF THICK PINKISH TINGED SECRETIONS.
[2018-08-19 12:41] LABS: ABG BASE EXCESS -11.1 mmol/L; ABG HCO3 12.8 mmol/L; ABG PH 7.364 (7.350-7.450); ABG PO2 103.4 mmHg (75.0-100.0); ABG SITE RIGHT RADIAL; ABG TOTAL HEMOGLOBIN 8.8 G/dL (13.5-18.0); COHb 2.1 % (0.5-1.5); MetHb 0.6 % (0.0-1.5); O2Hb 95.5 % (94.0-97.0)
--- NOTE | 2018-08-19 12:45 | NUR ---
SEEN AND EXAMINED BY DR HINTON WITH NEW ORDERS. HE STATED TO MANAGER COUNTRY THAT HE WANTED THE PT TO STAY IN THE UNIT. PT NOT STABLE TO GO OUT IN [place]. ABG AT 1230 DONE AND RESULT WAS SEEN BY DR HINTON.
[2018-08-19] MEDS: MAGNESIUM SULFATE/D5W 100 ML IV SCH ×2 (13:22→14:26)
[2018-08-19] MEDS ORDERED: FUROSEMIDE 20 MG/2 ML VIAL IV ONE (13:30)
--- NOTE | 2018-08-19 13:40 | NUR ---
SPOKEN WITH LYNDA PECK AND LET HER KNOW THAT DR HINTON WANTED TO KEEP PT IN ICU.
--- NOTE | 2018-08-19 14:00 | NUR ---
ALBUMIN 25% GIVEN VIA IVPB ORDERED FOR A TOTAL OF 2 BOTTLES. AND FOLLOWED WITH LASIX 40MG SLOW IVP GIVEN.
--- NOTE | 2018-08-19 14:00 | NUR ---
PT IS STAYING IN ICU. MAGNESIUM SULFATE IVPB GIVEN TO SUPPLEMENT LOW MAG, TOTAL ORDERED IS 2GMS. POTASSIUM CHLORIDE 10MEQ GIVEN IVPB TO SUPPLEMENT LOW K, TOTAL IS 30MEQ TO BE GIVEN VIA IVPB ORDERED.
[2018-08-19] MEDS ORDERED: ALBUMIN HUMAN 25% 100 ML ONE (14:24)
[2018-08-19] MEDS: POTASSIUM CHLORIDE 50 ML IV SCH ×3 (14:25→17:04)
[2018-08-19] MEDS: ALBUMIN HUMAN 25% 25 GM in PREMIXED 1 EACH IV SCH ×3 (14:26→15:15)
--- NOTE | 2018-08-19 15:16 | NUR ---
1424 PLASMANATE NOT ADMINISTERED. ORDER CANCEL BY PROVIDER.
[2018-08-19] MEDS: VITAL AF 1.2 1,000 ML LIQUID GT PRN (16:14)
[2018-08-20] VITALS (30 sets, daily range): BP systolic 100–139; BP diastolic 52–83
[2018-08-20] MEDS: IPRATROPIUM BROMIDE 0.5 MG/2.5 ML NEBU NEB PRN ×2 (01:14→19:26)
[2018-08-20] MEDS: LEVALBUTEROL HCL NEB 0.63 MG/3 ML NEBU NEB PRN (01:14)
[2018-08-20 05:17] LABS: EOSINOPHILS # (AUTO) 0.1 K/uL (0.0-0.7); EOSINOPHILS % (AUTO) 1.6 % (0.0-7.0); LYMPHOCYTES # (AUTO) 0.7 K/uL (20.0-40.0); MEAN CORPUSCULAR VOLUME 92.8 fL (73.0-96.2); NEUTROPHILS # (AUTO) 2.8 K/uL (1.8-8.9); WHITE BLOOD COUNT (AUTO) 3.9 K/uL (3.6-10.2)
[2018-08-20 05:19] LABS: BASOPHILS % (AUTO) 0.4 % (0.0-2.0); HEMATOCRIT 22.1 % (36.7-47.1); LYMPHOCYTES % (AUTO) 17.6 % (20.5-51.5); MEAN CORPUSCULAR HEMOGLOBIN 31.2 uug (23.8-33.4); MEAN CORPUSCULAR HGB CONC 34 g/dL (32.5-36.3); MONOCYTES # (AUTO) 0.3 K/uL (2.0-10.0); MONOCYTES % (AUTO) 8.5 % (0.0-11.0); NEUTROPHILS % (AUTO) 71.9 % (38.5-71.5); PLATELET COUNT (AUTO) 127 K/uL (152-348)
[2018-08-20] MEDS: METRONIDAZOLE 500 MG/NS 100ML 500 MG in PREMIXED 1 EACH IV SCH ×3 (05:19→21:47)
[2018-08-20] MEDS: VANCOMYCIN FOR PO/GT/NG USE GT SCH ×3 (05:19→18:40)
[2018-08-20 05:23] LABS: CARBON DIOXIDE 26 mmol/L (21-32); CHLORIDE 112 mmol/L (98-107); GLUCOSE 127 mg/dL (74-106); MAGNESIUM 1.9 mg/dL (1.8-2.4); PHOSPHOROUS 2.8 mg/dL (2.5-4.9); POTASSIUM 3.2 mmol/L (3.5-5.1); UREA NITROGEN, BLOOD 22 mg/dL (7-18)
[2018-08-20 05:35] LABS: HEMOGLOBIN 7.4 g/dL (12.5-16.3); RED BLOOD CELL COUNT(AUTO) 2.38 MIL/uL (4.06-5.63)
[2018-08-20] MEDS: SUCRALFATE 1 G/10 ML LIQUID UDC GT SCH ×4 (06:58→21:46)
--- NOTE | 2018-08-20 07:30 | NUR ---
RECEIVED AN 87 Y/O MALE PT A CASE OF RESPIRATORY DISTRESS/ ANEMIA. PT IS AWAKE AND ALERT, SPONTANEOUS EYE OPENING, DISORIENTED. BREATHING VIA NC 2LPM. CONNECTED TO ECG MONITOR SHOWING SR. HAS A LT UPPER ARM PICC LINE TRIPLE LUMEN. ON IV NA ACETATE @ 75ML/HR, And NS IV TKO. PT HAS A A PEG TUBE ON TUBE FEEDING OF VITAL AF 1.2 RUNNING @ 20ML/HR, HELD TILL 1000 AM. HAS A RECTAL TUBE, AND URINATING VIA FC. PT HAS A SACRAL WOUND COVERED WITH DRESSING. FOR POSSIBLE DEBRIDEMENT. NOTED ANASARCA PT OOZING FROM UPPER EXTREMITIES.
[2018-08-20 08:39] LABS: ABG BASE EXCESS -0.9 mmol/L; ABG HCO3 22.1 mmol/L; ABG PCO2 32.4 mmHg (35.0-45.0); ABG PH 7.452 (7.350-7.450); ABG SITE RIGHT RADIAL; VENT MODE Nasal Cannula
[2018-08-20] MEDS ORDERED: ALBUTEROL SULFATE 1.25 MG/3 ML NEBU NEB PRN (08:45)
[2018-08-20] MEDS: PANTOPRAZOLE SODIUM 40 MG VIAL IV SCH ×2 (08:47→21:46)
[2018-08-20] MEDS: Z GUARD REMEDY PASTE 57 GM TUBE TOP SCH ×2 (08:47→21:46)
[2018-08-20] MEDS: CLOTRIMAZOLE 1% CREAM 30 GM TUBE TOP SCH ×2 (08:48→17:15)
[2018-08-20] MEDS: SODIUM HYPOCHLORITE 0.125% 473 ML BOTTLE TP SCH (08:49)
[2018-08-20] MEDS ORDERED: IV DEXTROSE 5W-0.45% NS + KCL 1,000 ML IV ONE (10:00)
--- NOTE | 2018-08-20 10:00 | NUR ---
SEEN BY DR SLATER, UPDATES GIPIETERN ON PATIENT.ALL NEW ORDERS RECEIVED, PT PUT ON POTASSIUM REPLACEMENT
--- NOTE | 2018-08-20 10:30 | NUR ---
SEEN BY DR DE LA FUENTE, ALL UPDATES ON PT GIVEN, NO NEW ORDERS
[2018-08-20] MEDS: VITAL AF 1.2 1,000 ML LIQUID GT PRN (10:37)
[2018-08-20] MEDS: POTASSIUM CHLORIDE 50 ML IV SCH ×3 (10:38→13:37)
--- NOTE | 2018-08-20 13:00 | NUR ---
PT NOTED TO HAVE A SUDDEN DESATURATION SPO2 GOING TO 75% , SUCTION ATTEMPT FAILED, ORAL SUCTION DONE, PT PUT IN UP RIGHT POSITION, SPO2 100% NO DISTRESS
[2018-08-20] MEDS: IV NORMAL SALINE 250 ML IV PRN (14:38)
--- NOTE | 2018-08-20 16:30 | NUR ---
SEEN BY DR MORENO, UPDATES GIVEN AND NEW ORDERS RECEIVED
--- NOTE | 2018-08-20 18:15 | NUR ---
PT HAD ANOTHER EPISODE OF DESATURATION, SPO2 GOING TO 50S AND THEN BACK UP, RT INFORMED AND SUCTION DONE, NO SECRETIONS, INCREASED N/C TO 4LPM.
--- NOTE | 2018-08-20 18:45 | NUR ---
pt spo2 still low around 50%, RT paged, pt put on FACE MASK 10LPM, SUCTION ATTEMPT DONE FAILED. PT PUT ON BIPAP AWAITING RT.
--- NOTE | 2018-08-20 19:26 | NUR ---
RECEIVED PT ON BIPAP WITH THE FOLLOWING SETTINGS: IPAP 18, EPAP 10, RATE 14, FIO2 100%. PT HAS A SIZE MEDIUM MASK WAS. ORAL CARE WAS DONE. SUCTIONED THICK YELLOW SECRETIONS VIA NT. HHN TX GIVEN AND WAS TOLERATED WELL WITH NO ADVERSE REACTIONS. NO DISTRESS NOTED. BIPAP ALARMS ON AND AUDIBLE. WILL CONTINUE TO MONITOR PT.
--- NOTE | 2018-08-20 20:40 | NUR ---
Pt has been having episodes of desaturation although does not appear to be in distress. RT and RN closely monitoring pt. Suctioned nasotracheally PRN by RT to small-moderate amounts of pink-tinged summers secretions. Neb Tx has been done. Repositioning done, HOB up. Noted lungs sound coarse crackles. Dr. Miller notified and received order for IV Lasix 40 mg and stat ABGs. Kept NPO for now.
[2018-08-20] MEDS ORDERED: FUROSEMIDE 40 MG/4 ML VIAL IV ONE (20:45)
[2018-08-20 20:59] LABS: ABG BASE EXCESS -2.6 mmol/L; ABG HCO3 20.9 mmol/L; ABG PCO2 32.2 mmHg (35.0-45.0); ABG PH 7.431 (7.350-7.450); ABG PO2 50.6 mmHg (75.0-100.0); ABG SITE RIGHT RADIAL; ABG TOTAL HEMOGLOBIN 11.2 G/dL (13.5-18.0); COHb 1.1 % (0.5-1.5); MetHb 0.4 % (0.0-1.5); O2Hb 84.1 % (94.0-97.0); VENT MODE BIPAP 18/10
--- NOTE | 2018-08-20 21:40 | NUR ---
Dr. Mcclain (vocational training instructor for pulmonary group) notified of ABGs and of pt condition. New order for BiPap setting change to 24/07 received and RT aware. gave parameter O2 sat 85% acceptable for this pt. Continue to closely monitor.
[2018-08-20] MEDS: AMIODARONE HCL 200 MG TABLET GT SCH (21:46)
[2018-08-20] MEDS: HYDROCODONE/APAP 5-325MG TABLET PO PRN (21:54)
--- NOTE | 2018-08-20 22:30 | NUR ---
Rui Fan called in for update. Appreciative of care and information.
[2018-08-21] VITALS (35 sets, daily range): BP systolic 70–164; BP diastolic 46–98
[2018-08-21] MEDS: VANCOMYCIN FOR PO/GT/NG USE GT SCH ×5 (00:18→23:08)
[2018-08-21 05:03] LABS: BASOPHILS % (AUTO) 0.5 % (0.0-2.0); EOSINOPHILS # (AUTO) 0.1 K/uL (0.0-0.7); EOSINOPHILS % (AUTO) 1.3 % (0.0-7.0); LYMPHOCYTES # (AUTO) 1.1 K/uL (20.0-40.0); LYMPHOCYTES % (AUTO) 18.2 % (20.5-51.5); MEAN CORPUSCULAR HEMOGLOBIN 31.5 uug (23.8-33.4); MEAN CORPUSCULAR HGB CONC 34 g/dL (32.5-36.3); MEAN CORPUSCULAR VOLUME 93.7 fL (73.0-96.2); MONOCYTES # (AUTO) 0.5 K/uL (2.0-10.0); MONOCYTES % (AUTO) 8.6 % (0.0-11.0); NEUTROPHILS # (AUTO) 4.2 K/uL (1.8-8.9); NEUTROPHILS % (AUTO) 71.4 % (38.5-71.5); PLATELET COUNT (AUTO) 153 K/uL (152-348); RED BLOOD CELL COUNT(AUTO) 2.88 MIL/uL (4.06-5.63); WHITE BLOOD COUNT (AUTO) 5.9 K/uL (3.6-10.2)
[2018-08-21 05:07] LABS: CARBON DIOXIDE 27 mmol/L (21-32); CHLORIDE 112 mmol/L (98-107); GLUCOSE 88 mg/dL (74-106); MAGNESIUM 1.8 mg/dL (1.8-2.4); PHOSPHOROUS 2.8 mg/dL (2.5-4.9); POTASSIUM 4.1 mmol/L (3.5-5.1); UREA NITROGEN, BLOOD 20 mg/dL (7-18)
--- NOTE | 2018-08-21 06:00 | NUR ---
Pt received a dose of Kendrick at HS for max. comfort. Since then, noted pt appears more comfortable and with stable VS and excellent saturations of 100%. Maintained on BiPap. Nursing comfort measures observed at all times. Contact isolation observed. Tube feeding turned off and will resume at 1000. AM care well tolerated. Please see CCU flowsheet for trends and clinical data.
[2018-08-21] MEDS: METRONIDAZOLE 500 MG/NS 100ML 500 MG in PREMIXED 1 EACH IV SCH ×3 (06:03→21:28)
[2018-08-21] MEDS: Z GUARD REMEDY PASTE 57 GM TUBE TOP PRN (06:03)
--- NOTE | 2018-08-21 07:25 | NUR ---
Pt received on BIPAP with ordered settings of IPAP/EPAP-18/12, Rate-14, FIO2-100%. Tolerating BIPAP settings well. Pt suctioned. Bag/Valve/Mask at bedside. No signs or symptoms of respiratory distress noted. Will continue to monitor.
[2018-08-21] MEDS: SUCRALFATE 1 G/10 ML LIQUID UDC GT SCH ×4 (08:19→20:09)
[2018-08-21] MEDS: PANTOPRAZOLE SODIUM 40 MG VIAL IV SCH ×2 (08:22→20:09)
[2018-08-21] MEDS: AMIODARONE HCL 200 MG TABLET GT SCH ×2 (08:22→20:09)
[2018-08-21] MEDS: Z GUARD REMEDY PASTE 57 GM TUBE TOP SCH ×2 (08:23→20:09)
[2018-08-21] MEDS: CLOTRIMAZOLE 1% CREAM 30 GM TUBE TOP SCH ×2 (08:23→16:43)
[2018-08-21] MEDS: VITAL AF 1.2 1,000 ML LIQUID GT PRN (09:59)
[2018-08-21] MEDS: SODIUM HYPOCHLORITE 0.125% 473 ML BOTTLE TP SCH (10:17)
[2018-08-21] MEDS ORDERED: LEVALBUTEROL HCL NEB 0.63 MG/3 ML NEBU NEB PRN (13:30)
--- NOTE | 2018-08-21 16:00 | NUR ---
PT'S HR WENT TACHYCARDIC IN THE 120B/MIN. NOTIFIED DR MORENO, ORDERED EKG AND DONE. PT DESATED IN THE 50'S. SUCTIONED VERY LARGE AMOUNT OF THICK PINKIS TINGED SECRETIONS. CALLED UP DR CHONG TO EVALUATE PT'S RESPIRATORY STATUS. PT PLACED BACK ON BIPAP AND ABG DONE ON 100% NRM.
[2018-08-21] MEDS: HYDROCODONE/APAP 5-325MG TABLET PO PRN ×2 (16:43→20:10)
[2018-08-21] MEDS ORDERED: NOREPINEPHRINE BITARTRATE 16 MG in IV DEXTROSE 5% 500 ML IV PRN (17:15)
[2018-08-21 17:32] LABS: ABG BASE EXCESS -8.6 mmol/L; ABG PCO2 48.9 mmHg (35.0-45.0); ABG PH 7.208 (7.350-7.450); ABG PO2 66.3 mmHg (75.0-100.0); ABG SITE RIGHT RADIAL; ABG TOTAL HEMOGLOBIN 10.4 G/dL (13.5-18.0); COHb 1.2 % (0.5-1.5); MetHb 0.5 % (0.0-1.5); O2Hb 87.7 % (94.0-97.0)
--- NOTE | 2018-08-21 18:00 | NUR ---
PT CONDITION IS STABILIZED. PM CARE RENDERED. PT NEEDS A LOT OF SUCTIONING.
--- NOTE | 2018-08-21 18:05 | NUR ---
RT WAS CALLED TO PATIENT'S ROOM DUE TO PT'S DROPPING SATURATION AND DECLINING PT'S CONDITION. PT WAS BAGGED AND SUCTIONED X 5 MINUTES. PT WAS ALSO NASALLY SUCTIONED FOR 30-40 CC OF THICK PALE YELLOW SECRETIONS. PT WAS PLACED BACK TO BIPAP MACHINE WHEN VITAL SIGNS CAME BACK TO NORMAL. WILL MONITOR PT'S CONDITION AND RECOMMEND THAT PATIENT BE SUCTIONED OFTEN.
--- NOTE | 2018-08-21 18:30 | NUR ---
PT SIGNED CONSENT FOR PACEMAKER INSERTION PER DR MEZA.
--- NOTE | 2018-08-21 19:00 | NUR ---
RECEIVED PT ON CONTINUOUS BIPAP IPAP 18 EPAP 12 RATE 14 FIO2 60%. BS COARSE, SUCTION NASALLY SMALL AMOUNT THICK BEIGE SECRETIONS. VENT CHECKED, ALARMS WORKING WELL AND AUDIBLE. NO DISTRESS NOTED AT THIS TIME. WILL CONTINUE TO MONITOR
--- NOTE | 2018-08-21 20:00 | NUR ---
Seen and evaluated by Dr. Gann, condition update given. Pt resting, alert but does not follow commands. BiPap in use; O2 sats excellent. Requires regular NT suctioning. Guarded with position changes; [place] given for max. comfort. Nursing comfort measures observed. Aspiration precautions, HOB up at all times. GT feeding in progress at 20 ml/hr. Contact isolation maintained. Please see CCU flowsheet for full assessment and clinical data.
[2018-08-21] MEDS: IV NORMAL SALINE 250 ML IV PRN (20:16)
[2018-08-21 21:08] LABS: *BILIRUBIN,URIN NEGATIVE (NEGATIVE); *BLOOD, URINE 2+ (NEGATIVE); *CLARITY,URINE CLOUDY (CLEAR); *COLOR,URINE YELLOW (YELLOW); *KETONES,URINE NEGATIVE (NEGATIVE); *UROBILINOGEN,URINE 0.2 E.U./dl (NORMAL); LEUKOCYTE ESTERASE ,URINE 1+ (NEGATIVE); NITRITE, URINE NEGATIVE (NEGATIVE); PH,URINE 5.5 (5.0-8.0); UGLUCOSE NEGATIVE (NEGATIVE)
[2018-08-21 21:20] LABS: RBC,URINE 20-50 /HPF (0-3)
[2018-08-21 21:21] LABS: BACTERIA,URINE FEW /HPF (NONE SEEN); YEAST,URINE PSEUDOHYPHAE /HPF (NONE SEEN)
[2018-08-21 21:22] LABS: WBC,URINE 20-50 /HPF (0-3)
[2018-08-22] VITALS (23 sets, daily range): BP systolic 98–134; BP diastolic 49–97
--- NOTE | 2018-08-22 00:01 | NUR ---
Pt has been sleeping. Stable on BiPap at 60% FIO2, excellent saturation readings. Noted less NT secretions with suctioning. Son called in for update; appreciative of care and information.
[2018-08-22 05:07] LABS: BASOPHILS % (AUTO) 0.5 % (0.0-2.0); EOSINOPHILS % (AUTO) 0.6 % (0.0-7.0); HEMOGLOBIN 8.6 g/dL (12.5-16.3); LYMPHOCYTES # (AUTO) 1.1 K/uL (20.0-40.0); LYMPHOCYTES % (AUTO) 18.4 % (20.5-51.5); MEAN CORPUSCULAR HEMOGLOBIN 31.4 uug (23.8-33.4); MEAN CORPUSCULAR HGB CONC 33 g/dL (32.5-36.3); MEAN CORPUSCULAR VOLUME 94.8 fL (73.0-96.2); MONOCYTES # (AUTO) 0.5 K/uL (2.0-10.0); MONOCYTES % (AUTO) 8.7 % (0.0-11.0); NEUTROPHILS # (AUTO) 4.2 K/uL (1.8-8.9); NEUTROPHILS % (AUTO) 71.8 % (38.5-71.5); PLATELET COUNT (AUTO) 173 K/uL (152-348); RED BLOOD CELL COUNT(AUTO) 2.74 MIL/uL (4.06-5.63); WHITE BLOOD COUNT (AUTO) 5.8 K/uL (3.6-10.2)
[2018-08-22 05:26] LABS: ALANINE AMINOTRANSFERASE 16 U/L (16-63); ALKALINE PHOSPHATASE 116 U/L (50-136); ASPARTATE AMINOTRANSFERASE 16 U/L (15-37); BILIRUBIN,DIRECT 0.1 mg/dL (0.0-0.2); BILIRUBIN,TOTAL 0.4 mg/dL (0.2-1.0); CARBON DIOXIDE 25 mmol/L (21-32); CHLORIDE 112 mmol/L (98-107); CREATININE 1.2 mg/dL (0.6-1.3); GLUCOSE 108 mg/dL (74-106); MAGNESIUM 1.8 mg/dL (1.8-2.4); PHOSPHOROUS 3.3 mg/dL (2.5-4.9); POTASSIUM 3.8 mmol/L (3.5-5.1); TOTAL PROTEIN, SERUM 4.7 g/dL (6.4-8.2); UREA NITROGEN, BLOOD 24 mg/dL (7-18)
[2018-08-22] MEDS: METRONIDAZOLE 500 MG/NS 100ML 500 MG in PREMIXED 1 EACH IV SCH ×3 (05:33→21:18)
[2018-08-22] MEDS: VANCOMYCIN FOR PO/GT/NG USE GT SCH ×4 (05:33→23:51)
[2018-08-22] MEDS: Z GUARD REMEDY PASTE 57 GM TUBE TOP PRN (05:34)
--- NOTE | 2018-08-22 06:00 | NUR ---
Stable night. Monitor SR with PACs. Continues use of Bipap at 60 % FIO2 with excellent saturations. Turned/positioned q 2hr and PRN. HOB remains up, aspiration precautions maintained at all times. Tube feeding off from 1478-5663 daily, GT residuals have been small. Please see CCU flowsheet for trends and clinical data.
--- NOTE | 2018-08-22 07:30 | NUR ---
RECIEVED PT ON BIPAP AT 60% FIO2. SETTING REMAINS THE SAME. OPENS EYES BUT NON VERBAL. COLOR IS GOOD. HOB UP 40DEGREES. LUNGS HAS SCATTERED EXPIRATORY RALES BILATERALLY. O2SAT IS 100%. PT STILL HAS GENERALIZED PITTING EDEMA +2, BUT SIGNIFICANTLY IMPROVED. SCROTAL EDEMA IS GONE. PICC LINE SITE IS CLEAN AND INTACT.
[2018-08-22] MEDS: AMIODARONE HCL 200 MG TABLET GT SCH ×2 (08:31→20:58)
[2018-08-22] MEDS: PANTOPRAZOLE SODIUM 40 MG VIAL IV SCH ×2 (08:31→20:58)
[2018-08-22] MEDS: SUCRALFATE 1 G/10 ML LIQUID UDC GT SCH ×4 (08:31→20:57)
[2018-08-22] MEDS: SODIUM HYPOCHLORITE 0.125% 473 ML BOTTLE TP SCH (08:32)
[2018-08-22] MEDS: CLOTRIMAZOLE 1% CREAM 30 GM TUBE TOP SCH ×2 (08:32→16:14)
[2018-08-22] MEDS: Z GUARD REMEDY PASTE 57 GM TUBE TOP SCH ×2 (08:32→20:58)
--- NOTE | 2018-08-22 08:45 | NUR ---
OFF BIPAP FOR NOW AND PT PLACED ON NC AT 4L. TOLERATING WELL. O2SAT OF 97%. ABG DONE ORDERED ON NC AT 4L. PT IS FREQUENTLY SUCTIONED ORALLY AND NASALLY, SMALL AMOUNT OF PINK TINGED THICK SECRETIONS. HR IS SR WITH OCCASSIONAL PAC'S. TURN PT EVERY TWO HOURS CONSISTENTLY. NO APPARENT RESPIRATORY DISTRESS NOTED AT THIS TIME.
[2018-08-22 09:47] LABS: ABG BASE EXCESS -5.4 mmol/L; ABG HCO3 18.2 mmol/L; ABG PCO2 28.3 mmHg (35.0-45.0); ABG PH 7.425 (7.350-7.450); ABG PO2 69.3 mmHg (75.0-100.0); ABG SITE RIGHT RADIAL; ABG TOTAL HEMOGLOBIN 8.4 G/dL (13.5-18.0); COHb 0.8 % (0.5-1.5); MetHb 0.8 % (0.0-1.5); O2Hb 93.5 % (94.0-97.0); VENT MODE Nasal Cannula
--- NOTE | 2018-08-22 10:30 | NUR ---
SEEN AND EXAMINED BY DR SLATER WITH NEW ORDERS. AWARE OF THE ABG RESULT.
[2018-08-22] MEDS: VITAL AF 1.2 1,000 ML LIQUID GT PRN (10:32)
[2018-08-22] MEDS ORDERED: ACETYLCYSTEINE 20% 800 MG/4 ML VIAL PO SCH (13:30)
--- NOTE | 2018-08-22 13:30 | NUR ---
CPT DONE BY RT AT THE BEDSIDE ORDERED. PT TOLERATING WELL. MUCOMYST NEB ALSO GIVEN BY RT ORDERED. NO APPARENT DISTRESS NOTED.
[2018-08-22] MEDS: IPRATROPIUM BROMIDE 0.5 MG/2.5 ML NEBU NEB SCH ×2 (13:33→19:02)
[2018-08-22] MEDS: LEVALBUTEROL HCL NEB 0.63 MG/3 ML NEBU NEB SCH ×2 (13:33→19:02)
--- NOTE | 2018-08-22 13:45 | NUR ---
ULTRASOUND OF THE CHEST AND MEDIASTINUM DONE AT THE BEDSIDE. RESULTED AND CALLED IN TO DR SLATER . NO ORDERS AT THIS TIME.
--- NOTE | 2018-08-22 15:00 | NUR ---
SEEN AND EXAMINED BY DR MORENO, NO NEW ORDERS.
--- NOTE | 2018-08-22 15:10 | NUR ---
SEEN AND EXAMINED BY DR MORENO, NO ORDERS MADE.
--- NOTE | 2018-08-22 18:00 | NUR ---
ORDERED OSMOLYTE 1.[address] RECOMMENDATION, TO START AT 20ML/HR, UP TO MAX GOAL OF 65ML/HR TOLERATED, TIMES 20HRS, OFF AT 6A, AND ON AT 10A. AWAITING FOR THE FORMULA FROM DIETARY.
--- NOTE | 2018-08-22 18:00 | NUR ---
SEEN AND EXAMINED BY LAUREN SLADE, NO NEW ORDERS MADE.
--- NOTE | 2018-08-22 18:30 | NUR ---
SEEN AND EXAMINED BY DR HAYS AND SPOKEN TO PT'S VERENICE CHACON.
[2018-08-22] MEDS: OSMOLITE 1.2 CAL 1,000 ML LIQUID GT SCH (18:51)
--- NOTE | 2018-08-22 18:54 | NUR ---
STARTED OSMOLITE FEEDING AT 20ML/HR ORDERED.
[2018-08-22] MEDS: ACETYLCYSTEINE 20% 800 MG/4 ML VIAL NEB SCH (19:01)
[2018-08-22] MEDS: IV NORMAL SALINE 250 ML IV PRN (22:15)
[2018-08-23] VITALS (24 sets, daily range): BP systolic 91–142; BP diastolic 48–74
--- NOTE | 2018-08-23 00:01 | NUR ---
No ETT position at 20 even shows at 2000 & 2400 on [facility] flowsheet. Con't frequent NT sx by RT.
[2018-08-23] MEDS: LEVALBUTEROL HCL NEB 0.63 MG/3 ML NEBU NEB SCH ×4 (01:03→19:23)
[2018-08-23] MEDS: IPRATROPIUM BROMIDE 0.5 MG/2.5 ML NEBU NEB SCH ×4 (01:03→19:23)
[2018-08-23 05:10] LABS: BASOPHILS % (AUTO) 0.5 % (0.0-2.0); EOSINOPHILS # (AUTO) 0.1 K/uL (0.0-0.7); EOSINOPHILS % (AUTO) 1.3 % (0.0-7.0); HEMATOCRIT 23.3 % (36.7-47.1); HEMOGLOBIN 7.7 g/dL (12.5-16.3); LYMPHOCYTES # (AUTO) 1.2 K/uL (20.0-40.0); LYMPHOCYTES % (AUTO) 24.8 % (20.5-51.5); MEAN CORPUSCULAR HEMOGLOBIN 31.4 uug (23.8-33.4); MEAN CORPUSCULAR HGB CONC 33 g/dL (32.5-36.3); MEAN CORPUSCULAR VOLUME 94.3 fL (73.0-96.2); MONOCYTES # (AUTO) 0.5 K/uL (2.0-10.0); MONOCYTES % (AUTO) 9.4 % (0.0-11.0); NEUTROPHILS # (AUTO) 3.1 K/uL (1.8-8.9); PLATELET COUNT (AUTO) 202 K/uL (152-348); WHITE BLOOD COUNT (AUTO) 4.9 K/uL (3.6-10.2)
[2018-08-23 05:12] LABS: RED BLOOD CELL COUNT(AUTO) 2.47 MIL/uL (4.06-5.63)
[2018-08-23 05:17] LABS: CARBON DIOXIDE 25 mmol/L (21-32); CHLORIDE 114 mmol/L (98-107); CREATININE 1.1 mg/dL (0.6-1.3); GLUCOSE 123 mg/dL (74-106); MAGNESIUM 1.7 mg/dL (1.8-2.4); PHOSPHOROUS 2.8 mg/dL (2.5-4.9); POTASSIUM 3.6 mmol/L (3.5-5.1); UREA NITROGEN, BLOOD 24 mg/dL (7-18)
[2018-08-23] MEDS: VANCOMYCIN FOR PO/GT/NG USE GT SCH ×4 (05:28→23:16)
[2018-08-23] MEDS: METRONIDAZOLE 500 MG/NS 100ML 500 MG in PREMIXED 1 EACH IV SCH ×3 (05:29→21:31)
[2018-08-23] MEDS: SUCRALFATE 1 G/10 ML LIQUID UDC GT SCH ×4 (06:56→20:31)
[2018-08-23] MEDS: ACETYLCYSTEINE 20% 800 MG/4 ML VIAL NEB SCH ×2 (07:23→19:24)
--- NOTE | 2018-08-23 07:41 | NUR ---
RECEIVED AN 87 Y/O MALE PT A CASE OF RESPIRATORY DISTRESS, ANEMIA. PT IS ALERT NON VERBAL SPONTANEOUS EYE OPENING, BREATHING VIA N/C 4LPM. CONNECTED TO ECG MONITOR SHOWING SR. PT HAS PEG TUBE; RECEIVING TUBE FEEDING OSMOLITE1.2 TO BE RESTARTED @ 1000 TO RUN @ 40ML/HR. PT HAS UPPER & LOWER EXTREMITIES PITTING EDEMA +2. WITH STAGE 4 SACRAL WOUND, COVERED WITH DRESSING. NOTED TO HAVE A FLEXI SEAL NO ACTIVE DIARRHEA. HAS A PICC LINE WITH INTACT DRESSING RECEIVING TKO.
[2018-08-23] MEDS: AMIODARONE HCL 200 MG TABLET GT SCH ×2 (08:51→20:31)
[2018-08-23] MEDS: PANTOPRAZOLE SODIUM 40 MG VIAL IV SCH ×2 (08:51→20:31)
[2018-08-23] MEDS: CLOTRIMAZOLE 1% CREAM 30 GM TUBE TOP SCH (08:52)
[2018-08-23] MEDS: SODIUM HYPOCHLORITE 0.125% 473 ML BOTTLE TP SCH (08:52)
[2018-08-23] MEDS: Z GUARD REMEDY PASTE 57 GM TUBE TOP SCH ×2 (08:52→20:31)
[2018-08-23 09:15] LABS: ABG BASE EXCESS -1.7 mmol/L; ABG HCO3 21.3 mmol/L; ABG PCO2 29.2 mmHg (35.0-45.0); ABG PO2 83.7 mmHg (75.0-100.0); ABG SITE LEFT RADIAL; ABG TOTAL HEMOGLOBIN 8.6 G/dL (13.5-18.0); COHb 1.2 % (0.5-1.5); MetHb 0.5 % (0.0-1.5); O2Hb 95.2 % (94.0-97.0); VENT MODE Nasal Cannula
--- NOTE | 2018-08-23 10:00 | NUR ---
SEEN BY LIV LEW WOUND CONSUL, DEBRIDEMENT DONE ON SACRAL WOUND, DRESSING APPLIED, PTS POSITION TURNED. AND FEEDING STARTED AT 40ML/HR.
--- NOTE | 2018-08-23 11:00 | NUR ---
SEEN BY DR SLATER, UPDATES GIVEN ON PATIENT. ORDERED FOR LT SIDE THORACENTESIS. AND A CXR TO BE DONE AFTERWARDS. ALL OTHER ORDERS RECEIVED.
[2018-08-23] MEDS ORDERED: MAGNESIUM SULFATE/D5W 100 ML IV SCH (11:30)
[2018-08-23] MEDS ORDERED: POTASSIUM CHLORIDE 50 ML IV SCH (11:30)
--- NOTE | 2018-08-23 11:30 | NUR ---
PHONE CONSENT TAKEN FROM PATIENTS SON STACEY, FOR LT SIDE THORACENTESIS. WITNESSED BY CARLOS LARSON
--- NOTE | 2018-08-23 12:30 | NUR ---
SEEN BY DR STOLL, INFORMED ABOUT PATIENTS STATUS NOT HAVING DIARRHEA FOR MORE THEN 24HRS, ORDERED TO CONTACT INFECTION CONTROL TO LIFT ISOLATION OFF PATIENT.
[2018-08-23] MEDS ORDERED: NYSTATIN/TRIAMCINOLONE CREAM 15 GM TUBE TOP SCH (14:15)
--- NOTE | 2018-08-23 16:00 | NUR ---
Spoke with CCU RN taking care of patient. She reports that diarrhea has stopped but doesn't know as yet if there is any stool for today. Discussed 8# weight loss as well. It appears to be from fluid shifts but will obtain a re-weigh tomorrow. Recommend continue with Osmolite 1.2 for now and follow up tomorrow. No residuals recorded. Addendum: 08/23/18 at [address] Amended: Links added.
[2018-08-23] MEDS: NYSTATIN POWDER 15 GM BOTTLE TOP SCH ×2 (16:24→21:02)
[2018-08-23] MEDS: TRIAMCINOLONE ACET 0.1% CREAM 15 GM TUBE TP SCH ×2 (17:10→20:33)
[2018-08-23] MEDS: NYSTATIN CREAM 30 GM TUBE TP SCH ×2 (17:10→20:33)
--- NOTE | 2018-08-23 19:30 | NUR ---
Report received. Patient on contact isolation for stool c diff. Awake, non verbal, doesn't follow commands, but grimaces to pain. O2 2L NC. Assessment completed. Addendum: 08/24/18 at 0638 by KHRIS CERVANTES RN Amended: Links added.
[2018-08-23] MEDS: IV NORMAL SALINE 250 ML IV PRN (21:31)
[2018-08-24] VITALS (56 sets, daily range): BP systolic 83–125; BP diastolic 35–72
--- NOTE | 2018-08-24 | NUR ---
Tolerating GT feedings well. VS stable.
[2018-08-24] MEDS: IPRATROPIUM BROMIDE 0.5 MG/2.5 ML NEBU NEB SCH ×4 (01:18→19:11)
[2018-08-24] MEDS: LEVALBUTEROL HCL NEB 0.63 MG/3 ML NEBU NEB SCH ×4 (01:18→19:12)
--- NOTE | 2018-08-24 04:00 | NUR ---
Am care given. Wound care treatment done. VS stable.
[2018-08-24] MEDS: VANCOMYCIN FOR PO/GT/NG USE GT SCH ×4 (05:13→23:49)
[2018-08-24] MEDS: METRONIDAZOLE 500 MG/NS 100ML 500 MG in PREMIXED 1 EACH IV SCH ×3 (05:13→21:41)
[2018-08-24 05:54] LABS: BASOPHILS % (AUTO) 0.3 % (0.0-2.0); EOSINOPHILS # (AUTO) 0.1 K/uL (0.0-0.7); EOSINOPHILS % (AUTO) 1.3 % (0.0-7.0); HEMATOCRIT 23.5 % (36.7-47.1); HEMOGLOBIN 7.9 g/dL (12.5-16.3); LYMPHOCYTES # (AUTO) 0.7 K/uL (20.0-40.0); LYMPHOCYTES % (AUTO) 11.5 % (20.5-51.5); MEAN CORPUSCULAR HEMOGLOBIN 32.5 uug (23.8-33.4); MEAN CORPUSCULAR HGB CONC 34 g/dL (32.5-36.3); MEAN CORPUSCULAR VOLUME 96.3 fL (73.0-96.2); MONOCYTES # (AUTO) 0.5 K/uL (2.0-10.0); MONOCYTES % (AUTO) 8.3 % (0.0-11.0); NEUTROPHILS # (AUTO) 4.6 K/uL (1.8-8.9); NEUTROPHILS % (AUTO) 78.6 % (38.5-71.5); PLATELET COUNT (AUTO) 187 K/uL (152-348); WHITE BLOOD COUNT (AUTO) 5.8 K/uL (3.6-10.2)
--- NOTE | 2018-08-24 06:00 | NUR ---
GT feedings off; will resume at 1000. Urine output marginal. No neuro changes. Sat remains above 94% on O2 2 L NC.
[2018-08-24 06:05] LABS: RED BLOOD CELL COUNT(AUTO) 2.44 MIL/uL (4.06-5.63)
[2018-08-24 06:09] LABS: CARBON DIOXIDE 25 mmol/L (21-32); CHLORIDE 115 mmol/L (98-107); GLUCOSE 143 mg/dL (74-106); MAGNESIUM 1.8 mg/dL (1.8-2.4); PHOSPHOROUS 2.5 mg/dL (2.5-4.9); POTASSIUM 3.5 mmol/L (3.5-5.1); UREA NITROGEN, BLOOD 23 mg/dL (7-18)
[2018-08-24] MEDS: ACETYLCYSTEINE 20% 800 MG/4 ML VIAL NEB SCH ×2 (07:07→19:12)
--- NOTE | 2018-08-24 07:11 | NUR ---
Radiologist called this am CXR showed large pneumothorax. Report given to Ashley GONZALEZ. Dr. Cutler's exchange called.
[2018-08-24] MEDS: SUCRALFATE 1 G/10 ML LIQUID UDC GT SCH ×4 (07:30→21:38)
--- NOTE | 2018-08-24 07:30 | NUR ---
Nursing line crew supervisor informed of PICC line insertion order; will call. Ashley GONZALEZ informed. Addendum: 08/24/18 at 0800 by KHRIS CERVANTES RN notes are for another patient.
--- NOTE | 2018-08-24 07:52 | NUR ---
Report received from CARLOS Roberts.Pt remains awake,alert,responsive.No s/s of respiratory distress.O2 at 2liters tolerated well.Called regarding Xray report of Left pneumothorax. asked to follow up with ER doctor.Will continue to monitor.
--- NOTE | 2018-08-24 08:00 | NUR ---
Pt was seen by for evaluation of Left pneumothorax.Will repeat Xray at 10 am.Will continue to monitor.
[2018-08-24] MEDS: AMIODARONE HCL 200 MG TABLET GT SCH ×2 (09:00→21:38)
[2018-08-24] MEDS: PANTOPRAZOLE SODIUM 40 MG VIAL IV SCH ×2 (09:51→21:38)
[2018-08-24] MEDS: NYSTATIN POWDER 15 GM BOTTLE TOP SCH ×2 (09:52→21:43)
[2018-08-24] MEDS: Z GUARD REMEDY PASTE 57 GM TUBE TOP SCH ×2 (09:53→21:40)
[2018-08-24] MEDS: SODIUM HYPOCHLORITE 0.125% 473 ML BOTTLE TP SCH (09:53)
[2018-08-24] MEDS: TRIAMCINOLONE ACET 0.1% CREAM 15 GM TUBE TP SCH ×2 (09:56→21:42)
[2018-08-24] MEDS: NYSTATIN CREAM 30 GM TUBE TP SCH ×2 (09:57→21:42)
--- NOTE | 2018-08-24 10:30 | NUR ---
Received report from radiologist regarding unchanged large left pneumothorax.Called to notify.No new orders.
--- NOTE | 2018-08-24 11:00 | NUR ---
Pt noted with respiratory distress during repositioning.Placed in high benz position.Will continue to monitor.
--- NOTE | 2018-08-24 11:40 | NUR ---
Seen,examined by with new orders noted.Pt kept NPO due to planned chest tube insertion.
--- NOTE | 2018-08-24 13:55 | NUR ---
RT PT CHEST TUBE IN PLACE AT THIS TIME BY WITH OUT INCIDENT RT ON STAND BY. PT AT THIS TIME HAS NO BEEN GETTING CPT DUE TO HEMOTHORAX ON LEFT SIDE. PT RN AND MD ARE AWARE CPT WAS NOT DONE. PT REMAINS ON O2 3LPM VIA NC. WILL CONTINUE TO MONITOR PT.
--- NOTE | 2018-08-24 14:00 | NUR ---
Spoke with pt son Meng,updated on pt plan of care.Pt son consented for chest tube insertion.
[2018-08-24] MEDS: PROTEIN SUPPLEMENT (PROSTAT) 30 ML LIQUID GT SCH (15:00)
--- NOTE | 2018-08-24 15:45 | NUR ---
at bedside to place a chest tube.Pt tolerated procedure well.
[2018-08-24] MEDS: OSMOLITE 1.2 CAL 1,000 ML LIQUID GT SCH (22:18)
[2018-08-25] VITALS (55 sets, daily range): BP systolic 85–137; BP diastolic 31–120
[2018-08-25] MEDS: IPRATROPIUM BROMIDE 0.5 MG/2.5 ML NEBU NEB SCH ×4 (00:57→19:02)
[2018-08-25] MEDS: LEVALBUTEROL HCL NEB 0.63 MG/3 ML NEBU NEB SCH ×4 (00:57→19:02)
--- NOTE | 2018-08-25 01:15 | NUR ---
NT sx / thick summers, mod amt.
[2018-08-25] MEDS: IV NORMAL SALINE 250 ML IV PRN (05:19)
[2018-08-25] MEDS: METRONIDAZOLE 500 MG/NS 100ML 500 MG in PREMIXED 1 EACH IV SCH ×3 (05:23→21:45)
[2018-08-25 05:24] LABS: BASOPHILS % (AUTO) 0.3 % (0.0-2.0); EOSINOPHILS # (AUTO) 0.1 K/uL (0.0-0.7); EOSINOPHILS % (AUTO) 2.2 % (0.0-7.0); HEMATOCRIT 24.6 % (36.7-47.1); HEMOGLOBIN 8.2 g/dL (12.5-16.3); LYMPHOCYTES # (AUTO) 1.4 K/uL (20.0-40.0); LYMPHOCYTES % (AUTO) 22.7 % (20.5-51.5); MEAN CORPUSCULAR HEMOGLOBIN 31.3 uug (23.8-33.4); MEAN CORPUSCULAR HGB CONC 33 g/dL (32.5-36.3); MEAN CORPUSCULAR VOLUME 94.6 fL (73.0-96.2); MONOCYTES # (AUTO) 0.7 K/uL (2.0-10.0); MONOCYTES % (AUTO) 10.9 % (0.0-11.0); NEUTROPHILS % (AUTO) 63.9 % (38.5-71.5); PLATELET COUNT (AUTO) 257 K/uL (152-348); WHITE BLOOD COUNT (AUTO) 6.2 K/uL (3.6-10.2)
[2018-08-25] MEDS: VANCOMYCIN FOR PO/GT/NG USE GT SCH ×4 (05:24→23:51)
[2018-08-25 05:36] LABS: CARBON DIOXIDE 24 mmol/L (21-32); CHLORIDE 116 mmol/L (98-107); GLUCOSE 157 mg/dL (74-106); MAGNESIUM 1.8 mg/dL (1.8-2.4); PHOSPHOROUS 2.7 mg/dL (2.5-4.9); POTASSIUM 3.7 mmol/L (3.5-5.1); UREA NITROGEN, BLOOD 24 mg/dL (7-18)
[2018-08-25] MEDS: SUCRALFATE 1 G/10 ML LIQUID UDC GT SCH ×4 (06:40→20:20)
[2018-08-25] MEDS: ACETYLCYSTEINE 20% 800 MG/4 ML VIAL NEB SCH ×2 (07:27→19:02)
[2018-08-25 07:55] LABS: ABG BASE EXCESS 0.9 mmol/L; ABG HCO3 23.2 mmol/L; ABG PCO2 28.8 mmHg (35.0-45.0); ABG PH 7.524 (7.350-7.450); ABG PO2 80.9 mmHg (75.0-100.0); ABG SITE LEFT BRACHIAL; ABG TOTAL HEMOGLOBIN 9.2 G/dL (13.5-18.0); COHb 1.5 % (0.5-1.5); MetHb 0.4 % (0.0-1.5); O2Hb 94.9 % (94.0-97.0); VENT MODE Nasal Cannula
[2018-08-25] MEDS: TRIAMCINOLONE ACET 0.1% CREAM 15 GM TUBE TP SCH ×2 (08:45→20:21)
[2018-08-25] MEDS: Z GUARD REMEDY PASTE 57 GM TUBE TOP SCH ×2 (08:46→20:22)
[2018-08-25] MEDS: PROTEIN SUPPLEMENT (PROSTAT) 30 ML LIQUID GT SCH ×2 (08:46→20:30)
[2018-08-25] MEDS: AMIODARONE HCL 200 MG TABLET GT SCH ×2 (08:47→20:20)
[2018-08-25] MEDS: PANTOPRAZOLE SODIUM 40 MG VIAL IV SCH ×2 (08:47→20:20)
[2018-08-25] MEDS: NYSTATIN POWDER 15 GM BOTTLE TOP SCH ×2 (08:51→20:30)
[2018-08-25] MEDS: SODIUM HYPOCHLORITE 0.125% 473 ML BOTTLE TP SCH (08:52)
[2018-08-25] MEDS: NYSTATIN CREAM 30 GM TUBE TP SCH ×2 (08:53→20:21)
--- NOTE | 2018-08-25 11:19 | NUR ---
DOCTOR TERAN IN UNIT ROUNDING ON PATIENT.
--- NOTE | 2018-08-25 12:42 | NUR ---
DR. HINTON AND DR HOLCOMB IN UNIT TO SEE PATIENT PENDING DETERMINATION OF DC CHEST TUBE
--- NOTE | 2018-08-25 16:30 | NUR ---
DOCTOR LIS IN THE ROOM TO SEE PATIENT
--- NOTE | 2018-08-25 19:30 | NUR ---
Report received. Patient on contact isolation for diarrhea, stool c diff. AA, aphasic. Doesn't follow commands. NAD noted. O2 2L NC sat above 94%. Refer to ICU flow sheet for complete assessment. Addendum: 08/26/18 at 0426 by KHRIS CERVANTES RN Amended: Links added. Addendum: 08/26/18 at 0430 by KHRIS CERVANTES RN Amended: Links added.
[2018-08-26] VITALS (21 sets, daily range): BP systolic 91–128; BP diastolic 48–75
--- NOTE | 2018-08-26 | NUR ---
Tolerating GT feedings well. Turned and repositioned Q2H. L chest tube to Pleur-evac with minimal serosanguineous drainage. No air leaks. Addendum: 08/26/18 at 0430 by KHRIS CERVANTES RN Amended: Links added.
[2018-08-26] MEDS: LEVALBUTEROL HCL NEB 0.63 MG/3 ML NEBU NEB SCH ×4 (01:11→19:11)
[2018-08-26] MEDS: IPRATROPIUM BROMIDE 0.5 MG/2.5 ML NEBU NEB SCH ×4 (01:11→19:10)
[2018-08-26] MEDS: IV NORMAL SALINE 250 ML IV PRN (04:47)
[2018-08-26 05:22] LABS: BASOPHILS % (AUTO) 0.8 % (0.0-2.0); EOSINOPHILS # (AUTO) 0.2 K/uL (0.0-0.7); EOSINOPHILS % (AUTO) 3.7 % (0.0-7.0); HEMATOCRIT 23.1 % (36.7-47.1); HEMOGLOBIN 7.7 g/dL (12.5-16.3); LYMPHOCYTES # (AUTO) 1.3 K/uL (20.0-40.0); LYMPHOCYTES % (AUTO) 26.1 % (20.5-51.5); MEAN CORPUSCULAR HEMOGLOBIN 31.9 uug (23.8-33.4); MEAN CORPUSCULAR HGB CONC 33 g/dL (32.5-36.3); MEAN CORPUSCULAR VOLUME 95.7 fL (73.0-96.2); MONOCYTES # (AUTO) 0.6 K/uL (2.0-10.0); MONOCYTES % (AUTO) 13.1 % (0.0-11.0); NEUTROPHILS # (AUTO) 2.7 K/uL (1.8-8.9); NEUTROPHILS % (AUTO) 56.3 % (38.5-71.5); PLATELET COUNT (AUTO) 187 K/uL (152-348); WHITE BLOOD COUNT (AUTO) 4.8 K/uL (3.6-10.2)
[2018-08-26 05:41] LABS: ALANINE AMINOTRANSFERASE 7 U/L (16-63); ALKALINE PHOSPHATASE 120 U/L (50-136); ASPARTATE AMINOTRANSFERASE 17 U/L (15-37); BILIRUBIN,TOTAL 0.3 mg/dL (0.2-1.0); CARBON DIOXIDE 23 mmol/L (21-32); CHLORIDE 120 mmol/L (98-107); CREATININE 0.9 mg/dL (0.6-1.3); GLUCOSE 134 mg/dL (74-106); MAGNESIUM 1.7 mg/dL (1.8-2.4); PHOSPHOROUS 2.6 mg/dL (2.5-4.9); POTASSIUM 3.8 mmol/L (3.5-5.1); TOTAL PROTEIN, SERUM 4.3 g/dL (6.4-8.2); UREA NITROGEN, BLOOD 31 mg/dL (7-18)
[2018-08-26 05:47] LABS: RED BLOOD CELL COUNT(AUTO) 2.41 MIL/uL (4.06-5.63)
[2018-08-26] MEDS: VANCOMYCIN FOR PO/GT/NG USE GT SCH ×4 (05:55→23:19)
[2018-08-26] MEDS: METRONIDAZOLE 500 MG/NS 100ML 500 MG in PREMIXED 1 EACH IV SCH (05:55)
--- NOTE | 2018-08-26 06:34 | NUR ---
VS stable during the shift. O2 remains @ 2 L NC; sats good. Tolerating GT feedings; off [id number]. Addendum: 08/26/18 at 0635 by KHRIS CERVANTES RN Amended: Links added.
[2018-08-26] MEDS: ACETYLCYSTEINE 20% 800 MG/4 ML VIAL NEB SCH ×2 (07:20→19:10)
[2018-08-26] MEDS ORDERED: ALBUTEROL SULFATE 1.25 MG/3 ML NEBU NEB PRN (08:15)
[2018-08-26] MEDS: PROTEIN SUPPLEMENT (PROSTAT) 30 ML LIQUID GT SCH ×2 (08:28→21:18)
[2018-08-26] MEDS: AMIODARONE HCL 200 MG TABLET GT SCH ×2 (08:30→21:18)
[2018-08-26] MEDS: Z GUARD REMEDY PASTE 57 GM TUBE TOP SCH ×2 (08:30→21:08)
[2018-08-26] MEDS: PANTOPRAZOLE SODIUM 40 MG VIAL IV SCH ×2 (08:30→21:17)
[2018-08-26] MEDS: SUCRALFATE 1 G/10 ML LIQUID UDC GT SCH ×4 (08:30→21:17)
[2018-08-26] MEDS: NYSTATIN POWDER 15 GM BOTTLE TOP SCH ×2 (08:31→21:09)
[2018-08-26] MEDS: NYSTATIN CREAM 30 GM TUBE TP SCH ×2 (08:31→21:09)
[2018-08-26] MEDS: SODIUM HYPOCHLORITE 0.125% 473 ML BOTTLE TP SCH (08:31)
[2018-08-26] MEDS: TRIAMCINOLONE ACET 0.1% CREAM 15 GM TUBE TP SCH ×2 (08:32→21:09)
[2018-08-26] MEDS ORDERED: LEVALBUTEROL HCL NEB 0.63 MG/3 ML NEBU NEB PRN (11:15)
[2018-08-26] MEDS ORDERED: EPOETIN ALFA 10,000 UNITS/ML VIAL SQ ONE (13:00)
[2018-08-26] MEDS ORDERED: ALBUTEROL SULFATE 1.25 MG/3 ML NEBU NEB SCH (13:30)
[2018-08-26] MEDS: MAGNESIUM SULFATE/D5W 100 ML IV SCH ×2 (15:05→16:42)
[2018-08-27] VITALS (11 sets, daily range): BP systolic 97–108; BP diastolic 38–69
[2018-08-27] MEDS: LEVALBUTEROL HCL NEB 0.63 MG/3 ML NEBU NEB SCH ×4 (00:36→19:32)
[2018-08-27] MEDS: IPRATROPIUM BROMIDE 0.5 MG/2.5 ML NEBU NEB SCH ×4 (00:36→19:32)
[2018-08-27] MEDS: IV NORMAL SALINE 250 ML IV PRN (04:50)
[2018-08-27 05:06] LABS: BASOPHILS # (AUTO) 0.1 K/uL (0.0-8.0); BASOPHILS % (AUTO) 0.9 % (0.0-2.0); EOSINOPHILS # (AUTO) 0.2 K/uL (0.0-0.7); EOSINOPHILS % (AUTO) 3.6 % (0.0-7.0); HEMATOCRIT 24.7 % (36.7-47.1); HEMOGLOBIN 8.1 g/dL (12.5-16.3); LYMPHOCYTES # (AUTO) 1.8 K/uL (20.0-40.0); LYMPHOCYTES % (AUTO) 28.1 % (20.5-51.5); MEAN CORPUSCULAR HEMOGLOBIN 31.3 uug (23.8-33.4); MEAN CORPUSCULAR HGB CONC 33 g/dL (32.5-36.3); MEAN CORPUSCULAR VOLUME 94.8 fL (73.0-96.2); MONOCYTES % (AUTO) 14.7 % (0.0-11.0); NEUTROPHILS # (AUTO) 3.4 K/uL (1.8-8.9); NEUTROPHILS % (AUTO) 52.7 % (38.5-71.5); PLATELET COUNT (AUTO) 248 K/uL (152-348); WHITE BLOOD COUNT (AUTO) 6.5 K/uL (3.6-10.2)
[2018-08-27 05:18] LABS: ALANINE AMINOTRANSFERASE 16 U/L (16-63); ALKALINE PHOSPHATASE 122 U/L (50-136); ASPARTATE AMINOTRANSFERASE 16 U/L (15-37); BILIRUBIN,TOTAL 0.2 mg/dL (0.2-1.0); CARBON DIOXIDE 25 mmol/L (21-32); CHLORIDE 117 mmol/L (98-107); CREATININE 0.9 mg/dL (0.6-1.3); GLUCOSE 97 mg/dL (74-106); MAGNESIUM 2.1 mg/dL (1.8-2.4); PHOSPHOROUS 2.6 mg/dL (2.5-4.9); POTASSIUM 3.9 mmol/L (3.5-5.1); TOTAL PROTEIN, SERUM 4.6 g/dL (6.4-8.2); UREA NITROGEN, BLOOD 39 mg/dL (7-18)
[2018-08-27] MEDS: VANCOMYCIN FOR PO/GT/NG USE GT SCH ×4 (06:29→23:33)
[2018-08-27] MEDS: SUCRALFATE 1 G/10 ML LIQUID UDC GT SCH ×4 (06:29→20:35)
[2018-08-27] MEDS: ACETYLCYSTEINE 20% 800 MG/4 ML VIAL NEB SCH ×2 (07:22→19:32)
--- NOTE | 2018-08-27 07:47 | NUR ---
RECEIVED A 87 Y/O MALE PT A CASE OF RESPIRATORY FAILURE/ GI BLEEDING, ALERT DISORIENTED, OPENS EYES SPONTANEOUSLY. BREATHING VIA NC 2LPM. PT HAS MANN PICC LINE, RECEIVING TKO. HAS A G.TUBE RECEIVING OSMOLITE 1.2ML @65ML/HR TO BE RESTARTED AT 1000, HAS A LT CHEST TUBE LEVEL @ 1700ML. URINATING VIA FC , HAS A FLEXI SEAL ON CONTACT ISOLATION FOR POSSIBLE C-DIFF. NOTED TO HAVE SACRAL WOUND COVERED WITH DRESSING.
[2018-08-27] MEDS: Z GUARD REMEDY PASTE 57 GM TUBE TOP SCH ×2 (08:16→20:59)
[2018-08-27] MEDS: PANTOPRAZOLE SODIUM 40 MG VIAL IV SCH (08:17)
[2018-08-27] MEDS: AMIODARONE HCL 200 MG TABLET GT SCH ×2 (08:17→20:34)
[2018-08-27] MEDS: NYSTATIN POWDER 15 GM BOTTLE TOP SCH ×2 (08:18→20:36)
[2018-08-27] MEDS: PROTEIN SUPPLEMENT (PROSTAT) 30 ML LIQUID GT SCH ×2 (08:18→20:36)
[2018-08-27] MEDS: NYSTATIN CREAM 30 GM TUBE TP SCH ×2 (08:19→20:38)
[2018-08-27] MEDS: TRIAMCINOLONE ACET 0.1% CREAM 15 GM TUBE TP SCH ×2 (08:19→20:37)
[2018-08-27] MEDS: SODIUM HYPOCHLORITE 0.125% 473 ML BOTTLE TP SCH (08:19)
[2018-08-27] MEDS: OSMOLITE 1.2 CAL 1,000 ML LIQUID GT SCH (10:15)
--- NOTE | 2018-08-27 12:00 | NUR ---
telephone call by dr benavides, received by ethan, crossing supervisor , stating dr benavides has no problem for patient to be transferred to [facility], order received and preparing patient to be transferred
[2018-08-27] MEDS ORDERED: FUROSEMIDE 20 MG/2 ML VIAL IV ONE (12:15)
--- NOTE | 2018-08-27 13:45 | NUR ---
TRANSFERRED PATIENT FROM ICU [facility] STATUS NO SS OF PAIN OR ACUTE DISTRESS WITH 2L O2 VIA NC SATURATING 97%, MOANS ONLY DURING TURNING. VERY EDEMATOUS BOTH UPPER AND LE. SUSANA WEEPING LARGE AMOUNT OF CLEAR DRAINAGE KEPT CLEAN AND DRY. CHEST TUBE LEFT CHEST INTACT CONNECTED TO PLEURA VAC FUNCTIONING WELL. PATIEN ALSO ON GT FEEDING AT 65 ML/HR TOLERATING WELL
[2018-08-27] MEDS: PANTOPRAZOLE ORAL SUSPENSION 40 MG SUSPDR.PKT GT SCH (16:58)
--- NOTE | 2018-08-27 19:23 | NUR ---
Patient alert and oriented x 1. On contact isolation for C-Diff. Eyes open spontaneously to stimuli. Breathing via NC at 2 L. Triple lumen PICC line in place on left arm. Patient on osmolite 1.2 L via g-tube @ 65/hr to start in morning. Patient has chest tube on left side. Urine draining to De La Cruz catheter. Patient has Flexiseal. Sacral wound and hell wounds covered and cleaned by pervious shift. Call light and frequently used items within reach. Will continue to monitor. Addendum: 08/27/18 at 1950 by BRENT BUTLER RN 1.2 Osmolite will be turned off at 6 AM.
[2018-08-27] MEDS: ACETAMINOPHEN 325 MG TABLET PO PRN (22:58)
[2018-08-28] VITALS (7 sets, daily range): BP systolic 96–167; BP diastolic 29–74
[2018-08-28] MEDS: LEVALBUTEROL HCL NEB 0.63 MG/3 ML NEBU NEB SCH ×4 (00:42→19:35)
[2018-08-28] MEDS: IPRATROPIUM BROMIDE 0.5 MG/2.5 ML NEBU NEB SCH ×4 (00:42→19:35)
[2018-08-28] MEDS: OSMOLITE 1.2 CAL 1,000 ML LIQUID GT SCH ×2 (01:30→23:02)
--- NOTE | 2018-08-28 01:45 | NUR ---
CHEST TUBE DRAINAGE SYSTEM CHANGED. 300 cc OF OUTPUT LOGGED. PATIENT TOLERATED PROCEDURE WELL. WILL CONTINUE TO MONITOR.
[2018-08-28] MEDS: VANCOMYCIN FOR PO/GT/NG USE GT SCH ×3 (05:29→22:05)
[2018-08-28] MEDS: PANTOPRAZOLE ORAL SUSPENSION 40 MG SUSPDR.PKT GT SCH ×2 (05:30→17:30)
[2018-08-28] MEDS: SUCRALFATE 1 G/10 ML LIQUID UDC GT SCH ×4 (06:49→21:55)
--- NOTE | 2018-08-28 06:51 | NUR ---
PATIENT ALERT AND ORIENTED X 1. vs STABLE DURING SHIFT. O2 REMAINS AT 2L AT 97% OXYGEN SATURATION. TOLERATING G-TUBE FEEDING WELL. OFF AT 0600. SR AT 93 BPM. SAFETY MEASURES AND CALL LINDSEY WITHIN REACH. WILL ENDORSE TO ONCOMING SHIFT ACCORDINGLY.
[2018-08-28] MEDS: ACETYLCYSTEINE 20% 800 MG/4 ML VIAL NEB SCH ×2 (07:14→19:34)
--- NOTE | 2018-08-28 07:30 | NUR ---
Received pt. on bed resting sleeping on/off. On nasal canula, chest tube to LIS 20mm suction bubbling with yellowish output noted, insertion site with dressing c.d.i. . pt. in distress. saturation of 90-92%. G-tube clamped to restart feeding at 1000, as reported. rectal tube in place. pt. aphasic. will continue with care plan,.
[2018-08-28 07:33] LABS: BASOPHILS % (AUTO) 0.8 % (0.0-2.0); EOSINOPHILS # (AUTO) 0.2 K/uL (0.0-0.7); HEMOGLOBIN 7.6 g/dL (12.5-16.3); LYMPHOCYTES # (AUTO) 1.2 K/uL (20.0-40.0); LYMPHOCYTES % (AUTO) 21.3 % (20.5-51.5); MEAN CORPUSCULAR HEMOGLOBIN 32.2 uug (23.8-33.4); MEAN CORPUSCULAR HGB CONC 33 g/dL (32.5-36.3); MEAN CORPUSCULAR VOLUME 97.3 fL (73.0-96.2); MONOCYTES # (AUTO) 0.7 K/uL (2.0-10.0); MONOCYTES % (AUTO) 12.9 % (0.0-11.0); NEUTROPHILS # (AUTO) 3.4 K/uL (1.8-8.9); PLATELET COUNT (AUTO) 237 K/uL (152-348); WHITE BLOOD COUNT (AUTO) 5.5 K/uL (3.6-10.2)
[2018-08-28 07:35] LABS: RED BLOOD CELL COUNT(AUTO) 2.37 MIL/uL (4.06-5.63)
[2018-08-28 07:48] LABS: ALANINE AMINOTRANSFERASE 13 U/L (16-63); ALKALINE PHOSPHATASE 128 U/L (50-136); ASPARTATE AMINOTRANSFERASE 17 U/L (15-37); BILIRUBIN,TOTAL 0.2 mg/dL (0.2-1.0); CARBON DIOXIDE 26 mmol/L (21-32); CHLORIDE 119 mmol/L (98-107); CREATININE 0.9 mg/dL (0.6-1.3); GLUCOSE 134 mg/dL (74-106); PHOSPHOROUS 2.5 mg/dL (2.5-4.9); POTASSIUM 3.8 mmol/L (3.5-5.1); TOTAL PROTEIN, SERUM 4.3 g/dL (6.4-8.2); UREA NITROGEN, BLOOD 43 mg/dL (7-18)
[2018-08-28] MEDS: AMIODARONE HCL 200 MG TABLET GT SCH ×2 (08:32→21:55)
[2018-08-28] MEDS: TRIAMCINOLONE ACET 0.1% CREAM 15 GM TUBE TP SCH ×2 (08:33→22:02)
[2018-08-28] MEDS: SODIUM HYPOCHLORITE 0.125% 473 ML BOTTLE TP SCH (08:33)
[2018-08-28] MEDS: NYSTATIN CREAM 30 GM TUBE TP SCH ×2 (08:33→22:03)
[2018-08-28] MEDS: NYSTATIN POWDER 15 GM BOTTLE TOP SCH ×2 (08:34→22:03)
[2018-08-28] MEDS: Z GUARD REMEDY PASTE 57 GM TUBE TOP SCH ×2 (08:35→22:04)
[2018-08-28] MEDS: PROTEIN SUPPLEMENT (PROSTAT) 30 ML LIQUID GT SCH ×2 (08:36→21:59)
--- NOTE | 2018-08-28 12:00 | NUR ---
Dr. Cutler in to examine pt. chest tube to intermittent 20cm suctioning as ordered. Clear yellow output, will continue to monitor.
--- NOTE | 2018-08-28 18:02 | NUR ---
Left pt. on bed resting sleeping. On nasal canula 2L saturating within normal limits, with a couple of episodes of desaturation resolved with deep suctioning. Chest tube to continuous 20mm suction, with a total of 250cc output. Dressing at insertion site c.d.i. . pt. in no distress. G-tube clamped feeding on no residual during shift. rectal tube in place. pt. remains aphasic screaming to touch. will continue with care plan,.
[2018-08-29] MEDS: IPRATROPIUM BROMIDE 0.5 MG/2.5 ML NEBU NEB SCH ×4 (00:48→19:46)
[2018-08-29] MEDS: LEVALBUTEROL HCL NEB 0.63 MG/3 ML NEBU NEB SCH ×4 (00:48→19:45)
[2018-08-29 04:00] VITALS: BP 128/60
[2018-08-29 06:06] LABS: BASOPHILS % (AUTO) 0.4 % (0.0-2.0); EOSINOPHILS # (AUTO) 0.1 K/uL (0.0-0.7); EOSINOPHILS % (AUTO) 0.7 % (0.0-7.0); HEMATOCRIT 24.5 % (36.7-47.1); HEMOGLOBIN 8.1 g/dL (12.5-16.3); LYMPHOCYTES # (AUTO) 1.2 K/uL (20.0-40.0); LYMPHOCYTES % (AUTO) 14.2 % (20.5-51.5); MEAN CORPUSCULAR HEMOGLOBIN 31.7 uug (23.8-33.4); MEAN CORPUSCULAR HGB CONC 33 g/dL (32.5-36.3); MEAN CORPUSCULAR VOLUME 96.2 fL (73.0-96.2); MONOCYTES # (AUTO) 0.9 K/uL (2.0-10.0); NEUTROPHILS # (AUTO) 6.1 K/uL (1.8-8.9); NEUTROPHILS % (AUTO) 73.7 % (38.5-71.5); PLATELET COUNT (AUTO) 285 K/uL (152-348); RED BLOOD CELL COUNT(AUTO) 2.54 MIL/uL (4.06-5.63); WHITE BLOOD COUNT (AUTO) 8.2 K/uL (3.6-10.2)
[2018-08-29 06:24] LABS: CARBON DIOXIDE 26 mmol/L (21-32); CHLORIDE 121 mmol/L (98-107); CREATININE 0.9 mg/dL (0.6-1.3); GLUCOSE 117 mg/dL (74-106); POTASSIUM 4.2 mmol/L (3.5-5.1); UREA NITROGEN, BLOOD 47 mg/dL (7-18)
[2018-08-29] MEDS: ACETYLCYSTEINE 20% 800 MG/4 ML VIAL NEB SCH ×2 (07:23→19:46)
[2018-08-29] MEDS: PANTOPRAZOLE ORAL SUSPENSION 40 MG SUSPDR.PKT GT SCH ×2 (07:40→17:33)
[2018-08-29] MEDS: VANCOMYCIN FOR PO/GT/NG USE GT SCH ×3 (07:40→22:35)
[2018-08-29] MEDS: SUCRALFATE 1 G/10 ML LIQUID UDC GT SCH ×4 (07:41→20:22)
[2018-08-29 08:08] VITALS: BP 115/52
[2018-08-29] MEDS: AMIODARONE HCL 200 MG TABLET GT SCH ×2 (08:52→20:23)
[2018-08-29] MEDS: PROTEIN SUPPLEMENT (PROSTAT) 30 ML LIQUID GT SCH ×2 (08:53→20:42)
[2018-08-29] MEDS: NYSTATIN POWDER 15 GM BOTTLE TOP SCH ×2 (08:53→20:42)
[2018-08-29] MEDS: Z GUARD REMEDY PASTE 57 GM TUBE TOP SCH ×2 (08:54→20:43)
[2018-08-29] MEDS: SODIUM HYPOCHLORITE 0.125% 473 ML BOTTLE TP SCH (08:54)
[2018-08-29] MEDS: TRIAMCINOLONE ACET 0.1% CREAM 15 GM TUBE TP SCH ×2 (08:55→20:54)
[2018-08-29] MEDS: NYSTATIN CREAM 30 GM TUBE TP SCH ×2 (08:55→20:43)
[2018-08-29] MEDS ORDERED: NEUTRA PHOS PACKET PO ONE (09:30)
[2018-08-29 12:00] VITALS: BP 106/49
--- NOTE | 2018-08-29 12:00 | NUR ---
SEEN BY GAUGE AND WEIGH MACHINE ADJUSTER SEE NOTE
[2018-08-29] MEDS: HYDROCODONE/APAP 5-325MG TABLET PO PRN ×2 (15:25→22:35)
--- NOTE | 2018-08-29 15:48 | NUR ---
MOANING CONSTANTLY, VS WNL NO FEVER NORCO GIVEN ORDERED. SR/ST ON MONITOR. CLOSELY MONITORED
--- NOTE | 2018-08-29 15:53 | NUR ---
AWAKE ALERT BUT NONVERBAL, MOANS AND SCREAM ON OCCASION NEEDS ATTENDED. REQUIRES FREQUENT ORAL SUCTIONING FOR MODERATE SECRETION NOTED SOME BRIGHT RED SECRETION DURING ORAL CARE. HH MONITORED ORDERED
[2018-08-29 16:00] VITALS: BP 112/53
[2018-08-29 19:16] VITALS: BP 130/59
[2018-08-29 23:17] VITALS: BP 113/52
[2018-08-29] MEDS: ALBUMIN HUMAN 25% 25 GM in PREMIXED 1 EACH IV SCH (23:26)
[2018-08-29] MEDS ORDERED: FUROSEMIDE 40 MG/4 ML VIAL IV ONE (23:59)
[2018-08-30] VITALS (16 sets, daily range): BP systolic 81–112; BP diastolic 45–72
[2018-08-30] MEDS: IPRATROPIUM BROMIDE 0.5 MG/2.5 ML NEBU NEB SCH ×4 (00:50→19:10)
[2018-08-30] MEDS: LEVALBUTEROL HCL NEB 0.63 MG/3 ML NEBU NEB SCH ×4 (00:50→19:10)
[2018-08-30] MEDS: HYDROCODONE/APAP 5-325MG TABLET PO PRN (04:48)
[2018-08-30] MEDS: VANCOMYCIN FOR PO/GT/NG USE GT SCH ×3 (05:17→21:15)
[2018-08-30] MEDS: PANTOPRAZOLE ORAL SUSPENSION 40 MG SUSPDR.PKT GT SCH ×2 (05:17→17:08)
[2018-08-30] MEDS: ALBUMIN HUMAN 25% 25 GM in PREMIXED 1 EACH IV SCH ×2 (05:18→12:53)
--- NOTE | 2018-08-30 07:08 | NUR ---
END OF SHIFT REPORT pATIENT RESTED WELL IN BETWEEN CARE; NO ACUTE DISTRESS, STABLE AT 3LNC; SR/ST ON TELE; MEDICATED WITH nORCO X2; ALBUMIN GIVEN; NEEDS ATTENDED; CONTINUE TO MONITOR; CONTINUE PLAN OF CARE.
[2018-08-30] MEDS: ACETYLCYSTEINE 20% 800 MG/4 ML VIAL NEB SCH ×2 (07:14→19:10)
[2018-08-30 07:24] LABS: EOSINOPHILS % (AUTO) 0.6 % (0.0-7.0); LYMPHOCYTES # (AUTO) 0.8 K/uL (20.0-40.0); MONOCYTES # (AUTO) 0.8 K/uL (2.0-10.0); NEUTROPHILS # (AUTO) 4.7 K/uL (1.8-8.9); NEUTROPHILS % (AUTO) 73.8 % (38.5-71.5); WHITE BLOOD COUNT (AUTO) 6.3 K/uL (3.6-10.2)
[2018-08-30 07:30] LABS: BASOPHILS % (AUTO) 0.3 % (0.0-2.0); MEAN CORPUSCULAR HEMOGLOBIN 31.6 uug (23.8-33.4); MEAN CORPUSCULAR HGB CONC 33 g/dL (32.5-36.3); MEAN CORPUSCULAR VOLUME 95.6 fL (73.0-96.2); MONOCYTES % (AUTO) 12.3 % (0.0-11.0); PLATELET COUNT (AUTO) 236 K/uL (152-348)
[2018-08-30 07:42] LABS: CARBON DIOXIDE 27 mmol/L (21-32); CHLORIDE 120 mmol/L (98-107); CREATININE 0.8 mg/dL (0.6-1.3); GLUCOSE 96 mg/dL (74-106); MAGNESIUM 1.9 mg/dL (1.8-2.4); PHOSPHOROUS 2.5 mg/dL (2.5-4.9); POTASSIUM 3.8 mmol/L (3.5-5.1); UREA NITROGEN, BLOOD 45 mg/dL (7-18)
[2018-08-30 08:01] LABS: RED BLOOD CELL COUNT(AUTO) 2.07 MIL/uL (4.06-5.63)
[2018-08-30 08:03] LABS: HEMATOCRIT 19.8 % (36.7-47.1); HEMOGLOBIN 6.5 g/dL (12.5-16.3)
[2018-08-30] MEDS: Z GUARD REMEDY PASTE 57 GM TUBE TOP SCH ×2 (08:50→21:07)
[2018-08-30] MEDS: PROTEIN SUPPLEMENT (PROSTAT) 30 ML LIQUID GT SCH ×2 (08:50→21:11)
[2018-08-30] MEDS: SUCRALFATE 1 G/10 ML LIQUID UDC GT SCH ×4 (08:50→21:07)
[2018-08-30] MEDS: NYSTATIN CREAM 30 GM TUBE TP SCH ×2 (08:51→21:13)
[2018-08-30] MEDS: TRIAMCINOLONE ACET 0.1% CREAM 15 GM TUBE TP SCH ×2 (08:51→21:12)
[2018-08-30] MEDS: SODIUM HYPOCHLORITE 0.125% 473 ML BOTTLE TP SCH (08:51)
[2018-08-30] MEDS: NYSTATIN POWDER 15 GM BOTTLE TOP SCH ×2 (08:51→21:09)
[2018-08-30] MEDS: AMIODARONE HCL 200 MG TABLET GT SCH ×2 (08:54→21:00)
--- NOTE | 2018-08-30 08:54 | NUR ---
Spoke with WOOD PRODUCTS MANUFACTURER Ayesha Cramer on the telephone and made aware of pt's low H/H levels. WOOD PRODUCTS MANUFACTURER stated to give 1 unit of PRBC.
--- NOTE | 2018-08-30 09:38 | NUR ---
1 unit of PRBC started. Will closely monitor pt for the first 15 min per protocol for any adverse blood transfusion reactions.
--- NOTE | 2018-08-30 09:54 | NUR ---
Pt tolerating 1 unit of PRBC well and no adverse blood transfusion reactions noted from the pt. Will continue to monitor.
--- NOTE | 2018-08-30 11:55 | NUR ---
1 unit of PRBC completed. Pt tolerated blood transfusion well and nad noted upon completion.
[2018-08-30] MEDS ORDERED: FUROSEMIDE 40 MG/4 ML VIAL IV ONE ×2 (12:45→15:30)
[2018-08-30 14:48] LABS: BASOPHILS % (AUTO) 0.4 % (0.0-2.0); EOSINOPHILS % (AUTO) 0.7 % (0.0-7.0); HEMATOCRIT 23.5 % (36.7-47.1); LYMPHOCYTES % (AUTO) 19.7 % (20.5-51.5); MEAN CORPUSCULAR HGB CONC 33 g/dL (32.5-36.3); MEAN CORPUSCULAR VOLUME 95.4 fL (73.0-96.2); MONOCYTES # (AUTO) 0.6 K/uL (2.0-10.0); MONOCYTES % (AUTO) 12.1 % (0.0-11.0); NEUTROPHILS # (AUTO) 3.5 K/uL (1.8-8.9); NEUTROPHILS % (AUTO) 67.1 % (38.5-71.5); PLATELET COUNT (AUTO) 223 K/uL (152-348); WHITE BLOOD COUNT (AUTO) 5.2 K/uL (3.6-10.2)
[2018-08-30 14:55] LABS: HEMOGLOBIN 7.6 g/dL (12.5-16.3); RED BLOOD CELL COUNT(AUTO) 2.46 MIL/uL (4.06-5.63)
--- NOTE | 2018-08-30 16:28 | NUR ---
2nd unit of PRBC started. Will closely monitor pt for any adverse blood transfusion reactions.
--- NOTE | 2018-08-30 16:41 | NUR ---
No adverse blood transfusion reactions noted during the first 15 min of 2nd unit PRBC transfusion. Pt tolerating well and will continue to monitor.
--- NOTE | 2018-08-30 18:13 | NUR ---
Spoke with SUPERVISOR JOINERS Ayesha Cramer. Lasix post transfusion to be held in light of pt's low blood pressure.
--- NOTE | 2018-08-30 19:03 | NUR ---
2nd unit of PRBC completed. Pt tolerating blood transfusion well and nad noted upon completion of transfusion.
[2018-08-30 19:55] LABS: *OCCULT BLOOD STOOL NEGATIVE (NEGATIVE)
--- NOTE | 2018-08-30 20:00 | NUR ---
Received patient bed resting comfortably. No SOB, on O2 4L/NC O2Sat 100%. Pleural drain noted, Chest Tube to LIS 20mm suction in place, bubbling with moderate yellowish output, site dressing intact. Clamped G-tube noted. NPO per MD order. Seen & examined by Gi. , Dr. Garcia. No further orders received. Sinus rhythm on the monitor.
[2018-08-30 20:32] LABS: BASOPHILS % (AUTO) 0.9 % (0.0-2.0); EOSINOPHILS # (AUTO) 0.1 K/uL (0.0-0.7); EOSINOPHILS % (AUTO) 1.5 % (0.0-7.0); HEMATOCRIT 28.3 % (36.7-47.1); HEMOGLOBIN 9.6 g/dL (12.5-16.3); LYMPHOCYTES # (AUTO) 1.3 K/uL (20.0-40.0); LYMPHOCYTES % (AUTO) 23.6 % (20.5-51.5); MEAN CORPUSCULAR HEMOGLOBIN 31.4 uug (23.8-33.4); MEAN CORPUSCULAR HGB CONC 34 g/dL (32.5-36.3); MONOCYTES # (AUTO) 0.7 K/uL (2.0-10.0); MONOCYTES % (AUTO) 12.7 % (0.0-11.0); NEUTROPHILS # (AUTO) 3.4 K/uL (1.8-8.9); NEUTROPHILS % (AUTO) 61.3 % (38.5-71.5); PLATELET COUNT (AUTO) 231 K/uL (152-348); RED BLOOD CELL COUNT(AUTO) 3.04 MIL/uL (4.06-5.63); WHITE BLOOD COUNT (AUTO) 5.5 K/uL (3.6-10.2)
[2018-08-30] MEDS: ACETAMINOPHEN 325 MG TABLET PO PRN (21:07)
--- NOTE | 2018-08-30 21:17 | NUR ---
S/P 2 units PRBC. Current H/H is 9.6 & 28.3. Stool OB test showed negative.
[2018-08-30] MEDS: IPRATROPIUM BROMIDE 0.5 MG/2.5 ML NEBU NEB PRN (22:09)
--- NOTE | 2018-08-31 | NUR ---
Tolerated G-tube feeding at 65 ml/hr. No residual noted. Sponge bath provided, repositioned in bed. Tele sinus rhythm.
[2018-08-31] MEDS: IPRATROPIUM BROMIDE 0.5 MG/2.5 ML NEBU NEB SCH ×4 (01:00→19:43)
[2018-08-31] MEDS: LEVALBUTEROL HCL NEB 0.63 MG/3 ML NEBU NEB SCH ×4 (01:01→19:43)
--- NOTE | 2018-08-31 02:00 | NUR ---
Suctioned PRN, kept flexi-seal in place. Patient still draining liquid yellow stool. Sacral wound dressing reinforced.
[2018-08-31 03:17] VITALS: BP 110/67
[2018-08-31] MEDS: VANCOMYCIN FOR PO/GT/NG USE GT SCH ×3 (05:45→22:17)
[2018-08-31] MEDS: PANTOPRAZOLE ORAL SUSPENSION 40 MG SUSPDR.PKT GT SCH ×2 (05:45→17:10)
--- NOTE | 2018-08-31 06:26 | NUR ---
No acute resp distress. Chest tube in place, still draining moderate serous pleural fluid. G-tube clamped for now, to resume feeding at 10:100 AM today. Flexi-seal drainage bag change done. Sinus rhythm on the monitor. Vital signs are WNL.
[2018-08-31 06:46] LABS: BASOPHILS % (AUTO) 0.3 % (0.0-2.0); EOSINOPHILS # (AUTO) 0.1 K/uL (0.0-0.7); EOSINOPHILS % (AUTO) 1.2 % (0.0-7.0); HEMATOCRIT 28.9 % (36.7-47.1); HEMOGLOBIN 9.7 g/dL (12.5-16.3); LYMPHOCYTES # (AUTO) 0.9 K/uL (20.0-40.0); LYMPHOCYTES % (AUTO) 16.1 % (20.5-51.5); MEAN CORPUSCULAR HEMOGLOBIN 31.5 uug (23.8-33.4); MEAN CORPUSCULAR HGB CONC 34 g/dL (32.5-36.3); MEAN CORPUSCULAR VOLUME 94.2 fL (73.0-96.2); MONOCYTES # (AUTO) 0.6 K/uL (2.0-10.0); MONOCYTES % (AUTO) 11.1 % (0.0-11.0); NEUTROPHILS # (AUTO) 4.1 K/uL (1.8-8.9); NEUTROPHILS % (AUTO) 71.3 % (38.5-71.5); PLATELET COUNT (AUTO) 244 K/uL (152-348); RED BLOOD CELL COUNT(AUTO) 3.07 MIL/uL (4.06-5.63); WHITE BLOOD COUNT (AUTO) 5.7 K/uL (3.6-10.2)
[2018-08-31 06:50] LABS: CARBON DIOXIDE 27 mmol/L (21-32); CHLORIDE 119 mmol/L (98-107); CREATININE 0.8 mg/dL (0.6-1.3); GLUCOSE 75 mg/dL (74-106); MAGNESIUM 1.8 mg/dL (1.8-2.4); PHOSPHOROUS 3.4 mg/dL (2.5-4.9); POTASSIUM 3.8 mmol/L (3.5-5.1); UREA NITROGEN, BLOOD 47 mg/dL (7-18)
[2018-08-31 07:20] VITALS: BP 123/68
[2018-08-31] MEDS: ACETYLCYSTEINE 20% 800 MG/4 ML VIAL NEB SCH ×2 (07:32→19:43)
[2018-08-31] MEDS: SUCRALFATE 1 G/10 ML LIQUID UDC GT SCH ×4 (08:46→20:16)
[2018-08-31] MEDS: IV D5W 1000ML 1,000 ML IV SCH (08:47)
[2018-08-31] MEDS: AMIODARONE HCL 200 MG TABLET GT SCH ×2 (08:47→20:17)
[2018-08-31] MEDS: NYSTATIN POWDER 15 GM BOTTLE TOP SCH ×2 (08:49→20:23)
[2018-08-31] MEDS: Z GUARD REMEDY PASTE 57 GM TUBE TOP SCH ×2 (08:49→20:20)
[2018-08-31] MEDS: SODIUM HYPOCHLORITE 0.125% 473 ML BOTTLE TP SCH (08:49)
[2018-08-31] MEDS: TRIAMCINOLONE ACET 0.1% CREAM 15 GM TUBE TP SCH ×2 (08:50→20:22)
[2018-08-31] MEDS: NYSTATIN CREAM 30 GM TUBE TP SCH ×2 (08:50→20:22)
[2018-08-31] MEDS: PROTEIN SUPPLEMENT (PROSTAT) 30 ML LIQUID GT SCH ×2 (08:52→20:20)
[2018-08-31 11:05] VITALS: BP 120/68
--- NOTE | 2018-08-31 11:30 | NUR ---
SUSANNE RAIL CAR REPAIRER IN ROOM EVALUATING PATIENT. PLAN TO SPEAK WITH SON FOR ETHICS MEETING AND RECOMMENDATIONS FOR PLAN OF CARE AND PROGNOSIS OF PATIENT.
[2018-08-31 11:32] LABS: BASOPHILS % (AUTO) 0.7 % (0.0-2.0); EOSINOPHILS % (AUTO) 0.5 % (0.0-7.0); HEMATOCRIT 29.6 % (36.7-47.1); HEMOGLOBIN 9.9 g/dL (12.5-16.3); LYMPHOCYTES # (AUTO) 0.8 K/uL (20.0-40.0); LYMPHOCYTES % (AUTO) 14.9 % (20.5-51.5); MEAN CORPUSCULAR HEMOGLOBIN 31.3 uug (23.8-33.4); MEAN CORPUSCULAR HGB CONC 33 g/dL (32.5-36.3); MONOCYTES # (AUTO) 0.7 K/uL (2.0-10.0); NEUTROPHILS # (AUTO) 3.9 K/uL (1.8-8.9); NEUTROPHILS % (AUTO) 71.9 % (38.5-71.5); PLATELET COUNT (AUTO) 252 K/uL (152-348); RED BLOOD CELL COUNT(AUTO) 3.15 MIL/uL (4.06-5.63); WHITE BLOOD COUNT (AUTO) 5.4 K/uL (3.6-10.2)
--- NOTE | 2018-08-31 12:00 | NUR ---
DOCTOR TIFFANIE IN ROOM ROUNDING ON PATIENT. NO NEW ORDERS
--- NOTE | 2018-08-31 15:00 | NUR ---
DOCTOR SLATER ROUNDING ON PATIENT AND AGREES WITH PLAN OF ETHICS MEETING WITH SON THAT IS BEING ARRANGED.
[2018-08-31 15:02] VITALS: BP 106/66
--- NOTE | 2018-08-31 16:15 | NUR ---
FLEXISEAL DISCONTINUED FOR NOW TO PREVENT ANY SKIN BREAKDOWN.
[2018-08-31] MEDS: HYDROCODONE/APAP 5-325MG TABLET PO PRN (20:17)
[2018-08-31 20:19] VITALS: BP 109/54
--- NOTE | 2018-08-31 20:35 | NUR ---
Received patient in bed resting comfortably. No SOB, on O2 4L/NC O2Sat 96%. Pleural drain/chest tube to wall low suction in place, bubbling with moderate yellowish output, site dressing intact. G-tube in place, patient tolerating 65 ml/hr Osmolite 1.2 roberto continuos feeding. No residual noted. Moaning on & off w/ frequent facial grimace noted. [place] 1 tab. given via G-tube. Sinus rhythm on the monitor.
[2018-09-01] VITALS (7 sets, daily range): BP systolic 105–131; BP diastolic 64–76
[2018-09-01] MEDS: IPRATROPIUM BROMIDE 0.5 MG/2.5 ML NEBU NEB SCH ×4 (01:03→19:25)
[2018-09-01] MEDS: LEVALBUTEROL HCL NEB 0.63 MG/3 ML NEBU NEB SCH ×4 (01:03→19:25)
[2018-09-01] MEDS: VANCOMYCIN FOR PO/GT/NG USE GT SCH ×3 (06:03→21:32)
[2018-09-01] MEDS: SUCRALFATE 1 G/10 ML LIQUID UDC GT SCH ×4 (06:03→20:19)
[2018-09-01] MEDS: ACETAMINOPHEN 325 MG TABLET PO PRN ×2 (06:04→20:19)
[2018-09-01 06:35] LABS: BASOPHILS % (AUTO) 0.4 % (0.0-2.0); EOSINOPHILS # (AUTO) 0.1 K/uL (0.0-0.7); EOSINOPHILS % (AUTO) 1.7 % (0.0-7.0); HEMATOCRIT 30.8 % (36.7-47.1); HEMOGLOBIN 10.3 g/dL (12.5-16.3); LYMPHOCYTES # (AUTO) 1.4 K/uL (20.0-40.0); LYMPHOCYTES % (AUTO) 26.4 % (20.5-51.5); MEAN CORPUSCULAR HEMOGLOBIN 30.9 uug (23.8-33.4); MEAN CORPUSCULAR HGB CONC 34 g/dL (32.5-36.3); MEAN CORPUSCULAR VOLUME 92.4 fL (73.0-96.2); MONOCYTES # (AUTO) 0.7 K/uL (2.0-10.0); MONOCYTES % (AUTO) 12.4 % (0.0-11.0); NEUTROPHILS # (AUTO) 3.1 K/uL (1.8-8.9); NEUTROPHILS % (AUTO) 59.1 % (38.5-71.5); PLATELET COUNT (AUTO) 250 K/uL (152-348); RED BLOOD CELL COUNT(AUTO) 3.33 MIL/uL (4.06-5.63); WHITE BLOOD COUNT (AUTO) 5.3 K/uL (3.6-10.2)
[2018-09-01] MEDS: PANTOPRAZOLE ORAL SUSPENSION 40 MG SUSPDR.PKT GT SCH ×2 (06:36→17:37)
[2018-09-01 07:06] LABS: CARBON DIOXIDE 27 mmol/L (21-32); CHLORIDE 117 mmol/L (98-107); CREATININE 0.8 mg/dL (0.6-1.3); GLUCOSE 95 mg/dL (74-106); MAGNESIUM 1.8 mg/dL (1.8-2.4); PHOSPHOROUS 3.2 mg/dL (2.5-4.9); POTASSIUM 3.7 mmol/L (3.5-5.1); UREA NITROGEN, BLOOD 43 mg/dL (7-18)
--- NOTE | 2018-09-01 07:15 | NUR ---
Condition unchanged. Chest tube remains intact w/moderate serous output. Tolerated continuos g-tube feeding 65 ml/hr. No residual. Diarrhea noted, liquid yellow stool uncontrolled. Frequent perineal care & sacral wound dressing change is needed. Sinus rhythm on the monitor. Report given to CARLOS Daniels.
[2018-09-01] MEDS: ACETYLCYSTEINE 20% 800 MG/4 ML VIAL NEB SCH ×2 (07:37→19:25)
--- NOTE | 2018-09-01 08:03 | NUR ---
Awake, responsive to painful and verbal stimuli, on moderate high back rest. O2 at 3L with O2 sat OF 99%. Chest tube intact at 20 cm water. IVF infusing to PICC LUE. Tube feeding off, GT clamped. De La Cruz to drainage bag with yellow urine.
[2018-09-01] MEDS: IV D5W 1000ML 1,000 ML IV SCH (09:15)
[2018-09-01] MEDS: AMIODARONE HCL 200 MG TABLET GT SCH ×2 (09:16→20:19)
[2018-09-01] MEDS: NYSTATIN POWDER 15 GM BOTTLE TOP SCH ×2 (09:16→20:22)
[2018-09-01] MEDS: Z GUARD REMEDY PASTE 57 GM TUBE TOP SCH ×2 (09:17→20:20)
[2018-09-01] MEDS: NYSTATIN CREAM 30 GM TUBE TP SCH ×2 (09:17→20:21)
[2018-09-01] MEDS: TRIAMCINOLONE ACET 0.1% CREAM 15 GM TUBE TP SCH ×2 (09:17→20:21)
[2018-09-01] MEDS: SODIUM HYPOCHLORITE 0.125% 473 ML BOTTLE TP SCH (09:19)
--- NOTE | 2018-09-01 10:00 | NUR ---
Bed bath done with wound care. Oral care and secretions suctioned. Repositioned comfortably. IVF discontinued as ordered. G Tube feedings restarted with water flushes
[2018-09-01] MEDS ORDERED: FUROSEMIDE 20 MG/2 ML VIAL IV ONE (10:15)
[2018-09-01] MEDS: PROTEIN SUPPLEMENT (PROSTAT) 30 ML LIQUID GT SCH ×2 (11:15→20:20)
[2018-09-01] MEDS: OSMOLITE 1.2 CAL 1,000 ML LIQUID GT SCH (11:17)
--- NOTE | 2018-09-01 13:30 | NUR ---
Turned at interval. caregiver at bedside
--- NOTE | 2018-09-01 16:30 | NUR ---
With loose BM again. Incontinence care done with wound care. Repositioned comfortably.
--- NOTE | 2018-09-01 18:47 | NUR ---
Sleeping, kept dry and comfortable. O2 at 5L/NC Humidified with O2 sat of 98%. Chest tube intact to water seal at 20 cm water. G tube feeding tolerated. Endorsed for further care
--- NOTE | 2018-09-01 20:30 | NUR ---
Received patient on semi-high back rest, shivering w/ RR 25/min. Sinus tach on the monitor HR 115 bpm. O2 5L/NC on use, O2Sat 96%. Afebrile Temp. 98.2 F. Still on Pleural drain/chest tube to wall low suction, bubbling with moderate serous output, chest tube site dressing intact. G-tube in place tolerating Osmolite 1.2 roberto continuos feeding at 65 ml/hr. No residual. Patient is responsive to painful stimuli, facial grimace noted. Routine night meds & Tylenol 650 mg given via G-tube for possible pain. Warm blanket provided, kept comfortable. LUE PICC intact, kept dressing dry & clean. De La Cruz to drainage bag with moderate yellow urine.
--- NOTE | 2018-09-01 21:15 | NUR ---
Repositioned in bed. Deep suctioned & oral care provided. Thick yellow secretions noted. Patient resting comfortably at this time. Sinus rhythm HR 99 bpm on monitor, w/ RR 20/min. Will continue to monitor.
[2018-09-02 00:41] VITALS: BP 107/65
[2018-09-02] MEDS: IPRATROPIUM BROMIDE 0.5 MG/2.5 ML NEBU NEB SCH ×4 (00:51→19:04)
[2018-09-02] MEDS: LEVALBUTEROL HCL NEB 0.63 MG/3 ML NEBU NEB SCH ×4 (00:51→19:04)
[2018-09-02] MEDS: HYDROCODONE/APAP 5-325MG TABLET PO PRN ×2 (04:14→08:44)
[2018-09-02 04:38] VITALS: BP 103/49
[2018-09-02] MEDS: SUCRALFATE 1 G/10 ML LIQUID UDC GT SCH ×4 (05:04→20:48)
[2018-09-02] MEDS: PANTOPRAZOLE ORAL SUSPENSION 40 MG SUSPDR.PKT GT SCH ×2 (05:04→16:28)
[2018-09-02] MEDS: VANCOMYCIN FOR PO/GT/NG USE GT SCH ×3 (05:04→21:03)
--- NOTE | 2018-09-02 07:15 | NUR ---
Condition unchanged. Total chest tube output= 370 ml. Tele sinus rhythm vital signs WNL. Kept comfortable. No diarrhea noted.
[2018-09-02 07:36] LABS: CARBON DIOXIDE 28 mmol/L (21-32); CHLORIDE 112 mmol/L (98-107); CREATININE 0.8 mg/dL (0.6-1.3); GLUCOSE 79 mg/dL (74-106); MAGNESIUM 1.8 mg/dL (1.8-2.4); PHOSPHOROUS 3.5 mg/dL (2.5-4.9); POTASSIUM 3.9 mmol/L (3.5-5.1); UREA NITROGEN, BLOOD 43 mg/dL (7-18)
[2018-09-02] MEDS: ACETYLCYSTEINE 20% 800 MG/4 ML VIAL NEB SCH ×2 (07:36→19:05)
[2018-09-02 07:54] VITALS: BP 104/67
[2018-09-02 07:59] LABS: BASOPHILS # (AUTO) 0.1 K/uL (0.0-8.0); BASOPHILS % (AUTO) 1.2 % (0.0-2.0); EOSINOPHILS # (AUTO) 0.1 K/uL (0.0-0.7); HEMATOCRIT 31.3 % (36.7-47.1); HEMOGLOBIN 10.4 g/dL (12.5-16.3); LYMPHOCYTES # (AUTO) 1.6 K/uL (20.0-40.0); LYMPHOCYTES % (AUTO) 30.4 % (20.5-51.5); MEAN CORPUSCULAR HEMOGLOBIN 30.5 uug (23.8-33.4); MEAN CORPUSCULAR HGB CONC 33 g/dL (32.5-36.3); MEAN CORPUSCULAR VOLUME 91.6 fL (73.0-96.2); MONOCYTES # (AUTO) 0.6 K/uL (2.0-10.0); MONOCYTES % (AUTO) 10.8 % (0.0-11.0); NEUTROPHILS % (AUTO) 55.6 % (38.5-71.5); PLATELET COUNT (AUTO) 251 K/uL (152-348); RED BLOOD CELL COUNT(AUTO) 3.42 MIL/uL (4.06-5.63); WHITE BLOOD COUNT (AUTO) 5.4 K/uL (3.6-10.2)
[2018-09-02] MEDS ORDERED: ALBUTEROL SULFATE 1.25 MG/3 ML NEBU NEB PRN (08:00)
[2018-09-02] MEDS ORDERED: LEVALBUTEROL HCL NEB 0.63 MG/3 ML NEBU NEB PRN (08:00)
[2018-09-02] MEDS: Z GUARD REMEDY PASTE 57 GM TUBE TOP SCH ×2 (08:39→21:01)
[2018-09-02] MEDS: SODIUM HYPOCHLORITE 0.125% 473 ML BOTTLE TP SCH (08:39)
[2018-09-02] MEDS: AMIODARONE HCL 200 MG TABLET GT SCH ×2 (08:39→20:49)
[2018-09-02] MEDS: PROTEIN SUPPLEMENT (PROSTAT) 30 ML LIQUID GT SCH ×2 (08:40→20:49)
--- NOTE | 2018-09-02 10:00 | NUR ---
Pt's b/p 143/111, HR of 128, 89% o2 on 5 liters, RESP 32. Pt breathing heavily, using accessory muscles, HHN TX given earlier. Notified PROSPER Hodge pt on respiratory distress. Suctioned patient and repositioned pt on left side. Got 200cc out of the chest tube as soon as patient was turned and repositioned. 1045 Pt More comfortable after repositioning not on respiratory distress. Pt's HR 108, RESP 22, b/p 103/57. Pt not using accessory muscles. 02 sat 94% on 5 lit humidified n/c.
[2018-09-02] MEDS: OSMOLITE 1.2 CAL 1,000 ML LIQUID GT SCH (10:54)
[2018-09-02 11:14] LABS: BAND % (MANUAL) 2 % (0-10); BASOPHILS % (MANUAL) 1 % (0-2); EOSINOPHILS % (MANUAL) 2 % (0-8); LYMPHOCYTES % (MANUAL) 29 % (20-40); METAMYELOCYTES % 1 % (0-1); MONOCYTES % (MANUAL) 10 % (2-10); NEUTROPHILS % (MANUAL) 55 % (42-75)
[2018-09-02 11:38] VITALS: BP 103/57
--- NOTE | 2018-09-02 11:40 | NUR ---
Reduce TF regimen to Osmolite 1.2 50mL/hr x21 hours +Prostat BID to ameliorate fluid retention (was previously 65 mL/hr x 20 hrs +Prostat BID). This provides 1460kcal, 88g pro, and 861mL free water. - Wound: recommend MVI+minerals DQ, Vit C 500mg BID [id number], and ZnS04 220mg QD x 14 days to facilitate wound healing Addendum: 09/02/18 at [address] Amended: Links added.
[2018-09-02] MEDS ORDERED: ALBUTEROL SULFATE 1.25 MG/3 ML NEBU NEB SCH (13:30)
--- NOTE | 2018-09-02 13:30 | NUR ---
Pt repositioned again. Pt was seen by DR Kapoor and DR Valle no new orders received. Call light is within reach.
[2018-09-02] MEDS: ACETAMINOPHEN 325 MG TABLET PO PRN (16:28)
[2018-09-02 17:24] VITALS: BP 91/57
[2018-09-02 20:28] VITALS: BP 127/66
[2018-09-03] MEDS: HYDROCODONE/APAP 5-325MG TABLET PO PRN ×2 (00:05→08:13)
[2018-09-03 00:24] VITALS: BP 107/62
[2018-09-03] MEDS: LEVALBUTEROL HCL NEB 0.63 MG/3 ML NEBU NEB SCH ×4 (01:00→19:07)
[2018-09-03] MEDS: IPRATROPIUM BROMIDE 0.5 MG/2.5 ML NEBU NEB SCH ×4 (01:01→19:07)
[2018-09-03] MEDS: VANCOMYCIN FOR PO/GT/NG USE GT SCH ×3 (06:01→21:35)
[2018-09-03] MEDS: PANTOPRAZOLE ORAL SUSPENSION 40 MG SUSPDR.PKT GT SCH ×2 (06:01→18:13)
[2018-09-03] MEDS: SUCRALFATE 1 G/10 ML LIQUID UDC GT SCH ×4 (06:34→21:32)
--- NOTE | 2018-09-03 06:45 | NUR ---
HAD UNEVENTFUL NIGHT, NOTICED PT SOB, SX WITH LITTLE IMPROVEMENT. RT CALLED TO HELP..
[2018-09-03 06:53] LABS: CARBON DIOXIDE 26 mmol/L (21-32); CHLORIDE 111 mmol/L (98-107); CREATININE 0.9 mg/dL (0.6-1.3); GLUCOSE 100 mg/dL (74-106); MAGNESIUM 1.7 mg/dL (1.8-2.4); PHOSPHOROUS 3.5 mg/dL (2.5-4.9); POTASSIUM 4.2 mmol/L (3.5-5.1); UREA NITROGEN, BLOOD 43 mg/dL (7-18)
[2018-09-03] MEDS: ACETYLCYSTEINE 20% 800 MG/4 ML VIAL NEB SCH ×2 (06:55→19:07)
[2018-09-03 07:04] LABS: BASOPHILS # (AUTO) 0.1 K/uL (0.0-8.0); BASOPHILS % (AUTO) 0.6 % (0.0-2.0); EOSINOPHILS # (AUTO) 0.1 K/uL (0.0-0.7); EOSINOPHILS % (AUTO) 0.9 % (0.0-7.0); HEMATOCRIT 31.9 % (36.7-47.1); HEMOGLOBIN 10.5 g/dL (12.5-16.3); LYMPHOCYTES % (AUTO) 11.4 % (20.5-51.5); MEAN CORPUSCULAR HEMOGLOBIN 30.4 uug (23.8-33.4); MEAN CORPUSCULAR HGB CONC 33 g/dL (32.5-36.3); MEAN CORPUSCULAR VOLUME 92.6 fL (73.0-96.2); MONOCYTES # (AUTO) 0.4 K/uL (2.0-10.0); MONOCYTES % (AUTO) 5.1 % (0.0-11.0); PLATELET COUNT (AUTO) 264 K/uL (152-348); RED BLOOD CELL COUNT(AUTO) 3.44 MIL/uL (4.06-5.63)
--- NOTE | 2018-09-03 07:15 | NUR ---
REPORT GIVEN TO RN HOMER, STAT CXR ORDERED.
[2018-09-03 07:18] LABS: WHITE BLOOD COUNT (AUTO) 8.5 K/uL (3.6-10.2)
--- NOTE | 2018-09-03 07:30 | NUR ---
Received Pt SOB, respiratory distress, and with labored breathing. Pt using accessory muscles with rate of 34 breath/min. HHN tx given by RT. Noticed Chest tube tubing questionable placement. Ordered stat cxr for chest tube placement. Chest tube on water seal noted, on good suction, and anchored well to chest via foam tape. Pt reposition to help drain chest tube. RT suction pt well and got good amount of secretions. Pt more comfortable after interventions effective. Pt saturation @ 93% o2 sat.
[2018-09-03] MEDS: AMIODARONE HCL 200 MG TABLET GT SCH ×2 (07:52→21:32)
[2018-09-03 08:00] VITALS: BP 100/68
[2018-09-03] MEDS: PROTEIN SUPPLEMENT (PROSTAT) 30 ML LIQUID GT SCH ×2 (08:21→21:30)
[2018-09-03] MEDS: SODIUM HYPOCHLORITE 0.125% 473 ML BOTTLE TP SCH (08:23)
[2018-09-03] MEDS: Z GUARD REMEDY PASTE 57 GM TUBE TOP SCH ×2 (08:24→21:32)
[2018-09-03] MEDS ORDERED: MAGNESIUM SULFATE/D5W 100 ML IV SCH (09:15)
[2018-09-03] MEDS: OSMOLITE 1.2 CAL 1,000 ML LIQUID GT SCH (10:15)
[2018-09-03] MEDS ORDERED: FUROSEMIDE 20 MG/2 ML VIAL IV ONE (10:30)
[2018-09-03 11:48] VITALS: BP 140/71
[2018-09-03 17:55] VITALS: BP 114/62
--- NOTE | 2018-09-03 18:00 | NUR ---
Dressing changed as ordered. Wound on sacral beefy and red and cleaned. Pt had diarrhea. Gave lomotil for diarrhea. Urine sent as ordered. Pt had moist skin in between fingers and had very foul smell. Cleaned fingers and dried up with gauze. left Gauze in between fingers to keep skin dry and intact. Fingers were swollen +2 on bilateral hands.
[2018-09-03] MEDS: LOPERAMIDE HCL 1 MG/5 ML UDC PO PRN (18:13)
[2018-09-03 19:32] LABS: *BILIRUBIN,URIN NEGATIVE (NEGATIVE); *BLOOD, URINE 2+ (NEGATIVE); *CLARITY,URINE SLIGHTLY CLOUDY (CLEAR); *COLOR,URINE YELLOW (YELLOW); *KETONES,URINE NEGATIVE (NEGATIVE); *UROBILINOGEN,URINE 0.2 E.U./dl (NORMAL); LEUKOCYTE ESTERASE ,URINE 3+ (NEGATIVE); NITRITE, URINE POSITIVE (NEGATIVE); UGLUCOSE NEGATIVE (NEGATIVE)
[2018-09-03 19:41] LABS: WBC,URINE 50-80 /HPF (0-3)
[2018-09-03 19:42] LABS: BACTERIA,URINE MODERATE /HPF (NONE SEEN); SQUAMOUS EPITHELIAL CELL,UR FEW /HPF (NONE SEEN); YEAST,URINE MODERATE /HPF (NONE SEEN)
[2018-09-03 19:52] VITALS: BP 100/44
[2018-09-04] VITALS (11 sets, daily range): BP systolic 107–153; BP diastolic 52–81
[2018-09-04] MEDS: IPRATROPIUM BROMIDE 0.5 MG/2.5 ML NEBU NEB SCH ×4 (00:30→19:13)
[2018-09-04] MEDS: LEVALBUTEROL HCL NEB 0.63 MG/3 ML NEBU NEB SCH ×4 (00:30→19:12)
[2018-09-04 06:43] LABS: CARBON DIOXIDE 28 mmol/L (21-32); CHLORIDE 111 mmol/L (98-107); GLUCOSE 125 mg/dL (74-106); MAGNESIUM 1.9 mg/dL (1.8-2.4); PHOSPHOROUS 3.7 mg/dL (2.5-4.9); POTASSIUM 3.7 mmol/L (3.5-5.1); UREA NITROGEN, BLOOD 50 mg/dL (7-18)
[2018-09-04 06:44] LABS: BASOPHILS % (AUTO) 0.5 % (0.0-2.0); EOSINOPHILS # (AUTO) 0.1 K/uL (0.0-0.7); EOSINOPHILS % (AUTO) 2.4 % (0.0-7.0); HEMATOCRIT 28.1 % (36.7-47.1); LYMPHOCYTES # (AUTO) 1.2 K/uL (20.0-40.0); LYMPHOCYTES % (AUTO) 20.1 % (20.5-51.5); MEAN CORPUSCULAR HGB CONC 32 g/dL (32.5-36.3); MEAN CORPUSCULAR VOLUME 93.3 fL (73.0-96.2); MONOCYTES # (AUTO) 0.5 K/uL (2.0-10.0); MONOCYTES % (AUTO) 8.1 % (0.0-11.0); NEUTROPHILS % (AUTO) 68.9 % (38.5-71.5); PLATELET COUNT (AUTO) 216 K/uL (152-348); RED BLOOD CELL COUNT(AUTO) 3.01 MIL/uL (4.06-5.63); WHITE BLOOD COUNT (AUTO) 5.8 K/uL (3.6-10.2)
[2018-09-04] MEDS: SUCRALFATE 1 G/10 ML LIQUID UDC GT SCH ×4 (06:48→21:23)
[2018-09-04] MEDS: VANCOMYCIN FOR PO/GT/NG USE GT SCH ×3 (06:48→21:30)
[2018-09-04] MEDS: PANTOPRAZOLE ORAL SUSPENSION 40 MG SUSPDR.PKT GT SCH ×2 (06:48→17:36)
[2018-09-04] MEDS: ACETYLCYSTEINE 20% 800 MG/4 ML VIAL NEB SCH ×2 (07:25→19:12)
--- NOTE | 2018-09-04 08:00 | NUR ---
Pt more awake today. Pt actually mumbling words out. Chest tube intact with good water seal. Plan of care implemented for frequent suctioning as needed and pain management. Call light is within reach.
[2018-09-04] MEDS: ZINC SULFATE 220 MG CAPSULE GT SCH (08:20)
[2018-09-04] MEDS: ACETAMINOPHEN 325 MG TABLET PO PRN (08:20)
[2018-09-04] MEDS: Z GUARD REMEDY PASTE 57 GM TUBE TOP SCH ×2 (08:21→21:21)
[2018-09-04] MEDS: AMIODARONE HCL 200 MG TABLET GT SCH ×2 (08:21→21:24)
[2018-09-04] MEDS: ASCORBIC ACID 500 MG TABLET GT SCH (08:21)
[2018-09-04] MEDS: MULTIVIT, IRON, MIN NO. 8, FA TABLET GT SCH (08:21)
[2018-09-04] MEDS: PROTEIN SUPPLEMENT (PROSTAT) 30 ML LIQUID GT SCH ×3 (08:22→21:30)
[2018-09-04] MEDS: SODIUM HYPOCHLORITE 0.125% 473 ML BOTTLE TP SCH (08:22)
[2018-09-04] MEDS: LOPERAMIDE HCL 1 MG/5 ML UDC PO PRN ×2 (08:41→17:35)
[2018-09-04 09:04] LABS: ABG BASE EXCESS 1.1 mmol/L; ABG HCO3 25.2 mmol/L; ABG PCO2 37.9 mmHg (35.0-45.0); ABG PO2 79.4 mmHg (75.0-100.0); ABG SITE RIGHT RADIAL; ABG TOTAL HEMOGLOBIN 10.5 G/dL (13.5-18.0); COHb 1.2 % (0.5-1.5); MetHb 0.3 % (0.0-1.5); O2Hb 94.8 % (94.0-97.0); VENT MODE Nasal Cannula
[2018-09-04] MEDS: OSMOLITE 1.2 CAL 1,000 ML LIQUID GT PRN (10:55)
[2018-09-04 11:55] LABS: BILIRUBIN,DIRECT 0.1 mg/dL (0.0-0.2); BILIRUBIN,TOTAL 0.1 mg/dL (0.2-1.0); TOTAL PROTEIN, SERUM 4.7 g/dL (6.4-8.2)
--- NOTE | 2018-09-04 14:00 | NUR ---
Dr Cutler notified no drainage noted on CHEST Tube. Pt asymptomatic respiratory hutson.
--- NOTE | 2018-09-04 18:30 | NUR ---
Pt is in no acute distress. Call light is within reach. Pt transfered to CCU as [facility] status.
--- NOTE | 2018-09-04 18:40 | NUR ---
Pt received from 2nd floor room 208-TD. Pt stable and nad noted upon transfer.
--- NOTE | 2018-09-04 18:42 | NUR ---
Full SBAR report received by RN [place].
--- NOTE | 2018-09-04 20:00 | NUR ---
Awake, eyes open but no focus or tracking. Does not follow commands, incomprehensible sounds. Resp easy and regular with excellent O2 sats. O2 titrating and will continue to monitor. NT suctioned by RT to moderate amount of secretions. Stable rhythm and VS. Tube feeding well tolerated. Aspiration precautions maintained. Chest tube patent, no evidence of leak, no crepitus. Nursing comfort measures observed at all times. Please see [facility] flowsheet for full assessment and clinical data.
[2018-09-04] MEDS: FLUCONAZOLE 200 MG/NS 100ML IV 100 MG in PREMIXED 1 EACH IV SCH (21:21)
[2018-09-05] VITALS (10 sets, daily range): BP systolic 99–145; BP diastolic 50–74
[2018-09-05] MEDS: IPRATROPIUM BROMIDE 0.5 MG/2.5 ML NEBU NEB SCH ×4 (00:50→19:46)
[2018-09-05] MEDS: LEVALBUTEROL HCL NEB 0.63 MG/3 ML NEBU NEB SCH ×2 (00:51→07:18)
[2018-09-05] MEDS: LOPERAMIDE HCL 1 MG/5 ML UDC PO PRN (03:21)
--- NOTE | 2018-09-05 06:00 | NUR ---
Stable comfortable night. Nursing comfort measures maintained. Stable VS and rhythm. Please see [facility] flowsheet for trends and clinical data.
[2018-09-05] MEDS: PANTOPRAZOLE ORAL SUSPENSION 40 MG SUSPDR.PKT GT SCH ×2 (06:54→18:07)
[2018-09-05] MEDS: PROTEIN SUPPLEMENT (PROSTAT) 30 ML LIQUID GT SCH ×3 (06:55→21:56)
[2018-09-05] MEDS: VANCOMYCIN FOR PO/GT/NG USE GT SCH ×3 (06:55→21:56)
[2018-09-05] MEDS: ACETYLCYSTEINE 20% 800 MG/4 ML VIAL NEB SCH ×2 (07:18→19:46)
[2018-09-05] MEDS: SUCRALFATE 1 G/10 ML LIQUID UDC GT SCH ×4 (07:35→21:03)
[2018-09-05] MEDS: ZINC SULFATE 220 MG CAPSULE GT SCH (09:51)
[2018-09-05] MEDS: ASCORBIC ACID 500 MG TABLET GT SCH (09:51)
[2018-09-05] MEDS: MULTIVIT, IRON, MIN NO. 8, FA TABLET GT SCH (09:51)
[2018-09-05] MEDS: AMIODARONE HCL 200 MG TABLET GT SCH ×2 (09:52→21:03)
[2018-09-05] MEDS: Z GUARD REMEDY PASTE 57 GM TUBE TOP SCH ×2 (09:53→21:03)
[2018-09-05] MEDS: SODIUM HYPOCHLORITE 0.125% 473 ML BOTTLE TP SCH (09:54)
[2018-09-05] MEDS: OSMOLITE 1.2 CAL 1,000 ML LIQUID GT PRN (10:42)
[2018-09-05] MEDS ORDERED: ALBUTEROL SULFATE 1.25 MG/3 ML NEBU NEB PRN (13:00)
[2018-09-05] MEDS: ALBUTEROL SULFATE 1.25 MG/3 ML NEBU NEB SCH ×2 (13:21→19:46)
--- NOTE | 2018-09-05 19:20 | NUR ---
PT CONDITION IS STABLE . NO APPARENT DISTRESS NOTED ALL DAY.
--- NOTE | 2018-09-05 20:00 | NUR ---
RECEIVED PT. RESPONDING TO PAIN & TOUCH STIMULI. ON O2 @ 3LNC W/ O2 SAT OF 99%.G-TUBE INTACT CHECKED PLACEMENT & CHECKED RESIDUAL 5CC NOTED , W/ TF OF OSMOLITE 1.2 @ 45CC/HR. PICC LINE ON APARNA INTACT & PATENT. CHEST TUBE ON LEFT UPPER CHEST TO ATRIUM DRAINAGE BAG W/ 20CM WATER PRESSURE W/ PALE YELLOWISH CLEAR DRAINAGE. REPOSITIONED ON HIS SIDE W/ HOB ELEVATED. V/S STABLE.
[2018-09-05] MEDS: FLUCONAZOLE 200 MG/NS 100ML IV 100 MG in PREMIXED 1 EACH IV SCH (21:04)
[2018-09-06] VITALS (7 sets, daily range): BP systolic 113–128; BP diastolic 59–90
--- NOTE | 2018-09-06 | NUR ---
v/s stable. g-tube residual checked 5cc noted. repositioned on his opposite side w/ hob elevated.
[2018-09-06] MEDS: IPRATROPIUM BROMIDE 0.5 MG/2.5 ML NEBU NEB SCH ×4 (01:24→19:10)
[2018-09-06] MEDS: ALBUTEROL SULFATE 1.25 MG/3 ML NEBU NEB SCH ×4 (01:26→19:10)
--- NOTE | 2018-09-06 04:30 | NUR ---
am care done. cleaned coccyx decub w/ dakin anh & packed w/ wet to dry drsg. changed drsg on both heels, cleaned w/ ns, hydrogel mina applied & dressed w/ mepilex & kerlix.
[2018-09-06] MEDS: ACETAMINOPHEN 325 MG TABLET PO PRN (04:41)
--- NOTE | 2018-09-06 04:41 | NUR ---
pt. medicated w/ tylenol 650mg for temp-99.7 orally. suctioned orally w/ yellowish thick large amt of mucous. desaturated to 89% placed on 8l simple mask @ 0500 after suctioned.
--- NOTE | 2018-09-06 05:00 | NUR ---
back to 3l nc w/ o2 sat of 100%.
[2018-09-06 05:05] LABS: BASOPHILS # (AUTO) 0.1 K/uL (0.0-8.0); BASOPHILS % (AUTO) 0.6 % (0.0-2.0); EOSINOPHILS # (AUTO) 0.2 K/uL (0.0-0.7); EOSINOPHILS % (AUTO) 2.1 % (0.0-7.0); HEMATOCRIT 32.5 % (36.7-47.1); HEMOGLOBIN 10.4 g/dL (12.5-16.3); LYMPHOCYTES # (AUTO) 2.7 K/uL (20.0-40.0); LYMPHOCYTES % (AUTO) 31.3 % (20.5-51.5); MEAN CORPUSCULAR HEMOGLOBIN 30.1 uug (23.8-33.4); MEAN CORPUSCULAR HGB CONC 32 g/dL (32.5-36.3); MEAN CORPUSCULAR VOLUME 94.3 fL (73.0-96.2); MONOCYTES # (AUTO) 0.7 K/uL (2.0-10.0); MONOCYTES % (AUTO) 8.1 % (0.0-11.0); NEUTROPHILS % (AUTO) 57.9 % (38.5-71.5); PLATELET COUNT (AUTO) 347 K/uL (152-348); RED BLOOD CELL COUNT(AUTO) 3.44 MIL/uL (4.06-5.63); WHITE BLOOD COUNT (AUTO) 8.7 K/uL (3.6-10.2)
[2018-09-06 05:19] LABS: ALANINE AMINOTRANSFERASE 35 U/L (16-63); ALKALINE PHOSPHATASE 149 U/L (50-136); ASPARTATE AMINOTRANSFERASE 44 U/L (15-37); BILIRUBIN,TOTAL 0.2 mg/dL (0.2-1.0); CARBON DIOXIDE 27 mmol/L (21-32); CHLORIDE 111 mmol/L (98-107); CREATININE 0.9 mg/dL (0.6-1.3); GLUCOSE 113 mg/dL (74-106); MAGNESIUM 2.1 mg/dL (1.8-2.4); PHOSPHOROUS 3.9 mg/dL (2.5-4.9); POTASSIUM 4.6 mmol/L (3.5-5.1); TOTAL PROTEIN, SERUM 5.7 g/dL (6.4-8.2); UREA NITROGEN, BLOOD 51 mg/dL (7-18)
[2018-09-06] MEDS: PANTOPRAZOLE ORAL SUSPENSION 40 MG SUSPDR.PKT GT SCH ×2 (05:49→17:01)
[2018-09-06] MEDS: VANCOMYCIN FOR PO/GT/NG USE GT SCH ×3 (05:50→21:05)
[2018-09-06] MEDS: PROTEIN SUPPLEMENT (PROSTAT) 30 ML LIQUID GT SCH ×3 (05:53→21:05)
--- NOTE | 2018-09-06 06:00 | NUR ---
repositioned on his r side w/ hob elevated. off tube fdg, to resume at 0900.
[2018-09-06] MEDS: ACETYLCYSTEINE 20% 800 MG/4 ML VIAL NEB SCH ×2 (07:15→19:10)
--- NOTE | 2018-09-06 08:00 | NUR ---
DOCTOR ANA IN UNIT TO SEE PATIENT
[2018-09-06] MEDS: SUCRALFATE 1 G/10 ML LIQUID UDC GT SCH ×4 (08:04→20:23)
[2018-09-06] MEDS: AMIODARONE HCL 200 MG TABLET GT SCH ×2 (08:05→20:25)
[2018-09-06] MEDS: ASCORBIC ACID 500 MG TABLET GT SCH (08:05)
[2018-09-06] MEDS: ZINC SULFATE 220 MG CAPSULE GT SCH (08:05)
[2018-09-06] MEDS: MULTIVIT, IRON, MIN NO. 8, FA TABLET GT SCH (08:05)
[2018-09-06] MEDS: SODIUM HYPOCHLORITE 0.125% 473 ML BOTTLE TP SCH (08:06)
[2018-09-06] MEDS: Z GUARD REMEDY PASTE 57 GM TUBE TOP SCH ×2 (08:06→20:27)
--- NOTE | 2018-09-06 10:54 | NUR ---
DOCTOR BELKIS IN THE UNIT TO EVALUATE PATIENT. INFORMED THAT WHILE SUCTIONING THIS MORNING I WAS GETTING GASTRIC SECRETIONS FROM SUCTIONING AND GT TUBE HAD BEEN ON HOLD THIS MORNING AND NO RESIDUALS FROM GT. PATIENT ALSO HAD AN EPISODE OF DESATURATION OVERNIGHT- PLACED ON FACE MASK FOR A PERIOD AND THEN WAS RESUMED TO 3L IN THE MORNING. THERE WAS NO DISTRESS WHEN SUCTIONING.
--- NOTE | 2018-09-06 15:30 | NUR ---
ID VEGETABLE WORKER ROUNDING ON PATIENT IN THE UNIT.
--- NOTE | 2018-09-06 16:00 | NUR ---
reinserted rectal tube due to watery stool and sacral wound- for skin and wound protection.
[2018-09-06] MEDS: LOPERAMIDE HCL 1 MG/5 ML UDC PO PRN (17:01)
--- NOTE | 2018-09-06 17:20 | NUR ---
TRANSFERRING OUT OF UNIT TO TELE ROOM 208.
[2018-09-07] VITALS: BP 118/68
[2018-09-07] MEDS: IPRATROPIUM BROMIDE 0.5 MG/2.5 ML NEBU NEB SCH ×4 (00:59→19:32)
[2018-09-07] MEDS: ALBUTEROL SULFATE 1.25 MG/3 ML NEBU NEB SCH ×2 (01:00→07:43)
[2018-09-07 04:00] VITALS: BP_SYST 122; BP_SYST 124; BP_DIAS 66
[2018-09-07] MEDS: PROTEIN SUPPLEMENT (PROSTAT) 30 ML LIQUID GT SCH ×3 (05:42→20:36)
[2018-09-07] MEDS: VANCOMYCIN FOR PO/GT/NG USE GT SCH ×3 (05:44→20:36)
[2018-09-07] MEDS: PANTOPRAZOLE ORAL SUSPENSION 40 MG SUSPDR.PKT GT SCH ×2 (05:45→17:45)
[2018-09-07] MEDS: SUCRALFATE 1 G/10 ML LIQUID UDC GT SCH ×4 (06:33→20:36)
[2018-09-07] MEDS: ACETYLCYSTEINE 20% 800 MG/4 ML VIAL NEB SCH ×2 (07:43→19:32)
--- NOTE | 2018-09-07 08:00 | NUR ---
Report received from CARLOS Vargas.Pt remains awake,alert with good eye contact.No S/s of pain ,discomfort.Respiration even,unlabored.O2 at 2liters via NC tolerated well.Chest tube to left mediastinum connected to suction.No air leak noted.Pt remains NPO . aware.Will continue to monitor.
[2018-09-07] MEDS: ZINC SULFATE 220 MG CAPSULE GT SCH (08:58)
[2018-09-07] MEDS: ASCORBIC ACID 500 MG TABLET GT SCH (08:58)
[2018-09-07] MEDS: AMIODARONE HCL 200 MG TABLET GT SCH (08:58)
[2018-09-07] MEDS: MULTIVIT, IRON, MIN NO. 8, FA TABLET GT SCH (08:58)
[2018-09-07] MEDS: SODIUM HYPOCHLORITE 0.125% 473 ML BOTTLE TP SCH (08:59)
[2018-09-07] MEDS: Z GUARD REMEDY PASTE 57 GM TUBE TOP SCH ×2 (08:59→20:38)
--- NOTE | 2018-09-07 11:30 | NUR ---
Seen,examined by ,.
[2018-09-07 11:35] VITALS: BP 113/65
[2018-09-07] MEDS ORDERED: LEVALBUTEROL HCL NEB 0.63 MG/3 ML NEBU NEB PRN (12:30)
[2018-09-07] MEDS: LEVALBUTEROL HCL NEB 0.63 MG/3 ML NEBU NEB SCH ×2 (13:53→19:32)
--- NOTE | 2018-09-07 16:00 | NUR ---
Pt seen by .Chest tube was removed.Pt tolerated procedure well.No SOB noted.
[2018-09-07 16:08] VITALS: BP 96/60
--- NOTE | 2018-09-07 16:50 | NUR ---
Spoke with pt son,updated on plan of care,pt condition.
--- NOTE | 2018-09-07 17:30 | NUR ---
De La Cruz catheter Fr16 was inserted.Pt tolerated well.
[2018-09-07 20:38] VITALS: BP 113/68
--- NOTE | 2018-09-07 22:00 | NUR ---
THE RED LUMEN OF THE PICC LINE IS INTACT AND PATENT, ONE OF THE WHITE LUMENS IS FULLY OCCLUDED AND THE OTHER FLUSHES WITH RESISTANCE. Addendum: 09/07/18 at 9769 by KRISTINE REESE RN Amended: Links added.
[2018-09-08 00:23] VITALS: BP 136/78
[2018-09-08] MEDS: IPRATROPIUM BROMIDE 0.5 MG/2.5 ML NEBU NEB SCH ×4 (00:36→19:18)
[2018-09-08] MEDS: LEVALBUTEROL HCL NEB 0.63 MG/3 ML NEBU NEB SCH ×4 (00:36→19:18)
[2018-09-08 04:59] VITALS: BP 127/67
--- NOTE | 2018-09-08 05:10 | NUR ---
PT SLEPT INTERMITTENTLY THROUGH THE NIGHT, PT SHOWED NO S/S OF PAIN, PT OCCASIONAL WOULD HAVE LABORED BREATHING, AND AT THAT TIME PT'S HEART RATE WAS ELEVATED AND O2 SAT WENT DOWN TO 87%, OXYGEN WAS INCREASED TO 4 L THEN TITRATED DOWN TO MAINTAIN OXYGENATION >90%. PT NOT ON 2L NC SAT 97%. WOUND CARE PROVIDED, PT REPOSITIONED DURING THE NIGHT, HEELS ELEVATED. ALL NEEDS MET, SAFETY MEASURES ARE IN PLACE, CALL LIGHT WITHIN REACH, BED ALARM IS ON.
[2018-09-08] MEDS: PROTEIN SUPPLEMENT (PROSTAT) 30 ML LIQUID GT SCH ×3 (05:50→22:27)
[2018-09-08] MEDS: SUCRALFATE 1 G/10 ML LIQUID UDC GT SCH ×4 (05:51→22:26)
[2018-09-08] MEDS: PANTOPRAZOLE ORAL SUSPENSION 40 MG SUSPDR.PKT GT SCH ×2 (05:51→17:23)
[2018-09-08 06:28] LABS: BASOPHILS # (AUTO) 0.1 K/uL (0.0-8.0); EOSINOPHILS # (AUTO) 0.1 K/uL (0.0-0.7); EOSINOPHILS % (AUTO) 1.6 % (0.0-7.0); HEMATOCRIT 29.9 % (36.7-47.1); HEMOGLOBIN 9.8 g/dL (12.5-16.3); LYMPHOCYTES # (AUTO) 0.8 K/uL (20.0-40.0); LYMPHOCYTES % (AUTO) 9.5 % (20.5-51.5); MEAN CORPUSCULAR HEMOGLOBIN 30.3 uug (23.8-33.4); MEAN CORPUSCULAR HGB CONC 33 g/dL (32.5-36.3); MEAN CORPUSCULAR VOLUME 92.8 fL (73.0-96.2); MONOCYTES # (AUTO) 0.5 K/uL (2.0-10.0); MONOCYTES % (AUTO) 5.8 % (0.0-11.0); NEUTROPHILS # (AUTO) 7.3 K/uL (1.8-8.9); NEUTROPHILS % (AUTO) 82.1 % (38.5-71.5); PLATELET COUNT (AUTO) 346 K/uL (152-348); RED BLOOD CELL COUNT(AUTO) 3.22 MIL/uL (4.06-5.63); WHITE BLOOD COUNT (AUTO) 8.9 K/uL (3.6-10.2)
[2018-09-08 06:59] LABS: ALANINE AMINOTRANSFERASE 22 U/L (16-63); ALKALINE PHOSPHATASE 134 U/L (50-136); ASPARTATE AMINOTRANSFERASE 24 U/L (15-37); BILIRUBIN,TOTAL 0.2 mg/dL (0.2-1.0); CARBON DIOXIDE 28 mmol/L (21-32); CHLORIDE 112 mmol/L (98-107); CREATININE 0.8 mg/dL (0.6-1.3); GLUCOSE 65 mg/dL (74-106); PHOSPHOROUS 3.8 mg/dL (2.5-4.9); POTASSIUM 3.9 mmol/L (3.5-5.1); TOTAL PROTEIN, SERUM 5.2 g/dL (6.4-8.2); UREA NITROGEN, BLOOD 40 mg/dL (7-18)
[2018-09-08] MEDS: ACETYLCYSTEINE 20% 800 MG/4 ML VIAL NEB SCH ×2 (07:10→19:18)
--- NOTE | 2018-09-08 07:30 | NUR ---
RECEIVED PATIENT IN ON FIRST STEP MIC FOR DECUB MANAGEMENT AWAKE ALERT MAKES GOOD EYE CONTACT NODS HEAD AT TIMES WHEN SPOKEN TO BUT IS APHASIC AND ALL NEEDS MUST BE ANTICIPATED AND SATISFEID.TOTALLY DEPENDENT ON NURSES FOR ALL ADL.ON O2 AT 2L/M BY NASAL CANULA WITH NO SHORTNESS OF BREATH AT THIS TIME.PATIENT HAS POOR INTEGRITY WITH TREATMENT IN PROGRESS ORDERED.TURNED AND REPOSITIONED Q2H KURTZ HAS A BABCOCK AND A RECTAL TUBE WITH BROWN COLOURED LIQUIDS IN THE TUBING AND IN THE RECEPTACLE GT PATENT WITH NO FEEDINGS IN THIS TIME ORDERED WILL CONTINUE TO OBSERVE.
[2018-09-08] MEDS: MULTIVIT, IRON, MIN NO. 8, FA TABLET GT SCH (08:34)
[2018-09-08] MEDS: ASCORBIC ACID 500 MG TABLET GT SCH (08:34)
[2018-09-08] MEDS: ZINC SULFATE 220 MG CAPSULE GT SCH (08:34)
[2018-09-08] MEDS: Z GUARD REMEDY PASTE 57 GM TUBE TOP SCH ×2 (08:35→22:29)
[2018-09-08] MEDS: AMIODARONE HCL 200 MG TABLET GT SCH (08:36)
[2018-09-08] MEDS: VANCOMYCIN FOR PO/GT/NG USE GT SCH ×2 (08:37→22:26)
[2018-09-08] MEDS: SODIUM HYPOCHLORITE 0.125% 473 ML BOTTLE TP SCH (08:38)
--- NOTE | 2018-09-08 09:40 | NUR ---
DUE MEDICATIONS GIVEN THROUGH THE GT AND HE TOLERATED WELL ORAL CARE TOLERATED WELL WILL CONTINUE TO OBSERVE.
--- NOTE | 2018-09-08 10:57 | NUR ---
PATIENT SEEN AND EXAMINED BY DR SLATER WITH NEW ORDERS AND NOTED.
[2018-09-08 11:39] VITALS: BP 107/60
--- NOTE | 2018-09-08 12:11 | NUR ---
DELMI CERNA REPRODUCTION ORDER PROCESSOR HERE AND SEEN PATIENT WITH NEW WOUND CARE ORDERS AND NOTED.
--- NOTE | 2018-09-08 12:50 | NUR ---
[facility] HERE TO SEE PATIENT WITH NO NEW ORDERS AT THIS TIME
--- NOTE | 2018-09-08 13:32 | NUR ---
DR HAYS HERE AT THE BEDSIDE SEEN PATIENT AND SPOKE WITH HIS PRIVATE SECONDARY SCHOOL TEACHER AT LENGTH RE PLAN OF CARE BUT STATED THAT HE WILL CALL THE PATIENTS SON FOR MORE UPDATE.PATIENT MADE COMFORTABLE AT THIS TIME AND WILL CONTINUE TO OBSERVE.
[2018-09-08 16:48] VITALS: BP 137/59
[2018-09-08 20:16] VITALS: BP 127/57
[2018-09-09] VITALS (10 sets, daily range): BP systolic 66–176; BP diastolic 34–89
[2018-09-09] MEDS: IPRATROPIUM BROMIDE 0.5 MG/2.5 ML NEBU NEB SCH ×4 (00:30→19:06)
[2018-09-09] MEDS: LEVALBUTEROL HCL NEB 0.63 MG/3 ML NEBU NEB SCH ×2 (00:30→07:19)
[2018-09-09] MEDS: SUCRALFATE 1 G/10 ML LIQUID UDC GT SCH ×4 (06:33→20:29)
[2018-09-09] MEDS: PROTEIN SUPPLEMENT (PROSTAT) 30 ML LIQUID GT SCH ×3 (06:34→20:33)
[2018-09-09] MEDS: PANTOPRAZOLE ORAL SUSPENSION 40 MG SUSPDR.PKT GT SCH ×2 (06:34→16:42)
[2018-09-09 06:35] LABS: BASOPHILS # (AUTO) 0.1 K/uL (0.0-8.0); BASOPHILS % (AUTO) 0.9 % (0.0-2.0); EOSINOPHILS # (AUTO) 0.1 K/uL (0.0-0.7); EOSINOPHILS % (AUTO) 2.4 % (0.0-7.0); HEMOGLOBIN 9.5 g/dL (12.5-16.3); LYMPHOCYTES # (AUTO) 1.2 K/uL (20.0-40.0); LYMPHOCYTES % (AUTO) 20.2 % (20.5-51.5); MEAN CORPUSCULAR HEMOGLOBIN 30.2 uug (23.8-33.4); MEAN CORPUSCULAR HGB CONC 33 g/dL (32.5-36.3); MEAN CORPUSCULAR VOLUME 91.9 fL (73.0-96.2); MONOCYTES # (AUTO) 0.5 K/uL (2.0-10.0); MONOCYTES % (AUTO) 8.1 % (0.0-11.0); NEUTROPHILS # (AUTO) 4.1 K/uL (1.8-8.9); NEUTROPHILS % (AUTO) 68.4 % (38.5-71.5); PLATELET COUNT (AUTO) 383 K/uL (152-348); RED BLOOD CELL COUNT(AUTO) 3.15 MIL/uL (4.06-5.63)
[2018-09-09 06:49] LABS: ALANINE AMINOTRANSFERASE 17 U/L (16-63); ALKALINE PHOSPHATASE 130 U/L (50-136); ASPARTATE AMINOTRANSFERASE 21 U/L (15-37); BILIRUBIN,TOTAL 0.2 mg/dL (0.2-1.0); CARBON DIOXIDE 26 mmol/L (21-32); CHLORIDE 113 mmol/L (98-107); CREATININE 0.8 mg/dL (0.6-1.3); GLUCOSE 81 mg/dL (74-106); MAGNESIUM 2.1 mg/dL (1.8-2.4); PHOSPHOROUS 3.6 mg/dL (2.5-4.9); POTASSIUM 3.8 mmol/L (3.5-5.1); TOTAL PROTEIN, SERUM 5.1 g/dL (6.4-8.2); UREA NITROGEN, BLOOD 48 mg/dL (7-18)
[2018-09-09] MEDS: ACETYLCYSTEINE 20% 800 MG/4 ML VIAL NEB SCH ×2 (07:19→19:06)
[2018-09-09] MEDS: MULTIVIT, IRON, MIN NO. 8, FA TABLET GT SCH (08:48)
[2018-09-09] MEDS: ZINC SULFATE 220 MG CAPSULE GT SCH (08:48)
[2018-09-09] MEDS: Z GUARD REMEDY PASTE 57 GM TUBE TOP SCH ×2 (08:48→20:34)
[2018-09-09] MEDS: ASCORBIC ACID 500 MG TABLET GT SCH (08:48)
[2018-09-09] MEDS: AMIODARONE HCL 200 MG TABLET GT SCH (08:49)
[2018-09-09] MEDS: VANCOMYCIN FOR PO/GT/NG USE GT SCH ×2 (09:01→20:33)
--- NOTE | 2018-09-09 09:14 | NUR ---
DR CLIFFORD HERE AND SEEN PATIENT WITH NEW ORDERS AND NOTED.
[2018-09-09] MEDS ORDERED: ALBUTEROL SULFATE 1.25 MG/3 ML NEBU NEB PRN (09:45)
[2018-09-09] MEDS: ALBUTEROL SULFATE 1.25 MG/3 ML NEBU NEB SCH ×2 (13:18→19:07)
--- NOTE | 2018-09-09 18:00 | NUR ---
REMAINS THE SAME TOLERATING HIS FREE WATER FLUSHES NO RESPIRATORY DISTRESS AT THIS TIME.WILL CONTINUE TO OBSERVE.
[2018-09-09] MEDS ORDERED: OSMOLITE 1.2 CAL 1,000 ML LIQUID GT PRN ×2 (19:30→20:00)
[2018-09-10 00:33] VITALS: BP 129/63
[2018-09-10] MEDS: ALBUTEROL SULFATE 1.25 MG/3 ML NEBU NEB SCH ×3 (00:41→13:15)
[2018-09-10] MEDS: IPRATROPIUM BROMIDE 0.5 MG/2.5 ML NEBU NEB SCH ×3 (00:41→13:15)
[2018-09-10] MEDS: PANTOPRAZOLE ORAL SUSPENSION 40 MG SUSPDR.PKT GT SCH ×2 (05:11→17:15)
[2018-09-10] MEDS: PROTEIN SUPPLEMENT (PROSTAT) 30 ML LIQUID GT SCH ×2 (05:12→13:53)
[2018-09-10 05:15] VITALS: BP 110/62
[2018-09-10 06:13] LABS: ALANINE AMINOTRANSFERASE 19 U/L (16-63); ALKALINE PHOSPHATASE 129 U/L (50-136); ASPARTATE AMINOTRANSFERASE 21 U/L (15-37); BILIRUBIN,TOTAL 0.2 mg/dL (0.2-1.0); CARBON DIOXIDE 26 mmol/L (21-32); CHLORIDE 114 mmol/L (98-107); CREATININE 0.9 mg/dL (0.6-1.3); GLUCOSE 92 mg/dL (74-106); PHOSPHOROUS 3.7 mg/dL (2.5-4.9); POTASSIUM 3.4 mmol/L (3.5-5.1); UREA NITROGEN, BLOOD 43 mg/dL (7-18)
--- NOTE | 2018-09-10 06:47 | NUR ---
Pt rested well in between care; restarted GTF at 20ml/hr; HHN and suction per RT; wound dressing to donato heels and sacrum done; repositioned q2h; continue to monitor; continue plan of care.
[2018-09-10 07:18] LABS: BASOPHILS # (AUTO) 0.1 K/uL (0.0-8.0); BASOPHILS % (AUTO) 1.3 % (0.0-2.0); EOSINOPHILS # (AUTO) 0.2 K/uL (0.0-0.7); EOSINOPHILS % (AUTO) 2.6 % (0.0-7.0); HEMATOCRIT 27.4 % (36.7-47.1); HEMOGLOBIN 9.1 g/dL (12.5-16.3); LYMPHOCYTES # (AUTO) 1.9 K/uL (20.0-40.0); LYMPHOCYTES % (AUTO) 21.1 % (20.5-51.5); MEAN CORPUSCULAR HEMOGLOBIN 30.3 uug (23.8-33.4); MEAN CORPUSCULAR HGB CONC 33 g/dL (32.5-36.3); MEAN CORPUSCULAR VOLUME 91.7 fL (73.0-96.2); MONOCYTES # (AUTO) 0.7 K/uL (2.0-10.0); MONOCYTES % (AUTO) 8.2 % (0.0-11.0); NEUTROPHILS % (AUTO) 66.8 % (38.5-71.5); PLATELET COUNT (AUTO) 353 K/uL (152-348); RED BLOOD CELL COUNT(AUTO) 2.99 MIL/uL (4.06-5.63)
[2018-09-10] MEDS: ACETYLCYSTEINE 20% 800 MG/4 ML VIAL NEB SCH (07:57)
--- NOTE | 2018-09-10 08:00 | NUR ---
RECEIVED PATIENT IN BED AWAKE REMAINS NON VERBAL BUT NODS AT TIMES WHEN U SPEAK TO HIM HE IS ON O2 AT 2L/M BY NASAL CANULA WITH NO SOB PULSE OXY WNL TURNED AND REPOSITINED Q2H WITH TX IN PROGRESS ORDERED.GT FEEDINGS REMAIN ON HOLD AT THIS TIME TO RESUME AT 1000 BABCOCK AND RECTAL TUBE REMAIN IN PROGRESS MADE COMFORTABLE AND WILL CONTINUE TO OBSERVE AND PROVIDE A SAFE AND THERAPEUTIC ENVIRONMENT AT ALL TIMES.
[2018-09-10] MEDS: MULTIVIT, IRON, MIN NO. 8, FA TABLET GT SCH (08:47)
[2018-09-10] MEDS: ASCORBIC ACID 500 MG TABLET GT SCH (08:47)
[2018-09-10] MEDS: ZINC SULFATE 220 MG CAPSULE GT SCH (08:47)
[2018-09-10] MEDS: SUCRALFATE 1 G/10 ML LIQUID UDC GT SCH ×3 (08:47→17:03)
[2018-09-10] MEDS: Z GUARD REMEDY PASTE 57 GM TUBE TOP SCH (08:48)
[2018-09-10] MEDS: AMIODARONE HCL 200 MG TABLET GT SCH (08:48)
[2018-09-10] MEDS: VANCOMYCIN FOR PO/GT/NG USE GT SCH (08:52)
[2018-09-10 08:55] LABS: BASOPHILS % (MANUAL) 1 % (0-2); EOSINOPHILS % (MANUAL) 5 % (0-8); LYMPHOCYTES % (MANUAL) 24 % (20-40); METAMYELOCYTES % 1 % (0-1); MONOCYTES % (MANUAL) 9 % (2-10); NEUTROPHILS % (MANUAL) 60 % (42-75)
[2018-09-10 11:15] VITALS: BP 108/66
[2018-09-10] MEDS ORDERED: POTASSIUM CHLORIDE 20 MEQ POWDER PACKET GT ONE (11:45)
[2018-09-10 15:08] VITALS: BP 110/63
[2018-09-10] MEDS ORDERED: VANC500V GT (15:19)
[2018-09-10] MEDS ORDERED: PROT30LI GT (15:19)
[2018-09-10] MEDS ORDERED: LACT-89 GT (15:19)
[2018-09-10] MEDS ORDERED: SUCR1ORA GT (15:19)
[2018-09-10] MEDS ORDERED: ZINC220C8 GT (15:19)
[2018-09-10] MEDS ORDERED: ASCO500T9 GT (15:19)
[2018-09-10] MEDS ORDERED: IPRA0.2S6 NEB (15:19)
[2018-09-10] MEDS ORDERED: MENT71OI TOP (15:19)
--- NOTE | 2018-09-10 18:46 | NUR ---
CALLED [facility] SOMMER AND REPORT GIVEN TO MAXI FOR CONTINUING CARE.
--- NOTE | 2018-09-10 18:58 | NUR ---
PATIENT DISCHARGED P[facility] SATISFACTORY CONDITION WITH ALL THE DISCHARGE INSTRUCTIONS FROM DR HAYS.
== END 2018-09-10 18:57 | DRG 710 ==
LOC: ER 02:15 → TELE 07:16 → CCU 12:40 → TELE-TD 08-15 09:40 → TELE 08-16 04:50 → TELE-TD 08-16 20:47 → CCU 08-17 04:30 → TELE-TD 08-27 13:28 → CCU 09-04 18:06 → TELE 09-06 19:12 → MED 09-10 12:50
PROVIDERS: ADMIT Internal Medicine; ATTEND Hospitalist
PROC: 5A12012 Performance of Cardiac Output, Single, Manual (ICD-10-PCS; principal; 2018-08-07)
PROC: 5A1945Z Respiratory Ventilation, 24-96 Consecutive Hours (ICD-10-PCS; 2018-08-07)
PROC: 30243N1 Transfusion of Nonautologous Red Blood Cells into Central Vein, Percutaneous Approach (ICD-10-PCS; 2018-08-07)
PROC: 0BH17EZ Insertion of Endotracheal Airway into Trachea, Via Natural or Artificial Opening (ICD-10-PCS; 2018-08-07)
PROC: 06HY33Z Insertion of Infusion Device into Lower Vein, Percutaneous Approach (ICD-10-PCS; 2018-08-07)
PROC: 05JY3ZZ Inspection of Upper Vein, Percutaneous Approach (ICD-10-PCS; 2018-08-08)
PROC: 02HV33Z Insertion of Infusion Device into Superior Vena Cava, Percutaneous Approach (ICD-10-PCS; 2018-08-09)
PROC: 0W9B3ZX Drainage of Left Pleural Cavity, Percutaneous Approach, Diagnostic (ICD-10-PCS; 2018-08-14)
PROC: 5A09457 Assistance with Respiratory Ventilation, 24-96 Consecutive Hours, Continuous Positive Airway Pressure (ICD-10-PCS; 2018-08-17)
PROC: 0W9B3ZZ Drainage of Left Pleural Cavity, Percutaneous Approach (ICD-10-PCS; 2018-08-23)
PROC: 0QB10ZZ Excision of Sacrum, Open Approach (ICD-10-PCS; 2018-08-23)
PROC: 0W9B30Z Drainage of Left Pleural Cavity with Drainage Device, Percutaneous Approach (ICD-10-PCS; 2018-08-24)
DX: A41.9 Sepsis, unspecified organism (principal); J69.0 Pneumonitis due to inhalation of food and vomit; I21.A1 Myocardial infarction type 2; I46.9 Cardiac arrest, cause unspecified; E43 Unspecified severe protein-calorie malnutrition; G92 Toxic encephalopathy; J96.01 Acute respiratory failure with hypoxia; N17.0 Acute kidney failure with tubular necrosis; J91.8 Pleural effusion in other conditions classified elsewhere; J95.811 Postprocedural pneumothorax; E87.0 Hyperosmolality and hypernatremia; B37.49 Other urogenital candidiasis; Y84.4 Aspiration of fluid as the cause of abnormal reaction of the patient, or of later complication, without mention of misadventure at the time of the procedure; K92.2 Gastrointestinal hemorrhage, unspecified; D68.59 Other primary thrombophilia; R65.21 Severe sepsis with septic shock; R57.0 Cardiogenic shock; I50.33 Acute on chronic diastolic (congestive) heart failure; L89.623 Pressure ulcer of left heel, stage 3; L89.154 Pressure ulcer of sacral region, stage 4; I48.0 Paroxysmal atrial fibrillation; N39.0 Urinary tract infection, site not specified; B96.5 Pseudomonas (aeruginosa) (mallei) (pseudomallei) as the cause of diseases classified elsewhere; Z16.23 Resistance to quinolones and fluoroquinolones; Z16.24 Resistance to multiple antibiotics; D63.8 Anemia in other chronic diseases classified elsewhere; D50.0 Iron deficiency anemia secondary to blood loss (chronic); D75.89 Other specified diseases of blood and blood-forming organs; B36.9 Superficial mycosis, unspecified; I48.2 Chronic atrial fibrillation; N40.0 Benign prostatic hyperplasia without lower urinary tract symptoms; M19.071 Primary osteoarthritis, right ankle and foot; Z74.09 Other reduced mobility; M51.36 Other intervertebral disc degeneration, lumbar region; I13.0 Hypertensive heart and chronic kidney disease with heart failure and stage 1 through stage 4 chronic kidney disease, or unspecified chronic kidney disease; N18.9 Chronic kidney disease, unspecified; R62.7 Adult failure to thrive; Z68.1 Body mass index [BMI] 19.9 or less, adult; F31.9 Bipolar disorder, unspecified; J98.11 Atelectasis; L89.610 Pressure ulcer of right heel, unstageable; F41.9 Anxiety disorder, unspecified; E87.6 Hypokalemia; F03.90 Unspecified dementia, unspecified severity, without behavioral disturbance, psychotic disturbance, mood disturbance, and anxiety; I25.10 Atherosclerotic heart disease of native coronary artery without angina pectoris; B35.1 Tinea unguium; E87.4 Mixed disorder of acid-base balance; R13.10 Dysphagia, unspecified; R47.02 Dysphasia; M89.9 Disorder of bone, unspecified; Z86.14 Personal history of Methicillin resistant Staphylococcus aureus infection; Z86.73 Personal history of transient ischemic attack (TIA), and cerebral infarction without residual deficits; Z86.718 Personal history of other venous thrombosis and embolism; Z93.1 Gastrostomy status; Z87.440 Personal history of urinary (tract) infections; Z87.891 Personal history of nicotine dependence; M41.9 Scoliosis, unspecified; I70.0 Atherosclerosis of aorta
CPT/HCPCS: 32555; 36415; 36556; 36569; 36600; 70030-TC; 71045; 74018; 76604; 83550; 83605; 83615; 83690; 83735; 84100; 84153; 84155; 84300; 85025; 85730; 86850; 86900; 86901; 86920; 87040; 87070; 87077; 87086; 87205; 93005; 93307; 94002; 94003; 94640; 94660; A4217; A4663; C1751; C9113; G0378; J0171; J0282; J0713; J0885; J1450; J1940; J1956; J2185; J3370; J3475; J3480; J3490; J3590; J7030; J7040; J7050; J7060; J7070; J7614; P9016-BL; P9021; P9047